=== PATIENT | female | born 1970 | race Caucasian/White ===

== ENCOUNTER 2017-10-26 21:12 | Emergency (ER) | payer BC, SELFPAY ==
--- NOTE | 2017-10-26 21:30 | CT_ITS ---
CT Abdomen And Pelvis W/O Contrast INDICATION: LT FLANK PAIN. Hx of KS with basket extraction on right. Prev GA/BSO and appendectomy COMPARISON: June 20, 2017 TECHNIQUE: Axial CT imaging of the abdomen and pelvis without contrast. Coronal and sagittal reformatted images. Radiation dose optimization technique applied. FINDINGS: The visualized lung bases are clear. The heart size is normal. The liver, gallbladder, spleen, adrenal glands, and pancreas are grossly unremarkable noncontrast CT appearance. The right kidney is without evidence of nephrolithiasis or hydronephrosis. The left kidney contains a 3.5 mm calculus in the midpole region, which appears nonobstructive. There is no evidence of hydronephrosis or hydroureter. The urinary bladder is decompressed. The bowel loops are nondistended. The appendix is not visualized. There is mild sigmoid diverticulosis without evidence of acute diverticulitis. The wall of the sigmoid colon and rectum appears mildly thickened, which could be due to underdistention or inflammation. CT/Abdomen/Pelvis without Cont IMPRESSION: 3.5 mm nonobstructing left renal calculus. No evidence of right renal calculus. No evidence of ureteral calculus. Questionable wall thickening of the sigmoid colon and rectum, cannot exclude mild colitis, please correlate with clinical findings. Underlying sigmoid diverticulosis. at [id number] Reported and signed by: Pamela Haile MD Electronically Signed: Pamela Haile MD at 22:34 EDT Tel , Service support ,
[2017-10-26 23:24] LABS: Bacteria 0 SEEN /hpf (None Seen); Mucous, Urine 0 SEEN /hpf (<or=2+); Red Blood Cells-Urine 0 SEEN /hpf (0-5); White Blood Cells 0 SEEN /hpf (0-5)
[2017-10-26 23:40] LABS: Color, Urine Yellow (Yellow); Glucose, Dipstick Normal (Normal); Urine Bilirubin Dipstick Negative (Negative); Urine Clarity Clear (Clear)
[2017-10-26 23:41] LABS: Ketone-Dipstick Negative (Negative); Leukocyte Esterase-Dipstick Negative /ul (Negative); Nitrite-Dipstick Negative (Negative); Occult Blood-Urine 10 /ul (Negative); Protein-Dipstick Negative (Negative); Specific Gravity, Urine 1.025 (1.002-1.030); Squamous Epithelial Cells - UA 0-5 SEEN /hpf (5-10); Urine Urobilinogen Normal (Normal)
--- NOTE | 2017-10-27 01:04 | ED.DCSUM_ITS ---
- ER Visit Summary Date of Service: 10/27/17 Chief Complaint: Flank pain History of Present Illness: The patient is a 47 F who states that she is believes that she is passing a kidney stone. Patient states that she developed a left lower quadrant and described as sharp and stabbing radiating to her flank. Around 1700 it began it has been continuous. She denies any urinary symptoms. She notes a little bit of diarrhea but states that that is not uncommon. He will bring the stool. No fevers. No pain with movement. She denies any history of diverticulosis or diverticulitis. No history of colitis. She reports a allergy to NSAIDs. Physical Examination: Afebrile vital signs are stable Gen: Well-nourished well-developed Head: Normocephalic atraumatic Eyes: Perrl EOMI ENT: TMs clear no rhinorrhea moist mucous membranes Neck: Supple no lymphadenopathy no JVD nontender CVS: Regular rate rhythm no murmurs normal S1-S2 Respiratory: No distress clear to auscultation bilaterally chest nontender Abdomen: Soft nontender nondistended normal bowel sounds no masses Back: Left CVA tenderness Extremity: Nontender no edema Skin: Normal color no rash Neuro: alert orientated ?3 CN II-XII intact normal strength sensation reflexes gait cerebellar Psych: Normal affect normal mood Test Results: CBC chemistries and urine were normal. CT the flank does not demonstrate any stone in the ureters. There is no hydronephroureter. The noncontrasted CT showed possible thickening of the rectosigmoid colon. However the patient is nontender in this area. She has had no blood in stool and she has no history of this. She does have a history of diverticulosis. Emergency Department Course and Treatment: Received morphine and fluids. Patient states the morphine did not help. She states that there is a medication that begins with the D that does help her. I do not see an obvious cause for her pain. She will be discharged home to follow-up with her doctors. Impression: 1. Left flank pain This note was generated with [employer] dictation software. It may contain incorrect words, spelling, and punctuation that were not noted in review of the chart prior to signing ED Disposition - Plan for ED Patient: Referrals: Rich Ravi MD [Primary Care Provider] -
[2017-10-27 01:22] LABS: Hematocrit 42.1 % (37-47); Hemoglobin 13.8 g/dl (12.0-15.0); Mean Corp Hgb Conc 32.8 g/gl (32-36); Mean Corpuscular Hgb 28.7 pg (27.0-32.0); Mean Corpuscular Volume 87.5 fL (81-99); RBC Distribution Width CV 13.9 % (11.6-14.6); RBC Distribution Width SD 44.5 fl (35.1-43.9); Red Blood Count 4.81 M/mm3 (4.2-5.4); White Blood Count 7.3 K/mm3 (4.4-11.0)
[2017-10-27 01:23] LABS: Absolute Lymphocyte Count 3.05 X10^3/ul (0.83-4.51); Absolute Neutrophil Count 3.5 X10^3/uL (2.0-7.7); Basophil# 0.05 X10^3/uL; Basophil% 0.7 % (0-1); Eosinophil# 0.28 X10^3/uL; Eosinophils% 3.9 % (0-5); Lymphocyte # 3.05 X10^3/ul (4.0); Lymphocyte % 42.1 % (19-41); Mean Platelet Vol. 9.4 fl (6.2-12.0); Monocyte% 5.5 % (0-10); Neutrophil # 3.45 X10^3/uL (2.7-7.7); Neutrophil % 47.5 % (47-70); POSITIVE COUNT NO; POSITIVE DIFFERENTIAL NO; POSITIVE MORPHOLOGY NO; Platelet Count 298 K/mm3 (150-450)
[2017-10-27 01:31] LABS: Anion Gap 8 (5-15); BUN 12 mg/dL (7-18); BUN/Creat Ratio 11.4 RATIO (10-20); Calcium,Total 8.5 mg/dL (8.5-10.1); Chloride 111 mmol/L (98-107); Creatinine, Serum 1.05 mg/dL (0.55-1.02); EST Glomerular Filtration Rate 59 mL/min (>60); Est Glom Filt Rate - Afr Amer 72 mL/min (>60); Glucose 92 mg/dL (74-106); Potassium 4.2 mmol/L (3.5-5.1); Sodium Level 143 mmol/L (136-145)
== END 2017-10-26 23:10 | disposition home or self-care (01) ==
PROVIDERS: Emergency Provider Emergency Medicine; Family Provider Internal Medicine; PCP Internal Medicine
DX: R10.9 Unspecified abdominal pain (principal); Z72.0 Tobacco use; R11.2 Nausea with vomiting, unspecified; R19.7 Diarrhea, unspecified
CPT/HCPCS: 36415; 74176; 80048; 81001; 85025; 96374; 96375; 99284; A4216; J2405

== ENCOUNTER 2017-10-27 14:55 | Emergency (ER) | payer MEDICAID, SELFPAY ==
[2017-10-27 14:55] VITALS: BP 145/92; PULSE 81; RESP 18; TEMP 36.2; O2SAT 100; BMI 33.6
--- NOTE | 2017-10-27 15:20 | ED.VISSUMM ---
- ER Visit Summary Date of Service: 10/27/17 Chief Complaint: Left flank and abdominal pain History of Present Illness: The patient is a 47 F who presents for 1 day of left sided flank and abdominal pain. Onset was yesterday evening. Patient was evaluated for this pain in the emergency department last night, and had a CT scan showing no urolithiasis, no hydronephrosis or hydroureter, and mild inflammatory changes in the sigmoid colon with diverticulosis, possibly indicating colitis. Patient was discharged home and returns today stating her pain worsened 1 hour prior to presentation. She has had one episode of vomiting since discharge yesterday. She also has had 2 episodes of loose stool. She has a history of one kidney stone, hypertension, hypercholesterolemia. She is status post hysterectomy and bilateral salpingo-oophorectomy. Patient denies fever, chest pain, shortness of breath. She states she has been having pressure with urination, urinary frequency and urgency since yesterday. Physical Examination: Vital signs: afebrile, hemodynamically stable, no hypoxia on room air General: well nourished, well developed, in no distress Skin: warm, dry, no rash, no pallor HEENT: normocephalic and atraumatic; PERRL, EOMI, moist mucous membranes Cardiovascular: regular rate and rhythm without murmurs, no peripheral edema, 2+ pulses all distal extremities Respiratory: No increased work of breathing, lungs are clear to auscultation bilaterally, no rales, rhonchi or wheezing Abdominal: Abdomen is soft, tender in the left lower quadrant, no CVA tenderness, with normoactive bowel sounds, no guarding or rebound, no masses, no suprapubic tenderness MSK: Moves all extremities, no deformities, normal strength Neuro: Awake and alert, oriented ?4. No facial droop, sensation and motor function intact and symmetric Test Results: [] Emergency Department Course and Treatment: Workup from yesterday was reviewed. Patient had no leukocytosis. Urine was negative for infection. CT scan showed no urolithiasis but did have mild inflammatory changes in the sigmoid colon, which may be responsible for patient's left lower quadrant tenderness today, although she is stating her pain is more left mid and left flank. Pt is s/p hysterectomy and BSO, taking ovarian torsion off the differential. urinalysis was ordered since patient is now complaining of more urinary symptoms. Patient was ordered Zofran and Tylenol for symptomatic relief since she is allergic to all NSAIDs and states morphine did not work for her yesterday. Patient may have early diverticulitis given that she has diverticulosis and inflammation in the sigmoid colon, so the plan was to start her on antibiotic treatment for early uncomplicated diverticulitis. However the patient stated she wanted to leave rather than have the urinalysis or any further treatment/workup/prescriptions. Patient signed AGAINST MEDICAL ADVICE form and was advised she could return at any time if she changed her mind. Treatment Plan: [] Disposition: [] Impression: Left-sided abdominal pain, possible early diverticulitis vs. colitis This note was generated with [employer] dictation software. It may contain incorrect words, spelling, and punctuation that were not noted in review of the chart prior to signing ED Disposition - Plan for ED Patient: Disposition: Home or Assisted Living Chief Complaint: Flank Pain Instructions: ED Abdominal Pain Unkn Cause, ED Refusal Of Further Treatment Referrals: Rich Ravi MD [Primary Care Provider] - As soon as possible Additional Instructions: Please see your family doctor as soon as possible for reevaluation. You have chosen to leave AGAINST MEDICAL ADVICE, without receiving workup or treatment for your abdominal pain. If you change your mind you may return at anytime for continuation of your workup and treatment.
--- NOTE | 2017-10-27 15:25 | ED.RN ---
pt refusing to stay for treatment and testing in er. signed ama paper. dr. grace discussed benefits and risks.
--- NOTE | 2017-10-27 15:26 | ED.DCSUM_ITS ---
- ER Visit Summary Date of Service: 10/27/17 Chief Complaint: Left flank and abdominal pain History of Present Illness: The patient is a 47 F who presents for 1 day of left sided flank and abdominal pain. Onset was yesterday evening. Patient was evaluated for this pain in the emergency department last night, and had a CT scan showing no urolithiasis, no hydronephrosis or hydroureter, and mild inflammatory changes in the sigmoid colon with diverticulosis, possibly indicating colitis. Patient was discharged home and returns today stating her pain worsened 1 hour prior to presentation. She has had one episode of vomiting since discharge yesterday. She also has had 2 episodes of loose stool. She has a history of one kidney stone, hypertension, hypercholesterolemia. She is status post hysterectomy and bilateral salpingo- oophorectomy. Patient denies fever, chest pain, shortness of breath. She states she has been having pressure with urination, urinary frequency and urgency since yesterday. Physical Examination: Vital signs: afebrile, hemodynamically stable, no hypoxia on room air General: well nourished, well developed, in no distress Skin: warm, dry, no rash, no pallor HEENT: normocephalic and atraumatic; PERRL, EOMI, moist mucous membranes Cardiovascular: regular rate and rhythm without murmurs, no peripheral edema, 2 + pulses all distal extremities Respiratory: No increased work of breathing, lungs are clear to auscultation bilaterally, no rales, rhonchi or wheezing Abdominal: Abdomen is soft, tender in the left lower quadrant, no CVA tenderness , with normoactive bowel sounds, no guarding or rebound, no masses, no suprapubic tenderness MSK: Moves all extremities, no deformities, normal strength Neuro: Awake and alert, oriented ?4. No facial droop, sensation and motor function intact and symmetric Test Results: [] Emergency Department Course and Treatment: Workup from yesterday was reviewed. Patient had no leukocytosis. Urine was negative for infection. CT scan showed no urolithiasis but did have mild inflammatory changes in the sigmoid colon, which may be responsible for patient's left lower quadrant tenderness today, although she is stating her pain is more left mid and left flank. Pt is s/p hysterectomy and BSO, taking ovarian torsion off the differential. urinalysis was ordered since patient is now complaining of more urinary symptoms. Patient was ordered Zofran and Tylenol for symptomatic relief since she is allergic to all NSAIDs and states morphine did not work for her yesterday. Patient may have early diverticulitis given that she has diverticulosis and inflammation in the sigmoid colon, so the plan was to start her on antibiotic treatment for early uncomplicated diverticulitis. However the patient stated she wanted to leave rather than have the urinalysis or any further treatment/workup/ prescriptions. Patient signed AGAINST MEDICAL ADVICE form and was advised she could return at any time if she changed her mind. Treatment Plan: [] Disposition: [] Impression: Left-sided abdominal pain, possible early diverticulitis vs. colitis This note was generated with [employer] dictation software. It may contain incorrect words, spelling, and punctuation that were not noted in review of the chart prior to signing ED Disposition - Plan for ED Patient: Disposition: Home or Assisted Living Chief Complaint: Flank Pain Instructions: ED Abdominal Pain Unkn Cause, ED Refusal Of Further Treatment Referrals: Rich Rvai MD [Primary Care Provider] - As soon as possible Additional Instructions: Please see your family doctor as soon as possible for reevaluation. You have chosen to leave AGAINST MEDICAL ADVICE, without receiving workup or treatment for your abdominal pain. If you change your mind you may return at anytime for continuation of your workup and treatment.
== END 2017-10-27 15:33 | disposition left against medical advice (07) ==
PROVIDERS: Emergency Provider Emergency Medicine; Family Provider Internal Medicine; PCP Internal Medicine
DX: R10.9 Unspecified abdominal pain (principal); R11.2 Nausea with vomiting, unspecified; R19.7 Diarrhea, unspecified; R35.0 Frequency of micturition; R39.15 Urgency of urination; E78.00 Pure hypercholesterolemia, unspecified; I10 Essential (primary) hypertension; Z72.0 Tobacco use; Z87.442 Personal history of urinary calculi; Z90.710 Acquired absence of both cervix and uterus; Z79.899 Other long term (current) drug therapy
CPT/HCPCS: 99282

== ENCOUNTER 2017-11-16 15:00 | Emergency (ER) | payer MEDICAID, SELFPAY ==
[2017-11-16 15:01] VITALS: BP 133/89; PULSE 94; RESP 16; TEMP 37.2; O2SAT 99; BMI 34.0
[2017-11-16 15:09] VITALS: BP 130/79; PULSE 90; RESP 14; O2SAT 98
--- NOTE | 2017-11-16 15:16 | US_ITS ---
STUDY: ABDOMINAL ULTRASOUND - RIGHT UPPER QUADRANT REASON FOR VISIT: Female, 47 years old. Right upper quadrant pain TECHNIQUE: Ultrasound evaluation of the right upper quadrant was performed with real-time and static quintero-scale imaging. TECHNICAL QUALITY: Adequate. COMPARISON: Abdomen and pelvic CT exam of October 26, 2017 FINDINGS: Liver: The liver measures 14 cm. There is normal echogenicity of the liver. The bile ducts are within normal limits. There is hepatic color flow. The direction of portal flow is hepatopetal. There is no demonstrated mass lesion. Gallbladder: Normal distended gallbladder. The gallbladder wall measures 3 mm. There is a negative sonographic Mathew's sign. There is no pericholecystic fluid. There are no gallstones. Common Bile Duct (C.B.D.): The common bile duct measures 4 mm. Pancreas: Normal size of the head, body and tail of the pancreas. Fatty parenchyma. There is no demonstrated pancreatic mass or cyst. Right Kidney: Normal size of the right kidney. The right kidney measures 11.4 x 4.3 x 4.4 cm. Normal renal cortex. The right cortex measures 1.2 cm. There is no demonstrated renal mass or cyst. There is no right hydronephrosis. US/Gallbladder IMPRESSION: Normal liver. Normal gallbladder and nondistended common bile duct. Fatty normal size pancreas. Normal right kidney. Electronically Signed: Tania Tian MD at 16:27 EDT , Service support ,
--- NOTE | 2017-11-16 15:19 | ED.DCSUM_ITS ---
- ER Visit Summary Date of Service: 11/16/17 Chief Complaint: [] Right upper quadrant abdominal pain History of Present Illness: The patient is a 47 F [] complaining of right upper quadrant abdominal pain beginning at 5:30 AM this morning. She reports she has been vomiting since then. Denies any previous history of gallbladder or liver issues. Denies fevers. Denies diarrhea/constipation. Denies hematemesis. She is concerned for the possibility of gallbladder disease. Physical Examination: [] Afebrile, vital signs stable. 47-year-old female in no acute distress. Cardiovascular exam is regular rate and rhythm. Lungs are clear to auscultation. Abdomen is soft with right upper quadrant tenderness. There is voluntary guarding. No lower extremity edema. Test Results: [] Right upper quadrant ultrasound: Negative for gallstones. CT abdomen/pelvis without contrast: Negative for stones or acute pathology. Labs: Negative. Emergency Department Course and Treatment: [] Patient given intravenous fluids, Zofran, Dilaudid for symptom relief. On serial exam patient reported continued pain and was given a second dose of Dilaudid. Labs and CT scan and ultrasound all returned negative. Patient requested additional pain medication and this request was denied. She had a very benign exam on serial evaluation. Treatment Plan: [] Follow-up with primary care physician. Disposition: [] Discharge, stable. Impression: [] Abdominal pain, unknown etiology This note was generated with [employer] dictation software. It may contain incorrect words, spelling, and punctuation that were not noted in review of the chart prior to signing ED Disposition - Plan for ED Patient: Chief Complaint: Abd Pain Referrals: Rich Ravi MD [Primary Care Provider] -
[2017-11-16] MEDS: HYDROmorphone 1 MG/ML Syringe IV ×2 (15:31→16:11)
[2017-11-16] MEDS: 0.9% Normal Saline 1,000 ML 1000 ML IV (15:31)
[2017-11-16] MEDS: Ondansetron 4 MG/2 ML Vial IV (15:39)
[2017-11-16 16:03] LABS: Absolute Lymphocyte Count 1.88 X10^3/ul (0.83-4.51); Absolute Neutrophil Count 1.7 X10^3/uL (2.0-7.7); Basophil# 0.05 X10^3/uL; Basophil% 1.2 % (0-1); Eosinophil# 0.12 X10^3/uL; Hematocrit 41.9 % (37-47); Hemoglobin 13.5 g/dl (12.0-15.0); International Normalized Ratio 0.9; Lymphocyte # 1.88 X10^3/ul (4.0); Lymphocyte % 46.5 % (19-41); Mean Corp Hgb Conc 32.2 g/gl (32-36); Mean Corpuscular Hgb 28.2 pg (27.0-32.0); Mean Corpuscular Volume 87.5 fL (81-99); Mean Platelet Vol. 9.7 fl (6.2-12.0); Monocyte# 0.31 X10^3/uL; Monocyte% 7.7 % (0-10); Neutrophil # 1.67 X10^3/uL (2.7-7.7); Neutrophil % 41.4 % (47-70); Platelet Count 254 K/mm3 (150-450); Prothrombin Time (Protime)PT. 12.6 SECONDS (11.7-14.9); RBC Distribution Width CV 14.2 % (11.6-14.6); RBC Distribution Width SD 45.1 fl (35.1-43.9); Red Blood Count 4.79 M/mm3 (4.2-5.4)
[2017-11-16 16:04] LABS: POSITIVE COUNT NO; POSITIVE DIFFERENTIAL NO; POSITIVE MORPHOLOGY NO
[2017-11-16 16:07] LABS: ALB/GLOB Ratio 0.9 RATIO (0.9-2.4); AST(SGOT) 17 U/L (15-37); Alanine Aminotransfer ALT/SGPT 23 U/L (13-56); Albumin, Serum 3.9 g/dL (3.2-5.0); Alkaline Phosphatase 102 U/L (45-117); Anion Gap 9 (5-15); BUN 12 mg/dL (7-18); BUN/Creat Ratio 11.9 RATIO (10-20); Calcium,Total 8.9 mg/dL (8.5-10.1); Chloride 109 mmol/L (98-107); Creatinine, Serum 1.01 mg/dL (0.55-1.02); EST Glomerular Filtration Rate 62 mL/min (>60); Est Glom Filt Rate - Afr Amer 75 mL/min (>60); Estimated Creatinine Clearance 56.35 ml/min; Globulin 4.3 g/dL (2.2-4.2); Glucose 98 mg/dL (74-106); Lipase 104 U/L (73-393); Potassium 3.6 mmol/L (3.5-5.1); Protein, Total 8.2 g/dL (6.4-8.2); Sodium Level 141 mmol/L (136-145)
--- NOTE | 2017-11-16 16:36 | CT_ITS ---
STUDY: CT ABDOMEN AND PELVIS WITHOUT CONTRAST REASON FOR EXAM: Female, 47 years old. Right flank pain with history of stones. Prior history of GA/BSO and appendectomy RADIATION DOSAGE (If Supplied By Facility): CTDIvol = ( 13.94 ) mGy, DLP = ( 672.26 ) mGycm TECHNIQUE: Transaxial images were obtained from the dome of the diaphragm to the symphysis pubis without oral contrast, and without intravenous contrast. Sagittal and coronal images were reconstructed. Individualized dose optimization techniques were used for this CT. COMPARISON: Prior abdomen and pelvic CT exam of October 26, 2017 FINDINGS: Increased bibasilar atelectatic changes. The visualized portions of the heart are within normal limits. Normal liver. Normal gallbladder and extrahepatic biliary system. Normal spleen. Normal pancreas. Normal bilateral adrenal glands. Normal right kidney. Nonobstructing 3.5 mm stone in the midpole of the left kidney unchanged from the prior exam. Negative for left hydronephrosis or ureteral stones. Normal visualized stomach. Normal small intestine. Normal colon. There are surgical clips in the region of the appendix consistent with a prior appendectomy. Minimal calcified plaque of the aorta. Normal inferior vena cava. Normal retroperitoneum. Normal urinary bladder. Status post hysterectomy with no pelvic mass or free fluid of the pelvis. Normal abdominal wall. Normal osseous structures. CT/Abdomen/Pelvis without Cont IMPRESSION: No acute abdominal or pelvic findings. Normal right kidney without hydronephrosis, renal or ureteral stones. 3.5 mm nonobstructing stone in the midpole of the left kidney without hydronephrosis or ureteral stones unchanged from the prior exam. Normal right kidney without hydronephrosis or stones. Unremarkable urinary bladder. No acute bowel related findings. Negative for evidence of obstruction, perforation or inflammatory bowel changes. The appendix has been removed. Status post hysterectomy with no pelvic mass or free fluid in the pelvis. Electronically Signed: Tania Tian MD at 17:34 EDT , Service support ,
[2017-11-16 17:24] LABS: Bacteria 0 SEEN /hpf (None Seen); Mucous, Urine 0 SEEN /hpf (<or=2+); Red Blood Cells-Urine 0 SEEN /hpf (0-5); White Blood Cells 0 SEEN /hpf (0-5)
[2017-11-16 17:32] LABS: Color, Urine Yellow (Yellow); Glucose, Dipstick Normal (Normal); Ketone-Dipstick Negative (Negative); Leukocyte Esterase-Dipstick Negative /ul (Negative); Nitrite-Dipstick Negative (Negative); Occult Blood-Urine Negative /ul (Negative); Protein-Dipstick Negative (Negative); Urine Bilirubin Dipstick Negative (Negative); Urine Clarity Clear (Clear); Urine Urobilinogen Normal (Normal)
[2017-11-16 17:36] VITALS: BP 115/70; PULSE 85; RESP 14; O2SAT 99
[2017-11-16 17:43] LABS: Squamous Epithelial Cells - UA 0-5 SEEN /hpf (5-10)
--- NOTE | 2017-11-16 18:29 | ED.DEP ---
ED Disposition - Plan for ED Patient: Disposition: Home or Assisted Living Chief Complaint: Abd Pain Instructions: ED Abdominal Pain Unkn Cause Referrals: Rich Ravi MD [Primary Care Provider] -
[2017-11-16 18:49] VITALS: BP 129/62; PULSE 76; RESP 22; O2SAT 97
--- NOTE | 2017-11-16 18:49 | ED.RN ---
THIS NURSE REVIEWED D/C INSTRUCTIONS WITH PT. PT VERBALIZED UNDERSTANDING OF INSTRUCTIONS. IV D/C. IV CATHETER INTACT. PT TOLERATED WELL. PT DENIES FURTHER NEEDS OR QUESTIONS AT THIS TIME. PT AMBULATES FROM ROOM ON OWN WITHOUT ASSISTANCE FROM STAFF
== END 2017-11-16 18:50 | disposition home or self-care (01) ==
PROVIDERS: Emergency Provider Emergency Medicine; Family Provider Internal Medicine; PCP Internal Medicine
DX: R10.11 Right upper quadrant pain (principal); K29.70 Gastritis, unspecified, without bleeding; I10 Essential (primary) hypertension; E66.9 Obesity, unspecified; Z72.0 Tobacco use; Z79.899 Other long term (current) drug therapy
CPT/HCPCS: 74176; 76705; 80053; 81001; 83690; 85025; 85610; 96361; 96374; 96375; 96376; 99283; J7030; A4216; J2405

== ENCOUNTER 2017-12-14 21:50 | Emergency (ER) | payer BC, SELFPAY ==
--- NOTE | 2017-12-14 21:50 | DT_ITS ---
This patient was seen during an EMR downtime December 10, 2017 - December 17, 2017. This patient may have a combination of paper and electronic documentation or all paper documentation. All documentation is viewable within the e-chart portion of [facility] for each patient visit.
--- NOTE | 2017-12-14 23:20 | CT_ITS ---
STUDY: CT ABDOMEN AND PELVIS WITHOUT CONTRAST REASON FOR EXAM: Female, 47 years old. Right side abdominal pain and flank pain for 6 hours RADIATION DOSAGE (If Supplied By Facility): CTDIvol = ( 15.53 ) mGy, DLP = ( 768.42 ) mGycm TECHNIQUE: Transaxial images were obtained from the dome of the diaphragm to the symphysis pubis without oral contrast, and without intravenous contrast. Sagittal and coronal images were reconstructed. Individualized dose optimization techniques were used for this CT. COMPARISON: None. FINDINGS: There is subtle groundglass opacity within the lung bases suggestive of air trapping. The visualized portions of the heart are within normal limits. Normal liver. The gallbladder is distended. Normal spleen. Normal pancreas. Normal bilateral adrenal glands. Normal right kidney. There is a stone in the upper pole of the left kidney measuring there is a 5.8 x 3.1 mm stone in the left kidney. There is no evidence of hydronephrosis. Normal visualized stomach. There are mildly distended loops of small bowel. There is a mildly tortuous appearance of the large bowel. There are a few diverticula present without diverticulitis. Particular there is a outpouching of the descending colon image #52 which may contain residual contrast from a prior procedure or potentially partial calcification. This measures 7.2 mm and does not appear to contain gas. There are surgical clips in the region of the appendix consistent with a prior appendectomy. The aorta is partially calcified. Normal inferior vena cava. Normal retroperitoneum. Normal urinary bladder. There is absence of the uterus consistent with a prior hysterectomy. Normal abdominal wall. There is an old Schmorl's node at the level T10. CT/Abdomen/Pelvis without Cont IMPRESSION: No evidence of renal ureteral bladder calculi on the right side. There is a left-sided stone without hydronephrosis. There is mild distention of the small bowel could consider mild ileus. There is a minimal hiatal hernia. There is a 7 mm rounded outpouching or mass adjacent to the descending colon. This may represent a diverticulum versus the possibility of a small partially fatty mass without evidence of inflammation. It may have peripheral calcification. A comparison to a prior study or follow-up study in 3-6 months is suggested. Status post appendectomy. Distended gallbladder could consider follow-up ultrasound. Status post hysterectomy. Subtle groundglass opacity in the lungs suspicious for probable air trapping. Electronically Signed: Tammy Stout MD at 23:53 EDT Tel , Service support ,
[2017-12-18 02:07] LABS: Anion Gap 7 (5-15); BUN 12 mg/dL (7-18); BUN/Creat Ratio 11.1 RATIO (10-20); Calcium,Total 8.6 mg/dL (8.5-10.1); Chloride 105 mmol/L (98-107); Creatinine, Serum 1.08 mg/dL (0.55-1.02); EST Glomerular Filtration Rate 58 mL/min (>60); Est Glom Filt Rate - Afr Amer 70 mL/min (>60); Glucose 101 mg/dL (74-106); Potassium 3.7 mmol/L (3.5-5.1); Sodium Level 136 mmol/L (136-145)
[2017-12-18 04:51] LABS: Hematocrit 40.3 % (37-47); Hemoglobin 13.4 g/dl (12.0-15.0); Mean Corp Hgb Conc 33.3 g/gl (32-36); Mean Corpuscular Hgb 28.6 pg (27.0-32.0); Mean Corpuscular Volume 86.1 fL (81-99); Mean Platelet Vol. 9.3 fl (6.2-12.0); POSITIVE COUNT NO; POSITIVE DIFFERENTIAL NO; POSITIVE MORPHOLOGY NO; Platelet Count 367 K/mm3 (150-450); RBC Distribution Width CV 14.3 % (11.6-14.6); RBC Distribution Width SD 44.4 fl (35.1-43.9); Red Blood Count 4.68 M/mm3 (4.2-5.4); White Blood Count 5.9 K/mm3 (4.4-11.0)
[2017-12-18 04:52] LABS: Absolute Lymphocyte Count 2.46 X10^3/ul (0.83-4.51); Absolute Neutrophil Count 2.7 X10^3/uL (2.0-7.7); Basophil% 1.7 % (0-1); Eosinophil# 0.19 X10^3/uL; Eosinophils% 3.2 % (0-5); Lymphocyte # 2.46 X10^3/ul (4.0); Lymphocyte % 41.7 % (19-41); Monocyte# 0.46 X10^3/uL; Monocyte% 7.8 % (0-10); Neutrophil # 2.66 X10^3/uL (2.7-7.7); Neutrophil % 45.1 % (47-70)
== END 2017-12-15 00:45 | disposition home or self-care (01) ==
LOC: ED 12-15 13:51
PROVIDERS: Emergency Provider Emergency Medicine; Family Provider Internal Medicine; PCP Internal Medicine
DX: R10.31 Right lower quadrant pain (principal); Z87.442 Personal history of urinary calculi; I10 Essential (primary) hypertension; E78.00 Pure hypercholesterolemia, unspecified; F32.9 Major depressive disorder, single episode, unspecified; Z79.899 Other long term (current) drug therapy; Z72.0 Tobacco use
CPT/HCPCS: 74176; 80048; 85025; 96361; 96374; 99284; J7030; A4216

== ENCOUNTER 2018-03-06 11:35 | Emergency (ER) | payer OTHER, BC, SELFPAY ==
[2018-03-06 11:36] VITALS: BP 156/89; PULSE 98; RESP 18; TEMP 36.4; O2SAT 98; BMI 31.8
--- NOTE | 2018-03-06 11:56 | ED.VISSUMM ---
- ER Visit Summary Date of Service: 03/06/18 Chief Complaint: [Back injury] History of Present Illness: The patient is a 47 F [presents the emergency department with complaint of a back injury that occurred while at work yesterday morning. 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 Patient had some pain radiating on the back of her left leg. Patient states the pain only radiates down the leg intermittently. Patient's had some pins and needles sensations at times in her left leg. Patient denies weakness in the leg. She denies change in bowel or bladder function.] Physical Examination: [HEENT-PERRLA, EOMI. Cranial nerves II through XII grossly intact. TMs clear. Mucous membranes moist. No adenopathy. Cardiovascular-regular rate and rhythm without murmur or ectopy Lungs-clear to auscultation, chest wall stable without crepitus or subcu emphysema Abdomen-normoactive bowel sounds, soft, nontender, no rebound or rigidity, no peritoneal signs. Back exam-patient has no tenderness over the thoracic or lumbar spine. Patient does have some tenderness over left lumbar paraspinal musculature. Patient does have a positive straight leg raise with pain at 45? on the left. Deep tendon reflexes are plus 2 out of 4 bilaterally at the patella and Achilles. Patient has normal L5 extension. Patient has normal sensation to light touch. Extremities-intact ?4, normal range of motion, normal pulses, atraumatic] Test Results: [None indicated]. Patient understands that if her symptoms do not improve she may need imaging such as possibly MRI to evaluate further. 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 Patient to follow-up with corporate care in 3-5 days. Patient given work restrictions.] Disposition: [Discharged home in stable condition]. Patient advised to return if worsening pain, weakness in extremities, change in bowel or bladder function, or condition should worsen anyway. Impression: [Lumbar strain Lumbar radiculopathy] This note was generated with [employer] dictation software. It may contain incorrect words, spelling, and punctuation that were not noted in review of the chart prior to signing ED Disposition - Plan for ED Patient: Chief Complaint: Back Referrals: Rich Ravi MD [Primary Care Provider] -
--- NOTE | 2018-03-06 11:58 | ED.DEP ---
ED Disposition - Plan for ED Patient: Chief Complaint: Back Instructions: ED Sprain Strain Lumbar, ED Sciatica Prescriptions: Hydrocodone/Acetaminophen [[place] 5-325 Tablet] 1 - 2 ea PO 4X/DAY PRN PRN 5 Days #20 tab PRN Reason: Pain Cyclobenzaprine [Flexeril] 10 mg PO TID PRN #20 tab PRN Reason: Muscle Spasm Referrals: Rich Ravi MD [Primary Care Provider[facility] - [facility] [GROUP OF PHYSICIANS] - 3-5 Days
[2018-03-06 12:33] VITALS: PULSE 98; RESP 16; O2SAT 100
== END 2018-03-06 12:34 | disposition home or self-care (01) ==
PROVIDERS: Emergency Provider Emergency Medicine; Family Provider Internal Medicine; PCP Internal Medicine
DX: S39.012A Strain of muscle, fascia and tendon of lower back, initial encounter (principal); M54.16 Radiculopathy, lumbar region; X50.9XXA Other and unspecified overexertion or strenuous movements or postures, initial encounter; Y93.9 Activity, unspecified; Y92.89 Other specified places as the place of occurrence of the external cause; Y99.0 Civilian activity done for income or pay; I10 Essential (primary) hypertension; Z72.0 Tobacco use; Z79.899 Other long term (current) drug therapy
CPT/HCPCS: 99282

== ENCOUNTER 2018-04-07 12:31 | Emergency (ER) | payer BC, SELFPAY ==
[2018-04-07 12:31] VITALS: BP 151/103; PULSE 100; RESP 18; TEMP 36.4; O2SAT 100; BMI 33.6
--- NOTE | 2018-04-07 12:49 | ED.VISSUMM ---
- ER Visit Summary Date of Service: 04/07/18 Chief Complaint: Left flank pain History of Present Illness: The patient is a 47 F history of prior kidney stones. Has had to have 2 previously removed. Typically passes them. States around 03 100 this morning he had on the left flank pain radiates down her groin. Recently no hematuria or dysuria. No fever. No abdominal pain. She has had associated nausea and vomiting since she developed the flank pain. Patient has had a prior appendectomy and complete hysterectomy. States this feels very similar to her prior kidney stones. Physical Examination: Middle-aged female complaining of left flank pain. Standing alongside the bed. H EENT exam unremarkable lungs clear to auscultation. Heart regular rhythm rate about 100 no murmur. Abdomen is soft and nontender. Normal bowel sounds no peritoneal signs. She is moving all 4 extremities. They are neurovascularly intact. No edema. Back she has left CVA tenderness. Right is unremarkable. Neurologically she is awake and alert with no focal deficits. Test Results: UA shows no signs of infection or red cells. Chemistry panel unremarkable with normal gap and creatinine. Emergency Department Course and Treatment: Patient has allergies to Toradol and NSAIDs. She was given IV Dilaudid and IV Zofran. I reviewed her old records she has had 7 CTs of the abdomen and pelvis in the last 5 years. At this time we will hold off on further imaging. Patient was treated with a second dose of IV Dilaudid. Currently is resting nocturnally. Treatment Plan: Patient is doing well at 1415. Is comfortable being discharged to home. And is fine not receiving a CAT scan. She will be discharged with a urine strainer. The Percocet prescription. Disposition: Discharge Impression: Acute left flank pain secondary to ureteral calculi History of kidney stones This note was generated with [employer] dictation software. It may contain incorrect words, spelling, and punctuation that were not noted in review of the chart prior to signing ED Disposition - Plan for ED Patient: Chief Complaint: Flank Pain Referrals: Rich Ravi MD [Primary Care Provider] -
[2018-04-07 12:52] LABS: Mucous, Urine 0 SEEN /hpf (<or=2+); White Blood Cells 0 SEEN /hpf (0-5)
--- NOTE | 2018-04-07 12:52 | ED.DCSUM_ITS ---
- ER Visit Summary Date of Service: 04/07/18 Chief Complaint: Left flank pain History of Present Illness: The patient is a 47 F history of prior kidney stones. Has had to have 2 previously removed. Typically passes them. States around 03 100 this morning he had on the left flank pain radiates down her gr oin. Recently no hematuria or dysuria. No fever. No abdominal pain. She has had associated nausea and vomiting since she developed the flank pain. Patient has had a prior appendectomy and complete hysterectomy. States this feels very similar to her prior kidney stones. Physical Examination: Middle-aged female complaining of left flank pain. Standing alongside the bed. H EENT exam unremarkable lungs clear to auscultation. Heart regular rhythm rate about 100 no murmur. Abdomen is soft and nontender. Normal bowel sounds no peritoneal signs. She is moving all 4 ex tremities. They are neurovascularly intact. No edema. Back she has left CVA tenderness. Right is unremarkable. Neurologically she is awake and alert with no focal deficits. Test Results: UA shows no signs of infection or red cells. Chemistry panel unremarkable with normal gap and creatinine. Emergency Department Course and Treatment: Patient has allergies to Toradol and NSAIDs. She was given IV Dilaudid and IV Zofran. I reviewed her old records she has had 7 CTs of the abdomen and pelvis in the last 5 years. At this time we will hold off on further imaging. Patient was treated with a second dose of IV Dilaudid. Currently is resting nocturnally. Treatment Plan: Patient is doing well at 1415. Is comfortable being discharged to home. And is fine not receiving a CAT scan. She will be discharged with a urine strainer. The Percocet prescription. Disposition: Discharge Impression: Acute left flank pain secondary to ureteral calculi History of kidney stones This note was generated with [employer] dictation software. It may contain incorrect words, spelling, and punctuation that were not noted in review of the chart prior to signing ED Disposition - Plan for ED Patient: Chief Complaint: Flank Pain Referrals: Rich Ravi MD [Primary Care Provider] -
[2018-04-07] MEDS: HYDROmorphone 1 MG/ML Syringe IV ×2 (12:54→13:49)
[2018-04-07] MEDS: Ondansetron 4 MG/2 ML Vial IV (12:55)
[2018-04-07 13:36] LABS: Color, Urine Yellow (Yellow); Glucose, Dipstick Normal (Normal); Ketone-Dipstick Negative (Negative); Leukocyte Esterase-Dipstick Negative /ul (Negative); Nitrite-Dipstick Negative (Negative); Occult Blood-Urine 25 /ul (Negative); Protein-Dipstick Negative (Negative); Specific Gravity, Urine 1.025 (1.002-1.030); Urine Bilirubin Dipstick Negative (Negative); Urine Clarity Sl. Cloudy (Clear); Urine Urobilinogen Normal (Normal)
[2018-04-07 13:37] LABS: Anion Gap 6 (5-15); BUN 12 mg/dL (7-18); BUN/Creat Ratio 11.3 RATIO (10-20); Calcium,Total 8.9 mg/dL (8.5-10.1); Chloride 106 mmol/L (98-107); Creatinine, Serum 1.06 mg/dL (0.55-1.02); EST Glomerular Filtration Rate 59 mL/min (>60); Est Glom Filt Rate - Afr Amer 71 mL/min (>60); Estimated Creatinine Clearance 53.69 ml/min; Glucose 91 mg/dL (74-106); Potassium 3.4 mmol/L (3.5-5.1); Sodium Level 140 mmol/L (136-145)
[2018-04-07 13:43] LABS: Bacteria 1+ /hpf (None Seen); Red Blood Cells-Urine 0-5 SEEN /hpf (0-5); Squamous Epithelial Cells - UA 0-5 SEEN /hpf (5-10)
--- NOTE | 2018-04-07 14:16 | ED.DEP ---
ED Disposition - Plan for ED Patient: Disposition: Home or Assisted Living Chief Complaint: Flank Pain Instructions: ED Stone Renal W Colic Prescriptions: Oxycodone HCl/Acetaminophen [Percocet 7.5-325 mg Tablet] 1 - 2 tab PO Q6H PRN PRN #14 tab PRN Reason: Pain Referrals: Rich Ravi MD [Primary Care Provider] - 1-2 Days if not improving Additional Instructions: Strain urine looking for passed kidney stone. Plenty of fluids and rest. Percocet as needed for pain. Do not drive while using the Percocet. Return or follow-up your doctor if not improving, increasing pain, fever or feeling worse.
[2018-04-07 14:30] VITALS: BP 150/100; PULSE 76; RESP 14; O2SAT 100
[2018-04-07 14:31] VITALS: BP 150/100; PULSE 76; RESP 14; O2SAT 100
== END 2018-04-07 14:32 | disposition home or self-care (01) ==
PROVIDERS: Emergency Provider Emergency Medicine; Family Provider Internal Medicine; PCP Internal Medicine
DX: N20.1 Calculus of ureter (principal); I10 Essential (primary) hypertension; Z72.0 Tobacco use; Z87.442 Personal history of urinary calculi; Z90.710 Acquired absence of both cervix and uterus
CPT/HCPCS: 80048; 81001; 96374; 96375; 96376; 99283; J7030; A4216; J2405

== ENCOUNTER 2018-05-01 13:40 | Emergency (ER) | payer OTHER, BC, SELFPAY ==
[2018-05-01 13:40] VITALS: BP 161/103; PULSE 100; RESP 18; TEMP 36.9; O2SAT 100; BMI 35.6
--- NOTE | 2018-05-01 14:10 | ED.DCSUM_ITS ---
- ER Visit Summary Date of Service: 05/01/18 Chief Complaint: Left wrist injury History of Present Illness: The patient is a 47 F who presents for injury to the left wrist. Patient was at work and tripped while carrying boxes out the back door. She landed on an outstretched left arm. She is complaining of pain to the wrist. She is right-handed. She also has abrasions to the knees but was able to ambulate once she was assisted up. Patient has history of hypertension and hypercholesterolemia. No history of bleeding disorders. Physical Examination: Patient is awake and alert, well-nourished well-developed sitting in bed in no distress. Vital signs reviewed. Left upper extremity shows no tenderness to the elbow, shoulder, humerus or proximal radius and ulna. Patient has mild swelling and tenderness to the distal radius and ulna, wrist. Pain with movement of the fingers. Sensation and motor function are intact. Radial pulse 2+. Brisk capillary refill distal in the fingers. Snuffbox tenderness. Knees show mild tenderness to palpation. Full active flexion and extension of the knees without any deformity. No difficulty weightbearing. Test Results: Clinical Impression(s) from Imaging Studies Forearm X-Ray 05/01/18 14:25 IMPRESSION: Nondisplaced transverse fracture of the distal radial metaphysis with overlying soft tissue swelling. Electronically Signed: Lloyd Narvaez MD at 15:08 EDT Tel [phone], Service support , Wrist X-Ray 05/01/18 14:25 IMPRESSION: Nondisplaced fracture of the distal radial metaphysis with extension of the articular surface. Soft tissue swelling. Electronically Signed: Lloyd Narvaez MD at 15:09 EDT Tel [phone], Service support , Medications Given Discontinued Medications Hydrocodone Bitart/Acetaminophen ([place] 5mg-325mg) 1 tablet PO X1 ONE Stop: 05/01/18 14:08 Last Admin: 05/01/18 14:58 Dose: 1 tablet Emergency Department Course and Treatment: X-ray performed of the left wrist and radius and ulna. Patient was given [place] and an ice pack for pain. X-ray showed a distal radial metaphyseal fracture with intra-articular involvement. Sugar tong splint was placed by Dr. Gus Apple, and post splint evaluation showed good motor motor, sensation and circulation in the hands. Patient had no mobility at the wrist joint, and no ability for supination or pronation post- splinting. Patient was given a prescription for [place] for severe or nighttime pain. Patient was discussed with Dr. Aranda, who will evaluate patient within the next 1-2 weeks, and patient was given Worker's Comp. restrictions with paperwork filled out. Discharged. Treatment Plan: [] Disposition: [] Impression: Left distal radius fracture with intra-articular involvement This note was generated with [employer] dictation software. It may contain incorrect words, spelling, and punctuation that were not noted in review of the chart prior to signing ED Disposition - Plan for ED Patient: Disposition: Home or Assisted Living Chief Complaint: Upper Extremity Injury Instructions: ED Fx Forearm Radius Ulna No Redu Requ Prescriptions: Hydrocodone/Acetaminophen [[place] 5-325 Tablet] 1 tab PO Q6H PRN PRN 5 Days #20 tab PRN Reason: Pain Referrals: Jacinto Aranda DO [STAFF PHYSICIAN] - 5-7 Days Rich Ravi MD [Primary Care Provider] - Additional Instructions: Call , the orthopedist doctor, tomorrow to make a follow-up appointment for within 1 week. Keep your splint clean and dry. Do not get it wet. The sling as needed for comfort. Use [id number] pain medication as needed for pain and the norco for severe pain or nighttime pain. If you have any worsening of your condition or any new concerning symptoms, please return immediately to the emergency department for another evaluation.
--- NOTE | 2018-05-01 14:25 | RAD_ITS ---
STUDY: X-RAY - LEFT RADIUS AND ULNA REASON FOR EXAM: Female, 47 years old. Distal forearm pain following a fall. TECHNIQUE: 2 view(s) of the forearm. COMPARISON: None. FINDINGS: Soft tissue swelling. Nondisplaced transverse fracture of the distal radial metaphysis. Normal visualized ulna. RAD/Forearm 2 Views IMPRESSION: Nondisplaced transverse fracture of the distal radial metaphysis with overlying soft tissue swelling. Electronically Signed: Lloyd Narvaez MD at 15:08 EDT Tel [phone], Service support ,
--- NOTE | 2018-05-01 14:25 | RAD_ITS ---
STUDY: X-RAY - LEFT WRIST REASON FOR EXAM: Female, 47 years old. Pain following a fall. TECHNIQUE: 3 view(s) of the wrist were obtained. COMPARISON: None. FINDINGS: Nondisplaced fracture of the distal radial metaphysis with extension to the articular surface. Normal radiocarpal articulation. Normal distal radioulnar articulation. Normal carpal bones. Normal carpal articulations. Normal carpometacarpal articulation of the thumb. Normal second through fifth carpometacarpal articulations. Normal visualized metacarpal bones. Soft tissue swelling. RAD/Wrist min 3 Views IMPRESSION: Nondisplaced fracture of the distal radial metaphysis with extension of the articular surface. Soft tissue swelling. Electronically Signed: Lloyd Narvaez MD at 15:09 EDT Tel [phone], Service support ,
[2018-05-01] MEDS: HYDROcodone Bitartrate/Apap 5/325 Tablet PO (14:58)
--- NOTE | 2018-05-01 17:19 | ED.DEP ---
ED Disposition - Plan for ED Patient: Disposition: Home or Assisted Living Chief Complaint: Upper Extremity Injury Instructions: ED Fx Forearm Radius Ulna No Redu Requ Prescriptions: Hydrocodone/Acetaminophen [[place] 5-325 Tablet] 1 tab PO Q6H PRN PRN 5 Days #20 tab PRN Reason: Pain Referrals: Rich Ravi MD [Primary Care Provider] - Jacinto Aranda DO [STAFF PHYSICIAN] - 5-7 Days Additional Instructions: Call , the orthopedist doctor, tomorrow to make a follow-up appointment for within 1 week. Keep your splint clean and dry. Do not get it wet. The sling as needed for comfort. Use [id number] pain medication as needed for pain and the norco for severe pain or nighttime pain. If you have any worsening of your condition or any new concerning symptoms, please return immediately to the emergency department for another evaluation.
--- NOTE | 2018-05-01 17:22 | DCINST.ED_ITS ---
ED Disposition - Plan for ED Patient: Disposition: Home or Assisted Living Chief Complaint: Upper Extremity Injury Instructions: ED Fx Forearm Radius Ulna No Redu Requ Prescriptions: Hydrocodone/Acetaminophen [[place] 5-325 Tablet] 1 tab PO Q6H PRN PRN 5 Days #20 tab PRN Reason: Pain Referrals: Rich Ravi MD [Primary Care Provider] - Jacinto Aranda DO [STAFF PHYSICIAN] - 5-7 Days Additional Instructions: Call , the orthopedist doctor, tomorrow to make a follow-up appointment for within 1 week. Keep your splint clean and dry. Do not get it wet. The sling as needed for comfort. Use [id number] pain medication as needed for pain and the norco for severe pain or nighttime pain. If you have any worsening of your condition or any new concerning symptoms, please return immediately to the emergency department for another evaluation.
[2018-05-01 17:31] VITALS: BP 152/90; PULSE 94; RESP 16
== END 2018-05-01 17:31 | disposition home or self-care (01) ==
PROVIDERS: Emergency Provider Emergency Medicine; Family Provider Internal Medicine; PCP Internal Medicine
DX: S52.572A Other intraarticular fracture of lower end of left radius, initial encounter for closed fracture (principal); S80.212A Abrasion, left knee, initial encounter; S80.211A Abrasion, right knee, initial encounter; W01.10XA Fall on same level from slipping, tripping and stumbling with subsequent striking against unspecified object, initial encounter; Y93.89 Activity, other specified; Y92.89 Other specified places as the place of occurrence of the external cause; Y99.0 Civilian activity done for income or pay; I10 Essential (primary) hypertension; E78.00 Pure hypercholesterolemia, unspecified; Z79.899 Other long term (current) drug therapy
CPT/HCPCS: 29125; 73090; 73110; 99283

== ENCOUNTER → 2018-05-03 10:32 | Outpatient (CLI) | payer OTHER, BC, SELFPAY ==
--- NOTE | 2018-05-03 10:35 | CT_ITS ---
CT scan of the wrist. CLINICAL HISTORY: Fracture PROCEDURE: The study was done without contrast and presented in 3 planes. FINDINGS: There is an intra-articular comminuted minimally displaced fracture involving the distal radius. There is a step of 2.5 mm at the articular margin of the radius. The ulna is not fractured. The carpal bones are normally arranged. A splint is in place. IMPRESSION: A minimally displaced intra-articular comminuted fracture of the distal radius with step-off 2.5 mm at the articular margin of the radius Electronically Signed: Azeem Graves MD at 7:27 EDT Tel , Service support , CT/Extremity Upper without Contra
== END ==
PROVIDERS: Family Provider Internal Medicine; PCP Internal Medicine; Referring Provider Orthopaedic Surgery; Visit Provider Orthopaedic Surgery
DX: S52.515A Nondisplaced fracture of left radial styloid process, initial encounter for closed fracture (principal); X58.XXXA Exposure to other specified factors, initial encounter; Y93.9 Activity, unspecified; Y92.9 Unspecified place or not applicable; Y99.9 Unspecified external cause status
CPT/HCPCS: 73200

== ENCOUNTER 2018-06-07 19:54 | Emergency (ER) | payer OTHER, BC, SELFPAY ==
[2018-06-07 19:54] VITALS: BP 158/109; PULSE 97; RESP 16; TEMP 36.4; O2SAT 98; BMI 34.3
--- NOTE | 2018-06-07 20:14 | ED.VISSUMM ---
- ER Visit Summary Date of Service: 06/07/18 Chief Complaint: [Pain to left wrist] History of Present Illness: The patient is a 47 F [presents the emergency department complaint of pain to her left wrist since this morning when she tried to put her coat on over her cast. Patient states that she fractured her wrist 1 month ago and is in a long-arm cast. Patient states that she was trying to put her coat on the cast kind of rolled and twisted causing the cast to shift a little bit and causing increased discomfort to her wrist. Patient tried Tylenol at home for discomfort without much resolution of her pain. Patient had been on Ultram. Patient states the Ultram only gave her small amount of relief and after the initial fracture she had been on Tylenol 3.] Physical Examination: [HEENT-PERRLA, EOMI. Cranial nerves II through XII grossly intact. TMs clear. Mucous membranes moist. No adenopathy. Cardiovascular-regular rate and rhythm without murmur or ectopy Lungs-clear to auscultation, chest wall stable without crepitus or subcu emphysema Abdomen-normoactive bowel sounds, soft, nontender, no rebound or rigidity, no peritoneal signs. Extremities-intact ?4, normal range of motion, normal pulses. Left arm-patient has a long-arm cast on. Patient has normal range of motion of all digits and no significant edema to the hand noted. The cast appears to be in good position. Test Results: [None indicated] Emergency Department Course and Treatment: [I had a long discussion with the patient regarding possibilities for managing her pain. I explained to her that if she felt the cast was too uncomfortable we could split it and wrap it with Richard wraps or we could remove it and I could apply an AP splint until she can follow-up with her orthopedic surgeon. The other option would be to give her pain medicine for several days and have her follow-up with her surgeon in 4 days when she has a scheduled appointment. At this point patient does not want me to remove the cast and would prefer to follow-up with her orthopedic surgeon.] Treatment Plan: [Patient will be given a prescription for Tylenol with codeine] Disposition: [Discharged home in stable condition] Impression: [Left wrist pain status post fracture] This note was generated with [employer] software. It may contain incorrect words, spelling, and punctuation that were not noted in review of the chart prior to signing ED Disposition - Plan for ED Patient: Chief Complaint: Upper Extremity Injury Referrals: Rich Ravi MD [Primary Care Provider] -
--- NOTE | 2018-06-07 20:17 | ED.DCSUM_ITS ---
- ER Visit Summary Date of Service: 06/07/18 Chief Complaint: [Pain to left wrist] History of Present Illness: The patient is a 47 F [presents the emergency department complaint of pain to her left wrist since this morning when she tried to put her coat on over her cast. Patient states that she fractured her wrist 1 month ago and is in a long-arm cast. Patient states that she was trying to put her coat on the cast kind of rolled and twisted causing the cast to shift a little bit and causing increased discomfort to her wrist. Patient tried Tylenol at home for discomfort without much resolution of her pain. Patient had been on Ultram. Patient states the Ultram only gave her small amount of relief and after the initial fracture she had been on Tylenol 3.] Physical Examination: [HEENT-PERRLA, EOMI. Cranial nerves II through XII grossly intact. TMs clear. Mucous membranes moist. No adenopathy. Cardiovascular-regular rate and rhythm without murmur or ectopy Lungs-clear to auscultation, chest wall stable without crepitus or subcu emphysema Abdomen-normoactive bowel sounds, soft, nontender, no rebound or rigidity, no peritoneal signs. Extremities-intact ?4, normal range of motion, normal pulses. Left arm-patient has a long-arm cast on. Patient has normal range of motion of all digits and no significant edema to the hand noted. The cast appears to be in good position. Test Results: [None indicated] Emergency Department Course and Treatment: [I had a long discussion with the patient regarding possibilities for managing her pain. I explained to her that if she felt the cast was too uncomfortable we could split it and wrap it with Richard wraps or we could remove it and I could apply an AP splint until she can follow-up with her orthopedic surgeon. The other option would be to give her pa in medicine for several days and have her follow-up with her surgeon in 4 days when she has a scheduled appointment. At this point patient does not want me to remove the cast and would prefer to follow-up with her orthopedic surgeon.] Treatment Plan: [Patient will be given a prescription for Tylenol with codeine] Disposition: [Discharged home in stable condition] Impression: [Left wrist pain status post fracture] This note was generated with [employer] software. It may contain incorrect words, spelling, and punctuation that were not noted in review of the chart prior to signing ED Disposition - Plan for ED Patient: Chief Complaint: Upper Extremity Injury Referrals: Rich Ravi MD [Primary Care Provider] -
--- NOTE | 2018-06-07 20:18 | ED.DEP ---
ED Disposition - Plan for ED Patient: Chief Complaint: Upper Extremity Injury Instructions: ED Fx Wrist General Prescriptions: Acetaminophen/Codeine #3 [Tylenol#3] 1 tab PO Q4H PRN PRN #12 tab PRN Reason: Pain Referrals: Rich Ravi MD [Primary Care Provider] - Jacinto Aranda DO [STAFF PHYSICIAN] - 3-5 Days
[2018-06-07 20:27] VITALS: RESP 16
--- OUTSIDE RECORDS SUMMARY | 2018-08-02 17:07 | XMS RPT_ITS ---
:1970 Author Organization OHIP Support Name Relationship Address Phone ROHIT JOSEPH Unavailable Unavailable + [facility] Unavailable [address] + [place] [address] [place] Unavailable [address] + [place] [address] JOSEPH, ROHIT Unavailable Unavailable + [facility] Unavailable [address] + [place] [address] [place] Unavailable [address] + [place] [address] JOSEPH, ROHIT Unavailable Unavailable + [facility] Unavailable [address] + [place] [address] [place] Unavailable [address] + [place] [address] JOSEPH, ROHIT Unavailable Unavailable + [facility] Unavailable [address] + [place] [address] [place] Unavailable [address] + [place] [address] JOSEPH, ROHIT Unavailable Unavailable + [facility] Unavailable [address] + [place] [address] [place] Unavailable [address] + [place] [address] JOSEPH, ROHIT Unavailable Unavailable + [facility] Unavailable [address] + [place] [address] [place] Unavailable [address] + [place] [address] JOSEPH, ROHIT Unavailable Unavailable + [facility] Unavailable [address] + [place] [address] [place] Unavailable [address] + [place] [address] JOSEPH, ROHIT Unavailable Unavailable + [facility] Unavailable [address] + [place] [address] [place] Unavailable [address] + [place] [address] JOSEPH, ROHIT Unavailable Unavailable + [place] Unavailable [address] + [place] [address] Care Team Providers Name Role Phone ALEJANDRA APPLE) Attending Unavailable RICH WILSON Attending Unavailable RICH WILSON Referring Unavailable RICH WILSON Attending Unavailable RICH WILSON Referring Unavailable REINIER JUSTICE (ENTERPRISE APPLICATION ANALYST) Attending Unavailable RICH WILSON Attending Unavailable RICH WILSON Referring Unavailable ROSALINA OVALLE Attending Unavailable RICH WILSON Referring Unavailable LOREN BAÑUELOS (ENTERPRISE APPLICATION ANALYST) Attending Unavailable TIFFANY GAN Referring Unavailable Trav, Rich Primary Care Unavailable Isaiah Bowie Attending Unavailable Trav, Rich Primary Care Unavailable Inge Lowe Attending Unavailable Trav, Rich Primary Care Unavailable Beto Arrington Attending Unavailable Juwan Lewis Attending Unavailable Wilson, Rich Primary Care Unavailable Wilson, Rich Primary Care Unavailable Dimitry Ritchie Attending Unavailable Wilson, Rich Primary Care Unavailable Leo Walters Attending Unavailable Trav, Rich Primary Care Unavailable Inge Lowe Attending Unavailable Tiffany Gan Attending Unavailable Tiffany Gan Referring Unavailable Wilson, Rich Primary Care Unavailable Rich Wilson Primary Care Unavailable Dimitry Ritchie Attending Unavailable PROBLEMS PROBLEMS DATE TYPE CONDITION / CODE ATTENDING STATUS SOURCE 06/12/2018 Unknown M25.539 - Pain in Dimitry Ritchie Active [place] unspecified wrist / Community M25.539(ICD-10) Hospital Repository 05/01/2018 Unknown S52.502A - Inge Lwoe Active [place] Unspecified fracture Community of the lower end of Hospital left radius, initial Repository encounter for closed fracture / S52.502A(ICD-10) 04/07/2018 Unknown N20.0 - Calculus of Leo Walters Active [place] kidney / Community N20.0(ICD-10) Hospital Repository 03/06/2018 Unknown S39.012A - Strain of Dimitry Ritchie Active [place] muscle, fascia and Community tendon of lower Hospital back, initial Repository encounter / S39.012A(ICD-10) 01/04/2018 Unknown R10.9 - Unspecified DebbieJuwan yoo Active [place] abdominal pain / Community R10.9(ICD-10) Hospital Repository 12/20/2017 Unknown R10.11 - Right upper Ahmed, Rami Active [place] quadrant pain / Community R10.11(ICD-10) Hospital Repository 09/28/2017 Active Mixed hyperlipidemia NA Active [place] / E78.2(ICD-10) Clinic Main [place] Repository 09/28/2017 Active Essential (primary) NA Active [place] hypertension / [facility] Main I10(ICD-10) [place] Repository 09/28/2017 Active Major depressive NA Active [place] disorder, single Clinic Main episode, unspecified [place] / F32.9(ICD-10) Repository PROCEDURES PROCEDURES No Procedure Records FoundRESULTS RESULTS PROGRESS Observed: 06/12/2018 Status: COMPLETED Source: [place] 10:50 AM [facility] REPOSITORY [facility] ID: [id number] Author: Loren (Wash Oil Pump Operator) Older Service: (none) Author Type: Nurse Practitioner Type: Progress Notes Filed: 06/12/2018 11:27 AM Note Text: CC: Patient presents with: ongoing left wrist pain from a fracture HPI Parminder Joseph is a 47 year old female who presents today for left wrist pain. Patient fell at work on 05/01 resulting in intraarticular comminuted minimally displaced fracture of the distal radius. Managed by orthopedist Dr. Gan. No surgery, just a cast. Follow-up appointment yesterday, X-ray done and was told it was about 80% healed. Cast was then removed, placed in a wrist brace. At that time she only had mild pain and no swelling. Developed severe pain and swelling last night. She had been wearing brace, keeping elevated, ice, and taking Tylenol without any relief. States it hurts just as bad as when she first broke it. Denies numbness, tingling, redness, fever, chills. Prescribed Tramadol for pain control. Last dose was one week ago. Couldn't tolerate hydrocodone or codeine, caused vomiting. Unable to take NSAID's due to swelling. Requesting refill on Tramadol. REVIEW OF SYSTEMS See HPI PAST MEDICAL HISTORY Diagnosis Date - Analgesic overuse headache 11/30/2017 - Anxiety - Calculus of kidney 07/15/2008 - Chronic narcotic use 01/15/2013 OARRS website checked and validated - 01/15/2013 by Beronica Chauhan, ENTERPRISE APPLICATION ANALYST Multiple providers, multiple pharmacies, noted. - Endometriosis 2009 - Essential hypertension 09/17/2009 - Fracture of humerus, proximal, left, closed 09/04/2011 - Gestational diabetes mellitus - Hyperlipidemia LDL goal < 100 08/23/2010 - Mixed hyperlipidemia 08/23/2010 - Prediabetes 11/23/2009 - Seasonal allergies - Tension headache PAST SURGICAL HISTORY Procedure Laterality Date - APPENDECTOMY 2000 - CARPAL TUNNEL Bilateral 2011 - TOTAL ABDOM HYSTERECTOMY 04/2010 GA AND BSO - [facility] - URETERAL STENT 2008 ALLERGIES Buspar [Buspirone Hcl]; Ciprofloxacin; Compazine [Prochlorperazine Edisylate]; Darvocet A500 [Propoxyphene N-Acetaminophen]; Fluoxetine; Imitrex [Sumatriptan]; Methocarbamol; Nsaids (Non-Steroidal Anti-Inflammatory Drug); Zoloft [Sertraline Hcl] MEDICATIONS mirtazapine (REMERON) 30 mg tablet take 1 tablet by mouth at bedtime acetaminophen 325 mg-caffeine 40 mg-butalbital 50 mg (FIORICET) per tablet Take 1 tablet by mouth every 8 hours as needed for Headache. Limit to not more than 2 days per week. 20 tablets per month. amLODIPine (NORVASC) 10 mg tablet Take 1 tablet by mouth once daily. lisinopril (ZESTRIL, PRINIVIL) 20 mg tablet Take 1 tablet by mouth once daily. atorvastatin (LIPITOR) 20 mg tablet Take 1 tablet by mouth once daily. QUEtiapine (SEROQUEL) 25 mg tablet Take 1 tablet at bedtime for 2 weeks. Then 1 tablet every other night for 2 weeks. Then stop medication citalopram (CELEXA) 20 mg tablet Take 1 tablet by mouth once daily. FAMILY HISTORY Problem Relation Age of Onset - Ischemic Heart Disease Mother Heart attack - Ischemic Heart Disease Maternal Grandmother - COPD Maternal Grandmother - COPD Maternal Grandfather - Breast Cancer Maternal Grandmother Mastectomy - Coronary Artery Disease Father fatal [place] age 61 Social History Substance Use Topics - Smoking status: Current Every Day Smoker Packs/day: 1.00 Years: 29.00 Types: Cigarettes - Smokeless tobacco: Never Used Comment: Started smoking at age 18. - Alcohol use No PHYSICAL EXAM BP 130/87 Pulse 68 Temp 37.1 ?C (98.7 ?F) (Temporal Artery) Resp 14 Wt 93.9 kg (207 lb) LMP 04/18/2010 BMI 36.09 kg/m? General Appearance: well appearing, in no acute distress, alert Left upper extremity: Moderate swelling left hand and wrist. No erythema. Diffuse tenderness with palpation of entire wrist and lower arm. Very limited ROM of wrist secondary to pain. Good capillary refill. Pulses: 2+. Fingers/hand warm and pink, fingers mobile ASSESSMENT/PLAN: 1. Pain and swelling of left upper extremity - ICD9: 729.5, 729.81, ICD10: M79.602, M79.89 (primary diagnosis) Neurovascularly intact. No alarm symptoms or exam findings. - Called Dr. Gan's office to discuss current symptoms. Patient had called in yesterday afternoon and was advised Dr. Gan would be notified of symptoms. He is currently in surgery but there is an urgent note for him regarding this and he will review RYAN. Patient will be contacted by his office once he has reviewed. - Given TRAMADOL 50 MG TABLET x 3 days, advised there will be no further refills. PDMP website checked and validated. All prescriptions have been APPROPRIATELY filled. No suspicious activity was identified. 06/12/2018 by Loren Bañuelos APRN.CNP 2. Closed fracture of left wrist with routine healing, subsequent encounter - ICD9: V54.19, ICD10: S62.102D As above - TRAMADOL 50 MG TABLET Prescription instructions reviewed with patient as applicable. Potential red flag symptoms discussed with the patient. Reviewed appropriate action plan to take if red flag symptoms occur. Patient agreeable to treatment plan. Loren Bañuelos APRN.CNP CNOV Observed: 06/12/2018 Status: COMPLETED Source: [place] 10:40 AM [facility] REPOSITORY Office Visit (INTMWS) PARMINDER JOSEPH ([id number]) 1970 F Date Time Provider Department 06/12/18 10:40 AM LOREN BAÑUELOS (RMAONA) INTMWS During your visit today, we recorded the following information about you: Temperature Pulse Respiration Blood pressure 98.7 degrees 68/minute 14/minute 130/87 Weight 93.9 kg Loren Bañuelos APRN.CNP 06/12/2018 11:27 AM Signed CC: Patient presents with: ongoing left wrist pain from a fracture HPI Parminder Joseph is a 47 year old female who presents today for left wrist pain. Patient fell at work on 05/01 resulting in intraarticular comminuted minimally displaced fracture of the distal radius. Managed by orthopedist Dr. Gan. No surgery, just a cast. Follow-up appointment yesterday, X-ray done and was told it was about 80% healed. Cast was then removed, placed in a wrist brace. At that time she only had mild pain and no swelling. Developed severe pain and swelling last night. She had been wearing brace, keeping elevated, ice, and taking Tylenol without any relief. States it hurts just as bad as when she first broke it. Denies numbness, tingling, redness, fever, chills. Prescribed Tramadol for pain control. Last dose was one week ago. Couldn't tolerate hydrocodone or codeine, caused vomiting. Unable to take NSAID's due to swelling. Requesting refill on Tramadol. REVIEW OF SYSTEMS See HPI PAST MEDICAL HISTORY Diagnosis Date - Analgesic overuse headache 11/30/2017 - Anxiety - Calculus of kidney 07/15/2008 - Chronic narcotic use 01/15/2013 OARRS website checked and validated - 01/15/2013 by Beronica Chauhan, ENTERPRISE APPLICATION ANALYST Multiple providers, multiple pharmacies, noted. - Endometriosis 2009 - Essential hypertension 09/17/2009 - Fracture of humerus, proximal, left, closed 09/04/2011 - Gestational diabetes mellitus - Hyperlipidemia LDL goal < 100 08/23/2010 - Mixed hyperlipidemia 08/23/2010 - Prediabetes 11/23/2009 - Seasonal allergies - Tension headache PAST SURGICAL HISTORY Procedure Laterality Date - APPENDECTOMY 2000 - CARPAL TUNNEL Bilateral 2011 - TOTAL ABDOM HYSTERECTOMY 04/2010 [facility] AND BSO - [facility] - URETERAL STENT 2008 ALLERGIES Buspar [Buspirone Hcl]; Ciprofloxacin; Compazine [Prochlorperazine Edisylate]; Darvocet A500 [Propoxyphene N-Acetaminophen]; Fluoxetine; Imitrex [Sumatriptan]; Methocarbamol; Nsaids (Non-Steroidal Anti-Inflammatory Drug); Zoloft [Sertraline Hcl] MEDICATIONS mirtazapine (REMERON) 30 mg tablet take 1 tablet by mouth at bedtime acetaminophen 325 mg-caffeine 40 mg-butalbital 50 mg (FIORICET) per tablet Take 1 tablet by mouth every 8 hours as needed for Headache. Limit to not more than 2 days per week. 20 tablets per month. amLODIPine (NORVASC) 10 mg tablet Take 1 tablet by mouth once daily. lisinopril (ZESTRIL, PRINIVIL) 20 mg tablet Take 1 tablet by mouth once daily. atorvastatin (LIPITOR) 20 mg tablet Take 1 tablet by mouth once daily. QUEtiapine (SEROQUEL) 25 mg tablet Take 1 tablet at bedtime for 2 weeks. Then 1 tablet every other night for 2 weeks. Then stop medication citalopram (CELEXA) 20 mg tablet Take 1 tablet by mouth once daily. FAMILY HISTORY Problem Relation Age of Onset - Ischemic Heart Disease Mother Heart attack - Ischemic Heart Disease Maternal Grandmother - COPD Maternal Grandmother - COPD Maternal Grandfather - Breast Cancer Maternal Grandmother Mastectomy - Coronary Artery Disease Father fatal [place] age 61 Social History Substance Use Topics - Smoking status: Current Every Day Smoker Packs/day: 1.00 Years: 29.00 Types: Cigarettes - Smokeless tobacco: Never Used Comment: Started smoking at age 18. - Alcohol use No PHYSICAL EXAM BP 130/87 Pulse 68 Temp 37.1 ?C (98.7 ?F) (Temporal Artery) Resp 14 Wt 93.9 kg (207 lb) LMP 04/18/2010 BMI 36.09 kg/m? General Appearance: well appearing, in no acute distress, alert Left upper extremity: Moderate swelling left hand and wrist. No erythema. Diffuse tenderness with palpation of entire wrist and lower arm. Very limited ROM of wrist secondary to pain. Good capillary refill. Pulses: 2+. Fingers/hand warm and pink, fingers mobile ASSESSMENT/PLAN: 1. Pain and swelling of left upper extremity - ICD9: 729.5, 729.81, ICD10: M79.602, M79.89 (primary diagnosis) Neurovascularly intact. No alarm symptoms or exam findings. - Called Dr. Gan's office to discuss current symptoms. Patient had called in yesterday afternoon and was advised Dr. Gan would be notified of symptoms. He is currently in surgery but there is an urgent note for him regarding this and he will review RYAN. Patient will be contacted by his office once he has reviewed. - Given TRAMADOL 50 MG TABLET x 3 days, advised there will be no further refills. PDMP website checked and validated. All prescriptions have been APPROPRIATELY filled. No suspicious activity was identified. 06/12/2018 by Loren Bañuelos APRN.ENTERPRISE APPLICATION ANALYST 2. Closed fracture of left wrist with routine healing, subsequent encounter - ICD9: V54.19, ICD10: S62.102D As above - TRAMADOL 50 MG TABLET Prescription instructions reviewed with patient as applicable. Potential red flag symptoms discussed with the patient. Reviewed appropriate action plan to take if red flag symptoms occur. Patient agreeable to treatment plan. Loren Bañuelos APRN.CNP Referring Provider: TIFFANY GAN [[id number]] Allergies As of Date: 06/12/2018 Noted Allergy Reaction BUSPAR (BUSPIRONE HCL) 11/15/2012 14 - Other: See Comments Comments: palpitations CIPROFLOXACIN 02/14/2012 2 - Rash COMPAZINE (PROCHLORPERAZINE EDISY*06/23/2008 1 - Mental Status Change DARVOCET A500 (PROPOXYPHENE N-TRENT*12/10/2008 9 - Itching FLUOXETINE 06/10/2008 16 - Unknown IMITREX (SUMATRIPTAN) 06/09/2008 10 - Anaphylaxis Comments: Heart racing METHOCARBAMOL 04/15/2013 8 - GI Upset NSAIDS (NON-STEROIDAL ANTI-INFLAM*06/09/2008 7 - Swelling ZOLOFT (SERTRALINE HCL) 02/22/2011 1 - Mental Status Change Comments: Suicidal thoughts Date Reviewed: 06/12/2018 Reviewed by: Mireille Nicole Stock Preparer - Fully Assessed Reason for Visit: ongoing left wrist pain from a fracture [Other] Primary Visit Diagnosis:Pain and swelling of left upper extremity [M79.602, M79.89] Other Visit Diagnosis:Closed fracture of left wrist with routine healing, subsequent encounter [O14.013D] Order(s):traMADol (ULTRAM) 50 mg tabletTake 1 tablet by mouth every 8 hours as needed for Pain for up to 3 days.Disp: 6 tabletRfl: 0 Prescriptions as of 06/12/2018 Sig: MIRTAZAPINE 30 MG TABLET take 1 tablet by mouth at bed* [id number]-[id number]* Take 1 tablet by mouth every * AMLODIPINE 10 MG TABLET Take 1 tablet by mouth once d* LISINOPRIL 20 MG TABLET Take 1 tablet by mouth once d* ATORVASTATIN 20 MG TABLET Take 1 tablet by mouth once d* TRAMADOL 50 MG TABLET Take 1 tablet by mouth every * QUETIAPINE 25 MG TABLET Take 1 tablet at bedtime for * CITALOPRAM 20 MG TABLET Take 1 tablet by mouth once d* Problem List As Of Date 06/12/2018 Noted Resolved TENSION HEADACHE [G44.209] INVALID FOR* Abdominal pain, other specified site [R10.9] INVALID FOR*09/28/2017 Diarrhea [R19.7] INVALID FOR*09/28/2017 Calculus of kidney [N20.0] INVALID FOR*09/28/2017 More... Cervicalgia [M54.2] INVALID FOR*09/28/2017 Essential hypertension [I10] INVALID FOR* Prediabetes [R73.03] INVALID FOR* Mixed hyperlipidemia [E78.2] INVALID FOR* Plantar fascial fibromatosis [M72.2] INVALID FOR*09/28/2017 Insomnia [G47.00] INVALID FOR* Tendonitis [M77.9] INVALID FOR*09/28/2017 Depressive disorder [F32.9] INVALID FOR* Fracture of humerus, proximal, left, closed [S4*INVALID FOR*09/28/2017 Anxiety [F41.9] INVALID FOR* Left flank pain [R10.9] INVALID FOR*09/28/2017 Microscopic hematuria [R31.29] INVALID FOR*09/28/2017 Chronic narcotic use INVALID FOR*09/28/2017 More... URI, acute [J06.9] INVALID FOR*09/28/2017 More... Tobacco abuse [Z72.0] INVALID FOR* Analgesic overuse headache [T39.91XA, G44.40] INVALID FOR* Mass of colon (descening colon mass or outpouch*INVALID FOR* More... Obesity, Class II, BMI 35-39.9 [E66.9] INVALID FOR* Colon cancer screening [Z12.11] INVALID FOR* More... Prescriptions ordered this encounter Disp Refills Start End TRAMADOL 50 MG TABLET 6 ta* 0 06/12/2018 06/15/2018 Class: Print RX Route: ORAL Sig: Take 1 tablet by mouth every 8 hours as needed for Pain for up to 3 days. Encounter Status:Closed by LOREN BAÑUELOS CNP on 06/12/18 DISCHARGE INSTRUCTION Observed: 06/07/2018 Status: F Source: [place] 8:20 PM [facility] REPOSITORY [facility] Medical Records Department [address] [place] [address] Discharge Instruction 06/07/182017 MR#: [id number] Acct: [id number] Name: PARMINDER JOSEPH Rep #: [id number] : 1970 47 From: Dimitry Ritchie DO PCP: Rich Wilson MD Status: PRE ER ED Disposition - Plan for ED Patient: Chief Complaint: Upper Extremity Injury Instructions: ED Fx Wrist General Prescriptions: Acetaminophen/Codeine #3 [Tylenol#3] 1 tab PO Q4H PRN PRN #12 tab PRN Reason: Pain Referrals: Rich Wilson MD [Primary Care Provider] - Tiffany Gan DO [STAFF PHYSICIAN] - 3-5 Days What to do if you have Problems For any increased pain, shortness of breath, bleeding, nausea or vomiting, chest pain, or any unexpected problems, contact your Primary Care Provider. Call [facility] ([phone]) or report to the closest Emergency Room. Call 911 if necessary. 06/07/182019 <Electronically signed by Dimitry Ritchie DO> Date Dimitry Ritchie DO Cosigner Signature (If Indicated): Date CC: Rich Wilson MD EMERGENCY DEPARTMENT Observed: 06/07/2018 Status: F Source: [place] SUMMARY 8:17 PM [facility] REPOSITORY [facility] Medical Records Department [address] [place] [address] Emergency Department Summary 06/07/182013 MR#: [id number] Acct: [id number] Name: PARMINDER JOSEPH Rep #: [id number] : 1970 47 From: Dimitry Ritchie DO PCP: Rich Wilson MD Status: PRE ER - ER Visit Summary Date of Service: 06/07/18 Chief Complaint: [Pain to left wrist] History of Present Illness: The patient is a 47 F [presents the emergency department complaint of pain to her left wrist since this morning when she tried to put her coat on over her cast. Patient states that she fractured her wrist 1 month ago and is in a long-arm cast. Patient states that she was trying to put her coat on the cast kind of rolled and twisted causing the cast to shift a little bit and causing increased discomfort to her wrist. Patient tried Tylenol at home for discomfort without much resolution of her pain. Patient had been on Ultram. Patient states the Ultram only gave her small amount of relief and after the initial fracture she had been on Tylenol 3.] Physical Examination: [HEENT-PERRLA, EOMI. Cranial nerves II through XII grossly intact. TMs clear. Mucous membranes moist. No adenopathy. Cardiovascular-regular rate and rhythm without murmur or ectopy Lungs-clear to auscultation, chest wall stable without crepitus or subcu emphysema Abdomen-normoactive bowel sounds, soft, nontender, no rebound or rigidity, no peritoneal signs. Extremities-intact 4, normal range of motion, normal pulses. Left arm-patient has a long-arm cast on. Patient has normal range of motion of all digits and no significant edema to the hand noted. The cast appears to be in good position. Test Results: [None indicated] Emergency Department Course and Treatment: [I had a long discussion with the patient regarding possibilities for managing her pain. I explained to her that if she felt the cast was too uncomfortable we could split it and wrap it with Trent wraps or we could remove it and I could apply an AP splint until she can follow-up with her orthopedic surgeon. The other option would be to give her pain medicine for several days and have her follow-up with her surgeon in 4 days when she has a scheduled appointment. At this point patient does not want me to remove the cast and would prefer to follow-up with her orthopedic surgeon.] Treatment Plan: [Patient will be given a prescription for Tylenol with codeine] Disposition: [Discharged home in stable condition] Impression: [Left wrist pain status post fracture] This note was generated with J-Kan dictation software. It may contain incorrect words, spelling, and punctuation that were not noted in review of the chart prior to signing ED Disposition - Plan for ED Patient: Chief Complaint: Upper Extremity Injury Referrals: Rich Wilson MD [Primary Care Provider] - What to do if you have Problems For any increased pain, shortness of breath, bleeding, nausea or vomiting, chest pain, or any unexpected problems, contact your Primary Care Provider. Call [facility] ([phone]) or report to the closest Emergency Room. Call 911 if necessary. 06/07/182016 <Electronically signed by Dimitry Ritchie DO> Date Remus Ritchie DO Cosigner Signature (If Indicated): Date CC: Rich Wilson MD EXTREMITY UPPER Observed: 05/03/2018 Status: F Source: [place] WITHOUT CONTRA 10:36 AM [facility] REPOSITORY [facility] Imaging Services [address] [place] [address] Extremity Upper without Contra MR#: [id number] Acct: [id number] Name: PARMINDER JOSEPH Rep #: [id number] : 1970 F 47 From: Azeem Graves MD PCP: Rich Wilson MD Status: REG CLI Study: Extremity Upper without Contra Date of Exam: 05/03/18 Exam# [id number] Ordering Dr: Tiffany Gan DO CT scan of the wrist. CLINICAL HISTORY: Fracture PROCEDURE: The study was done without contrast and presented in 3 planes. FINDINGS: There is an intra-articular comminuted minimally displaced fracture involving the distal radius. There is a step of 2.5 mm at the articular margin of the radius. The ulna is not fractured. The carpal bones are normally arranged. A splint is in place. IMPRESSION: A minimally displaced intra-articular comminuted fracture of the distal radius with step-off 2.5 mm at the articular margin of the radius Electronically Signed: Azeem Graves MD at 7:27 EDT Tel , Service support , CT/Extremity Upper without Contra CC: Tiffany Gan DO; Rich Wilson MD Zipper Cutter: Signed EMERGENCY DEPARTMENT Observed: 05/01/2018 Status: F Source: [place] SUMMARY 6:18 PM [facility] REPOSITORY [facility] Medical Records Department [address] [place] [address] Emergency Department Summary 05/01/18 1408 MR#: [id number] Acct: [id number] Name: PARMINDER JOSEPH Rep #: [id number] : 1970 47 From: Inge Lowe MD PCP: Rich Wilson MD Status: DEP ER - ER Visit Summary Date of Service: 05/01/18 Chief Complaint: Left wrist injury History of Present Illness: The patient is a 47 F who presents for injury to the left wrist. Patient was at work and tripped while carrying boxes out the back door. She landed on an outstretched left arm. She is complaining of pain to the wrist. She is right-handed. She also has abrasions to the knees but was able to ambulate once she was assisted up. Patient has history of hypertension and hypercholesterolemia. No history of bleeding disorders. Physical Examination: Patient is awake and alert, well-nourished well-developed sitting in bed in no distress. Vital signs reviewed. Left upper extremity shows no tenderness to the elbow, shoulder, humerus or proximal radius and ulna. Patient has mild swelling and tenderness to the distal radius and ulna, wrist. Pain with movement of the fingers. Sensation and motor function are intact. Radial pulse 2+. Brisk capillary refill distal in the fingers. Snuffbox tenderness. Knees show mild tenderness to palpation. Full active flexion and extension of the knees without any deformity. No difficulty weightbearing. Test Results: Clinical Impression(s) from Imaging Studies Forearm X-Ray 05/01/18 14:25 IMPRESSION: Nondisplaced transverse fracture of the distal radial metaphysis with overlying soft tissue swelling. Electronically Signed: Lloyd Navraez MD at 15:08 EDT Tel [phone], Service support , Wrist X-Ray 05/01/18 14:25 IMPRESSION: Nondisplaced fracture of the distal radial metaphysis with extension of the articular surface. Soft tissue swelling. Electronically Signed: Lloyd Narvaez MD at 15:09 EDT Tel [phone], Service support , Medications Given Discontinued Medications Hydrocodone Bitart/Acetaminophen ([place] 5mg-325mg) 1 tablet PO X1 ONE Stop: 05/01/18 14:08 Last Admin: 05/01/18 14:58 Dose: 1 tablet Emergency Department Course and Treatment: X-ray performed of the left wrist and radius and ulna. Patient was given [place] and an ice pack for pain. X-ray showed a distal radial metaphyseal fracture with intra-articular involvement. Sugar tong splint was placed by Dr. Gus Apple, and post splint evaluation showed good motor motor, sensation and circulation in the hands. Patient had no mobility at the wrist joint, and no ability for supination or pronation post-splinting. Patient was given a prescription for [place] for severe or nighttime pain. Patient was discussed with Dr. Gan, who will evaluate patient within the next 1-2 weeks, and patient was given Worker's Comp. restrictions with paperwork filled out. Discharged. Treatment Plan: [] Disposition: [] Impression: Left distal radius fracture with intra-articular involvement This note was generated with J-Kan dictation software. It may contain incorrect words, spelling, and punctuation that were not noted in review of the chart prior to signing ED Disposition - Plan for ED Patient: Disposition: Home or Assisted Living Chief Complaint: Upper Extremity Injury Instructions: ED Fx Forearm Radius Ulna No Redu Requ Prescriptions: Hydrocodone/Acetaminophen [Harris[place] 5-325 Tablet] 1 tab PO Q6H PRN PRN 5 Days #20 tab PRN Reason: Pain Referrals: Tiffany Gan DO [STAFF PHYSICIAN] - 5-7 Days Rich Wilson MD [Primary Care Provider] - Additional Instructions: Call , the orthopedist doctor, tomorrow to make a follow-up appointment for within 1 week. Keep your splint clean and dry. Do not get it wet. The sling as needed for comfort. Use peff-ayd-hpeegoc pain medication as needed for pain and the norco for severe pain or nighttime pain. If you have any worsening of your condition or any new concerning symptoms, please return immediately to the emergency department for another evaluation. What to do if you have Problems For any increased pain, shortness of breath, bleeding, nausea or vomiting, chest pain, or any unexpected problems, contact your Primary Care Provider. Call [facility] ([phone]) or report to the closest Emergency Room. Call 911 if necessary. 05/01/18 [id number] <Electronically signed by Inge Lowe MD> Date Inge Lowe MD Cosigner Signature (If Indicated): Date CC: Rich Wilson MD DISCHARGE INSTRUCTION Observed: 05/01/2018 Status: F Source: [place] 5:38 PM [facility] REPOSITORY [facility] Medical Records Department [address] [place] [address] Discharge Instruction 05/01/18 1719 MR#: [id number] Acct: [id number] Name: PARMINDER JOSEPH Rep #: [id number] : 1970 47 From: Inge Lowe MD PCP: Rich Wilson MD Status: DEP ER ED Disposition - Plan for ED Patient: Disposition: Home or Assisted Living Chief Complaint: Upper Extremity Injury Instructions: ED Fx Forearm Radius Ulna No Redu Requ Prescriptions: Hydrocodone/Acetaminophen [[place] 5-325 Tablet] 1 tab PO Q6H PRN PRN 5 Days #20 tab PRN Reason: Pain Referrals: Rich Wilson MD [Primary Care Provider] - Tiffany Gan DO [STAFF PHYSICIAN] - 5-7 Days Additional Instructions: Call , the orthopedist doctor, tomorrow to make a follow-up appointment for within 1 week. Keep your splint clean and dry. Do not get it wet. The sling as needed for comfort. Use njpj-vja-pjkildn pain medication as needed for pain and the norco for severe pain or nighttime pain. If you have any worsening of your condition or any new concerning symptoms, please return immediately to the emergency department for another evaluation. What to do if you have Problems For any increased pain, shortness of breath, bleeding, nausea or vomiting, chest pain, or any unexpected problems, contact your Primary Care Provider. Call [facility] ([phone]) or report to the closest Emergency Room. Call 911 if necessary. 05/01/18 [id number] <Electronically signed by Inge Lowe MD> Date Inge Lowe MD Cosigner Signature (If Indicated): Date CC: Rich Wilson MD FOREARM 2 VIEWS Observed: 05/01/2018 Status: F Source: [place] 2:07 PM [facility] REPOSITORY [facility] Imaging Services [address] [place] [address] Forearm 2 Views MR#: [id number] Acct: [id number] Name: PARMINDER JOSEPH Rep #: [id number] : 1970 F 47 From: Lloyd Narvaez MD PCP: Rich Wilson MD Status: REG ER Study: Forearm 2 Views Date of Exam: 05/01/18 Exam# [id number] Ordering Dr: Inge Lowe MD STUDY: X-RAY - LEFT RADIUS AND ULNA REASON FOR EXAM: Female, 47 years old. Distal forearm pain following a fall. TECHNIQUE: 2 view(s) of the forearm. COMPARISON: None. FINDINGS: Soft tissue swelling. Nondisplaced transverse fracture of the distal radial metaphysis. Normal visualized ulna. RAD/Forearm 2 Views IMPRESSION: Nondisplaced transverse fracture of the distal radial metaphysis with overlying soft tissue swelling. Electronically Signed: Lloyd Narvaez MD at 15:08 EDT Tel [phone], Service support , CC: Inge Lowe MD; Rich Wilson MD Zipper Cutter: Signed WRIST MIN 3 VIEWS Observed: 05/01/2018 Status: F Source: [place] 2:07 PM [facility] REPOSITORY [facility] Imaging Services [address] [place] [id number] Wrist min 3 Views MR#: [id number] Acct: [id number] Name: PARMINDER JOSEPH Rep #: [id number] : 1970 F 47 From: Lloyd Narvaez MD PCP: Rich Wilson MD Status: REG ER Study: Wrist min 3 Views Date of Exam: 05/01/18 Exam# [id number] Ordering Dr: Inge Lowe MD STUDY: X-RAY - LEFT WRIST REASON FOR EXAM: Female, 47 years old. Pain following a fall. TECHNIQUE: 3 view(s) of the wrist were obtained. COMPARISON: None. FINDINGS: Nondisplaced fracture of the distal radial metaphysis with extension to the articular surface. Normal radiocarpal articulation. Normal distal radioulnar articulation. Normal carpal bones. Normal carpal articulations. Normal carpometacarpal articulation of the thumb. Normal second through fifth carpometacarpal articulations. Normal visualized metacarpal bones. Soft tissue swelling. RAD/Wrist min 3 Views IMPRESSION: Nondisplaced fracture of the distal radial metaphysis with extension of the articular surface. Soft tissue swelling. Electronically Signed: Lloyd Narvaez MD at 15:09 EDT Tel [phone], Service support , CC: Inge Lowe MD; Rich Wilson MD Zipper Cutter: Signed PROGRESS Observed: 04/25/2018 Status: COMPLETED Source: [place] 9:25 AM [facility] REPOSITORY HNO ID: [id number] Author: Logan Almeida (Sw) Service: (none) Author Type: Assembly Instructions Writer Type: Progress Notes Filed: 04/25/2018 9:28 AM Note Text: Sw and patient called [place] Medicaid Shared Services number. Patient had been screened and needs to send in last 30 days pay stubs. Patient reported to Medicaid worker that she said her Medicaid has in [place]. Patient will need to send in check stubs to S to see about completion of [facility] Medicaid application. CNSW Observed: 04/25/2018 Status: COMPLETED Source: [place] 12:00 AM [facility] REPOSITORY Social Work (KENDALWST) PARMINDER JOSEPH ([id number]) 1970 F [facility] Date Time Provider Department 04/25/18 LOGAN ALMEIDA (VARGHESE) TERE During your visit today, we recorded the following information about you: BROOKLYN Guevara-ENROLLMENT MANAGER 04/25/2018 9:28 AM Signed Sw and patient called [place] Medicaid Shared Services number. Patient had been screened and needs to send in last 30 days pay stubs. Patient reported to Medicaid worker that she said her Medicaid has in [place]. Patient will need to send in check stubs to S to see about completion of [facility] Medicaid application. Allergies As of Date: 04/25/2018 Noted Allergy Reaction BUSPAR (BUSPIRONE HCL) 11/15/2012 14 - Other: See Comments Comments: palpitations CIPROFLOXACIN 02/14/2012 2 - Rash COMPAZINE (PROCHLORPERAZINE EDISY*06/23/2008 1 - Mental Status Change DARVOCET A500 (PROPOXYPHENE N-TRENT*12/10/2008 9 - Itching FLUOXETINE 06/10/2008 16 - Unknown IMITREX (SUMATRIPTAN) 06/09/2008 10 - Anaphylaxis Comments: Heart racing METHOCARBAMOL 04/15/2013 8 - GI Upset NSAIDS (NON-STEROIDAL ANTI-INFLAM*06/09/2008 7 - Swelling ZOLOFT (SERTRALINE HCL) 02/22/2011 1 - Mental Status Change Comments: Suicidal thoughts Date Reviewed: 04/24/2018 Reviewed by: Di BoudreauxRn) HAIM Bergman - Fully Assessed Prescriptions as of 04/25/2018 Sig: MIRTAZAPINE 30 MG TABLET take 1 tablet by mouth at bed* QUETIAPINE 25 MG TABLET Take 1 tablet at bedtime for * QBTFPESBTA-OALEAVOXQYAIN-MDSB* Take 1 tablet by mouth every * AMLODIPINE 10 MG TABLET Take 1 tablet by mouth once d* LISINOPRIL 20 MG TABLET Take 1 tablet by mouth once d* ATORVASTATIN 20 MG TABLET Take 1 tablet by mouth once d* CITALOPRAM 20 MG TABLET Take 1 tablet by mouth once d* Problem List As Of Date 04/25/2018 Noted Resolved TENSION HEADACHE [G44.209] INVALID FOR* Abdominal pain, other specified site [R10.9] INVALID FOR*09/28/2017 Diarrhea [R19.7] INVALID FOR*09/28/2017 Calculus of kidney [N20.0] INVALID FOR*09/28/2017 More... Cervicalgia [M54.2] INVALID FOR*09/28/2017 Essential hypertension [I10] INVALID FOR* Prediabetes [R73.03] INVALID FOR* Mixed hyperlipidemia [E78.2] INVALID FOR* Plantar fascial fibromatosis [M72.2] INVALID FOR*09/28/2017 Insomnia [G47.00] INVALID FOR* Tendonitis [M77.9] INVALID FOR*09/28/2017 Depressive disorder [F32.9] INVALID FOR* Fracture of humerus, proximal, left, closed [S4*INVALID FOR*09/28/2017 Anxiety [F41.9] INVALID FOR* Left flank pain [R10.9] INVALID FOR*09/28/2017 Microscopic hematuria [R31.29] INVALID FOR*09/28/2017 Priority: G Chronic narcotic use INVALID FOR*09/28/2017 Priority: A More... URI, acute [J06.9] INVALID FOR*09/28/2017 More... Tobacco abuse [Z72.0] INVALID FOR* Analgesic overuse headache [T39.91XA, G44.40] INVALID FOR* Mass of colon (descening colon mass or outpouch*INVALID FOR* More... Obesity, Class II, BMI 35-39.9 [E66.9] INVALID FOR* Colon cancer screening [Z12.11] INVALID FOR* More... Encounter Status:Closed by LOGAN MARROQUIN on 04/25/18 PROGRESS Observed: 04/11/2018 Status: COMPLETED Source: [place] 5:02 PM [facility] REPOSITORY HNO ID: [id number] Author: Rosalina Ovalle Service: (none) Author Type: Physician Type: Progress Notes Filed: 04/13/2018 9:04 PM Note Text: Parminder Joseph 1970 REFERRING PHYSICIAN: Rich Wilson MD CHIEF COMPLAINT: Consult (Consult colon mass) HPI: The patient is a 47 year old female presents with abnormal findings on CT scan of the colon. The CT scan - 12/14/17 - reveals a 7mm rounded outpouching or mass adjacent of the descending colon. Complaint of fecal urgency, has 3-4 BM per day, not watery, but formed. Denies previous colonoscopy. Grandfather had colon cancer. Denies blood in stools. Has crampy abdominal pain- intermittent for the past 3-4 months. Also with fecal urgency. Had hysterectomy for endometriosis and feels like this pain is endometriosis pain, because it feels like menstrual cramps. States that pain is localized to the bilateral iliac fossa areas. PAST MEDICAL HISTORY Diagnosis Date - Analgesic overuse headache 11/30/2017 - Anxiety - Calculus of kidney 07/15/2008 - Chronic narcotic use 01/15/2013 OARRS website checked and validated - 01/15/2013 by Beronica Chauhan, [place] Multiple providers, multiple pharmacies, noted. - Endometriosis 2009 - Essential hypertension 09/17/2009 - Fracture of humerus, proximal, left, closed 09/04/2011 - Gestational diabetes mellitus - Hyperlipidemia LDL goal < 100 08/23/2010 - Mixed hyperlipidemia 08/23/2010 - Prediabetes 11/23/2009 - Seasonal allergies - Tension headache PAST SURGICAL HISTORY Procedure Laterality Date - APPENDECTOMY 2000 - CARPAL TUNNEL Bilateral 2011 - TOTAL ABDOM HYSTERECTOMY 04/2010 [facility] - URETERAL STENT 2008 Current Outpatient Prescriptions: mirtazapine (REMERON) 30 mg tablet take 1 tablet by mouth at bedtime QUEtiapine (SEROQUEL) 25 mg tablet Take 1 tablet at bedtime for 2 weeks. Then 1 tablet every other night for 2 weeks. Then stop medication acetaminophen 325 mg-caffeine 40 mg-butalbital 50 mg (FIORICET) per tablet Take 1 tablet by mouth every 8 hours as needed for Headache. Limit to not more than 2 days per week. 20 tablets per month. amLODIPine (NORVASC) 10 mg tablet Take 1 tablet by mouth once daily. lisinopril (ZESTRIL, PRINIVIL) 20 mg tablet Take 1 tablet by mouth once daily. atorvastatin (LIPITOR) 20 mg tablet Take 1 tablet by mouth once daily. citalopram (CELEXA) 20 mg tablet Take 1 tablet by mouth once daily. peg 3350-Electrolytes (GOLYTELY) 236-22.74-6.74 -5.86 gram suspension Take 4,000 mL by mouth one time only for 1 dose. Refer to printed prep instructions from your doctor. 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 Alcohol use: No Drug use: No Comment: never Sexual activity: Yes Partners with: Male control/protection: Surgical Comment: Hysterectomy Social History Narrative Moved from [place]. At risk for homelessness. Children grown. FAMILY HISTORY Problem Relation Age of Onset - Ischemic Heart Disease Mother Heart attack - Ischemic Heart Disease Maternal Grandmother - COPD Maternal Grandmother - COPD Maternal Grandfather - Breast Cancer Maternal Grandmother Mastectomy - Coronary Artery Disease Father fatal [place] age 61 REVIEW OF SYSTEMS: General - denies fevers Cardiovascular - denies history of [place] Pulmonary - denies coughing up blood Gastrointestinal - see HPI Neurological - denies history of CVA, denies seizures Genitourinary - denies blood in urine Hematological - denies spontaneous/prolonged bleeding Skin - denies nonhealing skin wounds Musculoskeletal - had left arm fracture in past Endocrine - denies diabetes Psychological ? denies hallucinations PHYSICAL EXAMINATION: General: The patient is 47 year old female, well nourished, well hydrated in no acute distress. The patient is oriented to time, place, and person. VITALS: Ht: 5'3 Wt: 208# Head ? Normocephalic. EOM intact with sclera clear and no icterus noted. Mouth with mucus membranes moist. Neck - supple with no jugular venous distention noted. Trachea is midline. Lungs ? clear to auscultation. Normal breath sounds. No rales/rhonchi/wheezing noted. No labored breathing noted, such as retractions. Heart ? normal S1 and S2 auscultated. No rubs/clicks/murmurs noted. Regular rate. Abdomen ? soft and benign. Has generalized tenderness, but no peritoneal signs. Normal bowel sounds. No abdominal bruits noted. Extremities ? no calf tenderness noted. No pitting edema noted. Skin ? normal skin integrity. Neurological ? gait normal, no focal deficits noted Psych ? calm and appropriate, RADIOLOGIC STUDIES: As Noted Assessment IMPRESSION: abnormal CT scan of large intestine PLAN: I have discussed the above with the patient. I have offered evaluation with colonoscopy, possible biopsies I have explained the procedure to the patient. I have counseled the patient as to the risks of the procedure, including but not limited to: infection, bleeding, perforation of the GI tract, inability to complete the procedure, njury to any intraabdominal organs such as liver/spleen, complications of anesthesia, etc. ? the patient understands. The patient wishes to proceed. She asks about diverticulosis, I have explained this to her and the difference between this and diverticulitis. I have answered all questions to the patient?s satisfaction and the patient has no further questions. Diagnoses: (R93.3) Abnormal CT scan, gastrointestinal tract (primary encounter diagnosis) (E66.9) Obesity, Class II, BMI 35-39.9 Return to Clinic: The patient is instructed to follow-up with me after the procedure, if needed. Rosalina Ovalle MD CNOV Observed: 04/11/2018 Status: COMPLETED Source: [place] 1:20 PM [facility] REPOSITORY Office Visit (GENSWS) PARMINDER JOSEPH ([id number]) 1970 [facility] Date Time Provider Department 04/11/18 1:20 PM ROSALINA OVALLE During your visit today, we recorded the following information about you: Rosalina Ovalle MD 04/11/2018 2:06 PM Signed How to Prepare for Your Colonoscopy Using Golytely, Nulytely, Trilyte or Colyte Preparations with General Anesthesia IMPORTANT - Read These Instructions at Least 2 Weeks Before your Colonoscopy Gutierrez Instructions: ? Your bowel must be empty so that your doctor can clearly view your colon. Follow all of the instructions in this handout EXACTLY as they are written. If you do NOT follow the directions for when to start drinking the bowel preparation, your colonoscopy WILL be cancelled. ? Do NOT eat any solid food the ENTIRE day before your colonoscopy. ? Buy your bowel preparation at least 5 days before your colonoscopy. ? Do NOT mix the solution until the day before your colonoscopy. Designated Lamp Assembler on the Day of Your Exam A responsible family member or friend MUST come with you to your colonoscopy and REMAIN in the endoscopy area until you are discharged. You are NOT ALLOWED to drive, take a taxi or bus, or leave the Endoscopy Center ALONE. If you do not have a responsible truck driver flatbed (family member or friend) with you to take you home, you exam cannot be done with sedation and will be cancelled. Medications Some of the medications you take may need to be stopped or adjusted before your colonoscopy. You MUST call the doctor who ordered any of the following medicines at least 2 weeks before your colonoscopy. ? Blood thinners - such as Coumadin (warfarin), Plavix (clopidogrel), Ticlid (ticlopidine hydrochloride), Agrylin (anagrelide), Xarelto (Rivaroxaban), Pradaxa (Dabigatran), Eliquis (Apixaban), and Effient (Prasugrel). ? Insulin or diabetes pills. Please call the doctor that monitors your glucose levels. Your insulin dosage may need to be adjusted due to the diet restrictions required with this bowel preparation. (Please bring your diabetes medicines with you on the day of your procedure.) If you take aspirin, take it and ALL other medications prescribed by your doctor. On the day of your colonoscopy, take your medications with a sip of water. Five (5) Days Before Your Colonoscopy ? Do NOT take medicines that stop diarrhea - such as Imodium, Kaopectate, or Pepto Bismol. ? Do NOT take fiber supplements - such as Metamucil, Citrucel, or Perdiem. ? Do NOT take products that contain iron - such as multi-vitamins (the label lists what is in the products). ? Do NOT take Vitamin E. Buy the prescription bowel preparation solution at your local pharmacy or drugstore pharmacy. Three (3) Days Before Your Colonoscopy ? Do NOT eat high-fiber foods - such as popcorn, beans, seeds (flax, sunflower, quinoa), multigrain bread, nuts, salad/vegetables, or fresh and dried fruit. One (1) Day Before Your Colonoscopy Only drink clear liquids the ENTIRE DAY before your colonoscopy. Do NOT eat any solid foods. Drink at least 8 ounces of clear liquids every hour after waking up. The clear liquids you can drink include: ? Water, apple, or white grape juice; broth; coffee or tea (without milk or creamer); clear carbonated beverages such as marian nilesh or lemon-quinault soda; Gatorade or other sports drinks (not red); Ishmael-Aid or other flavored drinks (not red). You may eat plain jello or other gelatins (not red) or popsicles (not red). Do NOT drink alcohol on the day before or the day of the procedure. When to Mix and Drink Your Bowel Prep Follow the instructions on the label. After mixing, place the solution in the refrigerator for a couple of hours before drinking. You may add the flavor pack that came with the bowel preparation. Do NOT add ice, sugar or any flavorings to the solution. Evening Before Your Colonoscopy ? Start drinking the bowel preparation at 6 PM the evening before your colonoscopy. Drink an 8-oz glass of bowel preparation every 10 minutes. You must finish drinking the solution by 9 PM the night before your scheduled procedure. ? You may continue to drink clear liquids until midnight. Do NOT eat or drink ANYTHING after midnight the night before your procedure or your procedure may be cancelled. This is for your safety and will reduce the risk of having any food or liquid in your stomach move into your lungs (aspiration) during a procedure. If you take aspirin, take it and ALL other prescribed medicines with a sip of water on the day of your colonoscopy. Rosalina Ovalle MD 04/13/2018 9:04 PM Signed Parminder Joseph 1970 REFERRING PHYSICIAN: Rich Wilson MD CHIEF COMPLAINT: Consult (Consult colon mass) HPI: The patient is a 47 year old female presents with abnormal findings on CT scan of the colon. The CT scan - 12/14/17 - reveals a 7mm rounded outpouching or mass adjacent of the descending colon. Complaint of fecal urgency, has 3-4 BM per day, not watery, but formed. Denies previous colonoscopy. Grandfather had colon cancer. Denies blood in stools. Has crampy abdominal pain- intermittent for the past 3-4 months. Also with fecal urgency. Had hysterectomy for endometriosis and feels like this pain is endometriosis pain, because it feels like menstrual cramps. States that pain is localized to the bilateral iliac fossa areas. PAST MEDICAL HISTORY Diagnosis Date - Analgesic overuse headache 11/30/2017 - Anxiety - Calculus of kidney 07/15/2008 - Chronic narcotic use 01/15/2013 OARRS website checked and validated - 01/15/2013 by Beronica Chauhan, [place] Multiple providers, multiple pharmacies, noted. - Endometriosis 2009 - Essential hypertension 09/17/2009 - Fracture of humerus, proximal, left, closed 09/04/2011 - Gestational diabetes mellitus - Hyperlipidemia LDL goal < 100 08/23/2010 - Mixed hyperlipidemia 08/23/2010 - Prediabetes 11/23/2009 - Seasonal allergies - Tension headache PAST SURGICAL HISTORY Procedure Laterality Date - APPENDECTOMY 2000 - CARPAL TUNNEL Bilateral 2011 - TOTAL ABDOM HYSTERECTOMY 04/2010 [facility] - URETERAL STENT 2008 Current Outpatient Prescriptions: mirtazapine (REMERON) 30 mg tablet take 1 tablet by mouth at bedtime QUEtiapine (SEROQUEL) 25 mg tablet Take 1 tablet at bedtime for 2 weeks. Then 1 tablet every other night for 2 weeks. Then stop medication acetaminophen 325 mg-caffeine 40 mg-butalbital 50 mg (FIORICET) per tablet Take 1 tablet by mouth every 8 hours as needed for Headache. Limit to not more than 2 days per week. 20 tablets per month. amLODIPine (NORVASC) 10 mg tablet Take 1 tablet by mouth once daily. lisinopril (ZESTRIL, PRINIVIL) 20 mg tablet Take 1 tablet by mouth once daily. atorvastatin (LIPITOR) 20 mg tablet Take 1 tablet by mouth once daily. citalopram (CELEXA) 20 mg tablet Take 1 tablet by mouth once daily. peg 3350-Electrolytes (GOLYTELY) 236-22.74-6.74 -5.86 gram suspension Take 4,000 mL by mouth one time only for 1 dose. Refer to printed prep instructions from your doctor. 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 Alcohol use: No Drug use: No Comment: never Sexual activity: Yes Partners with: Male control/protection: Surgical Comment: Hysterectomy Social History Narrative Moved from [place]. At risk for homelessness. Children grown. FAMILY HISTORY Problem Relation Age of Onset - Ischemic Heart Disease Mother Heart attack - Ischemic Heart Disease Maternal Grandmother - COPD Maternal Grandmother - COPD Maternal Grandfather - Breast Cancer Maternal Grandmother Mastectomy - Coronary Artery Disease Father fatal [place] age 61 REVIEW OF SYSTEMS: General - denies fevers Cardiovascular - denies history of [place] Pulmonary - denies coughing up blood Gastrointestinal - see HPI Neurological - denies history of CVA, denies seizures Genitourinary - denies blood in urine Hematological - denies spontaneous/prolonged bleeding Skin - denies nonhealing skin wounds Musculoskeletal - had left arm fracture in past Endocrine - denies diabetes Psychological ? denies hallucinations PHYSICAL EXAMINATION: General: The patient is 47 year old female, well nourished, well hydrated in no acute distress. The patient is oriented to time, place, and person. VITALS: Ht: 5'3 Wt: 208# Head ? Normocephalic. EOM intact with sclera clear and no icterus noted. Mouth with mucus membranes moist. Neck - supple with no jugular venous distention noted. Trachea is midline. Lungs ? clear to auscultation. Normal breath sounds. No rales/rhonchi/wheezing noted. No labored breathing noted, such as retractions. Heart ? normal S1 and S2 auscultated. No rubs/clicks/murmurs noted. Regular rate. Abdomen ? soft and benign. Has generalized tenderness, but no peritoneal signs. Normal bowel sounds. No abdominal bruits noted. Extremities ? no calf tenderness noted. No pitting edema noted. Skin ? normal skin integrity. Neurological ? gait normal, no focal deficits noted Psych ? calm and appropriate, RADIOLOGIC STUDIES: As Noted Assessment IMPRESSION: abnormal CT scan of large intestine PLAN: I have discussed the above with the patient. I have offered evaluation with colonoscopy, possible biopsies I have explained the procedure to the patient. I have counseled the patient as to the risks of the procedure, including but not limited to: infection, bleeding, perforation of the GI tract, inability to complete the procedure, njury to any intraabdominal organs such as liver/spleen, complications of anesthesia, etc. ? the patient understands. The patient wishes to proceed. She asks about diverticulosis, I have explained this to her and the difference between this and diverticulitis. I have answered all questions to the patient?s satisfaction and the patient has no further questions. Diagnoses: (R93.3) Abnormal CT scan, gastrointestinal tract (primary encounter diagnosis) (E66.9) Obesity, Class II, BMI 35-39.9 Return to Clinic: The patient is instructed to follow-up with me after the procedure, if needed. Rosalina Ovalle MD Referring Provider: RICH WILSON [[id number]] Allergies As of Date: 04/11/2018 Noted Allergy Reaction BUSPAR (BUSPIRONE HCL) 11/15/2012 14 - Other: See Comments Comments: palpitations CIPROFLOXACIN 02/14/2012 2 - Rash COMPAZINE (PROCHLORPERAZINE EDISY*06/23/2008 1 - Mental Status Change DARVOCET A500 (PROPOXYPHENE N-TRENT*12/10/2008 9 - Itching FLUOXETINE 06/10/2008 16 - Unknown IMITREX (SUMATRIPTAN) 06/09/2008 10 - Anaphylaxis Comments: Heart racing METHOCARBAMOL 04/15/2013 8 - GI Upset NSAIDS (NON-STEROIDAL ANTI-INFLAM*06/09/2008 7 - Swelling ZOLOFT (SERTRALINE HCL) 02/22/2011 1 - Mental Status Change Comments: Suicidal thoughts Date Reviewed: 04/11/2018 Reviewed by: Dennis Gonsalves LPN - Fully Assessed Reason for Visit: Consult [173] Cmt: Consult colon mass Primary Visit Diagnosis:Abnormal CT scan, gastrointestinal tract [R93.3] Other Visit Diagnosis:Obesity, Class II, BMI 35-39.9 [E66.9] Order(s):[facility] PT ED DIGESTIVE DISEASES [] Order #: [id number]: 1 [] peg 3350-Electrolytes (GOLYTELY) 236-22.74-6.74 -5.86 gram suspensionTake 4,000 mL by mouth one time only for 1 dose. Refer to printed prep instructions from your doctor.Disp: 1 BottleRfl: 0 COLONOSCOPY - DIAGNOSTIC [[id number]] Order #: [id number] [facility] PT ED DIGESTIVE DISEASES [] Order #: [id number]. #:[id number]: 1 Prescriptions as of 04/11/2018 Sig: MIRTAZAPINE 30 MG TABLET take 1 tablet by mouth at bed* QUETIAPINE 25 MG TABLET Take 1 tablet at bedtime for * GLTUTIRCBR-BGLPCAVZNJRUH-FAWA* Take 1 tablet by mouth every * AMLODIPINE 10 MG TABLET Take 1 tablet by mouth once d* LISINOPRIL 20 MG TABLET Take 1 tablet by mouth once d* ATORVASTATIN 20 MG TABLET Take 1 tablet by mouth once d* CITALOPRAM 20 MG TABLET Take 1 tablet by mouth once d* PEG 3350-ELECTROLYTES 236 GRA* Take 4,000 mL by mouth one ti* Problem List As Of Date 04/11/2018 Noted Resolved TENSION HEADACHE [G44.209] INVALID FOR* Abdominal pain, other specified site [R10.9] INVALID FOR*09/28/2017 Diarrhea [R19.7] INVALID FOR*09/28/2017 Calculus of kidney [N20.0] INVALID FOR*09/28/2017 More... Cervicalgia [M54.2] INVALID FOR*09/28/2017 Essential hypertension [I10] INVALID FOR* Prediabetes [R73.03] INVALID FOR* Mixed hyperlipidemia [E78.2] INVALID FOR* Plantar fascial fibromatosis [M72.2] INVALID FOR*09/28/2017 Insomnia [G47.00] INVALID FOR* Tendonitis [M77.9] INVALID FOR*09/28/2017 Depressive disorder [F32.9] INVALID FOR* Fracture of humerus, proximal, left, closed [S4*INVALID FOR*09/28/2017 Anxiety [F41.9] INVALID FOR* Left flank pain [R10.9] INVALID FOR*09/28/2017 Microscopic hematuria [R31.29] INVALID FOR*09/28/2017 Priority: G Chronic narcotic use INVALID FOR*09/28/2017 Priority: A More... URI, acute [J06.9] INVALID FOR*09/28/2017 More... Tobacco abuse [Z72.0] INVALID FOR* Analgesic overuse headache [T39.91XA, G44.40] INVALID FOR* Mass of colon (descening colon mass or outpouch*INVALID FOR* More... Obesity, Class II, BMI 35-39.9 [E66.9] INVALID FOR* Colon cancer screening [Z12.11] INVALID FOR* More... Other instructions from your clinician: How to Prepare for Your Colonoscopy Using Golytely, Nulytely, Trilyte or Colyte Preparations with General Anesthesia IMPORTANT - Read These Instructions at Least 2 Weeks Before your Colonoscopy Gutierrez Instructions: ? Your bowel must be empty so that your doctor can clearly view your colon. Follow all of the instructions in this handout EXACTLY as they are written. If you do NOT follow the directions for when to start drinking the bowel preparation, your colonoscopy WILL be cancelled. ? Do NOT eat any solid food the ENTIRE day before your colonoscopy. ? Buy your bowel preparation at least 5 days before your colonoscopy. ? Do NOT mix the solution until the day before your colonoscopy. Designated Lamp Assembler on the Day of Your Exam A responsible family member or friend MUST come with you to your colonoscopy and REMAIN in the endoscopy area until you are discharged. You are NOT ALLOWED to drive, take a taxi or bus, or leave the Endoscopy Center ALONE. If you do not have a responsible truck driver flatbed (family member or friend) with you to take you home, you exam cannot be done with sedation and will be cancelled. Medications Some of the medications you take may need to be stopped or adjusted before your colonoscopy. You MUST call the doctor who ordered any of the following medicines at least 2 weeks before your colonoscopy. ? Blood thinners - such as Coumadin (warfarin), Plavix (clopidogrel), Ticlid (ticlopidine hydrochloride), Agrylin (anagrelide), Xarelto (Rivaroxaban), Pradaxa (Dabigatran), Eliquis (Apixaban), and Effient (Prasugrel). ? Insulin or diabetes pills. Please call the doctor that monitors your glucose levels. Your insulin dosage may need to be adjusted due to the diet restrictions required with this bowel preparation. (Please bring your diabetes medicines with you on the day of your procedure.) If you take aspirin, take it and ALL other medications prescribed by your doctor. On the day of your colonoscopy, take your medications with a sip of water. Five (5) Days Before Your Colonoscopy ? Do NOT take medicines that stop diarrhea - such as Imodium, Kaopectate, or Pepto Bismol. ? Do NOT take fiber supplements - such as Metamucil, Citrucel, or Perdiem. ? Do NOT take products that contain iron - such as multi- vitamins (the label lists what is in the products). ? Do NOT take Vitamin E. Buy the prescription bowel preparation solution at your local pharmacy or drugstore pharmacy. Three (3) Days Before Your Colonoscopy ? Do NOT eat high-fiber foods - such as popcorn, beans, seeds (flax, sunflower, quinoa), multigrain bread, nuts, salad/vegetables, or fresh and dried fruit. One (1) Day Before Your Colonoscopy Only drink clear liquids the ENTIRE DAY before your colonoscopy. Do NOT eat any solid foods. Drink at least 8 ounces of clear liquids every hour after waking up. The clear liquids you can drink include: ? Water, apple, or white grape juice; broth; coffee or tea (without milk or creamer); clear carbonated beverages such as marian nilesh or lemon-quinault soda; Gatorade or other sports drinks (not red); Ishmael- Aid or other flavored drinks (not red). You may eat plain jello or other gelatins (not red) or popsicles (not red). Do NOT drink alcohol on the day before or the day of the procedure. When to Mix and Drink Your Bowel Prep Follow the instructions on the label. After mixing, place the solution in the refrigerator for a couple of hours before drinking. You may add the flavor pack that came with the bowel preparation. Do NOT add ice, sugar or any flavorings to the solution. Evening Before Your Colonoscopy ? Start drinking the bowel preparation at 6 PM the evening before your colonoscopy. Drink an 8-oz glass of bowel preparation every 10 minutes. You must finish drinking the solution by 9 PM the night before your scheduled procedure. ? You may continue to drink clear liquids until midnight. Do NOT eat or drink ANYTHING after midnight the night before your procedure or your procedure may be cancelled. This is for your safety and will reduce the risk of having any food or liquid in your stomach move into your lungs (aspiration) during a procedure. If you take aspirin, take it and ALL other prescribed medicines with a sip of water on the day of your colonoscopy. Prescriptions ordered this encounter Disp Refills Start End PEG 3350-ELECTROLYTES 236 GRAM-22.74* 1 Austin* 0 04/11/2018 04/11/2018 Route: ORAL Sig: Take 4,000 mL by mouth one time only for 1 dose. Refer to printed prep instructions from your doctor. Letter Text Encounter Status:Closed by MD ROSALINA OVALLE on 04/13/18 DISCHARGE INSTRUCTION Observed: 04/07/2018 Status: F Source: OVI 4:23 PM [facility] REPOSITORY [facility] Medical Records Department [address] [place] [address] Discharge Instruction 04/07/18 1416 MR#: [id number] Acct: [id number] Name: PARMINDER JOSEPH Rep #: [id number] : 1970 47 From: Leo Walters MD PCP: Rich Wilson MD Status: DEP ER ED Disposition - Plan for ED Patient: Disposition: Home or Assisted Living Chief Complaint: Flank Pain Instructions: ED Stone Renal W Colic Prescriptions: Oxycodone HCl/Acetaminophen [Percocet 7.5-325 mg Tablet] 1 - 2 tab PO Q6H PRN PRN #14 tab PRN Reason: Pain Referrals: Rich Wilson MD [Primary Care Provider] - 1-2 Days if not improving Additional Instructions: Strain urine looking for passed kidney stone. Plenty of fluids and rest. Percocet as needed for pain. Do not drive while using the Percocet. Return or follow-up your doctor if not improving, increasing pain, fever or feeling worse. What to do if you have Problems For any increased pain, shortness of breath, bleeding, nausea or vomiting, chest pain, or any unexpected problems, contact your Primary Care Provider. Call [facility] ([phone]) or report to the closest Emergency Room. Call 911 if necessary. 04/07/18 1623 <Electronically signed by Leo Walters MD> Date Leo Walters MD Cosigner Signature (If Indicated): Date CC: Rich Wilson MD EMERGENCY DEPARTMENT Observed: 04/07/2018 Status: F Source: [place] SUMMARY 4:23 PM [facility] REPOSITORY [facility] Medical Records Department [address] [place] [address] Emergency Department Summary 04/07/18 1249 MR#: [id number] Acct: [id number] Name: PARMINDER JOSEPH Rep #: [id number] : 1970 47 From: Leo Walters MD PCP: Rich Wilson MD Status: DEP ER - ER Visit Summary Date of Service: 04/07/18 Chief Complaint: Left flank pain History of Present Illness: The patient is a 47 F history of prior kidney stones. Has had to have 2 previously removed. Typically passes them. States around 03 100 this morning he had on the left flank pain radiates down her groin. Recently no hematuria or dysuria. No fever. No abdominal pain. She has had associated nausea and vomiting since she developed the flank pain. Patient has had a prior appendectomy and complete hysterectomy. States this feels very similar to her prior kidney stones. Physical Examination: Middle-aged female complaining of left flank pain. Standing alongside the bed. H EENT exam unremarkable lungs clear to auscultation. Heart regular rhythm rate about 100 no murmur. Abdomen is soft and nontender. Normal bowel sounds no peritoneal signs. She is moving all 4 extremities. They are neurovascularly intact. No edema. Back she has left CVA tenderness. Right is unremarkable. Neurologically she is awake and alert with no focal deficits. Test Results: UA shows no signs of infection or red cells. Chemistry panel unremarkable with normal gap and creatinine. Emergency Department Course and Treatment: Patient has allergies to Toradol and NSAIDs. She was given IV Dilaudid and IV Zofran. I reviewed her old records she has had 7 CTs of the abdomen and pelvis in the last 5 years. At this time we will hold off on further imaging. Patient was treated with a second dose of IV Dilaudid. Currently is resting nocturnally. Treatment Plan: Patient is doing well at 1415. Is comfortable being discharged to home. And is fine not receiving a CAT scan. She will be discharged with a urine strainer. The Percocet prescription. Disposition: Discharge Impression: Acute left flank pain secondary to ureteral calculi History of kidney stones This note was generated with J-Kan dictation software. It may contain incorrect words, spelling, and punctuation that were not noted in review of the chart prior to signing ED Disposition - Plan for ED Patient: Chief Complaint: Flank Pain Referrals: Rich Wilson MD [Primary Care Provider] - What to do if you have Problems For any increased pain, shortness of breath, bleeding, nausea or vomiting, chest pain, or any unexpected problems, contact your Primary Care Provider. Call [facility] ([phone]) or report to the closest Emergency Room. Call 911 if necessary. 04/07/18 1623 <Electronically signed by Leo Walters MD> Date Leo Walters MD Cosigner Signature (If Indicated): Date CC: Rich Wilson MD BASIC METABOLIC Collected: 04/07/2018 Status: F Source: [facility] PROFILE ([facility]) 12:51 PM [facility] REPOSITORY TYPE CODE TESTS RESULT OUT OF RANGE REFERENCE UNITS LAB L501.0100 74-106 mg/dL Normal GLU 91 Result Comment: Please note revised GLUCOSE reference range effective 2017. LAB L501.1000 7-18 mg/dL Normal BUN 12 LAB L501.1100 0.55-1.02 mg/dL High CREAT,SERUM 1.06 Result Comment: The validity of the calculated GFR AND GFRAA in patients over 70 years has not been determined. Clinical correlation is essential. LAB L501.1110 >60 mL/min Low EST GFR 59 Result Comment: Non- GFR Calc LAB L501.1115 >60 mL/min Normal EST GFR - AA 71 Result Comment: GFR Calc LAB L501.1255 ml/min Normal Estimated CRCL 53.69 LAB L501.1300 10-20 RATIO Normal BUN/CRE 11.3 LAB L501.2200 8.5-10 mg/dL Normal .1 CA 8.9 LAB L501.5300 136-14 mmol/L Normal 5 NA 140 LAB L501.5600 3.5-5. mmol/L Low 1 K 3.4 LAB L501.5900 98-107 mmol/L Normal CL 106 LAB L501.6100 21.0-3 mmol/L Normal 2.0 CO2 28.0 LAB L501.6200 5-15 Normal GAP 6 Performed By: #### L500.2500 #### [facility] [address] [place], [address] URINALYSIS, COMPLETE Collected: 04/07/2018 Status: F Source: [place]ICO 12:40 PM [facility] REPOSITORY Order Comment: Order Date: 04/07/18 How was Urine Obtained? CLEAN CATCH TYPE CODE TESTS RESULT OUT OF RANGE REFERENCE UNITS LAB L400.3000 Yellow COLOR Normal Yellow LAB L400.3050 Clear Normal CLARITY Sl. Cloudy LAB L400.3200 Normal mg/dl Normal GLUCOSE, UR Normal LAB L400.3300 Negative mg/dL Normal BILIRUBIN URINE Negative LAB L400.3400 Negative mg/dl Normal KETONE UR Negative LAB L400.3465 1.002-1.030 Normal SP.GR. DIPSTX 1.025 LAB L400.3550 5.0 - 8.0 pH UR Normal 5.0 LAB L400.3600 Negative mg/dl PROT Normal DIPSTX Negative LAB L400.3700 Normal mg/dl Normal UROBILI Normal LAB L400.3750 Negative Normal NITRITE UR Negative LAB L400.3780 Negative /ul High 25 OCCULT BLOOD-UR LAB L400.3800 Negative /ul LEUK Normal ESTERASE Negative LAB L400.4050 0-5 /hpf WBC 0 Normal SEEN LAB L400.4100 0-5 /hpf Normal RBC-UA 0-5 SEEN LAB L400.4150 5-10 /hpf SQUAM Normal EPI 0-5 SEEN LAB L400.4300 None Seen /hpf 1+ Normal BACTERIA LAB L400.4350 <or=2+ /hpf 0 Normal MUCUS, URINE SEEN Performed By: #### L400.0001 #### [facility] [address] [place], [address] PROGRESS Observed: 04/05/2018 Status: COMPLETED Source: [place] 10:53 AM [facility] REPOSITORY HNO ID: [id number] Author: Rich Wilson Service: (none) Author Type: Physician Type: Progress Notes Filed: 04/05/2018 11:00 AM Note Text: This note was created using Cybitsriter. Subjective Parminder Joseph is a 47 year old female. She was in the ER for back pain, that resolved. Her hypertension was fair. Depression and anxiety were stable. Headaches were improved, and she was limiting analgesic use. She now showed her surgical appointment, and no showed for her mammogram. She wants to reschedule. She was concerned about ongoing weight gain. She only ate one main meal a day. ACTIVE PROBLEM LIST Tension Headache Essential Hypertension Prediabetes Mixed Hyperlipidemia Insomnia Depressive Disorder Anxiety Tobacco Abuse Analgesic Overuse Headache Mass of colon (descening colon mass or outpouching on CT scan) Obesity, Class II, Bmi 35-39.9 Current Outpatient Prescriptions: QUEtiapine (SEROQUEL) 50 mg tablet 1/2 tablet at bedtime for 2 weeks. Then 1/2 tablet every other night for 2 weeks. Then stop medication. acetaminophen 325 mg-caffeine 40 mg-butalbital 50 mg (FIORICET) per tablet Take 1 tablet by mouth every 8 hours as needed for Headache. Limit to not more than 2 days per week. 20 tablets per month. amLODIPine (NORVASC) 10 mg tablet Take 1 tablet by mouth once daily. lisinopril (ZESTRIL, PRINIVIL) 20 mg tablet Take 1 tablet by mouth once daily. mirtazapine (REMERON) 30 mg tablet Take 1 tablet by mouth daily at bedtime. atorvastatin (LIPITOR) 20 mg tablet Take 1 tablet by mouth once daily. citalopram (CELEXA) 20 mg tablet Take 1 tablet by mouth once daily. No current facility-administered medications for this visit. Review of Systems Constitutional: Negative. Respiratory: Negative. Cardiovascular: Negative. Gastrointestinal: Negative. Neurological: Negative. Psychiatric/Behavioral: Negative. Objective BP 130/88 (BP Site: Left Arm, BP Position: Sitting, BP Cuff Size: Large Adult) Pulse 68 Temp (!) 35.8 ?C (96.5 ?F) (Left Tympanic) Resp 20 Wt 94.3 kg (208 lb) LMP 04/18/2010 BMI 36.27 kg/m? Physical Exam Constitutional: No distress. Neurological: She is alert. Psychiatric: She has a normal mood and affect. Assessment and Plan 1. Mass of colon (descening colon mass or outpouching on CT scan) - ICD9: 569.89, ICD10: K63.9 (primary diagnosis) Reschedule surgical consult. 2. Tension headache - ICD9: 307.81, ICD10: G44.209 Reviewed. Limit use. - RBFTNPLVLL-BEEFETIFGDWDS-ERMRLJDM 50 MG-325 MG-40 MG TABLET 3. Essential hypertension - ICD9: 401.9, ICD10: I10 - fair control - Continue current medication(s) - Discussed need and benefit for weight loss. - Goal of BP <130/80 4. Obesity, Class II, BMI 35-39.9 - ICD9: 278.00, ICD10: E66.9 Possibly medication related. Wean off quetiapine. 5. Depressive disorder - ICD9: 311, ICD10: F32.9 - Continue other medications. - QUETIAPINE 50 MG TABLET. Wean off over one month. 6. Anxiety - ICD9: 300.00, ICD10: F41.9 See above. - QUETIAPINE 50 MG TABLET 7. Insomnia, unspecified type - ICD9: 780.52, ICD10: G47.00 See above. - QUETIAPINE 50 MG TABLET During this patient visit I have spent approximately 25 minutes in counseling regarding medications and coordinating care. Rich Wilson MD CNOV Observed: 04/05/2018 Status: COMPLETED Source: [place] 9:40 AM [facility] REPOSITORY Office Visit (INTMWS) PARMINDER JOSEPH ([id number]) 1970 F Date Time Provider Department 04/05/18 9:40 AM RICH WILSON INTMWS During your visit today, we recorded the following information about you: Temperature Pulse Respiration Blood pressure 96.5 degrees 68/minute 20/minute 130/88 Weight 94.3 kg Rich Wilson MD 04/05/2018 11:00 AM Signed This note was created using Cybitsriter. Subjective Parminder Joseph is a 47 year old female. She was in the ER for back pain, that resolved. Her hypertension was fair. Depression and anxiety were stable. Headaches were improved, and she was limiting analgesic use. She now showed her surgical appointment, and no showed for her mammogram. She wants to reschedule. She was concerned about ongoing weight gain. She only ate one main meal a day. ACTIVE PROBLEM LIST Tension Headache Essential Hypertension Prediabetes Mixed Hyperlipidemia Insomnia Depressive Disorder Anxiety Tobacco Abuse Analgesic Overuse Headache Mass of colon (descening colon mass or outpouching on CT scan) Obesity, Class II, Bmi 35-39.9 Current Outpatient Prescriptions: QUEtiapine (SEROQUEL) 50 mg tablet 1/2 tablet at bedtime for 2 weeks. Then 1/2 tablet every other night for 2 weeks. Then stop medication. acetaminophen 325 mg-caffeine 40 mg-butalbital 50 mg (FIORICET) per tablet Take 1 tablet by mouth every 8 hours as needed for Headache. Limit to not more than 2 days per week. 20 tablets per month. amLODIPine (NORVASC) 10 mg tablet Take 1 tablet by mouth once daily. lisinopril (ZESTRIL, PRINIVIL) 20 mg tablet Take 1 tablet by mouth once daily. mirtazapine (REMERON) 30 mg tablet Take 1 tablet by mouth daily at bedtime. atorvastatin (LIPITOR) 20 mg tablet Take 1 tablet by mouth once daily. citalopram (CELEXA) 20 mg tablet Take 1 tablet by mouth once daily. No current facility-administered medications for this visit. Review of Systems Constitutional: Negative. Respiratory: Negative. Cardiovascular: Negative. Gastrointestinal: Negative. Neurological: Negative. Psychiatric/Behavioral: Negative. Objective BP 130/88 (BP Site: Left Arm, BP Position: Sitting, BP Cuff Size: Large Adult) Pulse 68 Temp (!) 35.8 ?C (96.5 ?F) (Left Tympanic) Resp 20 Wt 94.3 kg (208 lb) LMP 04/18/2010 BMI 36.27 kg/m? Physical Exam Constitutional: No distress. Neurological: She is alert. Psychiatric: She has a normal mood and affect. Assessment and Plan 1. Mass of colon (descening colon mass or outpouching on CT scan) - ICD9: 569.89, ICD10: K63.9 (primary diagnosis) Reschedule surgical consult. 2. Tension headache - ICD9: 307.81, ICD10: G44.209 Reviewed. Limit use. - [id number]-[id number]-TZDIVZKF 50 MG-325 MG-40 MG TABLET 3. Essential hypertension - ICD9: 401.9, ICD10: I10 - fair control - Continue current medication(s) - Discussed need and benefit for weight loss. - Goal of BP <130/80 4. Obesity, Class II, BMI 35-39.9 - ICD9: 278.00, ICD10: E66.9 Possibly medication related. Wean off quetiapine. 5. Depressive disorder - ICD9: 311, ICD10: F32.9 - Continue other medications. - QUETIAPINE 50 MG TABLET. Wean off over one month. 6. Anxiety - ICD9: 300.00, ICD10: F41.9 See above. - QUETIAPINE 50 MG TABLET 7. Insomnia, unspecified type - ICD9: 780.52, ICD10: G47.00 See above. - QUETIAPINE 50 MG TABLET During this patient visit I have spent approximately 25 minutes in counseling regarding medications and coordinating care. Rich Wilson MD Referring Provider: RICH WILSON [[id number]] Allergies As of Date: 04/05/2018 Noted Allergy Reaction BUSPAR (BUSPIRONE HCL) 11/15/2012 14 - Other: See Comments Comments: palpitations CIPROFLOXACIN 02/14/2012 2 - Rash COMPAZINE (PROCHLORPERAZINE EDISY*06/23/2008 1 - Mental Status Change DARVOCET A500 (PROPOXYPHENE N-TRENT*12/10/2008 9 - Itching FLUOXETINE 06/10/2008 16 - Unknown IMITREX (SUMATRIPTAN) 06/09/2008 10 - Anaphylaxis Comments: Heart racing METHOCARBAMOL 04/15/2013 8 - GI Upset NSAIDS (NON-STEROIDAL ANTI-INFLAM*06/09/2008 7 - Swelling ZOLOFT (SERTRALINE HCL) 02/22/2011 1 - Mental Status Change Comments: Suicidal thoughts Date Reviewed: 04/05/2018 Reviewed by: Beronica Patel LPN - Fully Assessed Reason for Visit: F/U 3 months [1176] Cmt: Medication review Primary Visit Diagnosis:Mass of colon (descening colon mass or outpouching on CT scan) [K63.9] Other Visit Diagnoses:Tension headache [G44.209] Essential hypertension [I10] Obesity, Class II, BMI 35-39.9 [E66.9] Depressive disorder [F32.9] Anxiety [F41.9] Insomnia, unspecified type [G47.00] Order(s):QUEtiapine (SEROQUEL) 50 mg tablet1/2 tablet at bedtime for 2 weeks. Then 1/2 tablet every other night for 2 weeks. Then stop medication.Disp: Rfl: acetaminophen 325 mg-caffeine 40 mg-butalbital 50 mg (FIORICET) per tabletTake 1 tablet by mouth every 8 hours as needed for Headache. Limit to not more than 2 days per week. 20 tablets per month.Disp: 20 tabletRfl: 2 Prescriptions as of 04/05/2018 Sig: QUETIAPINE 50 MG TABLET 1/2 tablet at bedtime for 2 w* [id number]-[id number]-TVHG* Take 1 tablet by mouth every * AMLODIPINE 10 MG TABLET Take 1 tablet by mouth once d* LISINOPRIL 20 MG TABLET Take 1 tablet by mouth once d* MIRTAZAPINE 30 MG TABLET Take 1 tablet by mouth daily * ATORVASTATIN 20 MG TABLET Take 1 tablet by mouth once d* CITALOPRAM 20 MG TABLET Take 1 tablet by mouth once d* Medication notes this encounter CYCLOBENZAPRINE 10 MG TABLET >> Beronica Patel LPN 04/05/2018 10:09 AM >> BERONICA PATEL LPN SunApr 05, 2018 10:09 AM Not taking Problem List As Of Date 04/05/2018 Noted Resolved TENSION HEADACHE [G44.209] INVALID FOR* Abdominal pain, other specified site [R10.9] INVALID FOR*09/28/2017 Diarrhea [R19.7] INVALID FOR*09/28/2017 Calculus of kidney [N20.0] INVALID FOR*09/28/2017 More... Cervicalgia [M54.2] INVALID FOR*09/28/2017 Essential hypertension [I10] INVALID FOR* Prediabetes [R73.03] INVALID FOR* Mixed hyperlipidemia [E78.2] INVALID FOR* Plantar fascial fibromatosis [M72.2] INVALID FOR*09/28/2017 Insomnia [G47.00] INVALID FOR* Tendonitis [M77.9] INVALID FOR*09/28/2017 Depressive disorder [F32.9] INVALID FOR* Fracture of humerus, proximal, left, closed [S4*INVALID FOR*09/28/2017 Anxiety [F41.9] INVALID FOR* Left flank pain [R10.9] INVALID FOR*09/28/2017 Microscopic hematuria [R31.29] INVALID FOR*09/28/2017 Priority: G Chronic narcotic use INVALID FOR*09/28/2017 Priority: A More... URI, acute [J06.9] INVALID FOR*09/28/2017 More... Tobacco abuse [Z72.0] INVALID FOR* Analgesic overuse headache [T39.91XA, G44.40] INVALID FOR* Mass of colon (descening colon mass or outpouch*INVALID FOR* More... Obesity, Class II, BMI 35-39.9 [E66.9] INVALID FOR* Prescriptions ordered this encounter Disp Refills Start End QUETIAPINE 50 MG TABLET 04/05/2018 Class: Med Update Si/2 tablet at bedtime for 2 weeks. Then 1/2 tablet every other night for 2 weeks. Then stop medication. LIFVQQVWKM-VDMDWUEHBHFHF-CXPWQBIG 50* 20 t* 2 04/05/2018 Class: Print RX Route: ORAL Sig: Take 1 tablet by mouth every 8 hours as needed for Headache. Limit to not more than 2 days per week. 20 tablets per month. Medications Discontinued During This Encounter HYDROcodone-acetaminophen (NORCO) 5-* 04/05/2018 Class: Historical Med Route: ORAL Sig: Take 1 tablet by mouth every 6 hours as needed. Disc: Reason for discontinue is not on file. diphenhydrAMINE-Acetaminophen (PERCO* 24 t* 0 03/12/2018 04/05/2018 Route: ORAL Sig: Take 1 tablet by mouth twice daily. Patient not taking: Reported on 04/05/2018 Disc: Reason for discontinue is not on file. omeprazole (PRILOSEC) 20 mg capsule 30 c* 5 09/28/2017 04/05/2018 Route: ORAL Sig: Take 1 capsule by mouth once daily. Patient not taking: Reported on 04/05/2018 Disc: Reason for discontinue is not on file. QUEtiapine (SEROQUEL) 50 mg tablet 30 t* 2 02/13/2018 04/05/2018 Cmt: Dose reduction. Sig: take 1 tablet by mouth at bedtime Disc: Reason for discontinue is not on file. acetaminophen 325 mg-caffeine 40 mg-* 20 t* 2 01/02/2018 04/05/2018 Route: ORAL Sig: Take 1 tablet by mouth every 8 hours as needed for Headache. Limit to not more than 2 days per week. 20 tablets per month. Disc: Reason for discontinue is not on file. cyclobenzaprine (FLEXERIL) 10 mg tab* 04/05/2018 Class: Historical Med Route: ORAL Sig: Take 10 mg by mouth three times daily as needed. Disc: Reason for discontinue is not on file. Disposition: Return in about 3 months (around 07/05/2018). Follow-up and Disposition History Recorded Encounter Status:Closed by RICH WILSON MD on 04/05/18 PROGRESS Observed: 03/12/2018 Status: COMPLETED Source: [place] 3:22 PM [facility] REPOSITORY O ID: [id number] Author: Reinier Justice Service: (none) Author Type: Nurse Practitioner Type: Progress Notes Filed: 03/12/2018 4:02 PM Note Text: CC: Patient presents with: Recheck: ER follow up, back pain HPI Parminder Joseph is a 47 year old female who presents today for [facility] ER follow up from 03/06/18. Patient presented to the ER with complaints of a back injury that occurred at work x1 day prior. She had been lifting a box of oil ~35lbs when she felt a pop in her lower back and radiating pain on the back of her left leg occurring intermittently. Associated symptoms included intermittent numbness/tingling of the left leg. She was sent home with prescription for Flexeril and [place]. Since returning home patient reports continued pain to left lower back that intermittently radiates down the left leg. She indicates pain is not worse, maybe slightly better but continues to impact her work as she was returned with restriction and has only had x1 day off since injury. She finds it difficult to spend prolonged periods of time on her feet otherwise she develops tingling to the left leg. Pain is fairly constant, described as an achy pain that intensifies with movement described as sharp. Taking taking flexeril and norco without much relief, she finds the [place] upsets her stomach. Taking Tylenol during work hours and ice/heat for comfort. Denies any lower extremity weakness, saddle anesthesia or bowel or bladder incontinence. REVIEW OF SYSTEMS: as above otherwise non-contributory. Reviewed relevant PMHx, PSHx, Social Hx, current medications and allergies. OBJECTIVE/Physical Exam: BP 144/86 Pulse 88 Temp 36.3 ?C (97.3 ?F) (Temporal Artery) Resp 16 Wt 93.9 kg (207 lb) LMP 04/18/2010 SpO2 99% BMI 36.09 kg/m? Gen: Pleasant female in mild distress Heart: regular rate and rhythm, without murmur Lungs: Lungs clear to auscultation, No wheezing, rales or rhonchi Gait: antalgic, favoring left Spinal Tenderness: No Muscle Spasm: No Strength Upper and Lower extremities: normal Sensory exam Upper and Lower Extremities: normal Straight Leg Raise: Sitting: (+) Lying:unable DTR's: 2+/= in B/L lower extremities Range of Motion Spine: extension limited with pain, flexion decreased with pain, lateral rotation limited to the left without pain, lateral bending limited with pain Extremities: No deformities, edema, skin discoloration, clubbing or cyanosis. Good capillary refill. , Pulses: 2+, Extremities normal. No deformities, edema, or skin discoloration. Good capillary refill.. Musculoskeletal: Negative findings: No cyanosis, clubbing or edema, No deformities present, Strength normal, Positive findings: tenderness over the left lumbar musculature ASSESSMENT/PLAN: 1. Lumbar sprain, initial encounter - ICD9: 847.2, ICD10: S33.5XXA - Bedrest for 2-3 days - Ice for localized tenderness - Medrol dose pack as patient is allergic to NSAIDs - Muscle relaxant- As previously prescribed in the ER - Patient given instructions use of medications as ordered, back care exercise program and proper lifting techniques - Follow up in 5 days or sooner if symptoms persist or worsen Prescription instructions reviewed with patient as applicable. Potential red flag symptoms discussed with the patient. Reviewed appropriate action plan to take if red flag symptoms occur. Patient agreeable to treatment plan. Reinier Justice APRN.[employer] APPLICATION ANALYST CNOV Observed: 03/12/2018 Status: COMPLETED Source: [place] 3:20 PM [facility] REPOSITORY Office Visit (INTMWS) PARMINDER JOSEPH ([id number]) 1970 F Date Time Provider Department 03/12/18 3:20 PM REINIER JUSTICE ([place]) [facility] During your visit today, we recorded the following information about you: Temperature Pulse Respiration Blood pressure 97.3 degrees 88/minute 16/minute 144/86 Weight 93.9 kg Reinier Justice APRN.CNP 03/12/2018 4:02 PM Signed CC: Patient presents with: Recheck: ER follow up, back pain HPI Parminder Joseph is a 47 year old female who presents today for [facility] ER follow up from 03/06/18. Patient presented to the ER with complaints of a back injury that occurred at work x1 day prior. She had been lifting a box of oil ~35lbs when she felt a pop in her lower back and radiating pain on the back of her left leg occurring intermittently. Associated symptoms included intermittent numbness/tingling of the left leg. She was sent home with prescription for Flexeril and [place]. Since returning home patient reports continued pain to left lower back that intermittently radiates down the left leg. She indicates pain is not worse, maybe slightly better but continues to impact her work as she was returned with restriction and has only had x1 day off since injury. She finds it difficult to spend prolonged periods of time on her feet otherwise she develops tingling to the left leg. Pain is fairly constant, described as an achy pain that intensifies with movement described as sharp. Taking taking flexeril and norco without much relief, she finds the [place] upsets her stomach. Taking Tylenol during work hours and ice/heat for comfort. Denies any lower extremity weakness, saddle anesthesia or bowel or bladder incontinence. REVIEW OF SYSTEMS: as above otherwise non-contributory. Reviewed relevant PMHx, PSHx, Social Hx, current medications and allergies. OBJECTIVE/Physical Exam: BP 144/86 Pulse 88 Temp 36.3 ?C (97.3 ?F) (Temporal Artery) Resp 16 Wt 93.9 kg (207 lb) LMP 04/18/2010 SpO2 99% BMI 36.09 kg/m? Gen: Pleasant female in mild distress Heart: regular rate and rhythm, without murmur Lungs: Lungs clear to auscultation, No wheezing, rales or rhonchi Gait: antalgic, favoring left Spinal Tenderness: No Muscle Spasm: No Strength Upper and Lower extremities: normal Sensory exam Upper and Lower Extremities: normal Straight Leg Raise: Sitting: (+) Lying:unable DTR's: 2+/= in B/L lower extremities Range of Motion Spine: extension limited with pain, flexion decreased with pain, lateral rotation limited to the left without pain, lateral bending limited with pain Extremities: No deformities, edema, skin discoloration, clubbing or cyanosis. Good capillary refill. , Pulses: 2+, Extremities normal. No deformities, edema, or skin discoloration. Good capillary refill.. Musculoskeletal: Negative findings: No cyanosis, clubbing or edema, No deformities present, Strength normal, Positive findings: tenderness over the left lumbar musculature ASSESSMENT/PLAN: 1. Lumbar sprain, initial encounter - ICD9: 847.2, ICD10: S33.5XXA - Bedrest for 2-3 days - Ice for localized tenderness - Medrol dose pack as patient is allergic to NSAIDs - Muscle relaxant- As previously prescribed in the ER - Patient given instructions use of medications as ordered, back care exercise program and proper lifting techniques - Follow up in 5 days or sooner if symptoms persist or worsen Prescription instructions reviewed with patient as applicable. Potential red flag symptoms discussed with the patient. Reviewed appropriate action plan to take if red flag symptoms occur. Patient agreeable to treatment plan. Reinier Justice APRN.[place] Justice APRN.CNP 03/12/2018 3:43 PM Signed Ice to lower back 15-20 minutes at a time. Rest as much as possible. Take oral steroid and percogesic as prescribed. Gentle back stretching exercises starting 2 days. Referring Provider: SELF [[id number]] Allergies As of Date: 03/12/2018 Noted Allergy Reaction BUSPAR (BUSPIRONE HCL) 11/15/2012 14 - Other: See Comments Comments: palpitations CIPROFLOXACIN 02/14/2012 2 - Rash COMPAZINE (PROCHLORPERAZINE EDISY*06/23/2008 1 - Mental Status Change DARVOCET A500 (PROPOXYPHENE N-TRENT*12/10/2008 9 - Itching FLUOXETINE 06/10/2008 16 - Unknown IMITREX (SUMATRIPTAN) 06/09/2008 10 - Anaphylaxis Comments: Heart racing METHOCARBAMOL 04/15/2013 8 - GI Upset NSAIDS (NON-STEROIDAL ANTI-INFLAM*06/09/2008 7 - Swelling ZOLOFT (SERTRALINE HCL) 02/22/2011 1 - Mental Status Change Comments: Suicidal thoughts Date Reviewed: 01/02/2018 Reviewed by: Lisa Maxwell LPN - Fully Assessed Reason for Visit: Recheck [92] Cmt: ER follow up, back pain Primary Visit Diagnosis:Lumbar sprain, initial encounter [S33.5XXA] Order(s):diphenhydrAMINE-Acetaminophen (PERCOGESIC) 12.5-325 mg tabTake 1 tablet by mouth twice daily.Disp: 24 tabletRfl: 0 methylPREDNISolone (MEDROL, IRENA,) 4 mg Dose-PackFollow dosing instructions, take with food.Disp: 1 PackageRfl: 0 Prescriptions as of 03/12/2018 Sig: HYDROCODONE 5 MG-ACETAMINOPHE* Take 1 tablet by mouth every * CYCLOBENZAPRINE 10 MG TABLET Take 10 mg by mouth three nirmala* DIPHENHYDRAMINE 12.5 MG-ACETA* Take 1 tablet by mouth twice * METHYLPREDNISOLONE 4 MG TABLE* Follow dosing instructions, t* QUETIAPINE 50 MG TABLET take 1 tablet by mouth at bed* NUVGAQTSTM-NGSKKSEFPQQAZ-OTQR* Take 1 tablet by mouth every * AMLODIPINE 10 MG TABLET Take 1 tablet by mouth once d* LISINOPRIL 20 MG TABLET Take 1 tablet by mouth once d* MIRTAZAPINE 30 MG TABLET Take 1 tablet by mouth daily * ATORVASTATIN 20 MG TABLET Take 1 tablet by mouth once d* CITALOPRAM 20 MG TABLET Take 1 tablet by mouth once d* OMEPRAZOLE 20 MG CAPSULE,HAYLEY* Take 1 capsule by mouth once * Problem List As Of Date 03/12/2018 Noted Resolved TENSION HEADACHE [G44.209] INVALID FOR* Abdominal pain, other specified site [R10.9] INVALID FOR*09/28/2017 Diarrhea [R19.7] INVALID FOR*09/28/2017 Calculus of kidney [N20.0] INVALID FOR*09/28/2017 More... Cervicalgia [M54.2] INVALID FOR*09/28/2017 Essential hypertension [I10] INVALID FOR* Prediabetes [R73.03] INVALID FOR* Mixed hyperlipidemia [E78.2] INVALID FOR* Plantar fascial fibromatosis [M72.2] INVALID FOR*09/28/2017 Insomnia [G47.00] INVALID FOR* Tendonitis [M77.9] INVALID FOR*09/28/2017 Depressive disorder [F32.9] INVALID FOR* Fracture of humerus, proximal, left, closed [S4*INVALID FOR*09/28/2017 Anxiety [F41.9] INVALID FOR* Left flank pain [R10.9] INVALID FOR*09/28/2017 Microscopic hematuria [R31.29] INVALID FOR*09/28/2017 Priority: G Chronic narcotic use INVALID FOR*09/28/2017 Priority: A More... URI, acute [J06.9] INVALID FOR*09/28/2017 More... Tobacco abuse [Z72.0] INVALID FOR* Analgesic overuse headache [T39.91XA, G44.40] INVALID FOR* Mass of colon (descening colon mass or outpouch*INVALID FOR* More... Other instructions from your clinician: Ice to lower back 15-20 minutes at a time. Rest as much as possible. Take oral steroid and percogesic as prescribed. Gentle back stretching exercises starting 2 days. Prescriptions ordered this encounter Disp Refills Start End DIPHENHYDRAMINE 12.5 MG-ACETAMINOPHE* 24 t* 0 03/12/2018 Route: ORAL Sig: Take 1 tablet by mouth twice daily. METHYLPREDNISOLONE 4 MG TABLETS IN A* 1 Pa* 0 03/12/2018 03/18/2018 Sig: Follow dosing instructions, take with food. Letter Text Department of Internal Medicine [address] [id number] 03/12/2018 Parminder Joseph [facility]# [id number] [address] [place] [address] TO WHOM IT MAY CONCERN: This is to certify that Ms. Parminder Joseph has been under my care for injury and was unable to work from 03/12/18 through 03/14/18. May return on 03/15/18 with light duty through 03/18/18. Sincerely yours, Reinier Justice APRN.CNP Encounter Status:Closed by REINIER JUSTICE CNP on 03/12/18 DISCHARGE INSTRUCTION Observed: 03/06/2018 Status: F Source: [place] 12:00 PM [facility] REPOSITORY [facility] Medical Records Department [address] [place] [id number] Discharge Instruction 03/06/18 1158 MR#: [id number] Acct: [id number] Name: PARMINDER JOSEPH Rep #: [id number] : 1970 47 From: Dimitry Ritchie DO PCP: Rich Wilson MD Status: PRE ER ED Disposition - Plan for ED Patient: Chief Complaint: Back Instructions: ED Sprain Strain Lumbar, ED Sciatica Prescriptions: Hydrocodone/Acetaminophen [[place] 5-325 Tablet] 1 - 2 ea PO 4X/DAY PRN PRN 5 Days #20 tab PRN Reason: Pain Cyclobenzaprine [Flexeril] 10 mg PO TID PRN #20 tab PRN Reason: Muscle Spasm Referrals: Rich Wilson MD [Primary Care Provider] - [facility]] - 3-5 Days What to do if you have Problems For any increased pain, shortness of breath, bleeding, nausea or vomiting, chest pain, or any unexpected problems, contact your Primary Care Provider. Call [facility] ([phone]) or report to the closest Emergency Room. Call 911 if necessary. 03/06/18 1200 <Electronically signed by Dimitry Ritchie DO> Date Dimitry Ritchie DO Cosigner Signature (If Indicated): Date CC: Rich Wilson MD EMERGENCY DEPARTMENT Observed: 03/06/2018 Status: F Source: [place] SUMMARY 11:58 AM [facility] REPOSITORY [facility] Medical Records Department [address] [place] [id number] Emergency Department Summary 03/06/18 1156 MR#: [id number] Acct: [id number] Name: MARISSA JOSEPHA Arturo Rep #: [id number] : 1970 47 From: Dimitry Ritchie DO PCP: Rich Wilson MD Status: PRE ER - ER Visit Summary Date of Service: 03/06/18 Chief Complaint: [Back injury] History of Present Illness: The patient is a 47 F [presents the emergency department with complaint of a back injury that occurred while at work yesterday morning. 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 Patient had some pain radiating on the back of her left leg. Patient states the pain only radiates down the leg intermittently. Patient's had some pins and needles sensations at times in her left leg. Patient denies weakness in the leg. She denies change in bowel or bladder function.] Physical Examination: [HEENT-PERRLA, EOMI. Cranial nerves II through XII grossly intact. TMs clear. Mucous membranes moist. No adenopathy. Cardiovascular-regular rate and rhythm without murmur or ectopy Lungs-clear to auscultation, chest wall stable without crepitus or subcu emphysema Abdomen-normoactive bowel sounds, soft, nontender, no rebound or rigidity, no peritoneal signs. Back exam-patient has no tenderness over the thoracic or lumbar spine. Patient does have some tenderness over left lumbar paraspinal musculature. Patient does have a positive straight leg raise with pain at 45 on the left. Deep tendon reflexes are plus 2 out of 4 bilaterally at the patella and Achilles. Patient has normal L5 extension. Patient has normal sensation to light touch. Extremities-intact 4, normal range of motion, normal pulses, atraumatic] Test Results: [None indicated]. Patient understands that if her symptoms do not improve she may need imaging such as possibly MRI to evaluate further. Emergency Department Course and Treatment: [Patient did not want anything for pain in the emergency department as she is driving.] Treatment Plan: [Patient will be given a prescription for [place] and Flexeril. Patient to follow-up with [facility] in 3-5 days. Patient given work restrictions.] Disposition: [Discharged home in stable condition]. Patient advised to return if worsening pain, weakness in extremities, change in bowel or bladder function, or condition should worsen anyway. Impression: [Lumbar strain Lumbar radiculopathy] This note was generated with Dragon dictation software. It may contain incorrect words, spelling, and punctuation that were not noted in review of the chart prior to signing ED Disposition - Plan for ED Patient: Chief Complaint: Back Referrals: Rich Wilson MD [Primary Care Provider] - What to do if you have Problems For any increased pain, shortness of breath, bleeding, nausea or vomiting, chest pain, or any unexpected problems, contact your Primary Care Provider. Call [facility] ([phone]) or report to the closest Emergency Room. Call 911 if necessary. 03/06/18 1158 <Electronically signed by Dimitry Ritchie DO> Date Dimitry Ritchie DO Cosigner Signature (If Indicated): Date CC: Rich Wilson MD PROGRESS Observed: 01/02/2018 Status: COMPLETED Source: [place] 11:18 AM [facility] REPOSITORY [facility] ID: [id number] Author: Rich Wilson Service: (none) Author Type: Physician Type: Progress Notes Filed: 01/02/2018 11:28 AM Note Text: This note was created using [employer]. Subjective Parminder Joseph is a 47 year old female here for follow up after she established care. Her hypertension was controlled. Lipids were not controlled, so atorvastatin was increased. Her headaches were better. We discussed her accelerated request for Fioricet refills. She apologized and indicated she had been using the medication for stress related headaches. We discussed limiting overuse of Fioricet to avoid cycling headaches. She agreed to limit this. Her insomnia was worse so she called for an increase of quetiapine. This made her more groggy during the day, so she started taking the medication as needed. Her depression and anxiety were stable. She recalled having good results with citalopram for depression, anxiety, and sleep. She was in the ER December 14 for flank pain. This resolved. However, her CT scan showed a questionable mass in the colon that needed follow up. Review of Systems Constitutional: Negative. Respiratory: Negative. Cardiovascular: Negative. Genitourinary: Negative. Psychiatric/Behavioral: Positive for dysphoric mood and sleep disturbance. Negative for confusion, self-injury and suicidal ideas. The patient is nervous/anxious. Objective BP 128/89 (BP Site: Left Arm, BP Position: Sitting, BP Cuff Size: Regular Adult) Pulse 81 Temp 36.2 ?C (97.2 ?F) (Left Tympanic) Resp 20 Wt 86.2 kg (190 lb) LMP 04/18/2010 BMI 33.13 kg/m? Physical Exam Constitutional: No distress. Neurological: She is alert. Psychiatric: She has a normal mood and affect. Her behavior is normal. Thought content normal. Assessment and Plan 1. Analgesic overuse headache - ICD9: 339.3, E935.9, ICD10: T39.91XA, G44.40 (primary diagnosis) Limit FIORICET use to no more than twice a week. Not more than 20 tablets per month. Patient indicated understanding and willingness to follow recommendations. 2. Tension headache - ICD9: 307.81, ICD10: G44.209 See above. - OHMFBEQFCP-OEHEYMDKWDMOM-DOGDNHEK 50 MG-325 MG-40 MG TABLET 3. Essential hypertension - ICD9: 401.9, ICD10: I10 - fair control - AMLODIPINE 10 MG TABLET - LISINOPRIL 20 MG TABLET 4. Depressive disorder - ICD9: 311, ICD10: F32.9 Stable. - MIRTAZAPINE 30 MG TABLET - QUETIAPINE 50 MG TABLET. Dose decreased. Plan on weaning this down further. - CITALOPRAM 20 MG TABLET. New medication restarted. Discussed medication dosage, usage, goals of therapy, and side effects. 5. Anxiety - ICD9: 300.00, ICD10: F41.9 See #4. - MIRTAZAPINE 30 MG TABLET - QUETIAPINE 50 MG TABLET - CITALOPRAM 20 MG TABLET 6. Insomnia, unspecified type - ICD9: 780.52, ICD10: G47.00 See #4. - MIRTAZAPINE 30 MG TABLET - QUETIAPINE 50 MG TABLET 7. Encounter for screening mammogram for breast cancer - ICD9: V76.12, ICD10: Z12.31 - [facility] SCREENING 8. Mass of colon (descening colon mass or outpouching on CT scan) - ICD9: 569.89, ICD10: K63.9 - CONSULT TO GENERAL SURGERY 9. Mixed hyperlipidemia - ICD9: 272.2, ICD10: E78.2 - suboptimal control - Continue current medication. - ATORVASTATIN 20 MG TABLET 25 minutes was spent, all for discussion and care coordination. Rich Wilson MD CNOV Observed: 01/02/2018 Status: COMPLETED Source: [place] 10:00 AM [facility] REPOSITORY Office Visit (INTMWS) PARMINDER JOSEPH ([id number]) 1970 F Date Time Provider Department 01/02/18 10:00 AM RICH WILSON INTMWS During your visit today, we recorded the following information about you: Temperature Pulse Respiration Blood pressure 97.2 degrees 81/minute 20/minute 128/89 Weight 86.2 kg Rich Wilson MD 01/02/2018 11:28 AM Signed This note was created using Cybitsriter. Subjective Parminder Joseph is a 47 year old female here for follow up after she established care. Her hypertension was controlled. Lipids were not controlled, so atorvastatin was increased. Her headaches were better. We discussed her accelerated request for Fioricet refills. She apologized and indicated she had been using the medication for stress related headaches. We discussed limiting overuse of Fioricet to avoid cycling headaches. She agreed to limit this. Her insomnia was worse so she called for an increase of quetiapine. This made her more groggy during the day, so she started taking the medication as needed. Her depression and anxiety were stable. She recalled having good results with citalopram for depression, anxiety, and sleep. She was in the ER December 14 for flank pain. This resolved. However, her CT scan showed a questionable mass in the colon that needed follow up. Review of Systems Constitutional: Negative. Respiratory: Negative. Cardiovascular: Negative. Genitourinary: Negative. Psychiatric/Behavioral: Positive for dysphoric mood and sleep disturbance. Negative for confusion, self-injury and suicidal ideas. The patient is nervous/anxious. Objective BP 128/89 (BP Site: Left Arm, BP Position: Sitting, BP Cuff Size: Regular Adult) Pulse 81 Temp 36.2 ?C (97.2 ?F) (Left Tympanic) Resp 20 Wt 86.2 kg (190 lb) LMP 04/18/2010 BMI 33.13 kg/m? Physical Exam Constitutional: No distress. Neurological: She is alert. Psychiatric: She has a normal mood and affect. Her behavior is normal. Thought content normal. Assessment and Plan 1. Analgesic overuse headache - ICD9: 339.3, E935.9, ICD10: T39.91XA, G44.40 (primary diagnosis) Limit FIORICET use to no more than twice a week. Not more than 20 tablets per month. Patient indicated understanding and willingness to follow recommendations. 2. Tension headache - ICD9: 307.81, ICD10: G44.209 See above. - XDICKUDUXV-GSJUGSEUOMPEN-LIHPBGPY 50 MG-325 MG-40 MG TABLET 3. Essential hypertension - ICD9: 401.9, ICD10: I10 - fair control - AMLODIPINE 10 MG TABLET - LISINOPRIL 20 MG TABLET 4. Depressive disorder - ICD9: 311, ICD10: F32.9 Stable. - MIRTAZAPINE 30 MG TABLET - QUETIAPINE 50 MG TABLET. Dose decreased. Plan on weaning this down further. - CITALOPRAM 20 MG TABLET. New medication restarted. Discussed medication dosage, usage, goals of therapy, and side effects. 5. Anxiety - ICD9: 300.00, ICD10: F41.9 See #4. - MIRTAZAPINE 30 MG TABLET - QUETIAPINE 50 MG TABLET - CITALOPRAM 20 MG TABLET 6. Insomnia, unspecified type - ICD9: 780.52, ICD10: G47.00 See #4. - MIRTAZAPINE 30 MG TABLET - QUETIAPINE 50 MG TABLET 7. Encounter for screening mammogram for breast cancer - ICD9: V76.12, ICD10: Z12.31 - [facility] SCREENING 8. Mass of colon (descening colon mass or outpouching on CT scan) - ICD9: 569.89, ICD10: K63.9 - CONSULT TO GENERAL SURGERY 9. Mixed hyperlipidemia - ICD9: 272.2, ICD10: E78.2 - suboptimal control - Continue current medication. - ATORVASTATIN 20 MG TABLET 25 minutes was spent, all for discussion and care coordination. Rich Wilson MD Referring Provider: RICH WILSON [[id number]] Allergies As of Date: 01/02/2018 Noted Allergy Reaction BUSPAR (BUSPIRONE HCL) 11/15/2012 14 - Other: See Comments Comments: palpitations CIPROFLOXACIN 02/14/2012 2 - Rash COMPAZINE (PROCHLORPERAZINE EDISY*06/23/2008 1 - Mental Status Change DARVOCET A500 (PROPOXYPHENE N-TRENT*12/10/2008 9 - Itching FLUOXETINE 06/10/2008 16 - Unknown IMITREX (SUMATRIPTAN) 06/09/2008 10 - Anaphylaxis Comments: Heart racing METHOCARBAMOL 04/15/2013 8 - GI Upset NSAIDS (NON-STEROIDAL ANTI-INFLAM*06/09/2008 7 - Swelling ZOLOFT (SERTRALINE HCL) 02/22/2011 1 - Mental Status Change Comments: Suicidal thoughts Date Reviewed: 01/02/2018 Reviewed by: Lisa Maxwell LPN - Fully Assessed Reason for Visit: F/U 3 Month [443] Primary Visit Diagnosis:Analgesic overuse headache [T39.91XA, G44.40] Other Visit Diagnoses:Tension headache [G44.209] Essential hypertension [I10] Depressive disorder [F32.9] Anxiety [F41.9] Insomnia, unspecified type [G47.00] Encounter for screening mammogram for breast cancer [Z12.31] Mass of colon (descening colon mass or outpouching on CT scan) [K63.9] Mixed hyperlipidemia [E78.2] Order(s):acetaminophen 325 mg-caffeine 40 mg-butalbital 50 mg (FIORICET) per tabletTake 1 tablet by mouth every 8 hours as needed for Headache. Limit to not more than 2 days per week. 20 tablets per month.Disp: 20 tabletRfl: 2 amLODIPine (NORVASC) 10 mg tabletTake 1 tablet by mouth once daily.Disp: 30 tabletRfl: 5 lisinopril (ZESTRIL, PRINIVIL) 20 mg tabletTake 1 tablet by mouth once daily.Disp: 30 tabletRfl: 5 mirtazapine (REMERON) 30 mg tabletTake 1 tablet by mouth daily at bedtime.Disp: 30 tabletRfl: 5 atorvastatin (LIPITOR) 20 mg tabletTake 1 tablet by mouth once daily.Disp: 30 tabletRfl: 5 [facility] SCREENING [[id number]] Order #: [id number] FUTURE CONSULT TO GENERAL SURGERY [6311] Order #: [id number]: 1 QUEtiapine (SEROQUEL) 50 mg tabletTake 1 tablet by mouth daily at bedtime.Disp: 30 tabletRfl: 2 citalopram (CELEXA) 20 mg tabletTake 1 tablet by mouth once daily.Disp: 30 tabletRfl: 2 Prescriptions as of 01/02/2018 Sig: IRXTGLRSPW-IINGFFPWSSOWH-PNAK* Take 1 tablet by mouth every * AMLODIPINE 10 MG TABLET Take 1 tablet by mouth once d* LISINOPRIL 20 MG TABLET Take 1 tablet by mouth once d* MIRTAZAPINE 30 MG TABLET Take 1 tablet by mouth daily * ATORVASTATIN 20 MG TABLET Take 1 tablet by mouth once d* OMEPRAZOLE 20 MG CAPSULE,HAYLEY* Take 1 capsule by mouth once * QUETIAPINE 50 MG TABLET Take 1 tablet by mouth daily * CITALOPRAM 20 MG TABLET Take 1 tablet by mouth once d* Medication notes this encounter QUETIAPINE 100 MG TABLET >> Jeremy MD Trav 01/02/2018 11:16 AM sedation side effects Problem List As Of Date 01/02/2018 Noted Resolved TENSION HEADACHE [G44.209] INVALID FOR* Abdominal pain, other specified site [R10.9] INVALID FOR*09/28/2017 Diarrhea [R19.7] INVALID FOR*09/28/2017 Calculus of kidney [N20.0] INVALID FOR*09/28/2017 More... Cervicalgia [M54.2] INVALID FOR*09/28/2017 Essential hypertension [I10] INVALID FOR* Prediabetes [R73.03] INVALID FOR* Mixed hyperlipidemia [E78.2] INVALID FOR* Plantar fascial fibromatosis [M72.2] INVALID FOR*09/28/2017 Insomnia [G47.00] INVALID FOR* Tendonitis [M77.9] INVALID FOR*09/28/2017 Depressive disorder [F32.9] INVALID FOR* Fracture of humerus, proximal, left, closed [S4*INVALID FOR*09/28/2017 Anxiety [F41.9] INVALID FOR* Left flank pain [R10.9] INVALID FOR*09/28/2017 Microscopic hematuria [R31.29] INVALID FOR*09/28/2017 Priority: G Chronic narcotic use INVALID FOR*09/28/2017 Priority: A More... URI, acute [J06.9] INVALID FOR*09/28/2017 More... Tobacco abuse [Z72.0] INVALID FOR* Analgesic overuse headache [T39.91XA, G44.40] INVALID FOR* Mass of colon (descening colon mass or outpouch*INVALID FOR* More... Prescriptions ordered this encounter Disp Refills Start End OICMXXEVVS-GNLWWXEUQZACN-GHMKFBCN 50* 20 t* 2 01/02/2018 Route: ORAL Sig: Take 1 tablet by mouth every 8 hours as needed for Headache. Limit to not more than 2 days per week. 20 tablets per month. AMLODIPINE 10 MG TABLET 30 t* 5 01/02/2018 Route: ORAL Sig: Take 1 tablet by mouth once daily. LISINOPRIL 20 MG TABLET 30 t* 5 01/02/2018 Route: ORAL Sig: Take 1 tablet by mouth once daily. MIRTAZAPINE 30 MG TABLET 30 t* 5 01/02/2018 Route: ORAL Sig: Take 1 tablet by mouth daily at bedtime. ATORVASTATIN 20 MG TABLET 30 t* 5 01/02/2018 Route: ORAL Sig: Take 1 tablet by mouth once daily. QUETIAPINE 50 MG TABLET 30 t* 2 01/02/2018 Cmt: Dose reduction. Route: ORAL Sig: Take 1 tablet by mouth daily at bedtime. CITALOPRAM 20 MG TABLET 30 t* 2 01/02/2018 Route: ORAL Sig: Take 1 tablet by mouth once daily. Medications Discontinued During This Encounter Butisoswtqsgwuf-Ltyyleiac-PE (BROMFE* 120 * 0 11/30/2017 01/02/2018 Sig: Take 5-10 ml po q6h prn Patient not taking: Reported on 01/02/2018 Disc: Reason for discontinue is not on file. QUEtiapine (SEROQUEL) 100 mg tablet 30 t* 5 10/25/2017 01/02/2018 Route: ORAL Sig: Take 1 tablet by mouth daily at bedtime. Disc: Dosage adjustment acetaminophen 325 mg-caffeine 40 mg-* 60 t* 0 12/13/2017 01/02/2018 Route: ORAL Sig: Take 1 tablet by mouth every 8 hours as needed. Disc: Reason for discontinue is not on file. amLODIPine (NORVASC) 10 mg tablet 30 t* 2 09/28/2017 01/02/2018 Route: ORAL Sig: Take 1 tablet by mouth once daily. Disc: Reason for discontinue is not on file. lisinopril (ZESTRIL, PRINIVIL) 20 mg* 30 t* 2 09/28/2017 01/02/2018 Route: ORAL Sig: Take 1 tablet by mouth once daily. Disc: Reason for discontinue is not on file. mirtazapine (REMERON) 30 mg tablet 01/02/2018 Class: Historical Med Route: ORAL Sig: Take 30 mg by mouth daily at bedtime. Disc: Reason for discontinue is not on file. atorvastatin (LIPITOR) 20 mg tablet 01/02/2018 Class: Historical Med Route: ORAL Sig: Take 20 mg by mouth once daily. Disc: Reason for discontinue is not on file. Disposition: Return in about 3 months (around 04/04/2018). Follow-up and Disposition History Recorded Encounter Status:Closed by RICH WILSON MD on 01/02/18 DOWNTIME REPORT Observed: 12/26/2017 Status: F Source: [place] 1:22 PM [facility] REPOSITORY [facility] Medical Records Department [address] [place] [id number] Downtime Report MR#: [id number] Acct: [id number] Name: PARMINDER JOSEPH Rep #: [id number] : 1970 47 From: Sebastian Mantilla MD PCP: Rich Wilson MD Status: DEP This patient was seen during an EMR downtime December 10, 2017 - December 17, 2017. This patient may have a combination of paper and electronic documentation or all paper documentation. All documentation is viewable within the e-chart portion of [facility] for each patient visit. ABDOMEN/PELVIS WITHOUT Observed: 12/16/2017 Status: F Source: OVI CONT 6:12 AM [facility] REPOSITORY [facility] Imaging Services [address] [place] [address] Abdomen/Pelvis without Cont MR#: [id number] Acct: [id number] Name: PARMINDER JOSEPH Rep #: [id number] : 1970 F 47 From: Tammy Stout MD PCP: Rich Wilson MD Status: REG ER Study: Abdomen/Pelvis without Cont Date of Exam: 12/14/17 Exam# [id number] Ordering Dr: Juwan Lewis MD STUDY: CT ABDOMEN AND PELVIS WITHOUT CONTRAST REASON FOR EXAM: Female, 47 years old. Right side abdominal pain and flank pain for 6 hours RADIATION DOSAGE (If Supplied By Facility): CTDIvol = ( 15.53 ) mGy, DLP = ( 768.42 ) mGycm TECHNIQUE: Transaxial images were obtained from the dome of the diaphragm to the symphysis pubis without oral contrast, and without intravenous contrast. Sagittal and coronal images were reconstructed. Individualized dose optimization techniques were used for this CT. COMPARISON: None. FINDINGS: There is subtle groundglass opacity within the lung bases suggestive of air trapping. The visualized portions of the heart are within normal limits. Normal liver. The gallbladder is distended. Normal spleen. Normal pancreas. Normal bilateral adrenal glands. Normal right kidney. There is a stone in the upper pole of the left kidney measuring there is a 5.8 x 3.1 mm stone in the left kidney. There is no evidence of hydronephrosis. Normal visualized stomach. There are mildly distended loops of small bowel. There is a mildly tortuous appearance of the large bowel. There are a few diverticula present without diverticulitis. Particular there is a outpouching of the descending colon image #52 which may contain residual contrast from a prior procedure or potentially partial calcification. This measures 7.2 mm and does not appear to contain gas. There are surgical clips in the region of the appendix consistent with a prior appendectomy. The aorta is partially calcified. Normal inferior vena cava. Normal retroperitoneum. Normal urinary bladder. There is absence of the uterus consistent with a prior hysterectomy. Normal abdominal wall. There is an old Schmorl's node at the level T10. CT/Abdomen/Pelvis without Cont IMPRESSION: No evidence of renal ureteral bladder calculi on the right side. There is a left-sided stone without hydronephrosis. There is mild distention of the small bowel could consider mild ileus. There is a minimal hiatal hernia. There is a 7 mm rounded outpouching or mass adjacent to the descending colon. This may represent a diverticulum versus the possibility of a small partially fatty mass without evidence of inflammation. It may have peripheral calcification. A comparison to a prior study or follow-up study in 3-6 months is suggested. Status post appendectomy. Distended gallbladder could consider follow-up ultrasound. Status post hysterectomy. Subtle groundglass opacity in the lungs suspicious for probable air trapping. Electronically Signed: Tammy Stout MD at 23:53 EDT Tel , Service support , CC: Juwan Lewis MD; Rich Wilson MD Zipper Cutter: Signed BASIC METABOLIC Collected: 12/14/2017 Status: F Source: OVI PROFILE (BMP) 10:25 PM [facility] REPOSITORY Order Comment: ORDERED FROM DT REQ RESULT(S) PREVIOUSLY REPORTED ON MANUAL REQUISITION DURING DOWNTIME. TYPE CODE TESTS RESULT OUT OF RANGE REFERENCE UNITS LAB L501.0100 74-106 mg/dL Normal GLU 101 Result Comment: Fasting Glucose result from 100 to 125 mg/dL suggests IMPAIRED HOMEOSTASIS per A.D.A. criteria. Please note revised GLUCOSE reference range effective 2017. LAB L501.1000 7-18 mg/dL Normal BUN 12 LAB L501.1100 0.55-1.02 mg/dL High CREAT,SERUM 1.08 Result Comment: The validity of the calculated GFR AND GFRAA in patients over 70 years has not been determined. Clinical correlation is essential. LAB L501.1110 >60 mL/min Low EST GFR 58 LAB L501.1115 >60 mL/min Normal EST GFR - AA 70 LAB L501.1300 10-20 RATIO Normal BUN/CRE 11.1 LAB L501.2200 8.5-10.1 mg/dL Normal CA 8.6 LAB L501.5300 136-145 mmol/L Normal NA 136 LAB L501.5600 3.5-5.1 mmol/L Normal K 3.7 LAB L501.5900 98-107 mmol/L Normal CL 105 LAB L501.6100 21.0-32.0 mmol/L Normal CO2 24.0 LAB L501.6200 5-15 Normal GAP 7 Performed By: #### L500.2500 #### [facility] [address] [place], [place], [id number] CBC W/DIFF, AUTOMATED Collected: 12/14/2017 Status: F Source: [place] 12:00 AM [facility] REPOSITORY Order Comment: ORDERED FROM DT REQS RESULT(S) PREVIOUSLY REPORTED ON MANUAL REQUISITION DURING DOWNTIME. TYPE CODE TESTS RESULT OUT OF RANGE REFERENCE UNITS LAB L100.1000 4.4-11.0 K/mm3 Normal WBC 5.9 LAB L100.1200 4.2-5.4 M/mm3 Normal RBC 4.68 LAB L100.1300 12.0-15.0 g/dl Normal HGB 13.4 LAB L100.1400 37-47 % Normal HCT 40.3 LAB L100.1500 81-99 fL Normal MCV 86.1 LAB L100.1600 27.0-32.0 pg Normal MCH 28.6 LAB L100.1700 32-36 g/gl Normal MCHC 33.3 LAB L100.1810 11.6-14.6 % Normal RDW CV 14.3 LAB L100.1820 35.1-43.9 fl High RDW SD 44.4 LAB L100.1900 150-450 K/mm3 Normal PLT 367 LAB L100.2000 6.2-12.0 fl Normal MPV 9.3 LAB L100.2100 47-70 % Low NEUT% 45.1 LAB L100.2200 19-41 % High LY% 41.7 LAB L100.2300 0-10 % Normal MONO% 7.8 LAB L100.2400 0-5 % Normal EO% 3.2 LAB L100.2500 0-1 % High BASO% 1.7 LAB L100.2550 0.0-0.9 % Normal IM GRAN % 0.500 Result Comment: IG% - Immature Granulocytes (promyelocytes, myelocytes and metamyelocytes) > 1% indicates that a LEFT SHIFT is Present. LAB L100.2620 2.0-7.7 X10 3/uL Normal Absolute Neut 2.7 LAB L100.2720 0.83-4.51 X10 3/ul Normal Absolute Lymph 2.46 Performed By: #### L100.0100 #### [facility] [address] [place], [address] GROUP A STREP BY Collected: 11/30/2017 Status: F Source: [place] PCR 5:31 PM [facility] REPOSITORY TYPE CODE TESTS RESULT OUT OF REFERENCE UNITS RANGE LAB GASSRC Throat Swab GAS Specimen Source LAB PCRGAS Negative for Group A Strep Group A PCR Streptococcus by PCR. Result Comment: This test was developed and its performance characteristics determined by [facility] [place] ([facility]). It has not been cleared or approved by the FDA. [facility] is regulated under CLIA as qualified to perform high-complexity testing. This test is used for clinical purposes. It should not be regarded as inv estigational or for research. Performed By: #### GASPCR #### [facility] [address] [place], [place] [address] PROGRESS Observed: 11/30/2017 Status: COMPLETED Source: [place] 5:20 PM [facility] REPOSITORY HNO ID: [id number] Author: Rima (Ramona) Dennis Service: (none) Author Type: Nurse Practitioner Type: Progress Notes Filed: 11/30/2017 5:35 PM Note Text: Subjective The history is provided by the patient. No world language teacher was used. HPI Parminder Joseph is a 47 year old female who presents today for CC of sore throat This started 3 days ago. She is also having chills, cough, and body aches. Symptoms are worsened by swallowing. 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 PMH seasonal allergies, PE tubes in past BP 140/88 Pulse 101 Temp 37.1 ?C (98.8 ?F) (Left Tympanic) Resp 20 Wt 87.5 kg (193 lb) LMP 04/18/2010 SpO2 95% BMI 33.65 kg/m? ALLERGIES Allergen Reactions - Buspar [Buspirone H* Other: See Comments palpitations - Ciprofloxacin Rash - Compazine [Prochlor* Mental Status Change - Darvocet A500 [Prop* Itching - Fluoxetine Unknown - Imitrex [Sumatripta* Anaphylaxis Heart racing - Methocarbamol GI Upset - Nsaids (Non-Steroid* Swelling - Zoloft [Sertraline * Mental Status Change Suicidal thoughts ACTIVE PROBLEM LIST Tension Headache Essential Hypertension Prediabetes Mixed Hyperlipidemia Insomnia Depressive Disorder Anxiety Tobacco Abuse Analgesic Overuse Headache Family History Problem Relation Age of Onset - Ischemic Heart Disease Mother Heart attack - Ischemic Heart Disease Maternal Grandmother - COPD Maternal Grandmother - COPD Maternal Grandfather - Breast Cancer Maternal Grandmother Mastectomy - Coronary Artery Disease Father fatal [place] age 61 Social History Marital status: Spouse name: Years of education: Number of children: 2 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 Alcohol use: No Drug use: No Comment: never Sexual activity: Yes Partners with: Male control/protection: Surgical Comment: Hysterectomy Social History Narrative Moved from [place]. At risk for homelessness. Children grown. Review of Systems Constitutional: Positive for chills. Negative for fever and malaise/fatigue. HENT: Positive for sore throat. Negative for congestion, ear pain and sinus pain. Respiratory: Positive for cough. Negative for sputum production, shortness of breath and wheezing. Cardiovascular: Negative for chest pain. Musculoskeletal: Negative for myalgias. Skin: Negative for rash. Neurological: Negative for headaches. Objective Physical Exam Constitutional: She is well-developed, well-nourished, and in no distress. HENT: Head: Normocephalic and atraumatic. Right Ear: Tympanic membrane, external ear and ear canal normal. Tympanic membrane is not injected, not erythematous, not retracted and not bulging. No middle ear effusion. Left Ear: Tympanic membrane, external ear and ear canal normal. Tympanic membrane is not injected, not erythematous, not retracted and not bulging. No middle ear effusion. Nose: Mucosal edema and rhinorrhea present. Right sinus exhibits no maxillary sinus tenderness and no frontal sinus tenderness. Left sinus exhibits no maxillary sinus tenderness and no frontal sinus tenderness. Mouth/Throat: Uvula is midline and mucous membranes are normal. Posterior oropharyngeal erythema (mild) present. No oropharyngeal exudate, posterior oropharyngeal edema or tonsillar abscesses. Clear post nasal drainage Eyes: Conjunctivae and EOM are normal. Pupils are equal, round, and reactive to light. Neck: Normal range of motion. Cardiovascular: Normal rate, regular rhythm and normal heart sounds. Pulmonary/Chest: Effort normal and breath sounds normal. No respiratory distress. She has no decreased breath sounds. She has no wheezes. She has no rhonchi. She has no rales. A dry hacking cough was noted during this encounter. Talking in full sentences. Handling secretions without drooling. Lips and nailbeds are pink without cyanosis. Lymphadenopathy: Head (right side): No submental, no submandibular, no tonsillar, no preauricular and no posterior auricular adenopathy present. Head (left side): No submental, no submandibular, no tonsillar, no preauricular and no posterior auricular adenopathy present. She has no cervical adenopathy. Right cervical: No superficial cervical and no posterior cervical adenopathy present. Left cervical: No superficial cervical and no posterior cervical adenopathy present. Right: No supraclavicular adenopathy present. Left: No supraclavicular adenopathy present. Skin: Skin is warm and dry. Psychiatric: Affect normal. Nursing note reviewed. ASSESSMENT/PLAN: 1. URI, acute - ICD9: 465.9, ICD10: J06.9 (primary diagnosis) - Discussed viral etiology and rationale for treatment. You need to rest as much as possible. Tylenol as needed for fever or pain. Salt water gargles, chloraseptic spray or lozenges as needed for sore throat. Nasal saline irrigation at least 2 x day. Drink at least 8 glasses of fluids per day that aren't caffeinated. Eat a nutritious diet. Use a humidifier in your room at night. DO NOT take any other OTC cough or cold medication while taking the prescription Bromfed DM. It is ok to take an OTC pain reliever/fever administration physician though such as advil or tylenol as needed. - WMNEFRXLXESFPGP-OISGGBBNDFGIIXC-HC 2 MG-30 MG-10 MG/5 ML SYRUP 2. Sore throat - ICD9: 462, ICD10: J02.9 - suspect strep - Rapid Strep negative in the office today - overnight throat culture pending, Only call if Strep culture is positive. - Discussed supportive care treatment with fluids, rest and analgesia. - The patient may also use warm salt water gargles, throat lozenges and/or OTC throat spray as needed. - The patient should follow up in one week if symptoms persist or worsen - Call back if drooling, increased temperature, symptoms of dehydration and/or still sick in one week - RAPID STREP TEST B/O - GROUP A STREPTOCOCCUS BY PCR Diagnosis and treatment plan were discussed and questions were answered to the patient's satisfaction. Pt acknowledged understanding of concepts and follow up plan. Specific signs and symptoms that would indicate the need for higher level of care were discussed in detail warranting prompt ER evaluation. AVERY MartinezOV Observed: 11/30/2017 Status: COMPLETED Source: [place] 5:15 PM [facility] REPOSITORY Office Visit ([facility]) PARMINDER JOSEPH ([id number]) 1970 F Date Time Provider Department 11/30/17 5:15 PM RIMA COLLINS ([place]) [facility] During your visit today, we recorded the following information about you: Temperature Pulse Respiration Blood pressure 98.8 degrees 101/minute 20/minute 140/88 Weight 87.5 kg Rima Collins APRN.CNP 11/30/2017 5:35 PM Signed Subjective The history is provided by the patient. No world language teacher was used. RAS Parminder Joseph is a 47 year old female who presents today for CC of sore throat This started 3 days ago. She is also having chills, cough, and body aches. Symptoms are worsened by swallowing. 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 PMH seasonal allergies, PE tubes in past BP 140/88 Pulse 101 Temp 37.1 ?C (98.8 ?F) (Left Tympanic) Resp 20 Wt 87.5 kg (193 lb) LMP 04/18/2010 SpO2 95% BMI 33.65 kg/m? ALLERGIES Allergen Reactions - Buspar [Buspirone H* Other: See Comments palpitations - Ciprofloxacin Rash - Compazine [Prochlor* Mental Status Change - Darvocet A500 [Prop* Itching - Fluoxetine Unknown - Imitrex [Sumatripta* Anaphylaxis Heart racing - Methocarbamol GI Upset - Nsaids (Non-Steroid* Swelling - Zoloft [Sertraline * Mental Status Change Suicidal thoughts ACTIVE PROBLEM LIST Tension Headache Essential Hypertension Prediabetes Mixed Hyperlipidemia Insomnia Depressive Disorder Anxiety Tobacco Abuse Analgesic Overuse Headache Family History Problem Relation Age of Onset - Ischemic Heart Disease Mother Heart attack - Ischemic Heart Disease Maternal Grandmother - COPD Maternal Grandmother - COPD Maternal Grandfather - Breast Cancer Maternal Grandmother Mastectomy - Coronary Artery Disease Father fatal [place] age 61 Social History Marital status: Spouse name: Years of education: Number of children: 2 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 Alcohol use: No Drug use: No Comment: never Sexual activity: Yes Partners with: Male control/protection: Surgical Comment: Hysterectomy Social History Narrative Moved from [place]. At risk for homelessness. Children grown. Review of Systems Constitutional: Positive for chills. Negative for fever and malaise/fatigue. HENT: Positive for sore throat. Negative for congestion, ear pain and sinus pain. Respiratory: Positive for cough. Negative for sputum production, shortness of breath and wheezing. Cardiovascular: Negative for chest pain. Musculoskeletal: Negative for myalgias. Skin: Negative for rash. Neurological: Negative for headaches. Objective Physical Exam Constitutional: She is well-developed, well-nourished, and in no distress. HENT: Head: Normocephalic and atraumatic. Right Ear: Tympanic membrane, external ear and ear canal normal. Tympanic membrane is not injected, not erythematous, not retracted and not bulging. No middle ear effusion. Left Ear: Tympanic membrane, external ear and ear canal normal. Tympanic membrane is not injected, not erythematous, not retracted and not bulging. No middle ear effusion. Nose: Mucosal edema and rhinorrhea present. Right sinus exhibits no maxillary sinus tenderness and no frontal sinus tenderness. Left sinus exhibits no maxillary sinus tenderness and no frontal sinus tenderness. Mouth/Throat: Uvula is midline and mucous membranes are normal. Posterior oropharyngeal erythema (mild) present. No oropharyngeal exudate, posterior oropharyngeal edema or tonsillar abscesses. Clear post nasal drainage Eyes: Conjunctivae and EOM are normal. Pupils are equal, round, and reactive to light. Neck: Normal range of motion. Cardiovascular: Normal rate, regular rhythm and normal heart sounds. Pulmonary/Chest: Effort normal and breath sounds normal. No respiratory distress. She has no decreased breath sounds. She has no wheezes. She has no rhonchi. She has no rales. A dry hacking cough was noted during this encounter. Talking in full sentences. Handling secretions without drooling. Lips and nailbeds are pink without cyanosis. Lymphadenopathy: Head (right side): No submental, no submandibular, no tonsillar, no preauricular and no posterior auricular adenopathy present. Head (left side): No submental, no submandibular, no tonsillar, no preauricular and no posterior auricular adenopathy present. She has no cervical adenopathy. Right cervical: No superficial cervical and no posterior cervical adenopathy present. Left cervical: No superficial cervical and no posterior cervical adenopathy present. Right: No supraclavicular adenopathy present. Left: No supraclavicular adenopathy present. Skin: Skin is warm and dry. Psychiatric: Affect normal. Nursing note reviewed. ASSESSMENT/PLAN: 1. URI, acute - ICD9: 465.9, ICD10: J06.9 (primary diagnosis) - Discussed viral etiology and rationale for treatment. You need to rest as much as possible. Tylenol as needed for fever or pain. Salt water gargles, chloraseptic spray or lozenges as needed for sore throat. Nasal saline irrigation at least 2 x day. Drink at least 8 glasses of fluids per day that aren't caffeinated. Eat a nutritious diet. Use a humidifier in your room at night. DO NOT take any other OTC cough or cold medication while taking the prescription Bromfed DM. It is ok to take an OTC pain reliever/fever administration physician though such as advil or tylenol as needed. - ITBSXGZNYMKQHJF-OIMIQYQMVIDDWBW-ST 2 MG-30 MG-10 MG/5 ML SYRUP 2. Sore throat - ICD9: 462, ICD10: J02.9 - suspect strep - Rapid Strep negative in the office today - overnight throat culture pending, Only call if Strep culture is positive. - Discussed supportive care treatment with fluids, rest and analgesia. - The patient may also use warm salt water gargles, throat lozenges and/or OTC throat spray as needed. - The patient should follow up in one week if symptoms persist or worsen - Call back if drooling, increased temperature, symptoms of dehydration and/or still sick in one week - RAPID STREP TEST B/O - GROUP A STREPTOCOCCUS BY PCR Diagnosis and treatment plan were discussed and questions were answered to the patient's satisfaction. Pt acknowledged understanding of concepts and follow up plan. Specific signs and symptoms that would indicate the need for higher level of care were discussed in detail warranting prompt ER evaluation. AVERY Martinez APRN.CNP 11/30/2017 5:31 PM Signed ASSESSMENT/PLAN: 1. URI, acute - ICD9: 465.9, ICD10: J06.9 (primary diagnosis) - Discussed viral etiology and rationale for treatment. You need to rest as much as possible. Tylenol as needed for fever or pain. Salt water gargles, chloraseptic spray or lozenges as needed for sore throat. Nasal saline irrigation at least 2 x day. Drink at least 8 glasses of fluids per day that aren't caffeinated. Eat a nutritious diet. Use a humidifier in your room at night. DO NOT take any other OTC cough or cold medication while taking the prescription Bromfed DM. It is ok to take an OTC pain reliever/fever administration physician though such as advil or tylenol as needed. - IFQOKIQOKQMFMMH-ZETSIIWXMTRDRUU-QL 2 MG-30 MG-10 MG/5 ML SYRUP 2. Sore throat - ICD9: 462, ICD10: J02.9 - suspect strep - Rapid Strep negative in the office today - overnight throat culture pending, Only call if Strep culture is positive. - Discussed supportive care treatment with fluids, rest and analgesia. - The patient may also use warm salt water gargles, throat lozenges and/or OTC throat spray as needed. - The patient should follow up in one week if symptoms persist or worsen - Call back if drooling, increased temperature, symptoms of dehydration and/or still sick in one week - RAPID STREP TEST B/O - GROUP A STREPTOCOCCUS BY PCR Referring Provider: SELF [200] Allergies As of Date: 11/30/2017 Noted Allergy Reaction BUSPAR (BUSPIRONE HCL) 11/15/2012 14 - Other: See Comments Comments: palpitations CIPROFLOXACIN 02/14/2012 2 - Rash COMPAZINE (PROCHLORPERAZINE EDISY*06/23/2008 1 - Mental Status Change DARVOCET A500 (PROPOXYPHENE N-TRENT*12/10/2008 9 - Itching FLUOXETINE 06/10/2008 16 - Unknown IMITREX (SUMATRIPTAN) 06/09/2008 10 - Anaphylaxis Comments: Heart racing METHOCARBAMOL 04/15/2013 8 - GI Upset NSAIDS (NON-STEROIDAL ANTI-INFLAM*06/09/2008 7 - Swelling ZOLOFT (SERTRALINE HCL) 02/22/2011 1 - Mental Status Change Comments: Suicidal thoughts Date Reviewed: 11/30/2017 Reviewed by: [facility] [place] - Fully Assessed Reason for Visit: Sore Throat [200] Primary Visit Diagnosis:URI, acute [J06.9] Other Visit Diagnosis:Sore throat [J02.9] Order(s):RAPID STREP TEST B/O [2740011] Order #: [id number] GROUP A STREPTOCOCCUS BY PCR [SQGASPCR] Order #: [id number] Rpsiljujddsjwdn-Gbzzdtjwq-MA (BROMFED DM) 2-30-10 mg/5 mL syrupTake 5-10 ml po q6h prnDisp: 120 mLRfl: 0 Prescriptions as of 11/30/2017 Sig: BROMPHENIRAMINE-PSEUDOEPHEDRI* Take 5-10 ml po q6h prn QXVPATGLDV-HYUPYIFAKCRBO-PUQP* Take 1 tablet by mouth every * QUETIAPINE 100 MG TABLET Take 1 tablet by mouth daily * AMLODIPINE 10 MG TABLET Take 1 tablet by mouth once d* LISINOPRIL 20 MG TABLET Take 1 tablet by mouth once d* OMEPRAZOLE 20 MG CAPSULE,HAYLEY* Take 1 capsule by mouth once * ATORVASTATIN 20 MG TABLET Take 20 mg by mouth once breanne* MIRTAZAPINE 30 MG TABLET Take 30 mg by mouth daily at * Problem List As Of Date 11/30/2017 Noted Resolved TENSION HEADACHE [G44.209] INVALID FOR* Abdominal pain, other specified site [R10.9] INVALID FOR*09/28/2017 Diarrhea [R19.7] INVALID FOR*09/28/2017 Calculus of kidney [N20.0] INVALID FOR*09/28/2017 More... Cervicalgia [M54.2] INVALID FOR*09/28/2017 Essential hypertension [I10] INVALID FOR* Prediabetes [R73.03] INVALID FOR* Mixed hyperlipidemia [E78.2] INVALID FOR* Plantar fascial fibromatosis [M72.2] INVALID FOR*09/28/2017 Insomnia [G47.00] INVALID FOR* Tendonitis [M77.9] INVALID FOR*09/28/2017 Depressive disorder [F32.9] INVALID FOR* Fracture of humerus, proximal, left, closed [S4*INVALID FOR*09/28/2017 Anxiety [F41.9] INVALID FOR* Left flank pain [R10.9] INVALID FOR*09/28/2017 Microscopic hematuria [R31.29] INVALID FOR*09/28/2017 Priority: G Chronic narcotic use INVALID FOR*09/28/2017 Priority: A More... URI, acute [J06.9] INVALID FOR*09/28/2017 More... Tobacco abuse [Z72.0] INVALID FOR* Analgesic overuse headache [T39.91XA, G44.40] INVALID FOR* Other instructions from your clinician: ASSESSMENT/PLAN: 1. URI, acute - ICD9: 465.9, ICD10: J06.9 (primary diagnosis) - Discussed viral etiology and rationale for treatment. You need to rest as much as possible. Tylenol as needed for fever or pain. Salt water gargles, chloraseptic spray or lozenges as needed for sore throat. Nasal saline irrigation at least 2 x day. Drink at least 8 glasses of fluids per day that aren't caffeinated. Eat a nutritious diet. Use a humidifier in your room at night. DO NOT take any other OTC cough or cold medication while taking the prescription Bromfed DM. It is ok to take an OTC pain reliever/fever administration physician though such as advil or tylenol as needed. - RMZJSJXKULYRZDP-JXTLOJTMZPURHAI-SW 2 MG-30 MG-10 MG/5 ML SYRUP 2. Sore throat - ICD9: 462, ICD10: J02.9 - suspect strep - Rapid Strep negative in the office today - overnight throat culture pending, Only call if Strep culture is positive. - Discussed supportive care treatment with fluids, rest and analgesia. - The patient may also use warm salt water gargles, throat lozenges and/or OTC throat spray as needed. - The patient should follow up in one week if symptoms persist or worsen - Call back if drooling, increased temperature, symptoms of dehydration and/or still sick in one week - RAPID STREP TEST B/O - GROUP A STREPTOCOCCUS BY PCR Prescriptions ordered this encounter Disp Refills Start End OHCGHPTVSIWTDCM-HCJNIBXVWIFYSEI-UM 2* 120 * 0 11/30/2017 Sig: Take 5-10 ml po q6h prn Encounter Status:Closed by RIMA COLLINS CNP on 11/30/17 EMERGENCY DEPARTMENT Observed: 11/16/2017 Status: F Source: [place] SUMMARY 11:50 PM [facility] REPOSITORY [facility] Medical Records Department [address] [place] [address] Emergency Department Summary 11/16/17 1518 MR#: [id number] Acct: [id number] Name: PARMINDER JOSEPH Rep #: [id number] : 1970 47 From: Beto Arrington DO PCP: Rich Wilson MD Status: DEP ER - ER Visit Summary Date of Service: 11/16/17 Chief Complaint: [] Right upper quadrant abdominal pain History of Present Illness: The patient is a 47 F [] complaining of right upper quadrant abdominal pain beginning at 5:30 AM this morning. She reports she has been vomiting since then. Denies any previous history of gallbladder or liver issues. Denies fevers. Denies diarrhea/constipation. Denies hematemesis. She is concerned for the possibility of gallbladder disease. Physical Examination: [] Afebrile, vital signs stable. 47-year-old female in no acute distress. Cardiovascular exam is regular rate and rhythm. Lungs are clear to auscultation. Abdomen is soft with right upper quadrant tenderness. There is voluntary guarding. No lower extremity edema. Test Results: [] Right upper quadrant ultrasound: Negative for gallstones. CT abdomen/pelvis without contrast: Negative for stones or acute pathology. Labs: Negative. Emergency Department Course and Treatment: [] Patient given intravenous fluids, Zofran, Dilaudid for symptom relief. On serial exam patient reported continued pain and was given a second dose of Dilaudid. Labs and CT scan and ultrasound all returned negative. Patient requested additional pain medication and this request was denied. She had a very benign exam on serial evaluation. Treatment Plan: [] Follow-up with primary care physician. Disposition: [] Discharge, stable. Impression: [] Abdominal pain, unknown etiology This note was generated with J-Kan dictation software. It may contain incorrect words, spelling, and punctuation that were not noted in review of the chart prior to signing ED Disposition - Plan for ED Patient: Chief Complaint: Abd Pain Referrals: Rich Wilson MD [Primary Care Provider] - What to do if you have Problems For any increased pain, shortness of breath, bleeding, nausea or vomiting, chest pain, or any unexpected problems, contact your Primary Care Provider. Call [facility] ([phone]) or report to the closest Emergency Room. Call 911 if necessary. 11/16/17 5200 <Electronically signed by Beto Arrington DO> Date Beto Arrington DO Cosigner Signature (If Indicated): Date CC: Rich Wilson MD DISCHARGE INSTRUCTION Observed: 11/16/2017 Status: F Source: [place] 6:29 PM [facility] REPOSITORY [facility] Medical Records Department [address] [place] [address] Discharge Instruction 11/16/171828 MR#: [id number] Acct: [id number] Name: PARMINDER JOSEPH Rep #: [id number] : 1970 47 From: Beto Arrington DO PCP: Rich Wilson MD Status: REG ER ED Disposition - Plan for ED Patient: Disposition: Home or Assisted Living Chief Complaint: Abd Pain Instructions: ED Abdominal Pain Unkn Cause Referrals: Rich Wilson MD [Primary Care Provider] - What to do if you have Problems For any increased pain, shortness of breath, bleeding, nausea or vomiting, chest pain, or any unexpected problems, contact your Primary Care Provider. Call [facility] ([phone]) or report to the closest Emergency Room. Call 911 if necessary. 11/16/171828 <Electronically signed by Beto Arrington DO> Date Beto Arrington DO Cosigner Signature (If Indicated): Date CC: Rich Wilson MD URINALYSIS, COMPLETE Collected: 11/16/2017 Status: F Source: [place] 5:15 PM [facility] REPOSITORY Order Comment: Order Date: 11/16/17 Has pt arrived? Y How was Urine Obtained? DISEASE MANAGEMENT NURSE TO SPECIFY TYPE CODE TESTS RESULT OUT OF RANGE REFERENCE UNITS LAB L400.3000 Yellow COLOR Normal Yellow LAB L400.3050 Clear Normal CLARITY Clear LAB L400.3200 Normal mg/dl Normal GLUCOSE, UR Normal LAB L400.3300 Negative mg/dL Normal BILIRUBIN URINE Negative LAB L400.3400 Negative mg/dl Normal KETONE UR Negative LAB L400.3465 1.002-1.030 Normal SP.GR. DIPSTX 1.020 LAB L400.3550 5.0 - 8.0 pH UR Normal 6.0 LAB L400.3600 Negative mg/dl PROT Normal DIPSTX Negative LAB L400.3700 Normal mg/dl Normal UROBILI Normal LAB L400.3750 Negative Normal NITRITE UR Negative LAB L400.3780 Negative /ul Normal OCCULT BLOOD-UR Negative LAB L400.3800 Negative /ul LEUK Normal ESTERASE Negative LAB L400.4050 0-5 /hpf WBC 0 Normal SEEN LAB L400.4100 0-5 /hpf 0 Normal RBC-UA SEEN LAB L400.4150 5-10 /hpf SQUAM Normal EPI 0-5 SEEN LAB L400.4300 None Seen /hpf 0 Normal BACTERIA SEEN LAB L400.4350 <or=2+ /hpf 0 Normal MUCUS, URINE SEEN Performed By: #### L400.0001 #### [facility] [address] [place], [address] ABDOMEN/PELVIS WITHOUT Observed: 11/16/2017 Status: F Source: [place] CONT 4:37 PM [facility] REPOSITORY [facility] Imaging Services [address] [place] [address] Abdomen/Pelvis without Cont MR#: [id number] Acct: [id number] Name: PARMINDER JOSEPH Rep #: [id number] : 1970 F 47 From: Tania Tian MD PCP: Rich Wilson MD Status: REG ER Study: Abdomen/Pelvis without Cont Date of Exam: 11/16/17 Exam# [id number] Ordering Dr: Beto Arrington DO STUDY: CT ABDOMEN AND PELVIS WITHOUT CONTRAST REASON FOR EXAM: Female, 47 years old. Right flank pain with history of stones. Prior history of GA/BSO and appendectomy RADIATION DOSAGE (If Supplied By Facility): CTDIvol = ( 13.94 ) mGy, DLP = ( 672.26 ) mGycm TECHNIQUE: Transaxial images were obtained from the dome of the diaphragm to the symphysis pubis without oral contrast, and without intravenous contrast. Sagittal and coronal images were reconstructed. Individualized dose optimization techniques were used for this CT. COMPARISON: Prior abdomen and pelvic CT exam of October 26, 2017 FINDINGS: Increased bibasilar atelectatic changes. The visualized portions of the heart are within normal limits. Normal liver. Normal gallbladder and extrahepatic biliary system. Normal spleen. Normal pancreas. Normal bilateral adrenal glands. Normal right kidney. Nonobstructing 3.5 mm stone in the midpole of the left kidney unchanged from the prior exam. Negative for left hydronephrosis or ureteral stones. Normal visualized stomach. Normal small intestine. Normal colon. There are surgical clips in the region of the appendix consistent with a prior appendectomy. Minimal calcified plaque of the aorta. Normal inferior vena cava. Normal retroperitoneum. Normal urinary bladder. Status post hysterectomy with no pelvic mass or free fluid of the pelvis. Normal abdominal wall. Normal osseous structures. CT/Abdomen/Pelvis without Cont IMPRESSION: No acute abdominal or pelvic findings. Normal right kidney without hydronephrosis, renal or ureteral stones. 3.5 mm nonobstructing stone in the midpole of the left kidney without hydronephrosis or ureteral stones unchanged from the prior exam. Normal right kidney without hydronephrosis or stones. Unremarkable urinary bladder. No acute bowel related findings. Negative for evidence of obstruction, perforation or inflammatory bowel changes. The appendix has been removed. Status post hysterectomy with no pelvic mass or free fluid in the pelvis. Electronically Signed: Tania Tian MD at 17:34 EDT , Service support , CC: Beto Arrington DO; Rich Wilson MD Zipper Cutter: Signed CBC W/DIFF, AUTOMATED Collected: 11/16/2017 Status: F Source: [place] 3:35 PM [facility] REPOSITORY TYPE CODE TESTS RESULT OUT OF RANGE REFERENCE UNITS LAB L100.1000 4.4-11.0 K/mm3 Low WBC 4.0 LAB L100.1200 4.2-5.4 M/mm3 Normal RBC 4.79 LAB L100.1300 12.0-15.0 g/dl Normal HGB 13.5 LAB L100.1400 37-47 % Normal HCT 41.9 LAB L100.1500 81-99 fL Normal MCV 87.5 LAB L100.1600 27.0-32.0 pg Normal MCH 28.2 LAB L100.1700 32-36 g/gl Normal MCHC 32.2 LAB L100.1810 11.6-14.6 % Normal RDW CV 14.2 LAB L100.1820 35.1-43.9 fl High RDW SD 45.1 LAB L100.1900 150-450 K/mm3 Normal PLT 254 LAB L100.2000 6.2-12.0 fl Normal MPV 9.7 LAB L100.2100 47-70 % Low NEUT% 41.4 LAB L100.2200 19-41 % High LY% 46.5 LAB L100.2300 0-10 % Normal MONO% 7.7 LAB L100.2400 0-5 % Normal EO% 3.0 LAB L100.2500 0-1 % High BASO% 1.2 LAB L100.2550 0.0-0.9 % Normal IM GRAN % 0.200 Result Comment: IG% - Immature Granulocytes (promyelocytes, myelocytes and metamyelocytes) > 1% indicates that a LEFT SHIFT is Present. LAB L100.2620 2.0-7.7 X10 3/uL Low Absolute Neut 1.7 LAB L100.2720 0.83-4.51 X10 3/ul Normal Absolute Lymph 1.88 Performed By: #### L100.0100 #### [facility] [address] [place] [address], [id number] PROTHROMBIN TIME W/INR Collected: 11/16/2017 Status: F Source: [place] 3:35 PM [facility] REPOSITORY TYPE CODE TESTS RESULT OUT OF RANGE REFERENCE UNITS LAB L300.4150 11.7-14.9 SECONDS Normal PROTIME 12.6 LAB L300.4200 Normal INR 0.9 Performed By: #### L300.3900 #### [facility] [address] [place], [place], [address] COMPREHENSIVE METABOLIC Collected: 11/16/2017 Status: F Source: [facility] 3:35 PM [facility] REPOSITORY TYPE CODE TESTS RESULT OUT OF RANGE REFERENCE UNITS LAB L501.0100 74-106 mg/dL Normal GLU 98 Result Comment: Please note revised GLUCOSE reference range effective 2017. LAB L501.1000 7-18 mg/dL Normal BUN 12 LAB L501.1100 0.55-1.02 mg/dL Normal CREAT,SERUM 1.01 Result Comment: The validity of the calculated GFR AND GFRAA in patients over 70 years has not been determined. Clinical correlation is essential. LAB L501.1110 >60 mL/min Normal EST GFR 62 Result Comment: Non- GFR Calc LAB L501.1115 >60 mL/min Normal EST GFR - AA 75 Result Comment: GFR Calc LAB L501.1255 ml/min Normal Estimated CRCL 56.35 LAB L501.1300 10-20 RATIO Normal BUN/CRE 11.9 LAB L501.1500 6.4-8. g/dL Normal 2 T PROT 8.2 LAB L501.1800 3.2-5. g/dL Normal 0 ALB 3.9 LAB L501.1950 2.2-4. g/dL High 2 GLOB 4.3 LAB L501.2000 0.9-2. RATIO Normal 4 A/G 0.9 LAB L501.2200 8.5-10 mg/dL Normal .1 CA 8.9 LAB L501.4100 15-37 U/L Normal AST 17 LAB L501.4305 45-117 U/L Normal ALK P 102 LAB L501.4405 13-56 U/L Normal ALT 23 LAB L501.4600 0.20-1 mg/dL Normal .00 T BILI 0.20 LAB L501.5300 136-14 mmol/L Normal 5 NA 141 LAB L501.5600 3.5-5. mmol/L Normal 1 K 3.6 LAB L501.5900 98-107 mmol/L High CL 109 LAB L501.6100 21.0-3 mmol/L Normal 2.0 CO2 23.0 LAB L501.6200 5-15 Normal GAP 9 Performed By: #### L500.4050, L501.2450 #### [facility] [address] [place], [address] LIPASE Collected: 11/16/2017 Status: F Source: [place] 3:35 PM [facility] REPOSITORY TYPE CODE TESTS RESULT OUT OF RANGE REFERENCE UNITS LAB L501.2450 73-393 U/L Normal LIPASE 104 Performed By: #### L500.4050, L501.2450 #### [facility] [address] [place], [address] GALLBLADDER Observed: 11/16/2017 Status: F Source: [place] 3:17 PM [facility] REPOSITORY [facility] Imaging Services [address] [place] [address] Gallbladder MR#: [id number] Acct: [id number] Name: PARMINDER JOSEPH Rep #: [id number] : 1970 F 47 From: Tania Tian MD PCP: Rich Wilson MD Status: REG ER Study: Gallbladder Date of Exam: 11/16/17 Exam# [id number] Ordering Dr: Beto Arrington DO STUDY: ABDOMINAL ULTRASOUND - RIGHT UPPER QUADRANT REASON FOR VISIT: Female, 47 years old. Right upper quadrant pain TECHNIQUE: Ultrasound evaluation of the right upper quadrant was performed with real-time and static quintero-scale imaging. TECHNICAL QUALITY: Adequate. COMPARISON: Abdomen and pelvic CT exam of October 26, 2017 FINDINGS: Liver: The liver measures 14 cm. There is normal echogenicity of the liver. The bile ducts are within normal limits. There is hepatic color flow. The direction of portal flow is hepatopetal. There is no demonstrated mass lesion. Gallbladder: Normal distended gallbladder. The gallbladder wall measures 3 mm. There is a negative sonographic Mathew's sign. There is no pericholecystic fluid. There are no gallstones. Common Bile Duct (C.B.D.): The common bile duct measures 4 mm. Pancreas: Normal size of the head, body and tail of the pancreas. Fatty parenchyma. There is no demonstrated pancreatic mass or cyst. Right Kidney: Normal size of the right kidney. The right kidney measures 11.4 x 4.3 x 4.4 cm. Normal renal cortex. The right cortex measures 1.2 cm. There is no demonstrated renal mass or cyst. There is no right hydronephrosis. US/Gallbladder IMPRESSION: Normal liver. Normal gallbladder and nondistended common bile duct. Fatty normal size pancreas. Normal right kidney. Electronically Signed: Tania Tian MD at 16:27 EDT , Service support , CC: Beto Arrington DO; Rich Wilson MD Zipper Cutter: Signed PROGRESS Observed: 11/16/2017 Status: COMPLETED Source: [place] 8:58 AM [facility] REPOSITORY HNO ID: [id number] Author: Aspen Arreola (Instrument And Control Service Person) Service: (none) Author Type: Nurse Practitioner Type: Progress Notes Filed: 11/16/2017 11:00 AM Note Text: Subjective HPI Patient presents with: URI symptoms x 3 weeks and symptoms worsening the last 2 days with a start of fever/fatigue. Denies getting flu vaccine this season. Current daily smoker. Tylenol otc with moderate relief for fever. Review of Systems Constitutional: Positive for chills, fever and malaise/fatigue. HENT: Positive for congestion and sore throat. Negative for ear pain. Eyes: Negative for discharge and redness. Respiratory: Positive for cough. Negative for hemoptysis, sputum production, shortness of breath and wheezing. Gastrointestinal: Negative for abdominal pain, diarrhea, nausea and vomiting. Musculoskeletal: Positive for myalgias. Skin: Negative for rash. Neurological: Negative for headaches. PAST MEDICAL HISTORY Diagnosis Date - Anxiety - Calculus of kidney 07/15/2008 - Chronic narcotic use 01/15/2013 OARRS website checked and validated - 01/15/2013 by Beronica Chuahan CNP Multiple providers, multiple pharmacies, noted. - Endometriosis 2009 - Essential hypertension 09/17/2009 - Fracture of humerus, proximal, left, closed 09/04/2011 - Gestational diabetes mellitus - Hyperlipidemia LDL goal < 100 08/23/2010 - Mixed hyperlipidemia 08/23/2010 - Prediabetes 11/23/2009 - Seasonal allergies - Tension headache PAST SURGICAL HISTORY Procedure Laterality Date - APPENDECTOMY 2000 - TOTAL ABDOM HYSTERECTOMY 04/2010 GA AND BSO - [facility] - URETERAL STENT 2009 ALLERGIES Buspar [Buspirone Hcl]; Ciprofloxacin; Compazine [Prochlorperazine Edisylate]; Darvocet A500 [Propoxyphene N-Acetaminophen]; Fluoxetine; Imitrex [Sumatriptan]; Methocarbamol; Nsaids (Non-Steroidal Anti-Inflammatory Drug); Zoloft [Sertraline Hcl] MEDICATIONS acetaminophen 325 mg-caffeine 40 mg-butalbital 50 mg (FIORICET) per tablet Take 1 tablet by mouth every 8 hours as needed. QUEtiapine (SEROQUEL) 100 mg tablet Take 1 tablet by mouth daily at bedtime. benzonatate (TESSALON PERLE) 100 mg capsule Take 1-2 capsules tid prn amLODIPine (NORVASC) 10 mg tablet Take 1 tablet by mouth once daily. lisinopril (ZESTRIL, PRINIVIL) 20 mg tablet Take 1 tablet by mouth once daily. omeprazole (PRILOSEC) 20 mg capsule Take 1 capsule by mouth once daily. atorvastatin (LIPITOR) 20 mg tablet Take 20 mg by mouth once daily. mirtazapine (REMERON) 30 mg tablet Take 30 mg by mouth daily at bedtime. FAMILY HISTORY Problem Relation Age of Onset - Ischemic Heart Disease Mother Heart attack - Ischemic Heart Disease Maternal Grandmother - COPD Maternal Grandmother - COPD Maternal Grandfather - Breast Cancer Maternal Grandmother Mastectomy - Coronary Artery Disease Father fatal [place] age 61 Social History Substance Use Topics - Smoking status: Current Every Day Smoker Packs/day: 1.00 Years: 29.00 Types: Cigarettes - Smokeless tobacco: Never Used Comment: Started smoking at age 18. - Alcohol use No Objective Physical Exam Constitutional: She is well-developed, well-nourished, and in no distress. HENT: Head: Normocephalic. Right Ear: Tympanic membrane, external ear and ear canal normal. Left Ear: Tympanic membrane, external ear and ear canal normal. Nose: Rhinorrhea present. Right sinus exhibits no maxillary sinus tenderness and no frontal sinus tenderness. Left sinus exhibits no maxillary sinus tenderness and no frontal sinus tenderness. Mouth/Throat: Posterior oropharyngeal erythema (PND) present. Eyes: Conjunctivae are normal. Neck: Normal range of motion. Neck supple. Cardiovascular: Normal rate, regular rhythm and normal heart sounds. Pulmonary/Chest: Effort normal. No respiratory distress. She has no wheezes. She has rhonchi (in b/l lower lobes). Abdominal: Soft. She exhibits no distension. There is no tenderness. Lymphadenopathy: She has no cervical adenopathy. Skin: Skin is warm and dry. No rash noted. Nursing note and vitals reviewed. ASSESSMENT/PLAN: 1. Acute bronchitis, unspecified organism - ICD9: 466.0, ICD10: J20.9 -Doxycycline -Prednisone -Bromfed -supportive care, rest, fluids, analgesics PRN -F/u with pcp in 3-5 days or sooner if symptoms are not improving or worsening Prescription instructions reviewed with patient as applicable. Patient advised if symptoms do not improve or if symptoms worsen sooner, to contact their primary care physician. Potential red flag symptoms discussed with the patient. Reviewed appropriate action plan to take if red flag symptoms occur. Patient agreeable to treatment plan. Aspen Arreola APRN.[facility] APPLICATION ANALYST CNOV Observed: 11/16/2017 Status: COMPLETED Source: [place] 8:45 AM [facility] REPOSITORY Office Visit (WSTR) PARMINDER JOSEPH ([id number]) 1970 F Date Time Provider Department 11/16/17 8:45 AM ASPEN ARREOLA (SILVERWARE CLEANER) [facility] During your visit today, we recorded the following information about you: Temperature Pulse Respiration Blood pressure 98.2 degrees 86/minute 22/minute 120/84 Weight 87.1 kg Aspen Arreola (Instrument And Control Service Person) 11/16/2017 11:00 AM Signed Subjective HPI Patient presents with: URI symptoms x 3 weeks and symptoms worsening the last 2 days with a start of fever/fatigue. Denies getting flu vaccine this season. Current daily smoker. Tylenol otc with moderate relief for fever. Review of Systems Constitutional: Positive for chills, fever and malaise/fatigue. HENT: Positive for congestion and sore throat. Negative for ear pain. Eyes: Negative for discharge and redness. Respiratory: Positive for cough. Negative for hemoptysis, sputum production, shortness of breath and wheezing. Gastrointestinal: Negative for abdominal pain, diarrhea, nausea and vomiting. Musculoskeletal: Positive for myalgias. Skin: Negative for rash. Neurological: Negative for headaches. PAST MEDICAL HISTORY Diagnosis Date - Anxiety - Calculus of kidney 07/15/2008 - Chronic narcotic use 01/15/2013 OARRS website checked and validated - 01/15/2013 by Beronica Chauhan ENTERPRISE APPLICATION ANALYST Multiple providers, multiple pharmacies, noted. - Endometriosis 2009 - Essential hypertension 09/17/2009 - Fracture of humerus, proximal, left, closed 09/04/2011 - Gestational diabetes mellitus - Hyperlipidemia LDL goal < 100 08/23/2010 - Mixed hyperlipidemia 08/23/2010 - Prediabetes 11/23/2009 - Seasonal allergies - Tension headache PAST SURGICAL HISTORY Procedure Laterality Date - APPENDECTOMY 2000 - TOTAL ABDOM HYSTERECTOMY 04/2010 GA AND BSO - [facility] - URETERAL STENT 2008 ALLERGIES Buspar [Buspirone Hcl]; Ciprofloxacin; Compazine [Prochlorperazine Edisylate]; Darvocet A500 [Propoxyphene N-Acetaminophen]; Fluoxetine; Imitrex [Sumatriptan]; Methocarbamol; Nsaids (Non-Steroidal Anti-Inflammatory Drug); Zoloft [Sertraline Hcl] MEDICATIONS acetaminophen 325 mg-caffeine 40 mg-butalbital 50 mg (FIORICET) per tablet Take 1 tablet by mouth every 8 hours as needed. QUEtiapine (SEROQUEL) 100 mg tablet Take 1 tablet by mouth daily at bedtime. benzonatate (TESSALON PERLE) 100 mg capsule Take 1-2 capsules tid prn amLODIPine (NORVASC) 10 mg tablet Take 1 tablet by mouth once daily. lisinopril (ZESTRIL, PRINIVIL) 20 mg tablet Take 1 tablet by mouth once daily. omeprazole (PRILOSEC) 20 mg capsule Take 1 capsule by mouth once daily. atorvastatin (LIPITOR) 20 mg tablet Take 20 mg by mouth once daily. mirtazapine (REMERON) 30 mg tablet Take 30 mg by mouth daily at bedtime. FAMILY HISTORY Problem Relation Age of Onset - Ischemic Heart Disease Mother Heart attack - Ischemic Heart Disease Maternal Grandmother - COPD Maternal Grandmother - COPD Maternal Grandfather - Breast Cancer Maternal Grandmother Mastectomy - Coronary Artery Disease Father fatal [place] age 61 Social History Substance Use Topics - Smoking status: Current Every Day Smoker Packs/day: 1.00 Years: 29.00 Types: Cigarettes - Smokeless tobacco: Never Used Comment: Started smoking at age 18. - Alcohol use No Objective Physical Exam Constitutional: She is well-developed, well-nourished, and in no distress. HENT: Head: Normocephalic. Right Ear: Tympanic membrane, external ear and ear canal normal. Left Ear: Tympanic membrane, external ear and ear canal normal. Nose: Rhinorrhea present. Right sinus exhibits no maxillary sinus tenderness and no frontal sinus tenderness. Left sinus exhibits no maxillary sinus tenderness and no frontal sinus tenderness. Mouth/Throat: Posterior oropharyngeal erythema (PND) present. Eyes: Conjunctivae are normal. Neck: Normal range of motion. Neck supple. Cardiovascular: Normal rate, regular rhythm and normal heart sounds. Pulmonary/Chest: Effort normal. No respiratory distress. She has no wheezes. She has rhonchi (in b/l lower lobes). Abdominal: Soft. She exhibits no distension. There is no tenderness. Lymphadenopathy: She has no cervical adenopathy. Skin: Skin is warm and dry. No rash noted. Nursing note and vitals reviewed. ASSESSMENT/PLAN: 1. Acute bronchitis, unspecified organism - ICD9: 466.0, ICD10: J20.9 -Doxycycline -Prednisone -Bromfed -supportive care, rest, fluids, analgesics PRN -F/u with pcp in 3-5 days or sooner if symptoms are not improving or worsening Prescription instructions reviewed with patient as applicable. Patient advised if symptoms do not improve or if symptoms worsen sooner, to contact their primary care physician. Potential red flag symptoms discussed with the patient. Reviewed appropriate action plan to take if red flag symptoms occur. Patient agreeable to treatment plan. Aspen Arreola, MALENA.ENTERPRISE APPLICATION ANALYST Referring Provider: SELF [[id number]] Allergies As of Date: 11/16/2017 Noted Allergy Reaction BUSPAR (BUSPIRONE HCL) 11/15/2012 14 - Other: See Comments Comments: palpitations CIPROFLOXACIN 02/14/2012 2 - Rash COMPAZINE (PROCHLORPERAZINE EDISY*06/23/2008 1 - Mental Status Change DARVOCET A500 (PROPOXYPHENE N-TRENT*12/10/2008 9 - Itching FLUOXETINE 06/10/2008 16 - Unknown IMITREX (SUMATRIPTAN) 06/09/2008 10 - Anaphylaxis Comments: Heart racing METHOCARBAMOL 04/15/2013 8 - GI Upset NSAIDS (NON-STEROIDAL ANTI-INFLAM*06/09/2008 7 - Swelling ZOLOFT (SERTRALINE HCL) 02/22/2011 1 - Mental Status Change Comments: Suicidal thoughts Date Reviewed: 11/16/2017 Reviewed by: Aspen Arreola (Instrument And Control Service Person) - Fully Assessed Reason for Visit: Flu Like Symptoms [267] Primary Visit Diagnosis:Acute bronchitis, unspecified organism [J20.9] Order(s):doxycycline monohydrate (MONODOX) 100 mg capsuleTake 1 capsule by mouth twice daily for 10 days.Disp: 20 capsuleRfl: 0 Akcknihmalnlqpd-Wjdtpvfbb-IQ (BROMFED DM) 2-30-10 mg/5 mL syrupTake 10 mL by mouth four times daily as needed for up to 7 days.Disp: 240 mLRfl: 0 predniSONE (DELTASONE) 20 mg tabletTake 2 tablets by mouth once daily for 5 days. Take daily with food.Disp: 10 tabletRfl: 0 Prescriptions as of 11/16/2017 Sig: DOXYCYCLINE MONOHYDRATE 100 M* Take 1 capsule by mouth twice* BROMPHENIRAMINE-PSEUDOEPHEDRI* Take 10 mL by mouth four time* PREDNISONE 20 MG TABLET Take 2 tablets by mouth once * HVPVNVZPEU-OTZPUMCHLWSYK-OCYE* Take 1 tablet by mouth every * QUETIAPINE 100 MG TABLET Take 1 tablet by mouth daily * AMLODIPINE 10 MG TABLET Take 1 tablet by mouth once d* LISINOPRIL 20 MG TABLET Take 1 tablet by mouth once d* OMEPRAZOLE 20 MG CAPSULE,HAYLEY* Take 1 capsule by mouth once * ATORVASTATIN 20 MG TABLET Take 20 mg by mouth once breanne* MIRTAZAPINE 30 MG TABLET Take 30 mg by mouth daily at * Problem List As Of Date 11/16/2017 Noted Resolved TENSION HEADACHE [G44.209] INVALID FOR* Abdominal pain, other specified site [R10.9] INVALID FOR*09/28/2017 Diarrhea [R19.7] INVALID FOR*09/28/2017 Calculus of kidney [N20.0] INVALID FOR*09/28/2017 More... Cervicalgia [M54.2] INVALID FOR*09/28/2017 Essential hypertension [I10] INVALID FOR* Prediabetes [R73.03] INVALID FOR* Mixed hyperlipidemia [E78.2] INVALID FOR* Plantar fascial fibromatosis [M72.2] INVALID FOR*09/28/2017 Insomnia [G47.00] INVALID FOR* Tendonitis [M77.9] INVALID FOR*09/28/2017 Depressive disorder [F32.9] INVALID FOR* Fracture of humerus, proximal, left, closed [S4*INVALID FOR*09/28/2017 Anxiety [F41.9] INVALID FOR* Left flank pain [R10.9] INVALID FOR*09/28/2017 Microscopic hematuria [R31.29] INVALID FOR*09/28/2017 Priority: G Chronic narcotic use INVALID FOR*09/28/2017 Priority: A More... URI, acute [J06.9] INVALID FOR*09/28/2017 More... Tobacco abuse [Z72.0] INVALID FOR* Prescriptions ordered this encounter Disp Refills Start End DOXYCYCLINE MONOHYDRATE 100 MG CAPSU* 20 c* 0 11/16/2017 11/26/2017 Route: ORAL Sig: Take 1 capsule by mouth twice daily for 10 days. PMUIAKVUUCXFZKO-BICEHNNXSYKBPYE-FJ 2* 240 * 0 11/16/2017 11/23/2017 Route: ORAL Sig: Take 10 mL by mouth four times daily as needed for up to 7 days. PREDNISONE 20 MG TABLET 10 t* 0 11/16/2017 11/21/2017 Route: ORAL Sig: Take 2 tablets by mouth once daily for 5 days. Take daily with food. Medications Discontinued During This Encounter benzonatate (TESSALON PERLE) 100 mg * 30 c* 0 10/25/2017 11/16/2017 Sig: Take 1-2 capsules tid prn Disc: Reason for discontinue is not on file. Disposition: Return if symptoms worsen or fail to improve. Follow-up and Disposition History Recorded Letter Text Aspen Arreola APRN.[facility] Urgent [facility] [address] [facility] [address] Dept: [phone] 11/16/2017 Parminder Joseph [address] [facility] [id number] To Whom it May Concern: This is to certify that Parminder Joseph was seen at our office for medical care. Parminder may return to work on 11/17/2017. If you have any questions please feel free to call. Sincerely: Aspen Arreola APRN.[facility] Encounter Status:Closed by ASPEN ARREOLA on 11/16/17 EMERGENCY DEPARTMENT Observed: 11/01/2017 Status: F Source: [place] SUMMARY 8:00 AM [facility] REPOSITORY [facility] Medical Records Department [address] [facility] [facility] [place] [address] Emergency Department Summary 10/27/17 0101 MR#: [id number] Acct: [id number] Name: PARMINDER JOSEPH Rep #: [id number] : 1970 47 From: Isaiah Bowie DO PCP: Rich Wilson MD Status: DEP ER - ER Visit Summary Date of Service: 10/27/17 Chief Complaint: Flank pain History of Present Illness: The patient is a 47 F who states that she is believes that she is passing a kidney stone. Patient states that she developed a left lower quadrant and described as sharp and stabbing radiating to her flank. Around 1700 it began it has been continuous. She denies any urinary symptoms. She notes a little bit of diarrhea but states that that is not uncommon. He will bring the stool. No fevers. No pain with movement. She denies any history of diverticulosis or diverticulitis. No history of colitis. She reports a allergy to NSAIDs. Physical Examination: Afebrile vital signs are stable Gen: Well-nourished well-developed Head: Normocephalic atraumatic Eyes: Perrl EOMI ENT: TMs clear no rhinorrhea moist mucous membranes Neck: Supple no lymphadenopathy no JVD nontender CVS: Regular rate rhythm no murmurs normal S1-S2 Respiratory: No distress clear to auscultation bilaterally chest nontender Abdomen: Soft nontender nondistended normal bowel sounds no masses Back: Left CVA tenderness Extremity: Nontender no edema Skin: Normal color no rash Neuro: alert orientated 3 CN II-XII intact normal strength sensation reflexes gait cerebellar Psych: Normal affect normal mood Test Results: CBC chemistries and urine were normal. CT the flank does not demonstrate any stone in the ureters. There is no hydronephroureter. The noncontrasted CT showed possible thickening of the rectosigmoid colon. However the patient is nontender in this area. She has had no blood in stool and she has no history of this. She does have a history of diverticulosis. Emergency Department Course and Treatment: Received morphine and fluids. Patient states the morphine did not help. She states that there is a medication that begins with the D that does help her. I do not see an obvious cause for her pain. She will be discharged home to follow-up with her doctors. Impression: 1. Left flank pain This note was generated with J-Kan dictation software. It may contain incorrect words, spelling, and punctuation that were not noted in review of the chart prior to signing ED Disposition - Plan for ED Patient: Referrals: Rich Wilson MD [Primary Care Provider] - What to do if you have Problems For any increased pain, shortness of breath, bleeding, nausea or vomiting, chest pain, or any unexpected problems, contact your Primary Care Provider. Call [facility] ([phone]) or report to the closest Emergency Room. Call 911 if necessary. 11/01/17 0800 <Electronically signed by Isaiah Bowie DO> Date Isaiah Bowie DO Cosigner Signature (If Indicated): Date CC: Rich Wilson MD EMERGENCY DEPARTMENT Observed: 10/27/2017 Status: F Source: [place] SUMMARY 3:32 PM [facility] REPOSITORY [facility] Medical Records Department [address] [facility] [place] [address] Emergency Department Summary 10/27/17 1520 MR#: [id number] Acct: [id number] Name: PARMINDER JOSEPH Rep #: [id number] : 1970 47 From: Inge Lowe MD PCP: Rich Wilson MD Status: REG ER - ER Visit Summary Date of Service: 10/27/17 Chief Complaint: Left flank and abdominal pain History of Present Illness: The patient is a 47 F who presents for 1 day of left sided flank and abdominal pain. Onset was yesterday evening. Patient was evaluated for this pain in the emergency department last night, and had a CT scan showing no urolithiasis, no hydronephrosis or hydroureter, and mild inflammatory changes in the sigmoid colon with diverticulosis, possibly indicating colitis. Patient was discharged home and returns today stating her pain worsened 1 hour prior to presentation. She has had one episode of vomiting since discharge yesterday. She also has had 2 episodes of loose stool. She has a history of one kidney stone, hypertension, hypercholesterolemia. She is status post hysterectomy and bilateral salpingo-oophorectomy. Patient denies fever, chest pain, shortness of breath. She states she has been having pressure with urination, urinary frequency and urgency since yesterday. Physical Examination: Vital signs: afebrile, hemodynamically stable, no hypoxia on room air General: well nourished, well developed, in no distress Skin: warm, dry, no rash, no pallor HEENT: normocephalic and atraumatic; PERRL, EOMI, moist mucous membranes Cardiovascular: regular rate and rhythm without murmurs, no peripheral edema, 2+ pulses all distal extremities Respiratory: No increased work of breathing, lungs are clear to auscultation bilaterally, no rales, rhonchi or wheezing Abdominal: Abdomen is soft, tender in the left lower quadrant, no CVA tenderness, with normoactive bowel sounds, no guarding or rebound, no masses, no suprapubic tenderness MSK: Moves all extremities, no deformities, normal strength Neuro: Awake and alert, oriented 4. No facial droop, sensation and motor function intact and symmetric Test Results: [] Emergency Department Course and Treatment: Workup from yesterday was reviewed. Patient had no leukocytosis. Urine was negative for infection. CT scan showed no urolithiasis but did have mild inflammatory changes in the sigmoid colon, which may be responsible for patient's left lower quadrant tenderness today, although she is stating her pain is more left mid and left flank. Pt is s/p hysterectomy and BSO, taking ovarian torsion off the differential. urinalysis was ordered since patient is now complaining of more urinary symptoms. Patient was ordered Zofran and Tylenol for symptomatic relief since she is allergic to all NSAIDs and states morphine did not work for her yesterday. Patient may have early diverticulitis given that she has diverticulosis and inflammation in the sigmoid colon, so the plan was to start her on antibiotic treatment for early uncomplicated diverticulitis. However the patient stated she wanted to leave rather than have the urinalysis or any further treatment/workup/prescriptions. Patient signed AGAINST MEDICAL ADVICE form and was advised she could return at any time if she changed her mind. Treatment Plan: [] Disposition: [] Impression: Left-sided abdominal pain, possible early diverticulitis vs. colitis This note was generated with Azendooation software. It may contain incorrect words, spelling, and punctuation that were not noted in review of the chart prior to signing ED Disposition - Plan for ED Patient: Disposition: Home or Assisted Living Chief Complaint: Flank Pain Instructions: ED Abdominal Pain Unkn Cause, ED Refusal Of Further Treatment Referrals: Rich Wilson MD [Primary Care Provider] - As soon as possible Additional Instructions: Please see your family doctor as soon as possible for reevaluation. You have chosen to leave AGAINST MEDICAL ADVICE, without receiving workup or treatment for your abdominal pain. If you change your mind you may return at anytime for continuation of your workup and treatment. What to do if you have Problems For any increased pain, shortness of breath, bleeding, nausea or vomiting, chest pain, or any unexpected problems, contact your Primary Care Provider. Call [facility] ([phone]) or report to the closest Emergency Room. Call 911 if necessary. 10/27/17 1532 <Electronically signed by Inge Lowe MD> Date Inge Lowe MD Cosigner Signature (If Indicated): Date CC: Rich Wilson MD DISCHARGE INSTRUCTION Observed: 10/27/2017 Status: F Source: [place] 3:30 PM [facility] REPOSITORY [facility] Medical Records Department [address] [place] [address] Discharge Instruction 10/27/17 1526 MR#: [id number] Acct: [id number] Name: PARMINDER JOSEPH Rep #: [id number] : 1970 47 From: Inge Lowe MD PCP: Rich Wilson MD Status: REG ER ED Disposition - Plan for ED Patient: Disposition: Home or Assisted Living Chief Complaint: Flank Pain Instructions: ED Abdominal Pain Unkn Cause, ED Refusal Of Further Treatment Referrals: Rich Wilson MD [Primary Care Provider] - As soon as possible Additional Instructions: Please see your family doctor as soon as possible for reevaluation. You have chosen to leave AGAINST MEDICAL ADVICE, without receiving workup or treatment for your abdominal pain. If you change your mind you may return at anytime for continuation of your workup and treatment. What to do if you have Problems For any increased pain, shortness of breath, bleeding, nausea or vomiting, chest pain, or any unexpected problems, contact your Primary Care Provider. Call [facility] ([phone]) or report to the closest Emergency Room. Call 911 if necessary. 10/27/17 1530 <Electronically signed by Inge Lowe MD> Date Inge Lowe MD Cosigner Signature (If Indicated): Date CC: Rich Wilson MD ABDOMEN/PELVIS WITHOUT Observed: 10/26/2017 Status: F Source: OVI CONT 9:53 PM [facility] REPOSITORY [facility] Imaging Services [address] [address] Abdomen/Pelvis without Cont MR#: [id number] Acct: [id number] Name: PARMINDER JOSEPH Rep #: [id number] : 1970 F 47 From: Pamela Haile MD PCP: Rich Wilson MD Status: REG ER Study: Abdomen/Pelvis without Cont Date of Exam: 10/26/17 Exam# [id number] Ordering Dr: Isaiah Bowie DO CT Abdomen And Pelvis W/O Contrast INDICATION: LT FLANK PAIN. Hx of KS with basket extraction on right. Prev GA/BSO and appendectomy COMPARISON: June 20, 2017 TECHNIQUE: Axial CT imaging of the abdomen and pelvis without contrast. Coronal and sagittal reformatted images. Radiation dose optimization technique applied. FINDINGS: The visualized lung bases are clear. The heart size is normal. The liver, gallbladder, spleen, adrenal glands, and pancreas are grossly unremarkable noncontrast CT appearance. The right kidney is without evidence of nephrolithiasis or hydronephrosis. The left kidney contains a 3.5 mm calculus in the midpole region, which appears nonobstructive. There is no evidence of hydronephrosis or hydroureter. The urinary bladder is decompressed. The bowel loops are nondistended. The appendix is not visualized. There is mild sigmoid diverticulosis without evidence of acute diverticulitis. The wall of the sigmoid colon and rectum appears mildly thickened, which could be due to underdistention or inflammation. CT/Abdomen/Pelvis without Cont IMPRESSION: 3.5 mm nonobstructing left renal calculus. No evidence of right renal calculus. No evidence of ureteral calculus. Questionable wall thickening of the sigmoid colon and rectum, cannot exclude mild colitis, please correlate with clinical findings. Underlying sigmoid diverticulosis. at [id number] Reported and signed by: Pamela Haile MD Electronically Signed: Pamela Haile MD at 22:34 EDT Tel , Service support , CC: Isaiah Bowie DO; Rich Wilson MD Zipper Cutter: Signed URINALYSIS, COMPLETE Collected: 10/26/2017 Status: F Source: OVI 12:00 AM [facility] REPOSITORY Order Comment: RESULT(S) PREVIOUSLY REPORTED ON MANUAL REQUISITION DURING DOWNTIME. How was Urine Obtained? CLEAN CATCH TYPE CODE TESTS RESULT OUT OF RANGE REFERENCE UNITS LAB L400.3000 Yellow COLOR Normal Yellow LAB L400.3050 Clear Normal CLARITY Clear LAB L400.3200 Normal mg/dl Normal GLUCOSE, UR Normal LAB L400.3300 Negative mg/dL Normal BILIRUBIN URINE Negative LAB L400.3400 Negative mg/dl Normal KETONE UR Negative LAB L400.3465 1.002-1.030 Normal SP.GR. DIPSTX 1.025 LAB L400.3550 5.0 - 8.0 pH UR Normal 6.0 LAB L400.3600 Negative mg/dl PROT Normal DIPSTX Negative LAB L400.3700 Normal mg/dl Normal UROBILI Normal LAB L400.3750 Negative Normal NITRITE UR Negative LAB L400.3780 Negative /ul High 10 OCCULT BLOOD-UR LAB L400.3800 Negative /ul LEUK Normal ESTERASE Negative LAB L400.4050 0-5 /hpf WBC 0 Normal SEEN LAB L400.4100 0-5 /hpf 0 Normal RBC-UA SEEN LAB L400.4150 5-10 /hpf SQUAM Normal EPI 0-5 SEEN LAB L400.4300 None Seen /hpf 0 Normal BACTERIA SEEN LAB L400.4350 <or=2+ /hpf 0 Normal MUCUS, URINE SEEN Performed By: #### L400.0001 #### [facility] [address] [place], [address] CBC W/DIFF, AUTOMATED Collected: 10/26/2017 Status: F Source: [place] 12:00 AM [facility] REPOSITORY Order Comment: RESULT(S) PREVIOUSLY REPORTED ON MANUAL REQUISITION DURING DOWNTIME. TYPE CODE TESTS RESULT OUT OF RANGE REFERENCE UNITS LAB L100.1000 4.4-11.0 K/mm3 Normal WBC 7.3 LAB L100.1200 4.2-5.4 M/mm3 Normal RBC 4.81 LAB L100.1300 12.0-15.0 g/dl Normal HGB 13.8 LAB L100.1400 37-47 % Normal HCT 42.1 LAB L100.1500 81-99 fL Normal MCV 87.5 LAB L100.1600 27.0-32.0 pg Normal MCH 28.7 LAB L100.1700 32-36 g/gl Normal MCHC 32.8 LAB L100.1810 11.6-14.6 % Normal RDW CV 13.9 LAB L100.1820 35.1-43.9 fl High RDW SD 44.5 LAB L100.1900 150-450 K/mm3 Normal PLT 298 LAB L100.2000 6.2-12.0 fl Normal MPV 9.4 LAB L100.2100 47-70 % Normal NEUT% 47.5 LAB L100.2200 19-41 % High LY% 42.1 LAB L100.2300 0-10 % Normal MONO% 5.5 LAB L100.2400 0-5 % Normal EO% 3.9 LAB L100.2500 0-1 % Normal BASO% 0.7 LAB L100.2550 0.0-0.9 % Normal IM GRAN % 0.300 Result Comment: IG% - Immature Granulocytes (promyelocytes, myelocytes and metamyelocytes) > 1% indicates that a LEFT SHIFT is Present. LAB L100.2620 2.0-7.7 X10 3/uL Normal Absolute Neut 3.5 LAB L100.2720 0.83-4.51 X10 3/ul Normal Absolute Lymph 3.05 Performed By: #### L100.0100 #### [facility] [address] [place], [place], [id number] BASIC METABOLIC Collected: 10/26/2017 Status: F Source: [place] PROFILE (BMP) 12:00 AM [facility] REPOSITORY Order Comment: RESULT(S) PREVIOUSLY REPORTED ON MANUAL REQUISITION DURING DOWNTIME. TYPE CODE TESTS RESULT OUT OF RANGE REFERENCE UNITS LAB L501.0100 74-106 mg/dL Normal GLU 92 Result Comment: Please note revised GLUCOSE reference range effective 2017. LAB L501.1000 7-18 mg/dL Normal BUN 12 LAB L501.1100 0.55-1.02 mg/dL High CREAT,SERUM 1.05 Result Comment: The validity of the calculated GFR AND GFRAA in patients over 70 years has not been determined. Clinical correlation is essential. LAB L501.1110 >60 mL/min Low EST GFR 59 LAB L501.1115 >60 mL/min Normal EST GFR - AA 72 LAB L501.1300 10-20 RATIO Normal BUN/CRE 11.4 LAB L501.2200 8.5-10.1 mg/dL Normal CA 8.5 LAB L501.5300 136-145 mmol/L Normal NA 143 LAB L501.5600 3.5-5.1 mmol/L Normal K 4.2 LAB L501.5900 98-107 mmol/L High CL 111 LAB L501.6100 21.0-32.0 mmol/L Normal CO2 24.0 LAB L501.6200 5-15 Normal GAP 8 Performed By: #### L500.2500 #### [facility] [address] [place], [address] PROGRESS Observed: 10/25/2017 Status: COMPLETED Source: [place] 11:27 AM [facility] REPOSITORY HNO ID: [id number] Author: Rima (Ramona) Dennis Service: (none) Author Type: Nurse Practitioner Type: Progress Notes Filed: 10/25/2017 11:41 AM Note Text: Subjective Patient is a 47 year old female presenting with flu symptoms. The history is provided by the patient. No world language teacher was used. Flu Like Symptoms Associated symptoms include chills, congestion, a fever, headaches, myalgias and a sore throat. Pertinent negatives include no chest pain, coughing or rash. HPI Parminder Joseph is a 47 year old female who presents today for CC of sinus congestion cough, and fever This started yesterday. She is also having body aches, headaches, and sore scratchy throat. Symptoms are worsened by lying down. She has tried tylenol. 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 PMH smoker, PE tubes as child BP 120/100 Pulse 81 Temp (!) 35.9 ?C (96.7 ?F) (Left Tympanic) Resp 24 Wt 88.5 kg (195 lb) LMP 04/18/2010 SpO2 97% BMI 34 kg/m2 ALLERGIES Allergen Reactions - Buspar [Buspirone H* Other: See Comments palpitations - Ciprofloxacin Rash - Compazine [Prochlor* Mental Status Change - Darvocet A500 [Prop* Itching - Fluoxetine Unknown - Imitrex [Sumatripta* Anaphylaxis Heart racing - Methocarbamol GI Upset - Nsaids (Non-Steroid* Swelling - Zoloft [Sertraline * Mental Status Change Suicidal thoughts ACTIVE PROBLEM LIST Tension Headache Essential Hypertension Prediabetes Mixed Hyperlipidemia Insomnia Depressive Disorder Anxiety Tobacco Abuse Family History Problem Relation Age of Onset - Ischemic Heart Disease Mother Heart attack - Ischemic Heart Disease Maternal Grandmother - COPD Maternal Grandmother - COPD Maternal Grandfather - Breast Cancer Maternal Grandmother Mastectomy - Coronary Artery Disease Father fatal [place] age 61 Social History Marital status: Spouse name: Years of education: Number of children: 2 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 Alcohol use: No Drug use: No Comment: never Sexual activity: Yes Partners with: Male control/protection: Surgical Comment: Hysterectomy Social History Narrative Moved from [place]. At risk for homelessness. Children grown. Review of Systems Constitutional: Positive for chills and fever. Negative for malaise/fatigue. HENT: Positive for congestion, sinus pain and sore throat. Negative for ear pain. Respiratory: Negative for cough, sputum production, shortness of breath and wheezing. Cardiovascular: Negative for chest pain. Musculoskeletal: Positive for myalgias. Skin: Negative for rash. Neurological: Positive for headaches. Objective Physical Exam Constitutional: She is well-developed, well-nourished, and in no distress. HENT: Head: Normocephalic and atraumatic. Right Ear: Tympanic membrane, external ear and ear canal normal. Tympanic membrane is not injected, not erythematous, not retracted and not bulging. No middle ear effusion. Left Ear: Tympanic membrane, external ear and ear canal normal. Tympanic membrane is not injected, not erythematous, not retracted and not bulging. No middle ear effusion. Nose: Mucosal edema and rhinorrhea present. Right sinus exhibits maxillary sinus tenderness. Right sinus exhibits no frontal sinus tenderness. Left sinus exhibits maxillary sinus tenderness. Left sinus exhibits no frontal sinus tenderness. Mouth/Throat: Uvula is midline and mucous membranes are normal. Posterior oropharyngeal erythema present. No oropharyngeal exudate, posterior oropharyngeal edema or tonsillar abscesses. Eyes: Conjunctivae and EOM are normal. Pupils are equal, round, and reactive to light. Neck: Normal range of motion. Cardiovascular: Normal rate, regular rhythm and normal heart sounds. Pulmonary/Chest: Effort normal and breath sounds normal. No respiratory distress. She has no decreased breath sounds. She has no wheezes. She has no rhonchi. She has no rales. A dry hacking cough was noted during this encounter. Talking in full sentences. Handling secretions without drooling. Lips and nailbeds are pink without cyanosis. Lymphadenopathy: Head (right side): No submental, no submandibular, no tonsillar, no preauricular and no posterior auricular adenopathy present. Head (left side): No submental, no submandibular, no tonsillar, no preauricular and no posterior auricular adenopathy present. She has cervical adenopathy. Right cervical: Superficial cervical adenopathy present. No posterior cervical adenopathy present. Left cervical: Superficial cervical adenopathy present. No posterior cervical adenopathy present. Right: No supraclavicular adenopathy present. Left: No supraclavicular adenopathy present. Skin: Skin is warm and dry. Psychiatric: Affect normal. Nursing note and vitals reviewed. ASSESSMENT/PLAN: 1. URI with cough and congestion - ICD9: 465.9, ICD10: J06.9 - Discussed viral etiology and rationale for treatment. Rest as much as possible. Motrin or Tylenol as needed for fever or pain. Salt water gargles, chloraseptic spray or lozenges as needed for sore throat. Nasal saline irrigation at least 2 x day. Drink at least 8 glasses of fluids per day that aren't caffeinated. Eat a nutritious diet. Use a humidifier in your room at night. Zyrtec 10 mg By mouth daily at bedtime Flonase or Nasonex 1 spray each nostril two times a day. * Seek medical care immediately, call 911, go to ER if you have chest pain, difficulty breathing, shortness of breath, inability to swallow. Your blood pressure was elevated at today's visit. Before you leave today we will make an appointment for you to be seen by your primary care physician or at the nurse blood pressure clinic. Patient was taken to appointment desk to schedule follow up Diagnosis and treatment plan were discussed and questions were answered to the patient's satisfaction. Pt acknowledged understanding of concepts and follow up plan. Specific signs and symptoms that would indicate the need for higher level of care were discussed in detail warranting prompt ER evaluation. Rima Collins APRN.ENTER[employer] APPLICATION ANALYST CNOV Observed: 10/25/2017 Status: COMPLETED Source: [place] 11:15 AM [facility] REPOSITORY Office Visit ([facility]) PARMINDER JOSEPH ([id number]) 1970 F Date Time Provider Department 10/25/17 11:15 AM RIMA COLLINS (RAMONA) [facility] During your visit today, we recorded the following information about you: Temperature Pulse Respiration Blood pressure 96.7 degrees 81/minute 24/minute 120/100 Weight 88.5 kg Rima Collins APRN.CNP 10/25/2017 11:41 AM Signed Subjective Patient is a 47 year old female presenting with flu symptoms. The history is provided by the patient. No world language teacher was used. Flu Like Symptoms Associated symptoms include chills, congestion, a fever, headaches, myalgias and a sore throat. Pertinent negatives include no chest pain, coughing or rash. HPI Parminder Joseph is a 47 year old female who presents today for CC of sinus congestion cough, and fever This started yesterday. She is also having body aches, headaches, and sore scratchy throat. Symptoms are worsened by lying down. She has tried tylenol. 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 PMH smoker, PE tubes as child BP 120/100 Pulse 81 Temp (!) 35.9 ?C (96.7 ?F) (Left Tympanic) Resp 24 Wt 88.5 kg (195 lb) LMP 04/18/2010 SpO2 97% BMI 34 kg/m2 ALLERGIES Allergen Reactions - Buspar [Buspirone H* Other: See Comments palpitations - Ciprofloxacin Rash - Compazine [Prochlor* Mental Status Change - Darvocet A500 [Prop* Itching - Fluoxetine Unknown - Imitrex [Sumatripta* Anaphylaxis Heart racing - Methocarbamol GI Upset - Nsaids (Non-Steroid* Swelling - Zoloft [Sertraline * Mental Status Change Suicidal thoughts ACTIVE PROBLEM LIST Tension Headache Essential Hypertension Prediabetes Mixed Hyperlipidemia Insomnia Depressive Disorder Anxiety Tobacco Abuse Family History Problem Relation Age of Onset - Ischemic Heart Disease Mother Heart attack - Ischemic Heart Disease Maternal Grandmother - COPD Maternal Grandmother - COPD Maternal Grandfather - Breast Cancer Maternal Grandmother Mastectomy - Coronary Artery Disease Father fatal [place] age 61 Social History Marital status: Spouse name: Years of education: Number of children: 2 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 Alcohol use: No Drug use: No Comment: never Sexual activity: Yes Partners with: Male control/protection: Surgical Comment: Hysterectomy Social History Narrative Moved from [place]. At risk for homelessness. Children grown. Review of Systems Constitutional: Positive for chills and fever. Negative for malaise/fatigue. HENT: Positive for congestion, sinus pain and sore throat. Negative for ear pain. Respiratory: Negative for cough, sputum production, shortness of breath and wheezing. Cardiovascular: Negative for chest pain. Musculoskeletal: Positive for myalgias. Skin: Negative for rash. Neurological: Positive for headaches. Objective Physical Exam Constitutional: She is well-developed, well-nourished, and in no distress. HENT: Head: Normocephalic and atraumatic. Right Ear: Tympanic membrane, external ear and ear canal normal. Tympanic membrane is not injected, not erythematous, not retracted and not bulging. No middle ear effusion. Left Ear: Tympanic membrane, external ear and ear canal normal. Tympanic membrane is not injected, not erythematous, not retracted and not bulging. No middle ear effusion. Nose: Mucosal edema and rhinorrhea present. Right sinus exhibits maxillary sinus tenderness. Right sinus exhibits no frontal sinus tenderness. Left sinus exhibits maxillary sinus tenderness. Left sinus exhibits no frontal sinus tenderness. Mouth/Throat: Uvula is midline and mucous membranes are normal. Posterior oropharyngeal erythema present. No oropharyngeal exudate, posterior oropharyngeal edema or tonsillar abscesses. Eyes: Conjunctivae and EOM are normal. Pupils are equal, round, and reactive to light. Neck: Normal range of motion. Cardiovascular: Normal rate, regular rhythm and normal heart sounds. Pulmonary/Chest: Effort normal and breath sounds normal. No respiratory distress. She has no decreased breath sounds. She has no wheezes. She has no rhonchi. She has no rales. A dry hacking cough was noted during this encounter. Talking in full sentences. Handling secretions without drooling. Lips and nailbeds are pink without cyanosis. Lymphadenopathy: Head (right side): No submental, no submandibular, no tonsillar, no preauricular and no posterior auricular adenopathy present. Head (left side): No submental, no submandibular, no tonsillar, no preauricular and no posterior auricular adenopathy present. She has cervical adenopathy. Right cervical: Superficial cervical adenopathy present. No posterior cervical adenopathy present. Left cervical: Superficial cervical adenopathy present. No posterior cervical adenopathy present. Right: No supraclavicular adenopathy present. Left: No supraclavicular adenopathy present. Skin: Skin is warm and dry. Psychiatric: Affect normal. Nursing note and vitals reviewed. ASSESSMENT/PLAN: 1. URI with cough and congestion - ICD9: 465.9, ICD10: J06.9 - Discussed viral etiology and rationale for treatment. Rest as much as possible. Motrin or Tylenol as needed for fever or pain. Salt water gargles, chloraseptic spray or lozenges as needed for sore throat. Nasal saline irrigation at least 2 x day. Drink at least 8 glasses of fluids per day that aren't caffeinated. Eat a nutritious diet. Use a humidifier in your room at night. Zyrtec 10 mg By mouth daily at bedtime Flonase or Nasonex 1 spray each nostril two times a day. * Seek medical care immediately, call 911, go to ER if you have chest pain, difficulty breathing, shortness of breath, inability to swallow. Your blood pressure was elevated at today's visit. Before you leave today we will make an appointment for you to be seen by your primary care physician or at the nurse blood pressure clinic. Patient was taken to appointment desk to schedule follow up Diagnosis and treatment plan were discussed and questions were answered to the patient's satisfaction. Pt acknowledged understanding of concepts and follow up plan. Specific signs and symptoms that would indicate the need for higher level of care were discussed in detail warranting prompt ER evaluation. AVERY Martinez APRN.CNP 10/25/2017 11:41 AM Addendum ASSESSMENT/PLAN: 1. URI with cough and congestion - ICD9: 465.9, ICD10: J06.9 - Discussed viral etiology and rationale for treatment. Rest as much as possible. Motrin or Tylenol as needed for fever or pain. Salt water gargles, chloraseptic spray or lozenges as needed for sore throat. Nasal saline irrigation at least 2 x day. Drink at least 8 glasses of fluids per day that aren't caffeinated. Eat a nutritious diet. Use a humidifier in your room at night. Zyrtec 10 mg By mouth daily at bedtime Flonase or Nasonex 1 spray each nostril two times a day. * Seek medical care immediately, call 911, go to ER if you have chest pain, difficulty breathing, shortness of breath, inability to swallow. Your blood pressure was elevated at today's visit. Before you leave today we will make an appointment for you to be seen by your primary care physician or at the nurse blood pressure clinic. Patient was taken to appointment desk to schedule follow up Referring Provider: SELF [[id number]] Allergies As of Date: 10/25/2017 Noted Allergy Reaction BUSPAR (BUSPIRONE HCL) 11/15/2012 14 - Other: See Comments Comments: palpitations CIPROFLOXACIN 02/14/2012 2 - Rash COMPAZINE (PROCHLORPERAZINE EDISY*06/23/2008 1 - Mental Status Change DARVOCET A500 (PROPOXYPHENE N-TRENT*12/10/2008 9 - Itching FLUOXETINE 06/10/2008 16 - Unknown IMITREX (SUMATRIPTAN) 06/09/2008 10 - Anaphylaxis Comments: Heart racing METHOCARBAMOL 04/15/2013 8 - GI Upset NSAIDS (NON-STEROIDAL ANTI-INFLAM*06/09/2008 7 - Swelling ZOLOFT (SERTRALINE HCL) 02/22/2011 1 - Mental Status Change Comments: Suicidal thoughts Date Reviewed: 10/25/2017 Reviewed by: Rima Collins - Fully Assessed Reason for Visit: Flu Like Symptoms [267] Primary Visit Diagnosis:URI with cough and congestion [J06.9] Order(s):benzonatate (TESSALON PERLE) 100 mg capsuleTake 1- 2 capsules tid prnDisp: 30 capsuleRfl: 0 Prescriptions as of 10/25/2017 Sig: [id number]* Take 1 tablet by mouth every * QUETIAPINE 100 MG TABLET Take 1 tablet by mouth daily * BENZONATATE 100 MG CAPSULE Take 1-2 capsules tid prn AMLODIPINE 10 MG TABLET Take 1 tablet by mouth once d* LISINOPRIL 20 MG TABLET Take 1 tablet by mouth once d* OMEPRAZOLE 20 MG CAPSULE,HAYLEY* Take 1 capsule by mouth once * ATORVASTATIN 20 MG TABLET Take 20 mg by mouth once breanne* MIRTAZAPINE 30 MG TABLET Take 30 mg by mouth daily at * Problem List As Of Date 10/25/2017 Noted Resolved TENSION HEADACHE [G44.209] INVALID FOR* Abdominal pain, other specified site [R10.9] INVALID FOR*09/28/2017 Diarrhea [R19.7] INVALID FOR*09/28/2017 Calculus of kidney [N20.0] INVALID FOR*09/28/2017 More... Cervicalgia [M54.2] INVALID FOR*09/28/2017 Essential hypertension [I10] INVALID FOR* Prediabetes [R73.03] INVALID FOR* Mixed hyperlipidemia [E78.2] INVALID FOR* Plantar fascial fibromatosis [M72.2] INVALID FOR*09/28/2017 Insomnia [G47.00] INVALID FOR* Tendonitis [M77.9] INVALID FOR*09/28/2017 Depressive disorder [F32.9] INVALID FOR* Fracture of humerus, proximal, left, closed [S4*INVALID FOR*09/28/2017 Anxiety [F41.9] INVALID FOR* Left flank pain [R10.9] INVALID FOR*09/28/2017 Microscopic hematuria [R31.29] INVALID FOR*09/28/2017 Priority: G Chronic narcotic use INVALID FOR*09/28/2017 Priority: A More... URI, acute [J06.9] INVALID FOR*09/28/2017 More... Tobacco abuse [Z72.0] INVALID FOR* Other instructions from your clinician: ASSESSMENT/PLAN: 1. URI with cough and congestion - ICD9: 465.9, ICD10: J06.9 - Discussed viral etiology and rationale for treatment. Rest as much as possible. Motrin or Tylenol as needed for fever or pain. Salt water gargles, chloraseptic spray or lozenges as needed for sore throat. Nasal saline irrigation at least 2 x day. Drink at least 8 glasses of fluids per day that aren't caffeinated. Eat a nutritious diet. Use a humidifier in your room at night. Zyrtec 10 mg By mouth daily at bedtime Flonase or Nasonex 1 spray each nostril two times a day. * Seek medical care immediately, call 911, go to ER if you have chest pain, difficulty breathing, shortness of breath, inability to swallow. Your blood pressure was elevated at today's visit. Before you leave today we will make an appointment for you to be seen by your primary care physician or at the nurse blood pressure clinic. Patient was taken to appointment desk to schedule follow up Prescriptions ordered this encounter Disp Refills Start End BENZONATATE 100 MG CAPSULE 30 c* 0 10/25/2017 Sig: Take 1-2 capsules tid prn Medications Discontinued During This Encounter erythromycin ophthalmic ointment 1 Tu* 0 10/11/2017 10/25/2017 Route: RIGHT EYE Sig: Use 1 application in the right eye daily at bedtime. Disc: Course of therapy completed Letter Text Rima Collins APRN.CNP Urgent Care [address] [address] Dept: [phone] 10/25/2017 Parminder Joseph [address] [address] To Whom it May Concern: This is to certify that Parminder Joseph was seen at our office for medical care. Parminder may return to work on next scheduled day. If you have any questions please feel free to call. Sincerely: Rima Collins APRN.CNP Encounter Status:Closed by RIMA COLLINS CNP on 10/25/17 PROGRESS Observed: 10/11/2017 Status: COMPLETED Source: [place] 7:47 AM [facility] REPOSITORY HNO ID: [id number] Author: Rima Collins Service: (none) Author Type: Nurse Practitioner Type: Progress Notes Filed: 10/11/2017 11:12 AM Note Text: Subjective Patient is a 47 year old female presenting with Eye Problem. The history is provided by the patient. No world language teacher was used. Eye Problem Pertinent negatives include no abdominal pain, chills, congestion, coughing, fever, headaches, myalgias, nausea, sore throat or vomiting. HPI Parminder Joseph is a 47 year old female who presents today for CC of right lower eye lid swelling This started last evening. She is also having redness, tender to touch. She denies any loss of vision or change, no pain in eye. Symptoms are worsened by nothing. She has tried warm compresses with slight relief. Risk factors none known PMH not significant. BP 140/96 Pulse 80 Temp (!) 35.9 ?C (96.7 ?F) (Tympanic) Resp 24 Wt 89.8 kg (198 lb) LMP 04/18/2010 BMI 34.52 kg/m2 ALLERGIES Allergen Reactions - Buspar [Buspirone H* Other: See Comments palpitations - Ciprofloxacin Rash - Compazine [Prochlor* Mental Status Change - Darvocet A500 [Prop* Itching - Fluoxetine Unknown - Imitrex [Sumatripta* Anaphylaxis Heart racing - Methocarbamol GI Upset - Nsaids (Non-Steroid* Swelling - Zoloft [Sertraline * Mental Status Change Suicidal thoughts ACTIVE PROBLEM LIST Tension Headache Essential Hypertension Prediabetes Mixed Hyperlipidemia Insomnia Depressive Disorder Anxiety Tobacco Abuse Family History Problem Relation Age of Onset - Ischemic Heart Disease Mother Heart attack - Ischemic Heart Disease Maternal Grandmother - COPD Maternal Grandmother - COPD Maternal Grandfather - Breast Cancer Maternal Grandmother Mastectomy - Coronary Artery Disease Father fatal [place] age 61 Social History Marital status: Spouse name: Years of education: Number of children: 2 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 Alcohol use: No Drug use: No Comment: never Sexual activity: Yes Partners with: Male control/protection: Surgical Comment: Hysterectomy Social History Narrative Moved from [place]. At risk for homelessness. Children grown. Review of Systems Constitutional: Negative for chills, fever, malaise/fatigue and weight loss. HENT: Negative for congestion, ear discharge, ear pain and sore throat. Eyes: Positive for redness. Negative for discharge. Respiratory: Negative for cough. Gastrointestinal: Negative for abdominal pain, diarrhea, nausea and vomiting. Musculoskeletal: Negative for myalgias. Neurological: Negative for headaches. Objective Physical Exam Constitutional: She is oriented to person, place, and time and well-developed, well-nourished, and in no distress. No distress. HENT: Head: Normocephalic and atraumatic. Eyes: Conjunctivae and EOM are normal. Pupils are equal, round, and reactive to light. Right eye exhibits no discharge. Left eye exhibits hordeolum. Left eye exhibits no discharge. Right conjunctiva is not injected. Left conjunctiva is not injected. Fundoscopic exam: The right eye shows red reflex. The left eye shows red reflex. Neck: Normal range of motion. Neck supple. Pulmonary/Chest: Effort normal. Neurological: She is alert and oriented to person, place, and time. Skin: Skin is warm and dry. Psychiatric: Affect normal. Nursing note and vitals reviewed. ASSESSMENT/PLAN: 1. Hordeolum externum of right lower eyelid - ICD9: 373.11, ICD10: H00.012 Warm compresses for eye inflammation/irritation frequently throughout the day. Do not wear contacts for the next 7 days then begin wearing a new pair after that. No eye makeup for next 7 days, throw away any makeup that you used prior to this infection. Go to ER for any sudden loss of vision or severe vision changes. Follow up with PCP if no improvement in 1 week. If redness increased need to have rechecked - ERYTHROMYCIN 5 MG/GRAM (0.5 %) EYE OINTMENT Diagnosis and treatment plan were discussed and questions were answered to the patient's satisfaction. Pt acknowledged understanding of concepts and follow up plan. Specific signs and symptoms that would indicate the need for higher level of care were discussed in detail warranting prompt ER evaluation. Rima Collins APRN.ENTER[employer] APPLICATION ANALYST CNOV Observed: 10/11/2017 Status: COMPLETED Source: [place] 7:45 AM [facility] REPOSITORY [facility] PARMINDER JOSEPH ([id number]) 1970 F Date Time Provider Department 10/11/17 7:45 AM RIMA COLLINS (ENTERPRISE APPLICATION ANALYST) [facility] During your visit today, we recorded the following information about you: Temperature Pulse Respiration Blood pressure 96.7 degrees 80/minute 24/minute 140/96 Weight 89.8 kg Rima Collins APRN.CNP 10/11/2017 11:12 AM Addendum Subjective Patient is a 47 year old female presenting with Eye Problem. The history is provided by the patient. No world language teacher was used. Eye Problem Pertinent negatives include no abdominal pain, chills, congestion, coughing, fever, headaches, myalgias, nausea, sore throat or vomiting. HPI Parminder Joseph is a 47 year old female who presents today for CC of right lower eye lid swelling This started last evening. She is also having redness, tender to touch. She denies any loss of vision or change, no pain in eye. Symptoms are worsened by nothing. She has tried warm compresses with slight relief. Risk factors none known PMH not significant. BP 140/96 Pulse 80 Temp (!) 35.9 ?C (96.7 ?F) (Tympanic) Resp 24 Wt 89.8 kg (198 lb) LMP 04/18/2010 BMI 34.52 kg/m2 ALLERGIES Allergen Reactions - Buspar [Buspirone H* Other: See Comments palpitations - Ciprofloxacin Rash - Compazine [Prochlor* Mental Status Change - Darvocet A500 [Prop* Itching - Fluoxetine Unknown - Imitrex [Sumatripta* Anaphylaxis Heart racing - Methocarbamol GI Upset - Nsaids (Non-Steroid* Swelling - Zoloft [Sertraline * Mental Status Change Suicidal thoughts ACTIVE PROBLEM LIST Tension Headache Essential Hypertension Prediabetes Mixed Hyperlipidemia Insomnia Depressive Disorder Anxiety Tobacco Abuse Family History Problem Relation Age of Onset - Ischemic Heart Disease Mother Heart attack - Ischemic Heart Disease Maternal Grandmother - COPD Maternal Grandmother - COPD Maternal Grandfather - Breast Cancer Maternal Grandmother Mastectomy - Coronary Artery Disease Father fatal [place] age 61 Social History Marital status: Spouse name: Years of education: Number of children: 2 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 Alcohol use: No Drug use: No Comment: never Sexual activity: Yes Partners with: Male control/protection: Surgical Comment: Hysterectomy Social History Narrative Moved from [place]. At risk for homelessness. Children grown. Review of Systems Constitutional: Negative for chills, fever, malaise/fatigue and weight loss. HENT: Negative for congestion, ear discharge, ear pain and sore throat. Eyes: Positive for redness. Negative for discharge. Respiratory: Negative for cough. Gastrointestinal: Negative for abdominal pain, diarrhea, nausea and vomiting. Musculoskeletal: Negative for myalgias. Neurological: Negative for headaches. Objective Physical Exam Constitutional: She is oriented to person, place, and time and well-developed, well-nourished, and in no distress. No distress. HENT: Head: Normocephalic and atraumatic. Eyes: Conjunctivae and EOM are normal. Pupils are equal, round, and reactive to light. Right eye exhibits no discharge. Left eye exhibits hordeolum. Left eye exhibits no discharge. Right conjunctiva is not injected. Left conjunctiva is not injected. Fundoscopic exam: The right eye shows red reflex. The left eye shows red reflex. Neck: Normal range of motion. Neck supple. Pulmonary/Chest: Effort normal. Neurological: She is alert and oriented to person, place, and time. Skin: Skin is warm and dry. Psychiatric: Affect normal. Nursing note and vitals reviewed. ASSESSMENT/PLAN: 1. Hordeolum externum of right lower eyelid - ICD9: 373.11, ICD10: H00.012 Warm compresses for eye inflammation/irritation frequently throughout the day. Do not wear contacts for the next 7 days then begin wearing a new pair after that. No eye makeup for next 7 days, throw away any makeup that you used prior to this infection. Go to ER for any sudden loss of vision or severe vision changes. Follow up with PCP if no improvement in 1 week. If redness increased need to have rechecked - ERYTHROMYCIN 5 MG/GRAM (0.5 %) EYE OINTMENT Diagnosis and treatment plan were discussed and questions were answered to the patient's satisfaction. Pt acknowledged understanding of concepts and follow up plan. Specific signs and symptoms that would indicate the need for higher level of care were discussed in detail warranting prompt ER evaluation. AVERY Martinez APRN.CNP 10/11/2017 7:54 AM Signed ASSESSMENT/PLAN: 1. Hordeolum externum of right lower eyelid - ICD9: 373.11, ICD10: H00.012 Warm compresses for eye inflammation/irritation frequently throughout the day. Do not wear contacts for the next 7 days then begin wearing a new pair after that. No eye makeup for next 7 days, throw away any makeup that you used prior to this infection. Go to ER for any sudden loss of vision or severe vision changes. Follow up with PCP if no improvement in 1 week. If redness increased need to have rechecked - ERYTHROMYCIN 5 MG/GRAM (0.5 %) EYE OINTMENT Referring Provider: SELF [200] Allergies As of Date: 10/11/2017 Noted Allergy Reaction BUSPAR (BUSPIRONE HCL) 11/15/2012 14 - Other: See Comments Comments: palpitations CIPROFLOXACIN 02/14/2012 2 - Rash COMPAZINE (PROCHLORPERAZINE EDISY*06/23/2008 1 - Mental Status Change DARVOCET A500 (PROPOXYPHENE N-TRENT*12/10/2008 9 - Itching FLUOXETINE 06/10/2008 16 - Unknown IMITREX (SUMATRIPTAN) 06/09/2008 10 - Anaphylaxis Comments: Heart racing METHOCARBAMOL 04/15/2013 8 - GI Upset NSAIDS (NON-STEROIDAL ANTI-INFLAM*06/09/2008 7 - Swelling ZOLOFT (SERTRALINE HCL) 02/22/2011 1 - Mental Status Change Comments: Suicidal thoughts Date Reviewed: 10/11/2017 Reviewed by: Rima Collins - Fully Assessed Reason for Visit: Eye Problem [43] Cmt: Right eye red and swollen x 2 day Primary Visit Diagnosis:Hordeolum externum of right lower eyelid [H00.012] Order(s):erythromycin ophthalmic ointmentUse 1 application in the right eye daily at bedtime.Disp: 1 TubeRfl: 0 Prescriptions as of 10/11/2017 Sig: [id number]* Take 1 tablet by mouth every * AMLODIPINE 10 MG TABLET Take 1 tablet by mouth once d* LISINOPRIL 20 MG TABLET Take 1 tablet by mouth once d* QUETIAPINE 50 MG TABLET Take 1 tablet by mouth daily * OMEPRAZOLE 20 MG CAPSULE,HAYLEY* Take 1 capsule by mouth once * ATORVASTATIN 20 MG TABLET Take 20 mg by mouth once breanne* MIRTAZAPINE 30 MG TABLET Take 30 mg by mouth daily at * ERYTHROMYCIN 5 MG/GRAM (0.5 %* Use 1 application [facility]* Problem List As Of Date 10/11/2017 Noted Resolved TENSION HEADACHE [G44.209] INVALID FOR* Abdominal pain, other specified site [R10.9] INVALID FOR*09/28/2017 Diarrhea [R19.7] INVALID FOR*09/28/2017 Calculus of kidney [N20.0] INVALID FOR*09/28/2017 More... Cervicalgia [M54.2] INVALID FOR*09/28/2017 Essential hypertension [I10] INVALID FOR* Prediabetes [R73.03] INVALID FOR* Mixed hyperlipidemia [E78.2] INVALID FOR* Plantar fascial fibromatosis [M72.2] INVALID FOR*09/28/2017 Insomnia [G47.00] INVALID FOR* Tendonitis [M77.9] INVALID FOR*09/28/2017 Depressive disorder [F32.9] INVALID FOR* Fracture of humerus, proximal, left, closed [S4*INVALID FOR*09/28/2017 Anxiety [F41.9] INVALID FOR* Left flank pain [R10.9] INVALID FOR*09/28/2017 Microscopic hematuria [R31.29] INVALID FOR*09/28/2017 Priority: G Chronic narcotic use INVALID FOR*09/28/2017 Priority: A More... URI, acute [J06.9] INVALID FOR*09/28/2017 More... Tobacco abuse [Z72.0] INVALID FOR* Other instructions from your clinician: ASSESSMENT/PLAN: 1. Hordeolum externum of right lower eyelid - ICD9: 373.11, ICD10: H00.012 Warm compresses for eye inflammation/irritation frequently throughout the day. Do not wear contacts for the next 7 days then begin wearing a new pair after that. No eye makeup for next 7 days, throw away any makeup that you used prior to this infection. Go to ER for any sudden loss of vision or severe vision changes. Follow up with PCP if no improvement in 1 week. If redness increased need to have rechecked - ERYTHROMYCIN 5 MG/GRAM (0.5 %) EYE OINTMENT Prescriptions ordered this encounter Disp Refills Start End ERYTHROMYCIN 5 MG/GRAM (0.5 %) EYE O* 1 Tu* 0 10/11/2017 Route: RIGHT EYE Sig: Use 1 application in the right eye daily at bedtime. Encounter Status:Closed by RIMA COLLINS CNP on 10/11/17 PROGRESS Observed: 09/28/2017 Status: COMPLETED Source: [place] 10:31 PM [facility] REPOSITORY HNO ID: [id number] Author: Rich Wilson Service: (none) Author Type: Physician Type: Progress Notes Filed: 09/28/2017 11:06 PM Note Text: This note was created using Cybitsriter. Subjective Patient presents with: Establish Care Physical HPI: Parminder Joseph is a 46 year old female was here for [facility]. She moved back to this area from [place], and gave us her medication list. She reported having borderline diastolic hypertension control. Her medication had not been adjusted lately. She was Fioricet for tension headaches, not used more than twice a week. She usually had 20 tablets that lasted 2 months. Aside from tension headaches, she also had analgesic rebound headaches, so she was aware to limit use of this medication. Her depression was controlled and anxiety was no longer a significant issue. Seroquel was used for insomnia but she was usually fine just taking one tablet at bedtime. She was having increased acid reflux even with over the counter omeprazole. PAST MEDICAL HISTORY Diagnosis Date - Anxiety - Calculus of kidney 07/15/2008 - Chronic narcotic use 01/15/2013 OARRS website checked and validated - 01/15/2013 by Beronica Chauhan CNP Multiple providers, multiple pharmacies, noted. - Endometriosis 2009 - Essential hypertension 09/17/2009 - Fracture of humerus, proximal, left, closed 09/04/2011 - Gestational diabetes mellitus - Hyperlipidemia LDL goal < 100 08/23/2010 - Mixed hyperlipidemia 08/23/2010 - Prediabetes 11/23/2009 - Seasonal allergies - Tension headache PAST SURGICAL HISTORY Procedure Laterality Date - APPENDECTOMY 2000 - TOTAL ABDOM HYSTERECTOMY 04/2010 GA AND BSO - [facility] - URETERAL STENT 2009 FAMILY HISTORY Problem Relation Age of Onset - Ischemic Heart Disease Mother Heart attack - Ischemic Heart Disease Maternal Grandmother - COPD Maternal Grandmother - COPD Maternal Grandfather - Breast Cancer Maternal Grandmother Mastectomy - Coronary Artery Disease Father fatal [place] age 61 Social History Marital status: Spouse name: Years of education: Number of children: 2 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 Alcohol use: No Drug use: No Comment: never Sexual activity: Yes Partners with: Male control/protection: Surgical Comment: Hysterectomy Social History Narrative Moved from [place]. At risk for homelessness. Children grown. ALLERGIES Allergen Reactions - Buspar [Buspirone H* Other: See Comments palpitations - Ciprofloxacin Rash - Compazine [Prochlor* Mental Status Change - Darvocet A500 [Prop* Itching - Fluoxetine Unknown - Imitrex [Sumatripta* Anaphylaxis Heart racing - Methocarbamol GI Upset - Nsaids (Non-Steroid* Swelling - Zoloft [Sertraline * Mental Status Change Suicidal thoughts Current Outpatient Prescriptions: Gzulxrggyx-Tmzlmnqdipecc-Kzqp (FIORICET) 50-300-40 mg cap Take 1 tablet by mouth every 8 hours as needed (headache). QUEtiapine (SEROQUEL) 50 mg tablet Take 1 tablet by mouth daily at bedtime. amLODIPine (NORVASC) 10 mg tablet Take 1 tablet by mouth once daily. lisinopril (ZESTRIL, PRINIVIL) 20 mg tablet Take 1 tablet by mouth once daily. omeprazole (PRILOSEC) 20 mg capsule Take 1 capsule by mouth once daily. atorvastatin (LIPITOR) 20 mg tablet Take 20 mg by mouth once daily. mirtazapine (REMERON) 30 mg tablet Take 30 mg by mouth daily at bedtime. No current facility-administered medications for this visit. Review of Systems Constitutional: Negative. HENT: Negative. Eyes: Negative. Respiratory: Negative. Cardiovascular: Negative. Gastrointestinal: Negative. Genitourinary: Negative. Musculoskeletal: Negative. Skin: Negative. Neurological: Positive for headaches. Negative for dizziness. Hematological: Negative. Psychiatric/Behavioral: Positive for dysphoric mood. Objective BP 118/96 (BP Site: Left Arm, BP Position: Sitting, BP Cuff Size: Regular Adult) Pulse 72 Resp 18 Ht 161.3 cm (5' 3.5) Wt 88.5 kg (195 lb) LMP 04/18/2010 BMI 34 kg/m2 Physical Exam Constitutional: She is oriented to person, place, and time. She appears well-nourished. No distress. HENT: Head: Normocephalic. Nose: Nose normal. Mouth/Throat: Oropharynx is clear and moist. Eyes: Conjunctivae and EOM are normal. Pupils are equal, round, and reactive to light. Neck: Neck supple. No thyromegaly present. Cardiovascular: S1 normal and S2 normal. Exam reveals no gallop. No murmur heard. Pulmonary/Chest: Breath sounds normal. She has no wheezes. She has no rales. Abdominal: Soft. Bowel sounds are normal. She exhibits no mass. There is no tenderness. No hernia. Musculoskeletal: Normal range of motion. She exhibits no edema, tenderness or deformity. Lymphadenopathy: She has no cervical adenopathy. Neurological: She is alert and oriented to person, place, and time. She has normal reflexes. She exhibits normal muscle tone. Coordination normal. Skin: No rash noted. Psychiatric: She has a normal mood and affect. Assessment and Plan ASSESSMENT/PLAN: 1. Essential hypertension - ICD9: 401.9, ICD10: I10 (primary diagnosis) - suboptimal control - Continue current medication(s) - Reviewed risks of HTN and principles of treatment - AMLODIPINE 10 MG TABLET - LISINOPRIL 20 MG TABLET - CBC + DIFF 2. Depressive disorder - ICD9: 311, ICD10: F32.9 Controlled. - QUETIAPINE 50 MG TABLET - TSH BLD 3. Anxiety - ICD9: 300.00, ICD10: F41.9 Controlled. 4. Insomnia, unspecified type - ICD9: 780.52, ICD10: G47.00 Controlled. - QUETIAPINE 50 MG TABLET 5. Mixed hyperlipidemia - ICD9: 272.2, ICD10: E78.2 - to be determined upon return of lab results - Continue current medication. - COMP METABOLIC PANEL - LIPID PANEL BASIC - HGB A1C 6. Tobacco abuse - ICD9: 305.1, ICD10: Z72.0 - Cessation encouraged. - Physiologic and physical aspects of tobacco addiction as well as strategies for quitting were discussed. 7. Tension headache - ICD9: 307.81, ICD10: G44.209 Stable. - DVVGARKDFL-YNMIESVHWTAXA-ZZYBKRMM 50 MG-300 MG-40 MG CAPSULE 8. Visit for screening mammogram - ICD9: V76.12, ICD10: Z12.31 - ELIER SCREENING 9. Gastroesophageal reflux disease, esophagitis presence not specified - ICD9: 530.81, ICD10: K21.9 - OMEPRAZOLE 20 MG CAPSULE,DELAYED RELEASE Rich Wilson MD CBC AND DIFFERENTIAL Collected: 09/28/2017 Status: F Source: [place] 11:49 AM [facility] REPOSITORY TYPE CODE TESTS RESULT OUT OF REFERENCE UNITS RANGE LAB WBC 3.70-11.00 k/uL WBC 5.25 LAB RBC 3.90-5.20 m/uL RBC 4.69 LAB HGB 11.5-15.5 g/dL Hemoglobin 13.5 LAB HCT 36.0-46.0 % Hematocrit 42.8 LAB MCV 80.0-100.0 fL MCV 91.3 LAB MCH 26.0-34.0 pG MCH 28.8 LAB MCHC 30.5-36.0 g/dL MCHC 31.5 LAB RDWCV 11.5-15.0 % RDW-CV 13.3 LAB PLTCT 150-400 k/uL Platelet Count 345 LAB MPV 9.0-12.7 fL MPV 10.2 LAB ANEUT % Neut% 52.2 LAB AANEUT 1.45-7.50 k/uL Abs Neut 2.74 LAB ALYMP % Lymph% 33.3 LAB AALYMP 1.00-4.00 k/uL Abs Lymph 1.75 LAB AMONO % [place]% 6.7 LAB AAMONO <0.87 k/uL Abs [place] 0.35 LAB AEOS % Eosin% 5.9 LAB AAEOS <0.46 k/uL Abs Eosin 0.31 LAB ABASO % Baso% 1.9 LAB AABASO <0.11 k/uL Abs Baso 0.10 LAB AUNRBC 0 /100 WBC NRBCs 0.0 LAB ABNRBC <0.01 k/uL Absolute nRBC <0.01 LAB DTYP DTYPE Auto Diff Performed By: #### CBCDIF, CMP, LIPB, TSH, HBA1C #### [facility] [address] [place], [place] [address] COMP METABOLIC PANEL Collected: 09/28/2017 Status: F Source: [place] 11:49 AM [facility] REPOSITORY TYPE CODE TESTS RESULT OUT OF REFERENCE UNITS RANGE LAB TP 6.3-8.0 g/dL Protein, High Total 8.1 LAB ALB 3.9-4.9 g/dL Albumin 4.4 LAB CA 8.5-10.2 mg/dL Calcium, Total 9.2 LAB TBIL 0.2-1.3 mg/dL Bilirubin, Total 0.2 LAB ALKP 32-117 U/L Alkaline Phosphatase 92 LAB AST 13-35 U/L AST 16 LAB GLU 74-99 mg/dL Glucose 83 Result Comment: The [place] Diabetes [employer] (ADA) provides guidance for cutoff values for fasting glucose and random glucose. The ADA defines fasting as no caloric intake for at least 8 hours. Fas ting plasma glucose results between 100 to 125 mg/dL indicate increased risk for diabetes (prediabetes). Fasting plasma glucose results greater than or equal to 126 mg/dL meet the criteria for diagnosis of diabetes. In the absence of unequivocal hyperglycemia, results should be confirmed by repeat testing. In a patient with classic symptoms of hyperglycemia or hyperglycemic crisis, random plasma glucose results greater than or equal to 200 mg/dL meet the criteria for diagnosis of diabetes. Reference: Standards of Medical Care in Diabetes 2016, [place] [employer] Association. Diabetes Care. 2016.39(Suppl 1). LAB BUN 7-21 mg/dL BUN 13 LAB CRET 0.58-0.96 mg/dL Creatinine 0.83 LAB NA 136-144 mmol/L Sodium 141 LAB K 3.7-5.1 mmol/L Potassium 4.4 LAB CL 97-105 mmol/L Chloride 103 LAB CO2 22-30 mmol/L CO2 24 LAB AGAP 9-18 mmol/L Anion Gap 14 LAB ALT 7-38 U/L ALT 16 LAB GFRAA eGFR- Amer. >60 LAB GFRNAA . eGFR-All Other Races >60 Result Comment: eGFR (Estimated GFR) Units of measure: mL/min/1.73 meters squared eGFR is derived from the reexpressed MDRD Study equation using the following parameters: serum creatinine, age, gender and race. The creatinine assay has been calibrated to be traceable to IDMS. An eGFR <60 mL/min/1.73m2 for >3 months is consistent with chronic kidney disease. Refer to KDOQI guidelines for clinical interpretation. In patients with unstable renal function, e.g. those with acute kidney injury, the eGFR may not accurately reflect actual GFR. Performed By: #### CBCDIF, CMP, LIPB, TSH, HBA1C #### [facility] [address] [place], [place] [address] LIPID PANEL, BASIC Collected: 09/28/2017 Status: F Source: [place] 11:49 AM [facility] REPOSITORY TYPE CODE TESTS RESULT OUT OF REFERENCE UNITS RANGE LAB CHOL <200 mg/dL Cholesterol High 284 Result Comment: <200 mg/dL, Desirable 200-239 mg/dL, Borderline high >239 mg/dL, High LAB TRIGLY <150 mg/dL Triglyceride High 154 Result Comment: <150 mg/dL, Normal 150-199 mg/dL, Borderline high 200-499 mg/dL, High >499 mg/dL, Very high LAB HDL >39 mg/dL HDL-Cholesterol 60 Result Comment: 40-59 mg/dL, Acceptable >59 mg/dL, High: Negative risk factor for coronary heart disease <40 mg/dL, Low: Positive risk factor for coronary heart disease LAB LDL <100 mg/dL LDL-Cholesterol High 193 Result Comment: <100 mg/dL, Optimal 100-129 mg/dL, Near optimal/above optimal 130-159 mg/dL, Borderline high 160-189 mg/dL, High >189 mg/dL, Very high Secondary prevention optimal LDL Cholesterol levels are recommended to be < 70 mg/dL LAB NONHDL <130 mg/dL Non HDL High Cholesterol 224 Result Comment: <130 mg/dL, Optimal 130-159 mg/dL, Near optimal/above optimal 160-189 mg/dL, Borderline high 190-219 mg/dL, High >219 mg/dL, Very high Secondary prevention optimal non HDL Cholesterol levels are recommended to be < 100 mg/dL LAB FT hrs Fasting Time 14 LAB VLDL <30 mg/dL High VLDL Cholesterol 31 LAB TCHDL <5.10 TC:HDL Ratio 4.73 LAB LDLHDL <2.54 High LDL:HDL Ratio 3.22 Result Comment: Reference: 1. National Cholesterol Education Program ATP III Guideline At-A-Glance Quick Desk Reference: National Heart, Lung, and Blood [place]. National Institutes of Health. 2001: NIH Publication No. 01-3305. 2. An International Atherosclerosis Society position paper: global recommendations for the management of dyslipidemia: executive summary, Atherosclerosis. 2014: 232(2):410-413. Performed By: #### CBCDIF, CMP, LIPB, TSH, HBA1C #### [facility] [employer] [employer] [address], [place] [address] TSH Collected: 09/28/2017 Status: F Source: [place] 11:49 AM [facility] REPOSITORY TYPE CODE TESTS RESULT OUT OF RANGE REFERENCE UNITS LAB TSH 0.400-5.500 uU/mL TSH 1.250 Result Comment: If the patient is , TSH reference range varies by gestational period: First Trimester 0.100-2.500 uU/mL Second Trimester 0.200-3.000 uU/mL Third Trimester 0.300-3.000 uU/mL References: 1. Patel L, David M, James EK, et al. Management of Thyroid Dysfunction during and : An Endocrine Society Clinical Practice Guideline. J Clin Endocrinol Metab, 2012:97:2662-7509. 2. Sudeep DUMONT. Overview of thyroid disease in . UpToDate. 2016. Accessed on December 24, 2015. Performed By: #### CBCDIF, CMP, LIPB, TSH, HBA1C #### [facility] [employer] [address], [place] [address] HEMOGLOBIN A1C Collected: 09/28/2017 Status: F Source: [place] 11:49 AM [facility] REPOSITORY TYPE CODE TESTS RESULT OUT OF REFERENCE UNITS RANGE LAB HGBA1C 4.3-5.6 % High Hemoglobin A1c 5.7 LAB HBA0 mg/dL Est. Average Glucose 117 Result Comment: eAG: (Estimated average glucose) is a calculated value from HgbA1c and is sales representative canvas products of the average blood glucose level in the last 2-3 month period. Performed By: #### CBCDIF, CMP, LIPB, TSH, HBA1C #### [facility] [employer] [address], [place] [address] CNOV Observed: 09/28/2017 Status: COMPLETED Source: [place] 10:20 AM [facility] REPOSITORY Office Visit (INTMWS) PARMINDER JOSEPH ([id number]) 1970 F Date Time Provider Department 09/28/17 10:20 AM RICH WILSON IN[facility]WS During your visit today, we recorded the following information about you: Pulse Respiration Blood pressure Weight 72/minute 18/minute 118/96 88.5 kg Height 1.613 m Rich Wilson MD 09/28/2017 11:06 PM Signed This note was created using Cybitsriter. Subjective Patient presents with: Establish Care Physical HPI: Parminder Joseph is a 46 year old female was here for [facility]. She moved back to this area from [place], and gave us her medication list. She reported having borderline diastolic hypertension control. Her medication had not been adjusted lately. She was Fioricet for tension headaches, not used more than twice a week. She usually had 20 tablets that lasted 2 months. Aside from tension headaches, she also had analgesic rebound headaches, so she was aware to limit use of this medication. Her depression was controlled and anxiety was no longer a significant issue. Seroquel was used for insomnia but she was usually fine just taking one tablet at bedtime. She was having increased acid reflux even with over the counter omeprazole. PAST MEDICAL HISTORY Diagnosis Date - Anxiety - Calculus of kidney 07/15/2008 - Chronic narcotic use 01/15/2013 OARRS website checked and validated - 01/15/2013 by Beronica Chauhan, ENTERPRISE APPLICATION ANALYST Multiple providers, multiple pharmacies, noted. - Endometriosis 2009 - Essential hypertension 09/17/2009 - Fracture of humerus, proximal, left, closed 09/04/2011 - Gestational diabetes mellitus - Hyperlipidemia LDL goal ANDlt; 100 08/23/2010 - Mixed hyperlipidemia 08/23/2010 - Prediabetes 11/23/2009 - Seasonal allergies - Tension headache PAST SURGICAL HISTORY Procedure Laterality Date - APPENDECTOMY 2000 - TOTAL ABDOM HYSTERECTOMY 04/2010 GA ANDamp; BSO - [place] General - URETERAL STENT 2009 FAMILY HISTORY Problem Relation Age of Onset - Ischemic Heart Disease Mother Heart attack - Ischemic Heart Disease Maternal Grandmother - COPD Maternal Grandmother - COPD Maternal Grandfather - Breast Cancer Maternal Grandmother Mastectomy - Coronary Artery Disease Father fatal [place] age 61 Social History Marital status: Spouse name: Years of education: Number of children: 2 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 Alcohol use: No Drug use: No Comment: never Sexual activity: Yes Partners with: Male control/protection: Surgical Comment: Hysterectomy Social History Narrative Moved from [place]. At risk for homelessness. Children grown. ALLERGIES Allergen Reactions - Buspar [Buspirone H* Other: See Comments palpitations - Ciprofloxacin Rash - Compazine [Prochlor* Mental Status Change - Darvocet A500 [Prop* Itching - Fluoxetine Unknown - Imitrex [Sumatripta* Anaphylaxis Heart racing - Methocarbamol GI Upset - Nsaids (Non-Steroid* Swelling - Zoloft [Sertraline * Mental Status Change Suicidal thoughts Current Outpatient Prescriptions: Etgdhialqv-Cwbkwxbgjuajn-Kwpb (FIORICET) 50-300-40 mg cap Take 1 tablet by mouth every 8 hours as needed (headache). QUEtiapine (SEROQUEL) 50 mg tablet Take 1 tablet by mouth daily at bedtime. amLODIPine (NORVASC) 10 mg tablet Take 1 tablet by mouth once daily. lisinopril (ZESTRIL, PRINIVIL) 20 mg tablet Take 1 tablet by mouth once daily. omeprazole (PRILOSEC) 20 mg capsule Take 1 capsule by mouth once daily. atorvastatin (LIPITOR) 20 mg tablet Take 20 mg by mouth once daily. mirtazapine (REMERON) 30 mg tablet Take 30 mg by mouth daily at bedtime. No current facility-administered medications for this visit. Review of Systems Constitutional: Negative. HENT: Negative. Eyes: Negative. Respiratory: Negative. Cardiovascular: Negative. Gastrointestinal: Negative. Genitourinary: Negative. Musculoskeletal: Negative. Skin: Negative. Neurological: Positive for headaches. Negative for dizziness. Hematological: Negative. Psychiatric/Behavioral: Positive for dysphoric mood. Objective BP 118/96 (BP Site: Left Arm, BP Position: Sitting, BP Cuff Size: Regular Adult) Pulse 72 Resp 18 Ht 161.3 cm (5' 3.5ANDquot;) Wt 88.5 kg (195 lb) LMP 04/18/2010 BMI 34 kg/m2 Physical Exam Constitutional: She is oriented to person, place, and time. She appears well-nourished. No distress. HENT: Head: Normocephalic. Nose: Nose normal. Mouth/Throat: Oropharynx is clear and moist. Eyes: Conjunctivae and EOM are normal. Pupils are equal, round, and reactive to light. Neck: Neck supple. No thyromegaly present. Cardiovascular: S1 normal and S2 normal. Exam reveals no gallop. No murmur heard. Pulmonary/Chest: Breath sounds normal. She has no wheezes. She has no rales. Abdominal: Soft. Bowel sounds are normal. She exhibits no mass. There is no tenderness. No hernia. Musculoskeletal: Normal range of motion. She exhibits no edema, tenderness or deformity. Lymphadenopathy: She has no cervical adenopathy. Neurological: She is alert and oriented to person, place, and time. She has normal reflexes. She exhibits normal muscle tone. Coordination normal. Skin: No rash noted. Psychiatric: She has a normal mood and affect. Assessment and Plan ASSESSMENT/PLAN: 1. Essential hypertension - ICD9: 401.9, ICD10: I10 (primary diagnosis) - suboptimal control - Continue current medication(s) - Reviewed risks of HTN and principles of treatment - AMLODIPINE 10 MG TABLET - LISINOPRIL 20 MG TABLET - CBC + DIFF 2. Depressive disorder - ICD9: 311, ICD10: F32.9 Controlled. - QUETIAPINE 50 MG TABLET - TSH BLD 3. Anxiety - ICD9: 300.00, ICD10: F41.9 Controlled. 4. Insomnia, unspecified type - ICD9: 780.52, ICD10: G47.00 Controlled. - QUETIAPINE 50 MG TABLET 5. Mixed hyperlipidemia - ICD9: 272.2, ICD10: E78.2 - to be determined upon return of lab results - Continue current medication. - COMP METABOLIC PANEL - LIPID PANEL BASIC - HGB A1C 6. Tobacco abuse - ICD9: 305.1, ICD10: Z72.0 - Cessation encouraged. - Physiologic and physical aspects of tobacco addiction as well as strategies for quitting were discussed. 7. Tension headache - ICD9: 307.81, ICD10: G44.209 Stable. - NJKKPDFLIF-KZAITDYWGXEZY-WSVLTDAE 50 MG-300 MG-40 MG CAPSULE 8. Visit for screening mammogram - ICD9: V76.12, ICD10: Z12.31 - ELIER SCREENING 9. Gastroesophageal reflux disease, esophagitis presence not specified - ICD9: 530.81, ICD10: K21.9 - OMEPRAZOLE 20 MG CAPSULE,DELAYED RELEASE Rich Wilson MD Referring Provider: SELF [200] Allergies As of Date: 09/28/2017 Noted Allergy Reaction BUSPAR (BUSPIRONE HCL) 11/15/2012 14 - Other: See Comments Comments: palpitations CIPROFLOXACIN 02/14/2012 2 - Rash COMPAZINE (PROCHLORPERAZINE EDISY*06/23/2008 1 - Mental Status Change DARVOCET A500 (PROPOXYPHENE N-TRENT*12/10/2008 9 - Itching FLUOXETINE 06/10/2008 16 - Unknown IMITREX (SUMATRIPTAN) 06/09/2008 10 - Anaphylaxis Comments: Heart racing METHOCARBAMOL 04/15/2013 8 - GI Upset NSAIDS (NON-STEROIDAL ANTI-INFLAM*06/09/2008 7 - Swelling ZOLOFT (SERTRALINE HCL) 02/22/2011 1 - Mental Status Change Comments: Suicidal thoughts Date Reviewed: 09/28/2017 Reviewed by: Justnia Chatterjee LPN - Fully Assessed Reason for Visit: Establish Care [42] Physical [83] Primary Visit Diagnosis:Essential hypertension [I10] Other Visit Diagnoses:Depressive disorder [F32.9] Anxiety [F41.9] Insomnia, unspecified type [G47.00] Mixed hyperlipidemia [E78.2] Tobacco abuse [Z72.0] Tension headache [G44.209] Visit for screening mammogram [Z12.31] Gastroesophageal reflux disease, esophagitis presence not specified [K21.9] Order(s):amLODIPine (NORVASC) 10 mg tabletTake 1 tablet by mouth once daily.Disp: 30 tabletRfl: 2 lisinopril (ZESTRIL, PRINIVIL) 20 mg tabletTake 1 tablet by mouth once daily.Disp: 30 tabletRfl: 2 Uzqppkdqwi-Lucsuakxwycoz-Sqno (FIORICET) 50-300-40 mg capTake 1 tablet by mouth every 8 hours as needed (headache).Disp: 20 capsuleRfl: 0 QUEtiapine (SEROQUEL) 50 mg tabletTake 1 tablet by mouth daily at bedtime.Disp: 30 tabletRfl: 2 CBC + DIFF [SQCBCDIF] Order #: [id number] FUTURE COMP METABOLIC PANEL [SQCMP] Order #: [id number] FUTURE LIPID PANEL BASIC [SQLIPB] Order #: [id number] FUTURE HGB A1C [RZHPV3S] Order #: [id number] FUTURE TSH BLD [SQTSH] Order #: [id number] FUTURE ELIER SCREENING [1427591] Order #: [id number] FUTURE omeprazole (PRILOSEC) 20 mg capsuleTake 1 capsule by mouth once daily.Disp: 30 capsuleRfl: 5 Prescriptions as of 09/28/2017 Sig: ZRYMHEPUEV-BOSVFYGVKXQPJ-FGSB* Take 1 tablet by mouth every * QUETIAPINE 50 MG TABLET Take 1 tablet by mouth daily * AMLODIPINE 10 MG TABLET Take 1 tablet by mouth once d* LISINOPRIL 20 MG TABLET Take 1 tablet by mouth once d* OMEPRAZOLE 20 MG CAPSULE,HAYLEY* Take 1 capsule by mouth once * ATORVASTATIN 20 MG TABLET Take 20 mg by mouth once breanne* MIRTAZAPINE 30 MG TABLET Take 30 mg by mouth daily at * Problem List As Of Date 09/28/2017 Noted Resolved TENSION HEADACHE [G44.209] INVALID FOR* Abdominal pain, other specified site [R10.9] INVALID FOR*09/28/2017 Diarrhea [R19.7] INVALID FOR*09/28/2017 Calculus of kidney [N20.0] INVALID FOR*09/28/2017 More... Cervicalgia [M54.2] INVALID FOR*09/28/2017 Essential hypertension [I10] INVALID FOR* Prediabetes [R73.03] INVALID FOR* Mixed hyperlipidemia [E78.2] INVALID FOR* Plantar fascial fibromatosis [M72.2] INVALID FOR*09/28/2017 Insomnia [G47.00] INVALID FOR* Tendonitis [M77.9] INVALID FOR*09/28/2017 Depressive disorder [F32.9] INVALID FOR* Fracture of humerus, proximal, left, closed [S4*INVALID FOR*09/28/2017 Anxiety [F41.9] INVALID FOR* Left flank pain [R10.9] INVALID FOR*09/28/2017 Microscopic hematuria [R31.29] INVALID FOR*09/28/2017 Priority: G Chronic narcotic use INVALID FOR*09/28/2017 Priority: A More... URI, acute [J06.9] INVALID FOR*09/28/2017 More... Tobacco abuse [Z72.0] INVALID FOR* Prescriptions ordered this encounter Disp Refills Start End AMLODIPINE 10 MG TABLET 30 t* 2 09/28/2017 Route: ORAL Sig: Take 1 tablet by mouth once daily. LISINOPRIL 20 MG TABLET 30 t* 2 09/28/2017 Route: ORAL Sig: Take 1 tablet by mouth once daily. SUVTZXLRFX-CFFAHUTSYQMMD-BWZRDXTM 50* 20 c* 0 09/28/2017 12/27/2017 Route: ORAL Sig: Take 1 tablet by mouth every 8 hours as needed (headache). QUETIAPINE 50 MG TABLET 30 t* 2 09/28/2017 Route: ORAL Sig: Take 1 tablet by mouth daily at bedtime. OMEPRAZOLE 20 MG CAPSULE,DELAYED REL* 30 c* 5 09/28/2017 Route: ORAL Sig: Take 1 capsule by mouth once daily. Medications Discontinued During This Encounter amLODIPine (NORVASC) 10 mg tablet 09/28/2017 Class: Historical Med Route: ORAL Sig: Take 10 mg by mouth once daily. Disc: Reason for discontinue is not on file. lisinopril (ZESTRIL, PRINIVIL) 20 mg* 09/28/2017 Class: Historical Med Route: ORAL Sig: Take 20 mg by mouth once daily. Disc: Reason for discontinue is not on file. Lmqcmmuept-Ezclmxwiamrna-Agab (MICHAEL* 09/28/2017 Class: Historical Med Route: ORAL Sig: Take by mouth as needed. Disc: Reason for discontinue is not on file. QUEtiapine (SEROQUEL) 50 mg tablet 09/28/2017 Class: Historical Med Route: ORAL Sig: Take 100 mg by mouth daily at bedtime. Disc: Reason for discontinue is not on file. Disposition: Return in about 3 months (around 12/29/2017). Follow-up and Disposition History Recorded Encounter Status:Closed by RICH WLISON MD on 09/28/17 PROGRESS Observed: 08/24/2017 Status: COMPLETED Source: [place] 4:39 PM [facility] REPOSITORY [facility] ID: [id number] Author: Alejandra Hoskins) Ambika Service: (none) Author Type: Physician Type: Progress Notes Filed: 08/25/2017 7:41 AM Note Text: Chief Complaint Patient presents with: Headache: tension headache - 1 day HPI Parminder Joseph is a 46 year old female who presents here today for Above complaint. Patient states that she finalized her divorce 10 days ago and has been under more stress. Has history of tension headaches with stress. Describes current headache as squeezing pain that wraps around head, currently moderate amount of pain. Denies nausea, vomiting, vision changes, numbness, tingling, weakness, slurred speech. Has been treating with tylenol which did not help with symptoms, then tried Excedrin which helps minimally with symptoms. Past medical history, appointments, medications, allergies reviewed. Previous Medical History PAST MEDICAL HISTORY Diagnosis Date - Anxiety - Elevated cholesterol - Endometriosis - Gestational diabetes mellitus - Seasonal allergies - Tension headache - Urinary calculus, unspecified Renal stones Previous Surgical History PAST SURGICAL HISTORY Procedure Laterality Date - APPENDECTOMY - TOTAL ABDOM HYSTERECTOMY 04/17 GA AND BSO - [place] General - URETERAL STENT Family History FAMILY HISTORY Problem Relation Age of Onset - Ischemic Heart Disease Mother Heart attack - Ischemic Heart Disease Maternal Grandmother - COPD Maternal Grandmother - COPD Maternal Grandfather - Breast Cancer Maternal Grandmother Mastectomy - Coronary Artery Disease Father fatal [place] age 61 Patient Allergies ALLERGIES Allergen Reactions - Buspar [Buspirone H* Other: See Comments palpitations - Ciprofloxacin Rash - Compazine [Prochlor* Mental Status Change - Darvocet A500 [Prop* Itching - Fluoxetine Unknown - Imitrex [Sumatripta* Anaphylaxis Heart racing - Methocarbamol GI Upset - Nsaids (Non-Steroid* Swelling - Zoloft [Sertraline * Mental Status Change Suicidal thoughts Current Medications No current outpatient prescriptions on file prior to visit. No current facility-administered medications on file prior to visit. Social History Social History Marital status: Spouse name: Years of education: Number of children: 2 Social History Main Topics Smoking status: Current Every Day Smoker Packs/day: 1.00 Years: 22.00 Types: Cigarettes Smokeless status: Never Used Comment: Started smoking at age 18. Alcohol use: No Drug use: No Sexual activity: Yes Partners with: Male control/protection: Surgical Comment: Hysterectomy Social History Narrative OARRS report run on 06/14/11 Lives with boyfriend and two sons (aged 15 and 11) Review of Symptoms REVIEW OF SYSTEMS GENERAL: No weight loss, malaise or fevers RESPIRATORY: Negative for cough, hemoptysis, wheezing, COPD, dyspnea or shortness of breath CARDIOVASCULAR: Negative for chest pain, leg swelling, hypertension, CHF or palpitations GI: No nausea, vomiting, or diarrhea SKIN: Negative for lesions, rash, and itching EXAM: BP 134/94 Pulse 102 Temp 36.6 ?C (97.8 ?F) (Tympanic) Resp 16 Ht 160 cm (5' 3) Wt 87.5 kg (193 lb) LMP 04/18/2010 SpO2 97% BMI 34.19 kg/m2 General Appearance: Well appearing, alert, in no acute distress, well-hydrated, well nourished.. Skin: Skin color, texture, turgor normal, no suspicious rashes or lesions. Head: Normocephalic, no masses, lesions, tenderness or abnormalities. Eyes: Anicteric sclera. Pupils are equally round and reactive to light. Extraocular movements are intact. . Ears: External ears normal, canals clear. Nose/Sinuses: Nares normal, septum midline, mucosa normal, no drainage or sinus tenderness. Oropharynx: Lips, mucosa, and tongue normal, teeth and gums normal, oropharynx normal. Neck: Supple, no adenopathy; thyroid symmetric, normal size, no bruits. Lungs: Lungs clear to auscultation. No wheezing, rhonchi, rales. Heart: RRR without murmur, gallop, or rubs. No ectopy. Health Maintenance List ONE PNEUMOVAX PRIOR TO AGE 64 due on 1988 MAMMOGRAM due on 2009 DIABETES SCREEN due on 08/28/2015 INFLUENZA(1) due on 03/09/2017 LIPID SCREEN due on 07/26/2017 TETANUS due on 11/19/2019 ASSESSMENT/PLAN: 1. Tension headache - ICD9: 307.81, ICD10: G44.209 Will have patient treat with advil OTC, as she does not have allergy to this NSAID, tylenol, warm compress to neck, self massage, and home stretches. Discussed stress relief and will follow up PRN. Alejandra Apple MD ALLERGIES ALLERGIES DATE TYPE / NAME / CODE REACTION SEVERITY SOURCE CODE 05/01/2018 Drug prochlorperazine Other Unknown [place] Allergy/41 edisylate/[id number]( Community [id number]( RXNORM) [facility] [place]) Repository 05/01/2018 Drug prochlorperazine Other Unknown [place] Allergy/41 maleate/[id number](RX Community 4001842( NORM) [facility]) Repository 05/01/2018 Drug NSAIDS (Non-Steroidal Swelling Unknown [place] Allergy/41 Anti-Inflamma/[id number] Community [id number]( 439(RXNORM) [facility] [place]) Repository 05/01/2018 Drug ketorolac/[id number]( Swelling Unknown [place] Allergy/41 RXNORM) Community 9062385([facility] [place]) Repository 04/15/2013 DRUG METHOCARBAMOL GI UPSET [place] INGREDI/41 Clinic Main [id number]([facility] [place]) Repository 11/15/2012 DRUG BUSPIRONE HCL OTHER: SEE C [place] INGREDI/41 Clinic Main [id number]([facility]) Repository 02/14/2012 DRUG CIPROFLOXACIN RASH [place] INGREDI/41 Clinic Main [id number]([facility] [place]) Repository 02/22/2011 DRUG SERTRALINE HCL Mental Chg [place] INGREDI/41 Clinic Main [id number]([facility]) Repository 12/10/2008 DRUG/80906 PROPOXYPHENE ITCHING [place] 1003(SN[facility] N-ACETAMINOPHEN Clinic Main D CT) [place] Repository 06/23/2008 DRUG PROCHLORPERAZINE Mental Chg [place] INGREDI/41 EDISYLATE Clinic Main [id number]([facility]) Repository 06/10/2008 DRUG FLUOXETINE UNKNOWN [place] INGREDI/41 Clinic Main [id number]([facility]) Repository 06/09/2008 DRUG SUMATRIPTAN ANAPHYLAXIS [place] INGREDI/41 Clinic Main 4543678([facility]) Repository 06/09/2008 Drug NSAIDS (NON-STEROIDAL SWELLING [place] Class/4195 ANTI-INFLAMMATORY Clinic Main [address]([facility] DRUG) [place] ED CT) Repository ENCOUNTERS ENCOUNTERS ADMIT/DISCHARGE ACCOUNT ADMITTING ENCOUNTER LOCATION SOURCE NUMBER CLASS 06/12/2018/06/13/20 [id number] Ambulatory [address] Repository 06/07/2018/06/07/20 [id number] Emergency [address] ing:ED Repository 05/03/2018 [id number] Ambulatory [facility] ing:CT Repository 05/01/2018/05/01/20 [id number] Emergency [address] ing:ED Repository 04/11/2018/04/15/20 [id number] Ambulatory [address] Repository 04/07/2018/04/07/20 [id number] Emergency [address] ing:ED Repository 04/05/2018/04/08/20 [id number] Ambulatory [address] Repository 03/12/2018/03/13/20 [id number] Ambulatory [address] Repository 03/06/2018/03/06/20 [id number] Emergency [address] ing:ED Repository 01/02/2018/01/04/20 [id number] Ambulatory [address] Repository 12/14/2017/12/16/19 [id number] Emergency [address] ing:ED Repository 11/30/2017/12/05/19 [id number] Ambulatory [address] Repository 11/16/2017/11/17/19 [id number] Emergency [place] [facility] ing:ED Repository 11/16/2017/11/20/19 [id number] Ambulatory [address] Repository 10/27/2017/10/28/19 [id number] Emergency [place] [facility] ing:ED Repository 10/26/2017/10/27/19 [id number] Emergency [place] [facility] ing:ED Repository 10/25/2017/10/27/19 [id number] Ambulatory [address] Repository 10/11/2017/10/13/19 [id number] Ambulatory [address] Repository 09/28/2017/09/29/19 [id number] Ambulatory [address] Repository 09/28/2017/09/29/19 [id number] Ambulatory [address] Repository 08/24/2017 [id number] [facility] Repository PAYERS PAYERS ENCOUNTER GUARANTOR PAYER SUBSCRIBER SOURCE 06/07/2018 PARMINDER S Primary PARMINDER S [place] [id number] KELVIN Insurance:SELF INS NIXONDOB: [facility] [id number] Hospital [address]Dzd: (606) Number: Repository [phone] () [id number] Date:8900-49-33[facility] [address], [place] [address]DT: 06/07/2018 Secondary PARMINDER S [place] Insurance:ANTHEMPolic NIXONDOB: Community y Number: [id number] Hospital [id number] Repository Date:5566-98-46FB [address] [place] [address]ZV: 06/07/2018 Tertiary NOT GIVENUNK [place] Insurance:SELF PAY [facility] Number: Effective Repository Date:2018-06-07 05/03/2018 PARMINDER S Primary PARMINDER S [place] [id number] [place] Insurance:SELF INS NIXONDOB: [facility] [id number] Hospital [address]Qdy: (606) Number: Repository [phone] () [id number] Date:2509-81-02ZLLRRQGOOD [facility] [address], [place] [address]AF: 05/03/2018 Secondary PARMINDER S [place] Insurance:ANTHEMPolic NIXONDOB: Community y Number: [id number] Hospital [id number] Repository Date:0255-16-09RW [address] [place] [address]SL: 05/03/2018 Tertiary NOT GIVENUNK [place] Insurance:SELF PAY [facility] Number: Effective Repository Date:2018-05-03 05/01/2018 PARMINDER S Primary PARMINDER S [place] [id number] [place] Insurance:SELF INS NIXONDOB: [facility] [id number] Hospital [address]Hxj: (606) Number: Repository [phone] () [id number] Date:3394-57-54HFQFLRST. [facility] [address] [address], [place] [address]OL: 05/01/2018 Secondary PARMINDER S [place] Insurance:ANTHEMPolic NIXONDOB: Community y Number: [id number] Hospital [id number] Repository Date:3283-39-93[address] [place] [address]MW: 05/01/2018 Tertiary NOT GIVENUNK [place] Insurance:SELF PAY [facility] Number: Effective Repository Date:2018-05-01 04/07/2018 PARMINDER S Primary PARMINDER S [place] [id number] [place] Insurance:ANTHEMPolic NIXONDOB: [place] Number: [id number] Hospital [address]Paz: 606 [id number] Repository [phone] () Date:7012-20-91MI [address] [place] [address]DK: 04/07/2018 Secondary NOT GIVENUNK [place] Insurance:SELF PAY [facility] Number: Effective Repository Date:2018-04-07 03/06/2018 PARMINDER S Primary PARMINDER S [place] [id number] WINTER Insurance:SELF INS NIXONDOB: [facility] [id number] Hospital [address]Atx: (479) Number: Repository [phone] () [id number] Date:8834-55-36KBNXEIST. [facility] [address] [address], [place] [address]LL: 03/06/2018 Secondary PARMINDER S [place] Insurance:ANTHEMPolic NIXONDOB: Community y Number: [id number] Hospital [id number] Repository Date:2318-10-12NP[address] [address]II: 03/06/2018 Tertiary NOT GIVENUNK [place] Insurance:SELF PAY [facility] Hospital Number: Effective Repository Date:2018-03-06 12/14/2017 PARMINDER S Primary PARMINDER S [place] [id number] W[place] Insurance:ANTHEMPolic NIXONDOB: [facility] [place] Number: [id number] [facility] [address]Coh: [id number] Repository [phone] () Date:[id number] [address]HI: 12/14/2017 Secondary NOT GIVENUNK [place] Insurance:SELF PAY [facility] Hospital Number: Effective Repository Date:2017-12-14 11/16/2017 PARMINDER S Primary PARMINDER S [place] [id number] WINTER Insurance:NIXONPolicy NIXONDOB: [place], [place] Number: [id number] [facility] [address]Max: [id number] Repository [phone] () Date:[id number] [place], [place] [address]NT: . 11/16/2017 Secondary NOT GIVENUNK [place] Insurance:SELF PAY [facility] Hospital Number: Effective Repository Date:2017-11-16 10/27/2017 PARMINDER S Primary PARMINDER S [place] [id number] WINTER Insurance:NIXONPolicy NIXONDOB: [facility] [place] Number: [id number] Hospital [address]Vwo: [id number] Repository [phone] () Date:[id number] [place], [place] [address]NE: . 10/27/2017 Secondary NOT GIVENUNK [place] Insurance:SELF PAY [facility] Number: Effective Repository Date:2017-10-27 10/26/2017 PARMINDER S Primary PARMINDER S [place] [id number] Winter Insurance:ANTHEMPolic NIXONDOB: [facility] valeria [place] y Number: [id number] Hospital [address]Afs: ([phone] [id number] Repository [phone] () Date:[id number], [place] [address]DJ: 10/26/2017 Secondary NOT GIVENUNK [place] Insurance:SELF PAY [facility] Number: Effective Repository Date:2017-10-26
== END 2018-06-07 20:28 | disposition home or self-care (01) ==
LOC: ED 20:21
PROVIDERS: Emergency Provider Emergency Medicine; Family Provider Internal Medicine; PCP Internal Medicine
DX: M25.532 Pain in left wrist (principal); S62.102D Fracture of unspecified carpal bone, left wrist, subsequent encounter for fracture with routine healing; X58.XXXD Exposure to other specified factors, subsequent encounter; Z72.0 Tobacco use; Z79.899 Other long term (current) drug therapy
CPT/HCPCS: 99282

== ENCOUNTER 2018-07-28 10:54 | Emergency (ER) | payer OTHER, BC, SELFPAY ==
[2018-07-28 10:56] VITALS: BP 161/110; PULSE 88; RESP 17; TEMP 36.6; O2SAT 98; BMI 36.6
--- NOTE | 2018-07-28 11:12 | RAD_ITS ---
STUDY: X-RAY - LEFT WRIST REASON FOR EXAM: Female, 47 years old. Fall this morning, landed on wrist, injury. Previous fracture, cast removed 2 weeks ago. TECHNIQUE: 3 view(s) of the wrist were obtained. COMPARISON: Wrist and forearm 05/01/2018 FINDINGS: Distal radius metadiaphyseal fracture, slightly impacted, mild volar angulation, incompletely fused. A component of the fracture appears to extend upward into the articular surface. These features are stable compared to prior imaging. There is no evidence of exaggeration of the pre-existing fracture, and there is no evidence of new fracture of the radius or ulna. Carpal bones intact and aligned. Next line proximal hand intact. RAD/Wrist min 3 Views IMPRESSION: There is no evidence of new fracture and there is no evidence of exaggeration of the pre-existing fracture of the radius. Electronically Signed: Marcos Fofana MD at 11:54 EST Tel , Service support ,
--- NOTE | 2018-07-28 12:04 | ED.VISSUMM ---
- ER Visit Summary Date of Service: 07/28/18 Chief Complaint: Left wrist injury History of Present Illness: The patient is a 47 F presenting for evaluation secondary to a left wrist injury. Patient reports that she suffered a fracture of the left wrist back in April and got her cast off about 3 weeks ago. Today she suffered a mechanical fall on an outstretched left arm. She felt a pop. Physical Examination: Normal range of motion of the fingers. Swelling of the wrist. Tenderness palpation over the distal radius in the anatomical snuffbox with limited range of motion secondary to pain. Test Results: Left wrist x-ray shows no new fracture Emergency Department Course and Treatment: Patient presented secondary to a new injury of the left wrist. X-rays show no evidence of new fracture. Patient was given [place] in the emergency department and was discharged with conservative treatment. Disposition: Discharge Impression: 1. Left wrist sprain This note was generated with [employer] dictation software. It may contain incorrect words, spelling, and punctuation that were not noted in review of the chart prior to signing ED Disposition - Plan for ED Patient: Disposition: Home or Assisted Living Chief Complaint: Upper Extremity Injury Diagnosis: Left wrist sprain Instructions: ED Sprain Wrist Referrals: Jacinto Aranda DO [STAFF PHYSICIAN] - As Needed
[2018-07-28] MEDS: HYDROcodone Bitartrate/Apap 5/325 Tablet PO (12:05)
--- OUTSIDE RECORDS SUMMARY | 2018-09-30 11:14 | XMS RPT_ITS ---
:1970 Author Organization OHIP Support Name Relationship Address Phone ROHIT JOSEPH Unavailable Unavailable + [facility] Unavailable [address] + [place] [address] [place] Unavailable [address] + [place] [address] JOSEPH ROHIT Unavailable Unavailable + [facility], [facility] Unavailable [address] + [place] [address] [place] Unavailable [address] + [place] [address] JOSEPH ROHIT Unavailable Unavailable + [facility] Unavailable [address] + [place] [address] [place] Unavailable [address] + [place] [address] JOSEPH, ROHIT Unavailable Unavailable + [facility], [facility] Unavailable [address] + [place] [address] [place] Unavailable [address] + [place] [address] JOSEPH, ROHIT Unavailable Unavailable + [facility], [facility] Unavailable [address] + [place] [address] [place] Unavailable [address] + [place] [address] JOSEPH, ROHIT Unavailable Unavailable + [facility], [facility] Unavailable [address] + [place] [address] [place] Unavailable [address] + [place] [address] JOSEPH, ROHIT Unavailable Unavailable + [facility], [facility] Unavailable [address] + [place] [address] [place] Unavailable [address] + [place] [address] JOSEPH, ROHIT Unavailable Unavailable + [facility], [facility] Unavailable [address] + [place] [address] [place] Unavailable [address] + [place] [address] JOSEPH, ROHIT Unavailable Unavailable + [facility], [facility] Unavailable [address] + [place] [address] [place] Unavailable [address] + [place] [address] JOSEPH, ROHIT Unavailable Unavailable + [facility] Unavailable [address] + [place] [address] [place] Unavailable [address] + [place] [address] JOSEPH, ROHIT Unavailable Unavailable + [place], [place] Unavailable [address] + [place] [address] Care Team Providers Name Role Phone ALEJANDRA APPLE) Attending Unavailable RICH WILSON Attending Unavailable RICH WILSON Referring Unavailable RICH WILSON Attending Unavailable RICH WILSON Referring Unavailable REINIER JUSTICE (DISTRICT GAUGER) Attending Unavailable RICH WILSON Attending Unavailable RICH WILSON Referring Unavailable ROSALINA OVALLE Attending Unavailable WILSON, LE Referring Unavailable OLDER, LOREN ([facility]) Attending Unavailable KNAPIC, TIFFANY S Referring Unavailable WILSON, LE Attending Unavailable KIM DEL TORO A Referring Unavailable CEBUL III, CLEO A Attending Unavailable Knapic, Tiffany Attending Unavailable Knapic, Tiffany Referring Unavailable Wilson, Rich Primary Care Unavailable Wilson, Rich Primary Care Unavailable Tiffany Dave Attending Unavailable Wilson, Rich Primary Care Unavailable Isaiah Bowie Attending Unavailable Wilson, Rich Primary Care Unavailable Inge Lowe Attending Unavailable Wilson, Rich Primary Care Unavailable AhBeto salvador Attending Unavailable Juwan Lewis Attending Unavailable Wilson, Rich Primary Care Unavailable Wilson, Rich Primary Care Unavailable Ungur, Remus Attending Unavailable Wilson, Rich Primary Care Unavailable Leo Walters Attending Unavailable Wilson, Rich Primary Care Unavailable Inge Lowe Attending Unavailable Knapic, Tiffany Attending Unavailable Knapic, Tiffany Referring Unavailable Wilson, Rich Primary Care Unavailable Wilson, Rich Primary Care Unavailable Ungur, Remus Attending Unavailable PROBLEMS PROBLEMS DATE TYPE CONDITION / CODE ATTENDING STATUS SOURCE 07/17/2018 Unknown S52.515D - Knfranco, Tiffany Active [place] [facility] fracture of left Hospital radial styloid Repository process, subsequent encounter for closed fracture with routine healing / S52.515D(ICD-10) 06/12/2018 Unknown M25.539 - Pain in Ungur, Remus Active [place] unspecified wrist / Community M25.539(ICD-10) Hospital Repository 05/01/2018 Unknown S52.502A - Mynor, Inge Active [place] Unspecified fracture Community of the lower end of Hospital left radius, initial Repository encounter for closed fracture / S52.502A(ICD-10) 04/07/2018 Unknown N20.0 - Calculus of Leo Walters Active [place] kidney / Community N20.0(ICD-10) Hospital Repository 03/06/2018 Unknown S39.012A - Strain of Ungur, Remus Active [place] muscle, fascia and Community tendon of lower Hospital back, initial Repository encounter / S39.012A(ICD-10) 01/04/2018 Unknown R10.9 - Unspecified Juwan Lewis Active [place] abdominal pain / Community R10.9(ICD-10) Hospital Repository 12/20/2017 Unknown R10.11 - Right upper Ahmed, Rami Active [place] quadrant pain / Community R10.11(ICD-10) Hospital Repository 09/28/2017 Active Mixed hyperlipidemia NA Active [place] / E78.2(ICD-10) Clinic Main [place] Repository 09/28/2017 Active Essential (primary) NA Active [place] hypertension / Clinic Main I10(ICD-10) [place] Repository 09/28/2017 Active Major depressive NA Active [place] disorder, single Clinic Main episode, unspecified [place] / F32.9(ICD-10) Repository PROCEDURES PROCEDURES No Procedure Records FoundRESULTS RESULTS EMERGENCY DEPARTMENT Observed: 07/28/2018 Status: F Source: [place] SUMMARY 4:16 PM [facility] [place] [facility] Medical Records Department [address] [place] [address] Emergency Department Summary 07/28/18 1204 MR#: [id number] Acct: [id number] Name: PARMINDER JOSEPH Rep #: [id number] : 1970 47 From: Tiffany Dave MD PCP: Rich Wilson MD Status: DEP ER - ER Visit Summary Date of Service: 07/28/18 Chief Complaint: Left wrist injury History of Present Illness: The patient is a 47 F presenting for evaluation secondary to a left wrist injury. Patient reports that she suffered a fracture of the left wrist back in April and got her cast off about 3 weeks ago. Today she suffered a mechanical fall on an outstretched left arm. She felt a pop. Physical Examination: Normal range of motion of the fingers. Swelling of the wrist. Tenderness palpation over the distal radius in the anatomical snuffbox with limited range of motion secondary to pain. Test Results: Left wrist x-ray shows no new fracture Emergency Department Course and Treatment: Patient presented secondary to a new injury of the left wrist. X-rays show no evidence of new fracture. Patient was given Alexis in the emergency department and was discharged with conservative treatment. Disposition: Discharge Impression: 1. Left wrist sprain This note was generated with Secure Outcomesation software. It may contain incorrect words, spelling, and punctuation that were not noted in review of the chart prior to signing ED Disposition - Plan for ED Patient: Disposition: Home or Assisted Living Chief Complaint: Upper Extremity Injury Diagnosis: Left wrist sprain Instructions: ED Sprain Wrist Referrals: Tiffany aGn DO [STAFF PHYSICIAN] - As Needed What to do if you have Problems For any increased pain, shortness of breath, bleeding, nausea or vomiting, chest pain, or any unexpected problems, contact your Primary Care Provider. Call [facility] ([phone]) or report to the closest Emergency Room. Call 911 if necessary. 07/28/18 1616 <Electronically signed by Tiffany Dave MD> Date Tiffany Dave MD Cosigner Signature (If Indicated): Date CC: Rich Wilson MD WRIST MIN 3 VIEWS Observed: 07/28/2018 Status: F Source: [place] 11:12 AM [facility] [place] Imaging Services [address] [place] [id number] Wrist min 3 Views MR#: [id number] Acct: [id number] Name: PARMINDER JOSEPH Rep #: [id number] : 1970 F 47 From: Marcos Fofana MD PCP: Rich Wilson MD Status: REG ER Study: Wrist min 3 Views Date of Exam: 07/28/18 Exam# [id number] Ordering Dr: Tiffany Dave MD STUDY: X-RAY - LEFT WRIST REASON FOR EXAM: Female, 47 years old. Fall this morning, landed on wrist, injury. Previous fracture, cast removed 2 weeks ago. TECHNIQUE: 3 view(s) of the wrist were obtained. COMPARISON: Wrist and forearm 05/01/2018 FINDINGS: Distal radius metadiaphyseal fracture, slightly impacted, mild volar angulation, incompletely fused. A component of the fracture appears to extend upward into the articular surface. These features are stable compared to prior imaging. There is no evidence of exaggeration of the pre-existing fracture, and there is no evidence of new fracture of the radius or ulna. Carpal bones intact and aligned. Next line proximal hand intact. RAD/Wrist min 3 Views IMPRESSION: There is no evidence of new fracture and there is no evidence of exaggeration of the pre-existing fracture of the radius. Electronically Signed: Marcos Fofana MD at 11:54 EST Tel , Service support , CC: Tiffany Dave; Rich Wilson MD Maintenance And Repair Worker: Signed PROGRESS Observed: 07/10/2018 Status: COMPLETED Source: [place] 4:44 PM [facility] [place] REPOSITORY O ID: [id number] Author: Cleo Marte III Service: (none) Author Type: Physician Type: Progress Notes Filed: 07/10/2018 6:43 PM Note Text: SUBJECTIVE: This is a 47 year old female that is here today for Acute onset of 1. bad dry cough started on 07/07, getting worse since last night when she coughed all night. some sore chest muscles. Not much nasal congestion. No fever. Tried OTC meds and tessalon perrles w/o benefit. Smoker--trying to cut down. No hx of asthma PAST MEDICAL HISTORY Diagnosis Date - Analgesic [...] 11/23/2009 - Seasonal allergies - Tension headache Current Outpatient Prescriptions on File Prior to Visit: acetaminophen 325 mg-caffeine 40 mg-butalbital 50 mg [...] once daily. mirtazapine (REMERON) 30 mg tablet take 1 tablet by mouth at bedtime QUEtiapine (SEROQUEL) 25 mg tablet Take 1 tablet by mouth daily at bedtime. No current facility-administered medications on file prior to visit. FAMILY HISTORY Problem Relation Age of Onset [...] at age 19. - Alcohol use No . BP 134/86 Pulse 96 Temp 36.7 ?C (98 ?F) (Tympanic) Resp 16 Wt 95.3 kg (210 lb) LMP 04/18/2010 BMI 36.62 kg/m? . OBJECTIVE: APPEARANCE Well appearing, alert, in no acute distress, well-hydrated, well nourished. and Obese EARS External ears normal, canals clear, Cerumen bilaterally NOSE/SINUS Nares normal. Septum midline. Mucosa normal. No drainage or sinus tenderness. THROAT normal, no erythema NECK Supple, no adenopathy; thyroid symmetric, normal size, LUNG clear to auscultation ASSESSMENT: Acute bronchitis Tobacco use disorder PLAN: cut down and quit smoking stay well hydrated may try vaporizer at the bedside albuterol inhaler 1-2 puffs every 4 hrs as needed for bronchitis robitussin DM 2 tsp every 4-6 hrs as needed for cough CROW South MD, III MD CNOV Observed: 07/10/2018 Status: COMPLETED Source: [place] 4:40 PM [facility] REPOSITORY Office Visit (FAMPWS) PARMINDER JOSEPH ([id number]) 1970 F Date Time Provider Department 07/10/18 4:40 PM CLEO MARTE III During your visit today, we recorded the following information about you: Temperature Pulse Respiration Blood pressure 98 degrees 96/minute 16/minute 134/86 Weight 95.3 kg Cleo Marte III MD 07/10/2018 6:43 PM Signed SUBJECTIVE: This is a 47 year old female that is here today for Acute onset of 1. bad dry cough started on 07/07, getting worse since last night when she coughed all night. some sore chest muscles. Not much nasal congestion. No fever. Tried OTC meds and tessalon perrles w/o benefit. Smoker--trying to cut down. No hx of asthma PAST MEDICAL HISTORY Diagnosis Date - Analgesic [...] 11/23/2009 - Seasonal allergies - Tension headache Current Outpatient Prescriptions on File Prior to Visit: acetaminophen 325 mg-caffeine 40 mg-butalbital 50 mg [...] once daily. mirtazapine (REMERON) 30 mg tablet take 1 tablet by mouth at bedtime QUEtiapine (SEROQUEL) 25 mg tablet Take 1 tablet by mouth daily at bedtime. No current facility-administered medications on file prior to visit. FAMILY HISTORY Problem Relation Age of Onset [...] at age 18. - Alcohol use No . BP 134/86 Pulse 96 Temp 36.7 ?C (98 ?F) (Tympanic) Resp 16 Wt 95.3 kg (210 lb) LMP 04/18/2010 BMI 36.62 kg/m? . OBJECTIVE: APPEARANCE Well appearing, alert, in no acute distress, well- hydrated, well nourished. and Obese EARS External ears normal, canals clear, Cerumen bilaterally NOSE/SINUS Nares normal. Septum midline. Mucosa normal. No drainage or sinus tenderness. THROAT normal, no erythema NECK Supple, no adenopathy; thyroid symmetric, normal size, LUNG clear to auscultation ASSESSMENT: Acute bronchitis Tobacco use disorder PLAN: cut down and quit smoking stay well hydrated may try vaporizer at the bedside albuterol inhaler 1-2 puffs every 4 hrs as needed for bronchitis robitussin DM 2 tsp every 4-6 hrs as needed for cough CROW South MD, III MD Frank A Cebul, III MD 07/10/2018 4:58 PM Signed PLAN: cut down and quit smoking stay well hydrated may try vaporizer at the bedside albuterol inhaler 1-2 puffs every 4 hrs as needed for bronchitis robitussin DM 2 tsp every 4-6 hrs as needed for cough Cleo Marte III MD Referring Provider: SELF [[id number]] Allergies As of Date: 07/10/2018 Noted Allergy Reaction BUSPAR (BUSPIRONE HCL) 11/15/2012 [...] Status Change Comments: Suicidal thoughts Date Reviewed: 07/10/2018 Reviewed by: Keli Light Ma - Fully Assessed Reason for Visit: Cough [28] Cmt: dry x 4 days Primary Visit Diagnosis:Acute bronchitis, unspecified organism [J20.9] Other Visit Diagnosis:Tobacco abuse [Z72.0] Order(s):albuterol HFA (PROVENTIL HFA, VENTOLIN HFA) 90 mcg/actuation inhalerInhale 2 Puffs as instructed every 4 hours as needed for Wheezing/Shortness of Breath.Disp: 1 InhalerRfl: 0 guaiFENesin-dextromethorphan (ROBITUSSIN DM) 100- 10 mg/5 mL syrupTake 10 mL by mouth four times daily as needed for Cough.Disp: Rfl: Prescriptions as of 07/10/2018 Sig: [id number]-JAXLVDUGZCZLO-NQEB* Take 1 tablet by mouth every * AMLODIPINE 10 MG TABLET Take 1 tablet by mouth once d* ATORVASTATIN 20 MG TABLET Take 1 tablet by mouth once d* LISINOPRIL 20 MG TABLET Take 1 tablet by mouth once d* QUETIAPINE 25 MG TABLET Take 1 tablet by mouth daily * X MIRTAZAPINE 30 MG TABLET take 1 tablet by mouth at bed* ALBUTEROL SULFATE HFA 90 MCG/* Inhale 2 Puffs as instructed * DEXTROMETHORPHAN-GUAIFENESIN * Take 10 mL by mouth four time* Problem List As Of Date 07/10/2018 Noted Resolved TENSION HEADACHE [G44.209] INVALID FOR* [...] FOR* More... Other instructions from your clinician: PLAN: cut down and quit smoking stay well hydrated may try vaporizer at the bedside albuterol inhaler 1-2 puffs every 4 hrs as needed for bronchitis robitussin DM 2 tsp every 4-6 hrs as needed for cough Cleo Marte III MD Prescriptions ordered this encounter Disp Refills Start End ALBUTEROL SULFATE HFA 90 MCG/ACTUATI* 1 In* 0 07/10/2018 Route: INHALATION Sig: Inhale 2 Puffs as instructed every 4 hours as needed for Wheezing/Shortness of Breath. DEXTROMETHORPHAN-GUAIFENESIN 10 MG-1* 07/10/2018 Class: OTC Route: ORAL Sig: Take 10 mL by mouth four times daily as needed for Cough. Encounter Status:Closed by CLEO MARTE III, MD on 07/10/18 PROGRESS Observed: 07/05/2018 Status: COMPLETED Source: [place] 1:26 PM [facility] REPOSITORY O ID: [id number] Author: Rich Wilson Service: (none) Author Type: Physician Type: Progress Notes Filed: 07/05/2018 1:38 PM Note Text: This note was created using [email or web address]. Subjective Patient presents with: Recheck Refill Request Parminder Joseph was here for above. She was doing reasonably well. Headaches were mild. Fioricet refills were consistent and expected to extend. Her wrist fracture was much better. Colonoscopy was postponed due to her wrist fracture. Depression and anxiety were stable. She went off Seroquel but found this worsened insomnia. She also stopped citalopram months back due to side effects. Review of Systems Constitutional: Negative. Respiratory: Negative. Cardiovascular: Negative. Neurological: See HPI. Psychiatric/Behavioral: See HPI. ACTIVE PROBLEM LIST Tension Headache Essential Hypertension Prediabetes Mixed Hyperlipidemia Insomnia Depressive Disorder Anxiety Tobacco Abuse Analgesic Overuse Headache Mass of colon (descening colon mass or outpouching on CT scan) Obesity, Class II, Bmi 35-39.9 Colon Cancer Screening Current Outpatient Prescriptions: acetaminophen 325 mg-caffeine 40 mg-butalbital 50 mg [...] once daily. mirtazapine (REMERON) 30 mg tablet take 1 tablet by mouth at bedtime QUEtiapine (SEROQUEL) 25 mg tablet Take 1 tablet by mouth daily at bedtime. No current facility-administered medications for this visit. Objective BP 120/88 Pulse 95 Temp 36.8 ?C (98.2 ?F) (Temporal Artery) Resp 18 Wt 94.9 kg (209 lb 3.2 oz) LMP 04/18/2010 SpO2 97% BMI 36.48 kg/m? Physical Exam Constitutional: She is oriented to person, place, and time. No distress. Neurological: She is alert and oriented to person, place, and time. Coordination normal. Skin: She is not diaphoretic. Psychiatric: She has a normal mood and affect. Her behavior is normal. Assessment and Plan 1. Depressive disorder - ICD9: 311, ICD10: F32.9 (primary diagnosis) - Continue current therapy. - CBC 2. Mixed hyperlipidemia - ICD9: 272.2, ICD10: E78.2 - suboptimal control - Continue current medication. - ATORVASTATIN 20 MG TABLET - COMP METABOLIC PANEL - HGB A1C - LIPID PANEL BASIC 3. Tension headache - ICD9: 307.81, ICD10: G44.209 Stable. Limit use as instructed. Try to extend refills. - PEXAOFNUOG-ITOWFCFYDMUTP-GFPMIGDW 50 MG-325 MG-40 MG TABLET Discussed medication dosage, usage, goals of therapy, and side effects. 4. Anxiety - ICD9: 300.00, ICD10: F41.9 Controlled. Continue current medications During this patient visit I have spent approximately 15 minutes out of 20 in counseling regarding treatments and coordinating care. Rich Wilson MD CNOV Observed: 07/05/2018 Status: COMPLETED Source: [place] 11:20 AM [facility] REPOSITORY Office Visit (INTMWS) PARMINDER JOSEPH ([id number]) 1970 F Date Time Provider Department 07/05/18 11:20 AM RICH WILSON INTMWS During your visit today, we recorded the following information about you: Temperature Pulse Respiration Blood pressure 98.2 degrees 95/minute 18/minute 120/88 Weight 94.9 kg Rich Wilson MD 07/05/2018 1:38 PM Signed This note was created using [email or web address]. Subjective Patient presents with: Recheck Refill Request Parminder Joseph was here for above. She was doing reasonably well. Headaches were mild. Fioricet refills were consistent and expected to extend. Her wrist fracture was much better. Colonoscopy was postponed due to her wrist fracture. Depression and anxiety were stable. She went off Seroquel but found this worsened insomnia. She also stopped citalopram months back due to side effects. Review of Systems Constitutional: Negative. Respiratory: Negative. Cardiovascular: Negative. Neurological: See HPI. Psychiatric/Behavioral: See HPI. ACTIVE PROBLEM LIST Tension Headache Essential Hypertension Prediabetes Mixed Hyperlipidemia Insomnia Depressive Disorder Anxiety Tobacco Abuse Analgesic Overuse Headache Mass of colon (descening colon mass or outpouching on CT scan) Obesity, Class II, Bmi 35-39.9 Colon Cancer Screening Current Outpatient Prescriptions: acetaminophen 325 mg-caffeine 40 mg-butalbital 50 mg [...] once daily. mirtazapine (REMERON) 30 mg tablet take 1 tablet by mouth at bedtime QUEtiapine (SEROQUEL) 25 mg tablet Take 1 tablet by mouth daily at bedtime. No current facility-administered medications for this visit. Objective BP 120/88 Pulse 95 Temp 36.8 ?C (98.2 ?F) (Temporal Artery) Resp 18 Wt 94.9 kg (209 lb 3.2 oz) LMP 04/18/2010 SpO2 97% BMI 36.48 kg/m? Physical Exam Constitutional: She is oriented to person, place, and time. No distress. Neurological: She is alert and oriented to person, place, and time. Coordination normal. Skin: She is not diaphoretic. Psychiatric: She has a normal mood and affect. Her behavior is normal. Assessment and Plan 1. Depressive disorder - ICD9: 311, ICD10: F32.9 (primary diagnosis) - Continue current therapy. - CBC 2. Mixed hyperlipidemia - ICD9: 272.2, ICD10: E78.2 - suboptimal control - Continue current medication. - ATORVASTATIN 20 MG TABLET - COMP METABOLIC PANEL - HGB A1C - LIPID PANEL BASIC 3. Tension headache - ICD9: 307.81, ICD10: G44.209 Stable. Limit use as instructed. Try to extend refills. - SALDSQZCKM-VICJSTYVWTRQW-GLPOIKUH 50 MG-325 MG-40 MG TABLET Discussed medication dosage, usage, goals of therapy, and side effects. 4. Anxiety - ICD9: 300.00, ICD10: F41.9 Controlled. Continue current medications During this patient visit I have spent approximately 15 minutes out of 20 in counseling regarding treatments and coordinating care. Rich Wilson MD Referring Provider: KIM DEL TORO [[id number]] Allergies As of Date: 07/05/2018 Noted Allergy Reaction BUSPAR (BUSPIRONE HCL) 11/15/2012 [...] Status Change Comments: Suicidal thoughts Date Reviewed: 07/05/2018 Reviewed by: Mireille Nicole Broom Maker - Fully Assessed Reason for Visit: Recheck [92] Refill Request [508] Primary Visit Diagnosis:Depressive disorder [F32.9] Other Visit Diagnoses:Mixed hyperlipidemia [E78.2] Tension headache [G44.209] Anxiety [F41.9] Order(s):atorvastatin (LIPITOR) 20 mg tabletTake 1 tablet by mouth once daily.Disp: 30 tabletRfl: 5 acetaminophen 325 mg-caffeine 40 mg-butalbital 50 mg (FIORICET) per tabletTake 1 tablet by mouth every 8 hours as needed for Headache. Limit to not more than 2 days per week. 20 tablets per month.Disp: 20 tabletRfl: 2 CBC [SQCBC] Order #: [id number] FUTURE COMP METABOLIC PANEL [SQCMP] Order #: [id number] FUTURE HGB A1C [VNLQW0H] Order #: [id number] FUTURE LIPID PANEL BASIC [SQLIPB] Order #: [id number] FUTURE Prescriptions as of 07/05/2018 Sig: YCLSIRIEWS-LRWIDNCXUDCYD-MIYO* Take 1 tablet by mouth every * AMLODIPINE 10 MG TABLET Take 1 tablet by mouth once d* ATORVASTATIN 20 MG TABLET Take 1 tablet by mouth once d* LISINOPRIL 20 MG TABLET Take 1 tablet by mouth once d* MIRTAZAPINE 30 MG TABLET take 1 tablet by mouth at bed* QUETIAPINE 25 MG TABLET Take 1 tablet by mouth daily * Problem List As Of Date 07/05/2018 Noted Resolved TENSION HEADACHE [G44.209] INVALID FOR* [...] ordered this encounter Disp Refills Start End ATORVASTATIN 20 MG TABLET 30 t* 5 07/05/2018 Route: ORAL Sig: Take 1 tablet by mouth once daily. WAMBSBBWOB-NTITBRRCNRFMC-AFPVUHAV 50* 20 t* 2 07/05/2018 Class: Print RX Route: ORAL Sig: Take 1 tablet by mouth every 8 hours as needed for Headache. Limit to not more than 2 days per week. 20 tablets per month. Medications Discontinued During This Encounter citalopram (CELEXA) 20 mg tablet 30 t* 2 01/02/2018 07/05/2018 Route: ORAL Sig: Take 1 tablet by mouth once daily. Disc: Side Effects atorvastatin (LIPITOR) 20 mg tablet 30 t* 5 01/02/2018 07/05/2018 Route: ORAL Sig: Take 1 tablet by mouth once daily. Disc: Reason for discontinue is not on file. acetaminophen 325 mg-caffeine 40 mg-* 20 t* 2 04/05/2018 07/05/2018 Class: Print RX Route: ORAL Sig: Take 1 tablet by mouth every 8 hours as needed for Headache. Limit to not more than 2 days per week. 20 tablets per month. Disc: Reason for discontinue is not on file. Disposition: Return in about 5 months (around 12/03/2018). Follow-up and Disposition History Recorded Letter Text Department of Internal Medicine [address] [address] Parminder Joseph [address] [id number] July 05, 2018 TO WHOM IT MAY CONCERN: This is to certify that Parminder Joseph has been under the care of Rich Wilson MD Parminder may return to work on 07/05/2018 with no restrictions. Sincerely yours, Rich Wilson MD Encounter Status:Closed by RICH WILSON MD on 07/05/18 OT GENERAL EVALUATION Observed: 07/04/2018 Status: F Source: [place] 6:24 PM [facility] [place] [address] [place] [address]. [address] [place] [id number] / REHABILITATION SERVICES INITIAL EVALUATION MR#: [id number] Acct: [id number] Name: PARMINDER JOSEPH Rep #: [id number] : 1970 47 From: Huyen Sierra Referring DrSienna: Tiffany Gan DO Status: REG RCR Insurance: SELF INS [facility] Date: ANTHEM Patient's Visit Information PARMINDER JOSEPH is a 47 year old F, referred to Occupational Therapy by Tiffany Gan DO, with a diagnosis of nondisplaced fracture of L radial styloid process, initial. Date of Evaluation: 07/04/18 Occupational Therapist: Huyen Sierra - Subjective Subjective: Pt seen for initial occupational therapy evaluation for nondisplaced fracture of L radial styloid process after falling outside work May 01. Pt was in long hard cast that was removed Jun 11 and has been wearing wrist splint since. Works at [employer] and on light duty. Right hand dominent. Has to have assist from son's to get hair up in pony tail and assist with BADLs/IADLs. Pt not taking splint off unless she showers, states she has been elevating it at night and using ice. - Pain L wrist/hand 0 Pain Intensity Range: 0, 7 - Objective Objective/Observation: decreased ROM of L wrist/hand, increased edema L wrist, decreased strength and functional use of L hand/wrist. Hypersensitiving, to light touch L wrist - ROM Wrist: L 23/25 R 70/88 - Strength Solution Sales Senior Executive: R 60#, L DNT Lateral Pinch: R 13#, L DNT Tripod Pinch: R 10#, L DNT - Edema Wrist: L wrist edema, non pitting - Sensation Sensation Comments: No numbness or tingling L UE - Quick DASH-Disab of Arm,Shoulder AND Hand Quick DASH Score: 61.3625 - Goals Goal:: Pt will progress w/ L hand hothouse worker strength to 50# to assist with completing all grooming tasks independently Goal:: Pt will progress w/ L wrist AROM extension by 40' to assist w/ BADLs independently. Pt will progress w/ L wrist AROM flexion by 50' to assist w/ BADLs independnently Goal:: Pt will demo no pain greater than 1/10 with movement of L wrist by d/c from OT services Goal:: Pt will be educated on L UE HEP with good understanding and demo 100%x - Rehabilitation General Assessment: Pt demo very limited ROM of L wrist, decrease L hand strength, increased edema L hand/wrist. Pt would benefit from direct occupational therapy services to increase L wrist AROM, L hand hothouse worker strength, educate on HEP and decrease pain and hypersensitivity of L hand Rehabilitation Potential: Good - Anticipated Interventions Anticipated Interventions: A/AAROM/PROM, Strengthening, Edema Control, Massage, Modalities, Joint Protection/Energy Conservation, ADL Training, Education re Self Massage Techniques, Home Program - Visit Plan Frequency: 2-3x /Week Duration: 4-6 Weeks General Plan: Pt would benefit from direct occupational therapy services to increase L wrist AROM, L hand hothouse worker strength, educate on HEP and decrease pain and hypersensitivity of L hand TEXT: Thank you for the opportunity to evaluate your patient. For Medicare and Medicare HMO plans, please review the plan of care and approve it. It will need to be FAXED BACK to us at [phone] for Medicare purposes. Please let me know if there are questions or concerns regarding this plan of care. Physician Signature: Date: <Electronically signed by Huyen Sierra > 07/04/18 1824 CC: Tiffany Gan DO; Rich Wilson MD KAMI Signed For Medicare only, by signing this I certify the plan of care. Physicians Signature Date PROGRESS Observed: 06/12/2018 Status: COMPLETED Source: [place] 10:50 AM [facility] [place] REPOSITORY O ID: [id number] Author: Loren (Motel Front Desk Clerk) Older Service: (none) Author Type: Nurse Practitioner [...] and validated - 01/15/2013 by Beronica Chauhan, DISTRICT GAUGER Multiple providers, multiple pharmacies, noted. - Endometriosis [...] ABDOM HYSTERECTOMY 04/2010 GA AND BSO - [facility] - URETERAL STENT 2008 ALLERGIES Buspar [...] activity was identified. 06/12/2018 by Loren Bañuelos APRN.DISTRICT GAUGER 2. Closed fracture of left wrist with routine healing, subsequent encounter - ICD9: V54.19, ICD10: S62.102D As above - TRAMADOL 50 MG TABLET Prescription instructions reviewed with patient as applicable. Potential red flag symptoms discussed with the patient. Reviewed appropriate action plan to take if red flag symptoms occur. Patient agreeable to treatment plan. Loren Bañuelos APRN.CNP CNOV Observed: 06/12/2018 Status: COMPLETED Source: [place] 10:40 AM [facility] REPOSITORY Office Visit (INTMWS) PARMINDER JOSEPH ([id number]) 1970 F Date Time Provider Department 06/12/18 10:40 AM LOREN BAÑUELOS ([place]) INTMWS During your visit today, we recorded the following information about you: Temperature Pulse Respiration Blood pressure 98.7 degrees 68/minute 14/minute 130/87 Weight 93.9 kg Loren Bañuelos APRN.CNP 06/12/2018 11:27 AM Signed CC: Patient presents with: ongoing left wrist pain from a fracture HPI Parminder Morris Jake is a 47 year old female who [...] ABDOM HYSTERECTOMY 04/2010 GA AND BSO - [facility] - URETERAL STENT 2008 ALLERGIES Buspar [...] activity was identified. 06/12/2018 by Loren Bañuelos APRN.DISTRICT GAUGER 2. Closed fracture of left wrist with routine healing, subsequent encounter - ICD9: V54.19, ICD10: S62.102D As above - TRAMADOL 50 MG TABLET Prescription instructions reviewed with patient as applicable. Potential red flag symptoms discussed with the patient. Reviewed appropriate action plan to take if red flag symptoms occur. Patient agreeable to treatment plan. Loren Bañuelos APRN.CNP Referring Provider: TIFFANY AGN [[id number]] Allergies As of Date: 06/12/2018 Noted Allergy [...] Date Reviewed: 06/12/2018 Reviewed by: Mireille Nicole Broom Maker - Fully Assessed Reason for Visit: ongoing left wrist pain from a fracture [Other] Primary Visit Diagnosis:Pain and swelling of left upper extremity [M79.602, M79.89] Other Visit Diagnosis:Closed fracture of left wrist with routine healing, subsequent encounter [D86.483T] Order(s):traMADol (ULTRAM) 50 mg tabletTake 1 tablet by mouth every 8 hours as needed for Pain for up to 3 days.Disp: 6 tabletRfl: 0 Prescriptions as of 06/12/2018 Sig: MIRTAZAPINE 30 MG TABLET take 1 tablet by mouth at bed* FHCKEJPZXI-WPFWXRVWWMHUR-PCHC* Take 1 tablet by mouth every * [...] DISCHARGE INSTRUCTION Observed: 06/07/2018 Status: F Source: [place] 8:20 PM [facility] [place] Medical Records Department [address] [place] [address] Discharge Instruction 06/07/182017 MR#: [id number] Acct: [id number] Name: PARMINDER JOSEPH Rep #: [id number] : 1970 47 From: Dimitry Ritchie DO PCP: Rich iWlson MD Status: PRE ER ED Disposition - [...] your Primary Care Provider. Call [facility] ([phone]) or report to the closest Emergency Room. Call 911 if necessary. 06/07/182019 <Electronically signed by Dimitry Ritchie DO> Date Dimitry Ritchie DO Cosigner Signature (If Indicated): Date CC: Rich Wilson MD EMERGENCY DEPARTMENT Observed: 06/07/2018 Status: F Source: [place] SUMMARY 8:17 PM [facility] [place] [facility] Medical Records Department [address] [place] [address] Emergency Department Summary 06/07/182013 MR#: [id number] Acct: [id number] Name: PARMINDER JOSEPH Rep #: [id number] : 1970 47 From: Dimitry Ritchie DO [...] post fracture] This note was generated with TechLive dictation software. It may contain incorrect words, [...] your Primary Care Provider. Call [facility] ([phone]) or report to the closest Emergency Room. Call 911 if necessary. 06/07/182016 <Electronically signed by Dimitry Ritchie DO> Date Dimitry Ritchie DO Cosigner Signature (If Indicated): Date CC: Rich Wilson MD EXTREMITY UPPER Observed: 05/03/2018 Status: F Source: [place] WITHOUT CONTRA 10:36 AM [facility] REPOSITORY [facility] Imaging Services [address] [place] [address] Extremity Upper without Contra MR#: [id number] Acct: [id number] Name: PARMINDER JOSEPH Rep #: [id number] : 1970 F 47 From: Azeem Graves MD PCP: Rich Wilson MD Status: REG CLI Study: Extremity Upper without Contra Date of Exam: 05/03/18 Exam# [id number] Ordering Dr: Tiffany Gan DO CT scan [...] CC: Tiffany Gan DO; Rich Wilson MD Maintenance And Repair Worker: Signed EMERGENCY DEPARTMENT Observed: 05/01/2018 Status: F Source: [place] SUMMARY 6:18 PM [facility] REPOSITORY [facility] Medical Records Department [address] [place] [address] Emergency Department Summary 05/01/18 1408 MR#: [id number] Acct: [id number] Name: PARMINDER JOSEPH Rep #: [id number] : 1970 47 From: Inge Lowe MD [...] Lloyd Narvaez MD at 15:08 EDT Tel [phone], Service support , Wrist X-Ray 05/01/18 14:25 IMPRESSION: Nondisplaced fracture of the distal radial metaphysis with extension of the articular surface. Soft tissue swelling. Electronically Signed: Lloyd Narvaez MD at 15:09 EDT Tel [phone], Service support , Medications Given Discontinued Medications Hydrocodone Bitart/Acetaminophen (Alexis 5mg-325mg) 1 tablet PO X1 ONE Stop: 05/01/18 14:08 Last Admin: 05/01/18 14:58 Dose: 1 tablet Emergency Department Course and Treatment: X-ray performed of the left wrist and radius and ulna. Patient was given Alexis and an ice pack for pain. X-ray showed a distal radial metaphyseal fracture with intra-articular involvement. Sugar tong splint was placed by Dr. Gus Apple, and post splint evaluation showed good motor motor, sensation and circulation in the hands. Patient had no mobility at the wrist joint, and no ability for supination or pronation post-splinting. Patient was given a prescription for Alexis for severe or nighttime pain. Patient was discussed with Dr. Gan, who will evaluate patient within the next 1-2 weeks, and patient was given Worker's Comp. restrictions with paperwork filled out. Discharged. Treatment Plan: [] Disposition: [] Impression: Left distal radius fracture with intra-articular involvement This note was generated with Secure Outcomesation software. It may contain incorrect words, spelling, and punctuation that were not noted in review of the chart prior to signing ED Disposition - Plan for ED Patient: Disposition: Home or Assisted Living Chief Complaint: Upper Extremity Injury Instructions: ED Fx Forearm Radius Ulna No Redu Requ Prescriptions: Hydrocodone/Acetaminophen [Alexis 5-325 Tablet] 1 tab PO Q6H PRN [...] The sling as needed for comfort. Use htng-hje-wecznoj pain medication as needed for pain and [...] problems, contact your Primary Care Provider. Call [facility] ([phone]) or report to the closest Emergency Room. Call 911 if necessary. 05/01/18 3407 <Electronically signed by Inge Lowe MD> Date Inge Lowe MD Cosigner Signature (If Indicated): Date CC: Rich Wilson MD DISCHARGE INSTRUCTION Observed: 05/01/2018 Status: F Source: [place] 5:38 PM [facility] [place] Medical Records Department [address] [place] [address] Discharge Instruction 05/01/18 1719 MR#: [id number] Acct: [id number] Name: PARMINDER JOSEPH Rep #: [id number] : 1970 47 From: Inge Lowe MD PCP: Rich Wilson MD Status: DEP ER ED Disposition - Plan for ED Patient: Disposition: Home or Assisted Living Chief Complaint: Upper Extremity Injury Instructions: ED Fx Forearm Radius Ulna No Redu Requ Prescriptions: Hydrocodone/Acetaminophen [Alexis 5-325 Tablet] 1 tab PO Q6H PRN [...] The sling as needed for comfort. Use yrju-jrz-fuhttja pain medication as needed for pain and [...] your Primary Care Provider. Call [facility] ([phone]) or report to the closest Emergency Room. Call 911 if necessary. 05/01/18 1735 <Electronically signed by Inge Lowe MD> Date Inge Lowe MD Cosign Signature (If Indicated): Date CC: Rich Wilson MD FOREARM 2 VIEWS Observed: 05/01/2018 Status: F Source: [place] 2:07 PM [facility] [facility] Imaging Services [address] [place] [address] Forearm 2 Views MR#: [id number] Acct: [id number] Name: PARMINDER JOSEPH Rep #: [id number] : 1970 F 47 From: Lloyd Narvaez MD PCP: Rich Wilson MD Status: REG ER Study: Forearm 2 Views Date of Exam: 05/01/18 Exam# [id number] Ordering Dr: Inge Lowe MD STUDY: X-RAY [...] Lloyd Narvaez MD at 15:08 EDT Tel [phone], Service support , CC: Inge Lowe MD; Rich Wilson MD Maintenance And Repair Worker: Signed WRIST MIN 3 VIEWS Observed: 05/01/2018 Status: F Source: [place] 2:07 PM [facility] [place] [facility] Imaging Services [address] [place] [address] Wrist min 3 Views MR#: [id number] Acct: [id number] Name: PARMINDER JOSEPH Rep #: [id number] : 1970 F 47 From: Lloyd Narvaez MD PCP: Rich Wilson MD Status: REG ER Study: Wrist min 3 Views Date of Exam: 05/01/18 Exam# [id number] Ordering Dr: Inge Lowe MD STUDY: X-RAY [...] Lloyd Narvaez MD at 15:09 EDT Tel [phone], Service support , CC: Inge Lowe MD; Rich Wilson MD Maintenance And Repair Worker: Signed PROGRESS Observed: 04/25/2018 Status: COMPLETED Source: [place] 9:25 AM [facility] REPOSITORY O ID: [id number] Author: Logan (Chuckie Almeida Service: (none) Author Type: Edge Burnisher Uppers Type: Progress Notes Filed: 04/25/2018 9:28 AM Note Text: Sw and patient called [place] Medicaid Shared Services number. Patient had been screened and needs to send in last 30 days pay stubs. Patient reported to Medicaid worker that she said her Medicaid has in [place]. Patient will need to send in check stubs to [facility] to see about completion of [facility] Medicaid application. EMIW Observed: 04/25/2018 Status: COMPLETED Source: [place] 12:00 AM [facility] REPOSITORY Social Work (NAVWST) PARMINDER JOSEPH ([id number]) 1970 F [facility] Date Time Provider Department 04/25/18 LOGAN ALMEIDA (VARGHESE) TERE During your visit today, we recorded the following information about you: BROOKLYN Guevara-BRADLEY 04/25/2018 9:28 AM Signed V[place] and patient called [place] Medicaid Shared Services number. Patient had been screened and needs to send in last 30 days pay stubs. Patient reported to Medicaid worker that she said her Medicaid has in [place]. Patient will need to send in check stubs to [facility] to see about completion of [facility] Medicaid application. Allergies As of Date: 04/25/2018 [...] thoughts Date Reviewed: 04/24/2018 Reviewed by: Di (Rn) HAIM Bergman - Fully Assessed Prescriptions as of 04/25/2018 Sig: MIRTAZAPINE 30 MG TABLET take 1 tablet by mouth at bed* QUETIAPINE 25 MG TABLET Take 1 tablet at bedtime for * RYHNMZFMUT-BUXBKPOTVEKJJ-KSLE* Take 1 tablet by mouth every * [...] 04/25/18 PROGRESS Observed: 04/11/2018 Status: COMPLETED Source: [place] 5:02 PM [facility] REPOSITORY O ID: [id number] Author: Rosalina Ovalle Service: (none) Author Type: [...] and validated - 01/15/2013 by Beronica Chauhan, DISTRICT GAUGER Multiple providers, multiple pharmacies, noted. - Endometriosis [...] ABDOM HYSTERECTOMY 04/2010 GA AND BSO - [facility] - URETERAL STENT 2008 Current Outpatient [...] Comment: Hysterectomy Social History Narrative Moved from [place]. At risk for homelessness. Children grown. FAMILY [...] MD CNOV Observed: 04/11/2018 Status: COMPLETED Source: [place] 1:20 PM [facility] REPOSITORY Office Visit (GENSWS) PARMINDER JOSEPH ([id number]) 1970 F [facility] Date Time Provider Department 04/11/18 1:20 PM [...] until the day before your colonoscopy. Designated Stonecutter on the Day of Your Exam A responsible family member or friend MUST come with you to your colonoscopy and REMAIN in the endoscopy area until you are discharged. You are NOT ALLOWED to drive, take a taxi or bus, or leave the Endoscopy Center ALONE. If you do not have a responsible helper/driver (family member or friend) with you to [...] carbonated beverages such as marian nilesh or lemon-jena soda; Gatorade or other sports drinks (not [...] and validated - 01/15/2013 by Beronica Chauhan, DISTRICT GAUGER Multiple providers, multiple pharmacies, noted. - Endometriosis [...] ABDOM HYSTERECTOMY 04/2010 GA AND BSO - [facility] - URETERAL STENT 2008 Current Outpatient [...] Comment: Hysterectomy Social History Narrative Moved from [place]. At risk for homelessness. Children grown. FAMILY [...] Rosalina Ovalle MD Referring Provider: RICH WILSON [[id number]] Allergies As of Date: 04/11/2018 Noted Allergy [...] PT ED DIGESTIVE DISEASES [] Order #: [id number]: 1 [] peg 3350-Electrolytes (GOLYTELY) 236-22.74-6.74 -5.86 gram suspensionTake 4,000 mL by mouth one time only for 1 dose. Refer to printed prep instructions from your doctor.Disp: 1 BottleRfl: 0 COLONOSCOPY - DIAGNOSTIC [[id number]] [facility]: [id number] [facility] [] Order #: [id number]. #:[id number]: 1 Prescriptions as of 04/11/2018 Sig: MIRTAZAPINE 30 MG TABLET take 1 tablet by mouth at bed* QUETIAPINE 25 MG TABLET Take 1 tablet at bedtime for * TFCKLHNMDL-YUVCLXXETILZL-EGOQ* Take 1 tablet by mouth every * [...] until the day before your colonoscopy. Designated Stonecutter on the Day of Your Exam A responsible family member or friend MUST come with you to your colonoscopy and REMAIN in the endoscopy area until you are discharged. You are NOT ALLOWED to drive, take a taxi or bus, or leave the Endoscopy Center ALONE. If you do not have a responsible helper/driver (family member or friend) with you to [...] carbonated beverages such as marian nilesh or lemon-jena soda; Gatorade or other sports drinks (not [...] Start End PEG 3350-ELECTROLYTES 236 GRAM-22.74* 1 Asutin* 0 04/11/2018 04/11/2018 Route: ORAL Sig: Take 4,000 mL by mouth one time only for 1 dose. Refer to printed prep instructions from your doctor. Letter Text Encounter Status:Closed by MD ROSALINA OVALLE on 04/13/18 DISCHARGE INSTRUCTION Observed: 04/07/2018 Status: F Source: [place] 4:23 PM [facility] [facility] Medical Records Department [address] [place] [address] Discharge Instruction 04/07/18 1416 MR#: [id number] Acct: [id number] Name: PARMINDER JOSEPH Rep #: [id number] : 1970 47 From: Leo Walters MD [...] your Primary Care Provider. Call [facility] ([phone]) or report to the closest Emergency Room. Call 911 if necessary. 04/07/18 1623 <Electronically signed by Leo Walters MD> Date Leo Walters MD Cosigner Signature (If Indicated): Date CC: Rich Wilson MD EMERGENCY DEPARTMENT Observed: 04/07/2018 Status: F Source: [place] SUMMARY 4:23 PM [facility] [facility] [place] [facility] Medical Records Department [address] [place] [address] Emergency Department Summary 04/07/18 1249 MR#: [id number] Acct: [id number] Name: PARMINDER JOSEPH Rep #: [id number] : 1970 47 From: Leo Walters MD [...] kidney stones This note was generated with TechLive dictation software. It may contain incorrect words, [...] problems, contact your Primary Care Provider. Call [facility] ([phone]) or report to the closest Emergency Room. Call 911 if necessary. 04/07/18 4810 <Electronically signed by Leo Walters MD> Date Leo Simeonigncristina Signature (If Indicated): Date CC: Rich Wilson MD BASIC METABOLIC Collected: 04/07/2018 Status: F Source: [place] PROFILE (BMP) 12:51 PM [facility] TYPE CODE TESTS RESULT OUT OF [...] GAP 6 Performed By: #### L500.2500 #### [facility] [address] [place], [address] URINALYSIS, COMPLETE Collected: 04/07/2018 Status: F Source: [place] 12:40 PM [facility] Order Comment: Order Date: 04/07/18 How [...] URINE SEEN Performed By: #### L400.0001 #### [facility] [address] [facility] [place], [address] PROGRESS Observed: 04/05/2018 Status: COMPLETED Source: [place] 10:53 AM [facility] RE[facility]ITORY O ID: [id number] Author: Rich Wilson Service: (none) Author Type: Physician Type: Progress Notes Filed: 04/05/2018 11:00 AM Note Text: This note was created using foc.usriter. Subjective Parminder Joseph is a 47 year [...] 307.81, ICD10: G44.209 Reviewed. Limit use. - ESHWUTIYMQ-ZZRHZIHGAKPMT-ARKWBJYY 50 MG-325 MG-40 MG TABLET 3. Essential [...] MD CNOV Observed: 04/05/2018 Status: COMPLETED Source: [place] 9:40 AM [facility] REPOSITORY Office Visit (INTMWS) PARMINDER JOSEPH ([id number]) 1970 F Date Time Provider Department 04/05/18 9:40 AM RICH WILSON INTMWS During your visit today, we recorded the following information about you: Temperature Pulse Respiration Blood pressure 96.5 degrees 68/minute 20/minute 130/88 Weight 94.3 kg Rich Wilson MD 04/05/2018 11:00 AM Signed This note was created using foc.usriter. Subjective Parminder Joseph is a 47 year [...] 307.81, ICD10: G44.209 Reviewed. Limit use. - NRMZNHCFEJ-EKIBEXWLVWKAC-YGIBODXD 50 MG-325 MG-40 MG TABLET 3. Essential [...] Rich Wilson MD Referring Provider: RICH WILSON [[id number]] Allergies As of Date: 04/05/2018 Noted Allergy [...] 1/2 tablet at bedtime for 2 w* YTLHJFSAKR-BRSZHURXZEITJ-ZGZN* Take 1 tablet by mouth every * [...] night for 2 weeks. Then stop medication. HSFNDEEADT-RFJEGPKCNBXTG-IWVRTRTE 50* 20 t* 2 04/05/2018 Class: Print [...] 04/05/18 PROGRESS Observed: 03/12/2018 Status: COMPLETED Source: [place] 3:22 PM [facility] REPOSITORY HNO ID: [id number] Author: Reinier (Ramona) Jeffery Service: (none) Author Type: Nurse Practitioner Type: Progress Notes Filed: 03/12/2018 4:02 PM Note Text: CC: Patient presents with: Recheck: ER follow up, back pain HPI Parminder Joseph is a 47 year old female who presents today for [facility] ER follow up from 03/06/18. Patient [...] sent home with prescription for Flexeril and Alexis. Since returning home patient reports continued pain [...] norco without much relief, she finds the Alexis upsets her stomach. Taking Tylenol during work [...] agreeable to treatment plan. Reinier Justice APRN.[place] CNOV Observed: 03/12/2018 Status: COMPLETED Source: [place] 3:20 PM [facility] REPOSITORY Office Visit (INTMWS) PARMINDER JOSEPH ([id number]) 1970 F Date Time Provider Department 03/12/18 3:20 PM REINIER JUSTICE (DISTRICT GAUGER) INTMWS During your visit today, we recorded the following information about you: Temperature Pulse Respiration Blood pressure 97.3 degrees 88/minute 16/minute 144/86 Weight 93.9 kg Reinier Justice APRN.CNP 03/12/2018 4:02 PM Signed CC: Patient presents with: Recheck: ER follow up, back pain HPI Parminder Joseph is a 47 year old female who presents today for [facility] ER follow up from 03/06/18. Patient [...] sent home with prescription for Flexeril and Alexis. Since returning home patient reports continued pain [...] norco without much relief, she finds the Alexis upsets her stomach. Taking Tylenol during work [...] to treatment plan. Reinier Justice APRN.RAM[place] Justice APRN.RAMONA 03/12/2018 3:43 PM Signed Ice to lower [...] take 1 tablet by mouth at bed* KPFQKRGUJE-DUQSTQQFTQBVK-DLBW* Take 1 tablet by mouth every * [...] Letter Text Department of Internal Medicine [address] [address] 03/12/2018 Parminder Joseph CC# [id number] [address] [place] [address] TO WHOM IT MAY CONCERN: This is to certify that Ms. Parminder Joseph has been under my care for injury and was unable to work from 03/12/18 through 03/14/18. May return on 03/15/18 with light duty through 03/18/18. Sincerely yours, Reinier Justice APRN.RAMONA Encounter Status:Closed by REINIER JUSTICE CNP on 03/12/18 DISCHARGE INSTRUCTION Observed: 03/06/2018 Status: F Source: [place] 12:00 PM [facility] Medical Records Department [address] [place] [address] Discharge Instruction 03/06/18 1158 MR#: [id number] Acct: [id number] Name: PARMINDER JOSEPH Rep #: [id number] : 1970 47 From: Dimitry Ritchie DO PCP: Rich Wilson MD Status: PRE ER ED Disposition - Plan for ED Patient: Chief Complaint: Back Instructions: ED Sprain Strain Lumbar, ED Sciatica Prescriptions: Hydrocodone/Acetaminophen [Alexis 5-325 Tablet] 1 - 2 ea PO [...] your Primary Care Provider. Call [facility] ([phone]) or report to the closest Emergency Room. Call 911 if necessary. 03/06/18 1200 <Electronically signed by Dimitry Ritchie DO> Date Dimitry Ritchie DO Cosigner Signature (If Indicated): Date CC: Rich Wilson MD EMERGENCY DEPARTMENT Observed: 03/06/2018 Status: F Source: [place] SUMMARY 11:58 AM [facility] Medical Records Department [address] [address] Emergency Department Summary 03/06/18 1156 MR#: [id number] Acct: [id number] Name: PARMINDER JOSEPH Rep #: [id number] : 1970 47 From: Dimitry Ritchie DO [...] [Patient will be given a prescription for Alexis and Flexeril. Patient to follow-up with corporate care in 3-5 days. Patient given work restrictions.] Disposition: [Discharged home in stable condition]. Patient advised to return if worsening pain, weakness in extremities, change in bowel or bladder function, or condition should worsen anyway. Impression: [Lumbar strain Lumbar radiculopathy] This note was generated with TechLive dictation software. It may contain incorrect words, [...] your Primary Care Provider. Call [facility] ([phone]) or report to the closest Emergency Room. Call 911 if necessary. 03/06/18 1158 <Electronically signed by Dimitry Ritchie DO> Date Dimitry Ritchie DO Cosigner Signature (If Indicated): Date CC: Rich Wilson MD PROGRESS Observed: 01/02/2018 Status: COMPLETED Source: [place] 11:18 AM [facility] [place] REPOSIT[facility] O ID: [id number] Author: Rich Wilson Service: (none) Author Type: Physician Type: Progress Notes Filed: 01/02/2018 11:28 AM Note Text: This note was created using CarRentalsMarketter. Subjective Parminder Joseph is a 47 year [...] ICD9: 307.81, ICD10: G44.209 See above. - ZRAOONQJNB-GNBCKPWNWJDSI-SKDCOTIB 50 MG-325 MG-40 MG TABLET 3. Essential [...] MD CNOV Observed: 01/02/2018 Status: COMPLETED Source: [place] 10:00 AM [facility] REPOSITORY Office Visit (INTMWS) PARMINDER JOSEPH ([id number]) 1970 F Date Time Provider Department 01/02/18 10:00 AM RICH WILSON INTMWS During your visit today, we recorded the following information about you: Temperature Pulse Respiration Blood pressure 97.2 degrees 81/minute 20/minute 128/89 Weight 86.2 kg Rich Wilson MD 01/02/2018 11:28 AM Signed This note was created using [employer]. Subjective Parminder Joseph is a 47 year [...] ICD9: 307.81, ICD10: G44.209 See above. - ARXQPLZEDJ-PHVJKYTTGSFLK-MZIKKBRP 50 MG-325 MG-40 MG TABLET 3. Essential [...] Rich Wilson MD Referring Provider: RICH WILSON [[id number]] Allergies As of Date: 01/02/2018 Noted Allergy [...] by mouth once daily.Disp: 30 tabletRfl: 5 ELIER SCREENING [1540696] Order #: [id number] FUTURE CONSULT TO GENERAL SURGERY [9022] Order #: [id number]: 1 QUEtiapine (SEROQUEL) 50 mg tabletTake 1 tablet by mouth daily at bedtime.Disp: 30 tabletRfl: 2 citalopram (CELEXA) 20 mg tabletTake 1 tablet by mouth once daily.Disp: 30 tabletRfl: 2 Prescriptions as of 01/02/2018 Sig: FEYWOZQPSO-TLSBZIBQEWCCW-PRKE* Take 1 tablet by mouth every * [...] this encounter QUETIAPINE 100 MG TABLET >> Rich Wilson MD 01/02/2018 11:16 AM sedation side effects Problem [...] ordered this encounter Disp Refills Start End AKFKBYQIVX-CTVSCAICDNDJX-HQAUPIKF 50* 20 t* 2 01/02/2018 Route: ORAL [...] once daily. Medications Discontinued During This Encounter Macdlwfdcwqwmmf-Hlnbhlyoj-JH (BROMFE* 120 * 0 11/30/2017 01/02/2018 Sig: [...] DOWNTIME REPORT Observed: 12/26/2017 Status: F Source: [place] 1:22 PM [facility] Medical Records Department [address] [place] [address] Downtime Report MR#: [id number] Acct: [id number] Name: PARMINDER JOSEPH Rep #: [id number] : 1970 47 From: Sebastian Mantilla MD PCP: Rich Wilson MD Status: DEP ER This patient was seen during an EMR downtime December 10, 2017 - December 17, 2017. This patient may have a combination of paper and electronic documentation or all paper documentation. All documentation is viewable within the e-chart portion of [employer] for each patient visit. ABDOMEN/PELVIS WITHOUT Observed: 12/16/2017 Status: F Source: [place] CONT 6:12 AM [facility] Imaging Services [address] [place] [address] Abdomen/Pelvis without Cont MR#: [id number] Acct: [id number] Name: PARMINDER JOSEPH Rep #: [id number] : 1970 F 47 From: Tammy Stout MD PCP: Rich Wilson MD Status: REG ER Study: Abdomen/Pelvis without Cont Date of Exam: 12/14/17 Exam# [id number] Ordering Dr: Juwan Lewis MD STUDY: CT [...] CC: Juwan Lewis MD; Rich Wilson MD Maintenance And Repair Worker: Signed BASIC METABOLIC Collected: 12/14/2017 Status: F Source: [place] PROFILE (BMP) 10:25 PM [facility] Order Comment: ORDERED FROM DT REQ [...] GAP 7 Performed By: #### L500.2500 #### [facility] [address] [place], [address] CBC W/DIFF, AUTOMATED Collected: 12/14/2017 Status: F Source: [place] 12:00 AM [facility] Order Comment: ORDERED FROM DT REQS [...] Lymph 2.46 Performed By: #### L100.0100 #### [facility] [address] [place], [address] GROUP A STREP BY Collected: 11/30/2017 Status: F Source: [place] PCR 5:31 PM [facility] REPOSITORY TYPE CODE TESTS RESULT OUT OF REFERENCE UNITS RANGE LAB GASSRC Throat Swab GAS Specimen Source LAB PCRGAS Negative for Group A Strep Group A PCR Streptococcus by PCR. Result Comment: This test was developed and its performance characteristics determined by [facility]'s [facility] Pathology and Laboratory Medicine [place] ([facility] It has not been cleared or approved by the FDA. -[facility] is regulated under CLIA as qualified to perform high-complexity testing. This test is used for clinical purposes. It should not be regarded as inv estigational or for research. Performed By: #### GASPCR #### [facility] [address] [id number] PROGRESS Observed: 11/30/2017 Status: COMPLETED Source: [place] 5:20 PM [facility] REPOSITORY HNO ID: [id number] Author: Rima Collins Service: (none) Author Type: Nurse Practitioner Type: Progress Notes Filed: 11/30/2017 5:35 PM Note Text: Subjective The history is provided by the patient. No high school foreign language tutor was used. HPI Parminder Joseph is a [...] Comment: Hysterectomy Social History Narrative [place] At risk for homelessness. Children grown. Review [...] ok to take an OTC pain reliever/fever truck guard though such as advil or tylenol as needed. - JJQWXSIFGPRNNQW-ELHLYBSZXNNAPIY-MG 2 MG-30 MG-10 MG/5 ML SYRUP 2. [...] detail warranting prompt ER evaluation. Rima Collins APRN.CNP CNOV Observed: 11/30/2017 Status: COMPLETED Source: [place] 5:15 PM [facility] REPOSITORY Office Visit (WSTR) PARMINDER JOSEPH ([id number]) 1970 F Date Time Provider Department 11/30/17 5:15 PM RIMA COLLINS ([place]) [facility] During your visit today, we recorded the following information about you: Temperature Pulse Respiration Blood pressure 98.8 degrees 101/minute 20/minute 140/88 Weight 87.5 kg Rima Collins APRN.CNP 11/30/2017 5:35 PM Signed Subjective The history is provided by the patient. No high school foreign language tutor was used. RAS Parminder Joseph is a [...] Comment: Hysterectomy Social History Narrative [place] At risk for homelessness. Children grown. Review [...] ok to take an OTC pain reliever/fever truck guard though such as advil or tylenol as needed. - UVGIQTQBCSHHYNV-MLYKXZWZQNLVECS-QG 2 MG-30 MG-10 MG/5 ML SYRUP 2. [...] ok to take an OTC pain reliever/fever truck guard though such as advil or tylenol as needed. - QSODPJPAOLZTEEN-PLCYTHTXGUJRPAQ-YK 2 MG-30 MG-10 MG/5 ML SYRUP 2. [...] thoughts Date Reviewed: 11/30/2017 Reviewed by: R[facility]) Dennis - Fully Assessed Reason for Visit: Sore Throat [200] Primary Visit Diagnosis:URI, acute [J06.9] Other Visit Diagnosis:Sore throat [J02.9] Order(s):RAPID STREP TEST B/O [7164452] Order #: [id number] GROUP A STREPTOCOCCUS BY PCR [SQGASPCR] Order #: [id number] Boacdrgsurvgfrd-Yrpvropvx-RQ (BROMFED DM) 2-30-10 mg/5 mL syrupTake 5-10 ml po q6h prnDisp: 120 mLRfl: 0 Prescriptions as of 11/30/2017 Sig: BROMPHENIRAMINE-PSEUDOEPHEDRI* Take 5-10 ml po q6h prn BWDBVIGAGB-QMTJNGXQTVAHR-BHDP* Take 1 tablet by mouth every * [...] ok to take an OTC pain reliever/fever truck guard though such as advil or tylenol as needed. - GYTWZPBRFEAWUHI-NDUVUWUOYOIEMKZ-ML 2 MG-30 MG-10 MG/5 ML SYRUP 2. [...] ordered this encounter Disp Refills Start End DUKFNINKRWGVGUM-FZQDJSGUDBQQICN-KJ 2* 120 * 0 11/30/2017 Sig: Take 5-10 ml po q6h prn Encounter Status:Closed by RIMA COLLINS CNP on 11/30/17 EMERGENCY DEPARTMENT Observed: 11/16/2017 Status: F Source: [place] SUMMARY 11:50 PM [facility] [place] [facility] Medical Records Department [address] [place] [address] Emergency Department Summary 11/16/17 1518 MR#: [id number] Acct: [id number] Name: PARMINDER JOSEPH Rep #: [id number] : 1970 47 From: Beto Arrington DO [...] unknown etiology This note was generated with Secure Outcomesation software. It may contain incorrect words, spelling, [...] your Primary Care Provider. Call [facility] ([phone]) or report to the closest Emergency Room. Call 911 if necessary. 11/16/17 4810 <Electronically signed by Beto Arrington DO> Date Beto Arrington DO Cosigner Signature (If Indicated): Date CC: Rich Wilson MD DISCHARGE INSTRUCTION Observed: 11/16/2017 Status: F Source: [place] 6:29 PM [facility] [place] [facility] Medical Records Department [address] [place] [address] Discharge Instruction 11/16/17 1829 MR#: [id number] Acct: [id number] Name: PARMINDER JOSEPH Rep #: [id number] : 1970 47 From: Beto Arrington DO [...] your Primary Care Provider. Call [facility] ([phone]) or report to the closest Emergency Room. Call 911 if necessary. 11/16/17 1829 <Electronically signed by Beto Arrington DO> Date Beto Arrington DO Cosigner Signature (If Indicated): Date CC: Rich Wilson MD URINALYSIS, COMPLETE Collected: 11/16/2017 Status: F Source: [place] 5:15 PM [facility] [facility] Order Comment: Order Date: 11/16/17 Has pt arrived? Y How was Urine Obtained? JAVA JSF DEVELOPER TO SPECIFY TYPE CODE TESTS RESULT OUT [...] URINE SEEN Performed By: #### L400.0001 #### [facility] [address] [place], [address] ABDOMEN/PELVIS WITHOUT Observed: 11/16/2017 Status: F Source: [place] CONT 4:37 PM [facility] [place] Imaging Services [address] [place] [address] Abdomen/Pelvis without Cont MR#: [id number] Acct: [id number] Name: PARMINDER JOSEPH Rep #: [id number] : 1970 F 47 From: Tania Tian MD PCP: Rich Wilson MD Status: REG ER Study: Abdomen/Pelvis without Cont Date of Exam: 11/16/17 Exam# [id number] Ordering Dr: Beto Arrington DO STUDY: CT [...] CC: Beto Arrington DO; Rich Wilson MD Maintenance And Repair Worker: Signed CBC W/DIFF, AUTOMATED Collected: 11/16/2017 Status: F Source: [place] 3:35 PM [facility] TYPE CODE TESTS RESULT OUT OF [...] Lymph 1.88 Performed By: #### L100.0100 #### [facility] [address] [place], [place], [address] PROTHROMBIN TIME W/INR Collected: 11/16/2017 Status: F Source: [place] 3:35 PM [facility] [place] TYPE CODE TESTS RESULT OUT OF RANGE REFERENCE UNITS LAB L300.4150 11.7-14.9 SECONDS Normal PROTIME 12.6 LAB L300.4200 Normal INR 0.9 Performed By: #### L300.3900 #### [facility] [address] [place], [place], [address] COMPREHENSIVE METABOLIC Collected: 11/16/2017 Status: F Source: [facility] 3:35 PM [facility] TYPE CODE TESTS RESULT OUT OF [...] 9 Performed By: #### L500.4050, L501.2450 #### [facility] [address] [place], [place], [address] LIPASE Collected: 11/16/2017 Status: F Source: [place] 3:35 PM [facility] [place] TYPE CODE TESTS RESULT OUT OF RANGE REFERENCE UNITS LAB L501.2450 73-393 U/L Normal LIPASE 104 Performed By: #### L500.4050, L501.2450 #### [facility] [address] [place], [address] GALLBLADDER Observed: 11/16/2017 Status: F Source: [place] 3:17 PM [facility] [place] [facility] Imaging Services [address] [address] Gallbladder MR#: [id number] Acct: [id number] Name: PARMINDER JOSEPH Rep #: [id number] : 1970 F 47 From: Tania Tian MD PCP: Rich Wilson MD Status: REG ER Study: Gallbladder Date of Exam: 11/16/17 Exam# [id number] Ordering Dr: Beto Arrington DO STUDY: ABDOMINAL [...] size pancreas. Normal right kidney. Electronically Signed: Tanai Tian MD at 16:27 EDT , Service support , CC: Beto Arrington DO; Rich Wilson MD Maintenance And Repair Worker: Signed PROGRESS Observed: 11/16/2017 Status: COMPLETED Source: [place] 8:58 AM [facility] [place] REPOSITORY HNO ID: [id number] Author: Aspen Arreola (Fiberglass Ski Maker) Service: (none) Author Type: Nurse Practitioner Type: [...] ABDOM HYSTERECTOMY 04/2010 GA AND BSO - [facility] - URETERAL STENT 2008 ALLERGIES Buspar [...] Patient agreeable to treatment plan. Aspen Arreola APRN.DISTRICT GAUGER CNOV Observed: 11/16/2017 Status: COMPLETED Source: [place] 8:45 AM [facility] REPOSITORY Office Visit (WSTR) PARMINDER JOSEPH ([id number]) 1970 F Date Time Provider Department 11/16/17 8:45 AM [facility]IM[facility] During your visit today, we recorded the following information about you: Temperature Pulse Respiration Blood pressure 98.2 degrees 86/minute 22/minute 120/84 Weight 87.1 kg Aspen Arreola (Fiberglass Ski Maker) 11/16/2017 11:00 AM Signed Subjective HPI Patient [...] and validated - 01/15/2013 by Beronica Chauhan DISTRICT GAUGER Multiple providers, multiple pharmacies, noted. - Endometriosis 2009 - Essential hypertension 09/17/2009 - Fracture of humerus, proximal, left, closed 09/04/2011 - Gestational diabetes mellitus - Hyperlipidemia LDL goal < 100 08/23/2010 - Mixed hyperlipidemia 08/23/2010 - Prediabetes 11/23/2009 - Seasonal allergies - Tension headache PAST SURGICAL HISTORY Procedure Laterality Date - APPENDECTOMY 2000 - TOTAL ABDOM HYSTERECTOMY 04/2010 GA AND BSO - [facility] - URETERAL STENT 2008 ALLERGIES Buspar [...] Patient agreeable to treatment plan. Aspen Arreola, MALENA.DISTRICT GAUGER Referring Provider: SELF [200] Allergies As of [...] Date Reviewed: 11/16/2017 Reviewed by: Aspen Arreola (Fiberglass Ski Maker) - Fully Assessed Reason for Visit: Flu Like Symptoms [267] Primary Visit Diagnosis:Acute bronchitis, unspecified organism [J20.9] Order(s):doxycycline monohydrate (MONODOX) 100 mg capsuleTake 1 capsule by mouth twice daily for 10 days.Disp: 20 capsuleRfl: 0 Hsdlejvivcrecvp-Cjgvmdmdd-MQ (BROMFED DM) 2-30-10 mg/5 mL syrupTake 10 [...] Take 2 tablets by mouth once * LGSLGFCRZF-TYVDQHZSGJTYW-ZGIL* Take 1 tablet by mouth every * [...] by mouth twice daily for 10 days. EGCVIHKZDELPFJL-VKHXXKYXDYZICBT-YU 2* 240 * 0 11/16/2017 11/23/2017 Route: [...] Disposition History Recorded Letter Text Aspen Arreola APRN.[facility] [address] [facility] [address] Dept: [phone] 11/16/2017 Parminder Joseph [address] [facility] [address] To Whom it May Concern: This is to certify that Parminder Joseph was seen at our office for medical care. Parminder may return to work on 11/17/2017. If you have any questions please feel free to call. Sincerely: Aspen Arreola APRN.[place] Encounter Status:Closed by ASPEN ARREOLA on 11/16/17 EMERGENCY DEPARTMENT Observed: 11/01/2017 Status: F Source: [place] SUMMARY 8:00 AM [facility] [place] Medical Records Department [address] [place] [address] Emergency Department Summary 10/27/17 0101 MR#: [id number] Acct: [id number] Name: PARMINDER JOSEPH Rep #: [id number] : 1970 47 From: Isaiah Bowie DO [...] flank pain This note was generated with TechLive dictation software. It may contain incorrect words, [...] your Primary Care Provider. Call [facility] ([phone]) or report to the closest Emergency Room. Call 911 if necessary. 11/01/17 0800 <Electronically signed by Isaiah Bowie DO> Date Isaiah Bowie DO Cosigner Signature (If Indicated): Date CC: Rich Wilson MD EMERGENCY DEPARTMENT Observed: 10/27/2017 Status: F Source: [place] SUMMARY 3:32 PM [facility] [place] [facility] Medical Records Department [address] [place] [address] Emergency Department Summary 10/27/17 1520 MR#: [id number] Acct: [id number] Name: PARMINDER JOSEPH Rep #: [id number] : 1970 47 From: Inge Lowe MD [...] vs. colitis This note was generated with Secure Outcomesation software. It may contain incorrect words, spelling, [...] problems, contact your Primary Care Provider. Call [employer] [facility] ([phone]) or report to the closest Emergency Room. Call 911 if necessary. 10/27/17 1532 <Electronically signed by Inge Lowe MD> Date Inge Lowe MD Cosigner Signature (If Indicated): Date CC: Rich Wilson MD DISCHARGE INSTRUCTION Observed: 10/27/2017 Status: F Source: [place] 3:30 PM [facility] [place] [facility] Medical Records Department [address] [place] [address] Discharge Instruction 10/27/17 1526 MR#: [id number] Acct: [id number] Name: PARMINDER JOSEPH Rep #: [id number] : 1970 47 From: Inge Lowe MD [...] problems, contact your Primary Care Provider. Call [employer] [facility] ([phone]) or report to the closest Emergency Room. Call 911 if necessary. 10/27/17 1530 <Electronically signed by Inge Lowe MD> Date Inge Lowe MD Cosigner Signature (If Indicated): Date CC: Rich Wilson MD ABDOMEN/PELVIS WITHOUT Observed: 10/26/2017 Status: F Source: [place] CONT 9:53 PM [facility] [place] [facility] Imaging Services [address] [place] [address] Abdomen/Pelvis without Cont MR#: [id number] Acct: [id number] Name: PARMINDER JOSEPH Rep #: [id number] : 1970 F 47 From: Pamela Haile MD PCP: Rich Wilson MD Status: REG ER Study: Abdomen/Pelvis without Cont Date of Exam: 10/26/17 Exam# [id number] Ordering Dr: Isaiah Bowie DO CT Abdomen [...] CC: Isaiah Bowie DO; Rich Wilson MD Maintenance And Repair Worker: Signed URINALYSIS, COMPLETE Collected: 10/26/2017 Status: F Source: [place] 12:00 AM [facility] Order Comment: RESULT(S) PREVIOUSLY REPORTED ON [...] URINE SEEN Performed By: #### L400.0001 #### [facility] [address] [place], [address] CBC W/DIFF, AUTOMATED Collected: 10/26/2017 Status: F Source: [place] 12:00 AM [facility] Order Comment: RESULT(S) PREVIOUSLY REPORTED ON [...] Lymph 3.05 Performed By: #### L100.0100 #### [facility] [address] [place], [address] BASIC METABOLIC Collected: 10/26/2017 Status: F Source: [place] PROFILE (BMP) 12:00 AM [facility] Order Comment: RESULT(S) PREVIOUSLY REPORTED ON [...] GAP 8 Performed By: #### L500.2500 #### [facility] [address] [place], [address] PROGRESS Observed: 10/25/2017 Status: COMPLETED Source: [place] 11:27 AM [facility] RE[facility] HNO ID: [id number] Author: Rima (Motel Front Desk Clerk) [place] Service: (none) Author Type: Nurse Practitioner Type: Progress Notes Filed: 10/25/2017 11:41 AM Note Text: Subjective Patient is a 47 year old female presenting with flu symptoms. The history is provided by the patient. No high school foreign language tutor was used. Flu Like Symptoms Associated symptoms [...] Comment: Hysterectomy Social History Narrative [place] At risk for homelessness. Children grown. Review [...] detail warranting prompt ER evaluation. Rima Collins APRN.DISTRICT GAUGER CNOV Observed: 10/25/2017 Status: COMPLETED Source: [place] 11:15 AM [facility] RE[facility]IT[facility] Office Visit (WSTR) PARMINDER JOSEPH ([id number]) 1970 F Date Time Provider Department 10/25/17 11:15 AM RIMA COLLINS ([facility]) [facility] During your visit today, we recorded the following information about you: Temperature Pulse Respiration Blood pressure 96.7 degrees 81/minute 24/minute 120/100 Weight 88.5 kg Rima Collins APRN.[place] 10/25/2017 11:41 AM Signed Subjective Patient is a 47 year old female presenting with flu symptoms. The history is provided by the patient. No high school foreign language tutor was used. Flu Like Symptoms Associated symptoms [...] Comment: Hysterectomy Social History Narrative [place] At risk for homelessness. Children grown. Review [...] detail warranting prompt ER evaluation. Rima Collins APRN.[place] Collins APRN.[place] 10/25/2017 11:41 AM Addendum ASSESSMENT/PLAN: 1. URI [...] thoughts Date Reviewed: 10/25/2017 Reviewed by: [facility]) [place] - Fully Assessed Reason for Visit: Flu Like Symptoms [267] Primary Visit Diagnosis:URI with cough and congestion [J06.9] Order(s):benzonatate (TESSALON PERLE) 100 mg capsuleTake 1- 2 capsules tid prnDisp: 30 capsuleRfl: 0 Prescriptions as of 10/25/2017 Sig: HCPTSRJCBY-UQFVJMTZBXCLQ-XKFY* Take 1 tablet by mouth every * [...] Text Rima Collins APRN.CNP Urgent Care [address] [address] Dept: [phone] 10/25/2017 Parminder Joseph [address] [address] To Whom it May Concern: This is to certify that Parminder Joseph was seen at our office for medical care. Parminder may return to work on next scheduled day. If you have any questions please feel free to call. Sincerely: Rima Collins APRN.CNP Encounter Status:Closed by RIMA COLLINS CNP on 10/25/17 PROGRESS Observed: 10/11/2017 Status: COMPLETED Source: [place] 7:47 AM [facility] REPOSITORY O ID: [id number] Author: Rima Arias) [place] Service: (none) Author Type: Nurse Practitioner Type: Progress Notes Filed: 10/11/2017 11:12 AM Note Text: Subjective Patient is a 47 year old female presenting with Eye Problem. The history is provided by the patient. No high school foreign language tutor was used. Eye Problem Pertinent negatives include [...] Comment: Hysterectomy Social History Narrative [place]. At risk for homelessness. Children grown. Review [...] detail warranting prompt ER evaluation. Rima Collins APRN.DISTRICT GAUGER CNOV Observed: 10/11/2017 Status: COMPLETED Source: [place] 7:45 AM [facility] REPOSITORY Office Visit (WSTR) PARMINDER JOSEPH ([id number]) 1970 F Date Time Provider Department 10/11/17 7:45 AM RIMA COLLINS (DISTRICT GAUGER) [facility] During your visit today, we recorded the following information about you: Temperature Pulse Respiration Blood pressure 96.7 degrees 80/minute 24/minute 140/96 Weight 89.8 kg Rima Collins APRN.CNP 10/11/2017 11:12 AM Addendum Subjective Patient is a 47 year old female presenting with Eye Problem. The history is provided by the patient. No high school foreign language tutor was used. Eye Problem Pertinent negatives include [...] Comment: Hysterectomy Social History Narrative [place] At risk for homelessness. Children grown. Review [...] detail warranting prompt ER evaluation. Rima Collins APRN.[place] Collins APRN.[facility] 10/11/2017 7:54 AM Signed ASSESSMENT/PLAN: 1. Hordeolum [...] TubeRfl: 0 Prescriptions as of 10/11/2017 Sig: PPVVHDOIMH-WGKLUSNZNWKOC-ZWPR* Take 1 tablet by mouth every * [...] (0.5 %* Use 1 application in the [facility]* Problem List As Of Date 10/11/2017 Noted [...] 10/11/17 PROGRESS Observed: 09/28/2017 Status: COMPLETED Source: [place] 10:31 PM [facility] REPOSITORY O ID: [id number] Author: Rich Wilson Service: (none) Author Type: Physician Type: Progress Notes Filed: 09/28/2017 11:06 PM Note Text: This note was created using foc.usriter. Subjective Patient presents with: Establish Care Physical HPI: Parminder Joseph is a 46 year old female was here for [facility]. She moved back to this area from [place], and gave us her medication list. She [...] ABDOM HYSTERECTOMY 04/2010 GA AND BSO - [facility] - URETERAL STENT 2008 FAMILY HISTORY Problem Relation Age of Onset [...] Comment: Hysterectomy Social History Narrative Moved from [place]. At risk for homelessness. Children grown. ALLERGIES Allergen Reactions - Buspar [Buspirone H* Other: See Comments palpitations - Ciprofloxacin Rash - Compazine [Prochlor* Mental Status Change - Darvocet A500 [Prop* Itching - Fluoxetine Unknown - Imitrex [Sumatripta* Anaphylaxis Heart racing - Methocarbamol GI Upset - Nsaids (Non-Steroid* Swelling - Zoloft [Sertraline * Mental Status Change Suicidal thoughts Current Outpatient Prescriptions: Bdlqppthyq-Fqecwuaspvvlp-Rect (FIORICET) 50-300-40 mg cap Take 1 tablet [...] - ICD9: 307.81, ICD10: G44.209 Stable. - ALOCWCOGAX-FDGNBWKQOTFFD-DNMPSBIT 50 MG-300 MG-40 MG CAPSULE 8. Visit for screening mammogram - ICD9: V76.12, ICD10: Z12.31 - ELIER SCREENING 9. Gastroesophageal reflux disease, esophagitis presence not specified - ICD9: 530.81, ICD10: K21.9 - OMEPRAZOLE 20 MG CAPSULE,DELAYED RELEASE Rich Wilson MD CBC AND DIFFERENTIAL Collected: 09/28/2017 Status: F Source: [facility] 11:49 AM [facility] REPOSITORY TYPE CODE TESTS [...] k/uL Abs Lymph 1.75 LAB AMONO % [place]% 6.7 LAB AAMONO <0.87 k/uL Abs [place] 0.35 LAB AEOS % Eosin% 5.9 LAB AAEOS <0.46 k/uL Abs Eosin 0.31 LAB ABASO % Baso% 1.9 LAB AABASO <0.11 k/uL Abs Baso 0.10 LAB AUNRBC 0 /100 WBC NRBCs 0.0 LAB ABNRBC <0.01 k/uL Absolute nRBC <0.01 LAB DTYP DTYPE Auto Diff Performed By: #### CBCDIF, CMP, LIPB, TSH, HBA1C #### [facility] [address] [place] [address] COMP METABOLIC PANEL Collected: 09/28/2017 Status: F Source: [place] 11:49 AM [facility] REPOSITORY TYPE CODE TESTS RESULT OUT OF REFERENCE UNITS RANGE LAB TP 6.3-8.0 g/dL Protein, High Total 8.1 LAB ALB 3.9-4.9 g/dL Albumin 4.4 LAB CA 8.5-10.2 mg/dL Calcium, Total 9.2 LAB TBIL 0.2-1.3 mg/dL Bilirubin, Total 0.2 LAB ALKP 32-117 U/L Alkaline Phosphatase 92 LAB AST 13-35 U/L AST 16 LAB GLU 74-99 mg/dL Glucose 83 Result Comment: The [place] Diabetes Association (ADA) provides guidance for cutoff [...] Standards of Medical Care in Diabetes 2016, [place] Diabetes Association. Diabetes Care. 2016.39(Suppl 1). LAB [...] #### CBCDIF, CMP, LIPB, TSH, HBA1C #### [facility] [address] [place], [place] [address] LIPID PANEL, BASIC Collected: 09/28/2017 Status: F Source: [place] 11:49 AM [facility] REPOSITORY TYPE CODE TESTS [...] Desk Reference: National Heart, Lung, and Blood [place]. National Institutes of Health. 2001: NIH Publication No. 01-3305. 2. An International Atherosclerosis Society position paper: global recommendations for the management of dyslipidemia: executive summary, Atherosclerosis. 2014: 232(2):410-413. Performed By: #### CBCDIF, CMP, LIPB, TSH, HBA1C #### [facility] [address] [place] [id number] TSH Collected: 09/28/2017 Status: F Source: [place] 11:49 AM [facility] REPOSITORY TYPE CODE TESTS RESULT OUT [...] Clinical Practice Guideline. J Clin Endocrinol Metab, 2012:97:9702-7578. 2. Sudeep DUMONT. Overview of thyroid disease in . UpToDate. 2016. Accessed on December 24, 2015. Performed By: #### CBCDIF, CMP, LIPB, TSH, HBA1C #### [facility] [address] [id number] HEMOGLOBIN A1C Collected: 09/28/2017 Status: F Source: [place] 11:49 AM [facility] REPOSITORY TYPE CODE TESTS RESULT OUT OF REFERENCE UNITS RANGE LAB HGBA1C 4.3-5.6 % High Hemoglobin A1c 5.7 LAB HBA0 mg/dL Est. 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 Performed By: #### CBCDIF, CMP, LIPB, TSH, HBA1C #### [facility] [address] [address] CNOV Observed: 09/28/2017 Status: COMPLETED Source: [place] 10:20 AM [facility] REPOSITORY Office Visit (INTMWS) PARMINDER JOSEPH ([id number]) 1970 F Date Time Provider Department 09/28/17 10:20 AM RICH WILSON INTJOZEF During your visit today, we recorded the following information about you: Pulse Respiration Blood pressure Weight 72/minute 18/minute 118/96 88.5 kg Height 1.613 m Rich Wilson MD 09/28/2017 11:06 PM Signed This note was created using foc.usriter. Subjective Patient presents with: Establish Care Physical HPI: Parminder Joseph is a 46 year old female was here for above. She moved back to this [place] from [place], and gave us her medication list. She [...] ABDOM HYSTERECTOMY 04/2010 GA ANDamp; BSO - [facility] - URETERAL STENT 2008 FAMILY HISTORY Problem Relation Age of Onset [...] Comment: Hysterectomy Social History Narrative Moved from [place]. At risk for homelessness. Children grown. ALLERGIES Allergen Reactions - Buspar [Buspirone H* Other: See Comments palpitations - Ciprofloxacin Rash - Compazine [Prochlor* Mental Status Change - Darvocet A500 [Prop* Itching - Fluoxetine Unknown - Imitrex [Sumatripta* Anaphylaxis Heart racing - Methocarbamol GI Upset - Nsaids (Non-Steroid* Swelling - Zoloft [Sertraline * Mental Status Change Suicidal thoughts Current Outpatient Prescriptions: Xjyvvhbvtb-Ogeqlzoxztpmu-Dhgo (FIORICET) 50-300-40 mg cap Take 1 tablet [...] - ICD9: 307.81, ICD10: G44.209 Stable. - TNBYCUIAGG-TZUFKHGXWNUKX-TWLWVTAC 50 MG-300 MG-40 MG CAPSULE 8. Visit [...] Suicidal thoughts Date Reviewed: 09/28/2017 Reviewed by: Justina Chatterjee LPN - Fully Assessed Reason for [...] by mouth once daily.Disp: 30 tabletRfl: 2 Vjyyvtccmr-Segkacldtfkwu-Nwak (FIORICET) 50-300-40 mg capTake 1 tablet by mouth every 8 hours as needed (headache).Disp: 20 capsuleRfl: 0 QUEtiapine (SEROQUEL) 50 mg tabletTake 1 tablet by mouth daily at bedtime.Disp: 30 tabletRfl: 2 CBC + DIFF [SQCBCDIF] Order #: [id number] FUTURE COMP METABOLIC PANEL [SQCMP] Order #: [id number] FUTURE LIPID PANEL BASIC [SQLIPB] Order #: [id number] FUTURE HGB A1C [SIRJC9N] Order #: [id number] FUTURE TSH BLD [SQTSH] Order #: [id number] FUTURE ELIER SCREENING [4256312] Order #: [id number] FUTURE omeprazole (PRILOSEC) 20 mg capsuleTake 1 capsule by mouth once daily.Disp: 30 capsuleRfl: 5 Prescriptions as of 09/28/2017 Sig: UUSHVTNORF-JCBZWXWWBGIRQ-IDIP* Take 1 tablet by mouth every * [...] Take 1 tablet by mouth once daily. WBHPBRZGWT-BHGALPATXQITI-LPIAVAWT 50* 20 c* 0 09/28/2017 12/27/2017 Route: [...] Reason for discontinue is not on file. Pefamppwhu-Qermitxbbepax-Bwjb (MICHAEL* 09/28/2017 Class: Historical Med Route: ORAL [...] Encounter Status:Closed by RICH WILSON MD on 09/28/17 PROGRESS Observed: 08/24/2017 Status: COMPLETED Source: [place] 4:39 PM [facility] REPOSITORY HNO ID: [id number] Author: Alejandra Hoskins) Ambika Service: (none) Author [...] ABDOM HYSTERECTOMY 04/17 GA AND BSO - [facility] - URETERAL STENT Family History FAMILY [...] NAME / CODE REACTION SEVERITY SOURCE CODE 07/28/2018 Drug prochlorperazine Other Unknown [place] Allergy/41 edisylate/[id number]( Community 7278471( RXNORM) [facility] CT) Repository 07/28/2018 Drug prochlorperazine Other Unknown [place] Allergy/41 maleate/N793165724(RX Community 5506582( NORM) [facility] OME CT) Repository 07/28/2018 Drug NSAIDS (Non-Steroidal Swelling Unknown [place] Allergy/41 Anti-Inflamma/J515206 Community 0131284( 439(RXNORM) [facility] CT) Repository 07/28/2018 Drug ketorolac/V722830689( Swelling Unknown [place] Allergy/41 RXNORM) Community 0136200([facility] CT) Repository 04/15/2013 DRUG METHOCARBAMOL GI UPSET [place] INGREDI/41 Clinic Main 8598774([facility] OMED CT) Repository 11/15/2012 DRUG BUSPIRONE HCL OTHER: SEE C [place] INGREDI/41 Clinic Main 5497194([facility] OMED CT) Repository 02/14/2012 DRUG CIPROFLOXACIN RASH [place] INGREDI/41 Clinic Main 1229520([facility] OMED CT) Repository 02/22/2011 DRUG SERTRALINE HCL Mental Chg [place] INGREDI/41 Clinic Main 9220170([facility] OMED CT) Repository 12/10/2008 DRUG/37311 PROPOXYPHENE ITCHING [place] 1003(SNOME N-ACETAMINOPHEN Clinic Main D CT) [place] Repository 06/23/2008 DRUG PROCHLORPERAZINE Mental Chg [place] INGREDI/41 EDISYLATE Clinic Main 9991485([facility] OMED CT) Repository 06/10/2008 DRUG FLUOXETINE UNKNOWN [place] INGREDI/41 Clinic Main 0026412( [place] OMED CT) Repository 06/09/2008 DRUG SUMATRIPTAN ANAPHYLAXIS [place] INGREDI/41 Clinic Main 4495043([facility] OMED CT) Repository 06/09/2008 Drug NSAIDS (NON-STEROIDAL SWELLING [place] Class/4195 ANTI-INFLAMMATORY Clinic Main [address](SNOM DRUG) [place] ED CT) Repository ENCOUNTERS ENCOUNTERS ADMIT/DISCHARGE ACCOUNT ADMITTING ENCOUNTER LOCATION SOURCE NUMBER CLASS 07/28/2018/07/28/19 [id number] [facility] ing:ED Repository 07/17/2018 [id number] Ambulatory [facility] Hospital ing:OT Repository 07/10/2018/07/13/19 [id number] Ambulatory [place] [facility] Main [place] Repository 07/05/2018/07/13/19 [id number] Ambulatory [address] Main [place] Repository 06/12/2018/06/13/20 [id number] Ambulatory [place] 18 [facility] [place] Repository 06/07/2018/06/07/20 [id number] Emergency [place] [facility] ing:ED Repository 05/03/2018 [id number] Ambulatory [facility] ing:CT Repository 05/01/2018/05/01/20 [id number] Emergency [place] Hospital ing:ED Repository 04/11/2018/04/15/20 [id number] Ambulatory [address] Repository 04/07/2018/04/07/20 [id number] Emergency [place] Hospital ing:ED Repository 04/05/2018/04/08/20 [id number] Ambulatory [address] [place] Repository 03/12/2018/03/13/20 [id number] Ambulatory [address] [place] Repository 03/06/2018/03/06/20 [id number] Emergency [place] Hospital ing:ED Repository 01/02/2018/01/04/20 [id number] Ambulatory [address] [place] Repository 12/14/2017/12/16/19 [id number] Emergency [place] Hospital ing:ED Repository 11/30/2017/12/05/19 [id number] Ambulatory [address] Repository 11/16/2017/11/17/19 [id number] [place] [facility] Hospital ing:ED Repository 11/16/2017/11/20/19 [id number] Ambulatory [address] [place] Repository 10/27/2017/10/28/19 [id number] [place] [address] [place] [address] ing:ED Repository 10/26/2017/10/27/19 [id number] Emergency [place] [address] [place] [address] ing:ED Repository 10/25/2017/10/27/19 [id number] Ambulatory [address] Repository 10/11/2017/10/13/19 [id number] Ambulatory [address] Repository 09/28/2017/09/29/19 [id number] Ambulatory [address] Repository 09/28/2017/09/29/19 [id number] Ambulatory [address] Repository 08/24/2017 [id number] Ambulatory [facility] Repository PAYERS PAYERS ENCOUNTER GUARANTOR PAYER SUBSCRIBER SOURCE 07/28/2018 PARMINDER S Primary PARMINDER S [place] [id number] [place] Insurance:ANTHEMPolic NIXONDOB: [place], [place] Number: [id number] Hospital 449[address]Auv: 606 [id number] Repository [phone] () Date:1322-13-45QJ [address] [place] [address]KW: 07/28/2018 Secondary NOT GIVENUNK [place] Insurance:SELF PAY [facility] Number: Effective Repository Date:2018-07-28 07/17/2018 PARMINDER S Primary PARMINDER S [place] [id number] [place] Insurance:SELF INS NIXONDOB: [facility] [id number] Hospital 614[address]Amg: (606) Number: Repository [phone] () [id number] Date:5106-74-[facility] [address] [address], [place] [address]UW: 07/17/2018 Secondary PARMINDER S [place] Insurance:ANTHEMPolic NIXONDOB: Community y Number: [id number] Hospital [id number] Repository Date:4580-11-02EK [address] [place] [address] 44431KA: 07/17/2018 Tertiary NOT GIVENUNK [place] Insurance:SELF PAY Community [facility]Policy [facility] Number: Effective Repository Date:2018-06-21 06/07/2018 PARMINDER S Primary PARMINDER S [place] [id number] [place] Insurance:SELF INS NIXONDOB: [facility] [id number] Hospital 17[address]Rby: (606) Number: Repository [phone] () [id number] Date:5820-79-63YZIWRX[facility] [address] [place] [address]AJ: 06/07/2018 Secondary PARMINDER S [place] Insurance:ANTHEMPolic NIXONDOB: Community y Number: [id number] Hospital [id number] Repository Date:4685-78-48IQ [address] [address]BQ: 06/07/2018 Tertiary NOT GIVENUNK [place] Insurance:SELF PAY [facility] Number: Effective Repository Date:2018-06-07 05/03/2018 PARMINDER S Primary PRAMINDER S [place] [id number] [place] Insurance:SELF INS NIXONDOB: [facility] [id number] [id number]: (606) Number: Repository [phone] () [id number] Date:8209-40-61V[facility]AL[facility] [address]PKX[place]W, [place] [address]RO: 05/03/2018 Secondary PARMINDER S [place] Insurance:ANTHEMPolic NIXONDOB: Community y Number: [id number] Hospital [id number] Repository Date:1807-23-10JQ [address] [place] [address] 31160CE: 05/03/2018 Tertiary NOT GIVENUNK [place] Insurance:SELF PAY [facility] Number: Effective Repository Date:2018-05-03 05/01/2018 PARMINDER S Primary PARMINDER S [place] [id number] W[place] Insurance:SELF INS NIXONDOB: [facility] [id number] Hospital 04172Yku: (606) Number: Repository [phone] () [id number] Date:2198-49-85XPCRRE HER [facility] [address] [address], [place] [address]US: 05/01/2018 Secondary PARMINDER S [place] Insurance:ANTHEMPolic NIXONDOB: Community y Number: [id number] Hospital [id number] Repository Date:3248-89-09CD [address] [place] [address] 888[address]IP: 05/01/2018 Tertiary NOT GIVENUNK [place] Insurance:SELF PAY [facility] Number: Effective Repository Date:2018-05-01 04/07/2018 PARMINDER S Primary PARMINDER S [place] [id number] W[place] Insurance:ANTHEMPolic NIXONDOB: [place] Number: [id number] Hospital 922[address]Mii: (606) [id number] Repository [phone] () Date:6561-86-50QY [address] [place] [address]CG: 04/07/2018 Secondary NOT GIVENUNK [place] Insurance:SELF PAY [facility] Number: Effective Repository Date:2018-04-07 03/06/2018 PARMINDER S Primary PARMINDER S [place] [id number] W[place] Insurance:SELF INS NIXONDOB: [facility] [id number] Hospital [address]Hpd: (859) Number: Repository [phone] () [id number] Date:2278-20-55LOWTDV HER [address] [address], [place] [address]OX: 03/06/2018 Secondary PARMINDER S [place] Insurance:ANTHEMPolic NIXONDOB: Community y Number: [id number] Hospital [id number] Repository Date:2684-29-13NR [address] [place] [address] [place] [address]SJ: 03/06/2018 Tertiary NOT GIVENUNK [place] Insurance:SELF PAY [facility] Number: Effective Repository Date:2018-03-06 12/14/2017 PARMINDER S Primary PARMINDER S [place] [id number] [place] Insurance:ANTHEMPolic [place] Number: [id number] Hospital [address]Uqk: (469 [id number] Repository [phone] () Date:7334-04-71EX [address], [place] [address]OF: 12/14/2017 Secondary NOT GIVENUNK [place] Insurance:SELF PAY [facility] Number: Effective Repository Date:2017-12-14 11/16/2017 PARMINDER S Primary PARMINDER S [place] [id number] [place] Insurance:NIXONPolicy NIXONDOB: [facility] Number: [id number] Hospital 56[address]Qhp: 859 [id number] Repository [phone] () Date:3708-24-40BFDSCD [place], [place] [address]JF: . 11/16/2017 Secondary NOT GIVENUNK [place] Insurance:SELF PAY [facility] Number: Effective Repository Date:2017-11-16 10/27/2017 PARMINDER S Primary PARMINDER S [place] [id number] [place] Insurance:NIXONPolicy NIXONDOB: [facility] Number: [id number] Hospital 29[address]Zcn: (829 [id number] Repository [phone] () Date:5018-67-30HNFVJQ [place], [place] [address]TL: . 10/27/2017 Secondary NOT GIVENUNK [place] Insurance:SELF PAY [facility] Number: Effective Repository Date:2017-10-27 10/26/2017 PARMINDER S Primary PARMINDER S [place] [id number] [place] Insurance:ANTHEMPolic NIXONDOB: [facility] [place] Number: [id number] Hospital [address]Ruu: (454) [id number] Repository [phone] () Date:0984-55-58ER [address], [place] [address]RQ: 10/26/2017 Secondary NOT GIVENUNK [place] Insurance:SELF PAY [facility]: Effective Repository Date:2017-10-26
== END 2018-07-28 12:13 | disposition home or self-care (01) ==
PROVIDERS: Emergency Provider Emergency Medicine; Family Provider Internal Medicine; PCP Internal Medicine
DX: S63.502A Unspecified sprain of left wrist, initial encounter (principal); W19.XXXA Unspecified fall, initial encounter; Y93.9 Activity, unspecified; Y92.9 Unspecified place or not applicable; Y99.9 Unspecified external cause status; Z79.899 Other long term (current) drug therapy
CPT/HCPCS: 73110; 99283

== ENCOUNTER 2018-08-21 14:00 | Outpatient (RCR) | payer OTHER, BC, SELFPAY ==
--- NOTE | 2018-07-04 18:07 | HP.OTEVAL ---
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 Date of Evaluation: 07/04/18 Occupational Therapist: Huyen Sierra - Subjective Subjective: Pt seen for initial occupational therapy evaluation for nondisplaced fracture of L radial styloid process after falling outside work May 01. Pt was in long hard cast that was removed Jun 11 and has been wearing wrist splint since. Works at [employer] and on light duty. Right hand dominent. Has to have assist from son's to get hair up in pony tail and assist with BADLs/IADLs. Pt not taking splint off unless she showers, states she has been elevating it at night and using ice. - Pain L wrist/hand 0 Pain Intensity Range: 0, 7 - Objective Objective/Observation: decreased ROM of L wrist/hand, increased edema L wrist, decreased strength and functional use of L hand/wrist. 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 Pt will progress w/ L wrist AROM flexion by 50' to assist w/ BADLs independnently Goal:: Pt will demo no pain greater than 1/10 with movement of L wrist by d/c from OT services Goal:: Pt will be educated on L UE HEP with good understanding and demo 100%x - Rehabilitation General Assessment: Pt demo very limited ROM of L wrist, decrease L hand strength, increased edema L hand/wrist. Pt would benefit from direct occupational therapy services to increase L wrist AROM, L hand weaver hand loom strength, educate on HEP and decrease pain and hypersensitivity of L hand Rehabilitation Potential: Good - Anticipated Interventions Anticipated Interventions: A/AAROM/PROM, Strengthening, Edema Control, Massage, Modalities, Joint Protection/Energy Conservation, ADL Training, Education re Self Massage Techniques, Home Program - Visit Plan Frequency: 2-3x /Week Duration: 4-6 Weeks General Plan: Pt would benefit from direct occupational therapy services to increase L wrist AROM, L hand weaver hand loom strength, educate on HEP and decrease pain and hypersensitivity of L hand TEXT: Thank you for the opportunity to evaluate your patient. For Medicare and Medicare HMO plans, please review the plan of care and approve it. It will need to be FAXED BACK to us at [phone] for Medicare purposes. Please let me know if there are questions or concerns regarding this plan of care. Physician Signature: Date:
--- NOTE | 2018-08-08 16:35 | OTREVAL_ITS ---
Jacinto Aranda, DO, It has been my pleasure to treat PARMINDER SARGENT over the last 3 visits for nondisplaced fracture of L radial styloid process, initial. Please see the progress note below for an update on the occupational therapy plan of care! Subjective: Pt arrived stating she talked with her insurance case manager and they extended her OT services 6 more visits. Pt states she has to wear the wrist brace at all times and can't even lift a cup with her L hand. Pt states she fell on her L wrist in snow again a few weeks ago and went to ED but nothing was broken. Objective/Function: OT Re-Eval this date, pt has made limited progress with OT goals secondary to coming to limited therapy sessions. Pt does demo decreased pain L UE starting at 4/10 and 0/10 by end of OT session. Pt continues to wear L wrist brace all the time. Pt has been educated on L UE HEP with good understanding. Pt has progressed with L wrist AROM to 50/42. Pt demo limited strength L UE. Talked with 's office this date and able to continue with ROM and start strengthening as needed to get L UE moving better. L wrist AROM 50/42. Pt has progressed with AROM L wrist from eval. Educated pt on importance to come to therapy and concerns with pt's limited ROM and strength of L UE. Pt would benefit from more direct occupational therapy services to increase L wrist AROM, L wrist/hand recovery collector strength, decrease pain and continue to educate on appriopite HEP to increase pts quality of life and functional use of L UE. Rec OT 6 more visits. Plan Visits in this POC: 6 visits Plan: cont w/ prior POC Goals - Goals Goal:: Pt will progress w/ L hand recovery collector strength to 50# to assist with completing all grooming tasks independently Goal:: Pt will progress w/ L wrist AROM extension by 40' to assist w/ BADLs independently. Pt will progress w/ L wrist AROM flexion by 50' to assist w/ BADLs independnently Goal:: Pt will demo no pain greater than 1/10 with movement of L wrist by d/c from OT services Goal:: Pt will be educated on L UE HEP with good understanding and demo 100%x Anticipated Interventions Anticipated Interventions: A/AAROM/PROM, Strengthening, Edema Control, Massage, Modalities, Joint Protection/Energy Conservation, ADL Training, Education re Self Massage Techniques, Home Program Please do not hesitate to contact me at [phone] by phone or if you have questions or concerns regarding this new plan of care! Sincerely, Huyen Sierra
--- NOTE | 2018-11-20 08:17 | HP.OT.NRP ---
HP - Discharge Summary - Patient Information PARMINDER SARGENT was seen in my office for initial evaluation on 07/04/18. The following Plan of Care was established for this patient: Initial Frequency: 2-3x /Week Initial Duration: 4-6 Weeks Plan: cont POC - Anticipated Interventions Anticipated Interventions: A/AAROM/PROM, Strengthening, Edema Control, Massage, Modalities, Joint Protection/Energy Conservation, ADL Training, Education re Self Massage Techniques, Home Program This patient was last seen in our office 08/21/18. Pertinent comments regarding their Occupational therapy will appear below: Pt last seen 08/21/18 for OT services. Pt did not meet all goals and stopped coming for OT services secondary to pt stating possibly torn ligaments and returning back to dr. D/C OT services. At this point I will be discontinuing this patient from occupational therapy. I would be happy to see this patient again in the future if found appropriate by the physician. Thank you! Huyen Sierra
== END 2018-08-21 19:00 | disposition home or self-care (01) ==
LOC: OT 14:00
PROVIDERS: Family Provider Internal Medicine; PCP Internal Medicine; Referring Provider Orthopaedic Surgery; Visit Provider Orthopaedic Surgery
DX: S52.515D Nondisplaced fracture of left radial styloid process, subsequent encounter for closed fracture with routine healing (principal)
CPT/HCPCS: 97035; 97110; 97140; 97165; 97166; 97530

== ENCOUNTER 2019-01-26 14:52 | Emergency (ER) | payer BC, SELFPAY ==
[2019-01-26 14:53] VITALS: BP 169/111; PULSE 88; RESP 16; TEMP 36.8; O2SAT 98; BMI 35.8
--- NOTE | 2019-01-26 15:03 | CT_ITS ---
STUDY: CT ABDOMEN AND PELVIS WITHOUT CONTRAST REASON FOR EXAM: Female, 48 years old. Left flank pain RADIATION DOSAGE (If Supplied By Facility): CTDIvol = ( 18.26 ) mGy, DLP = ( 880.34 ) mGycm TECHNIQUE: Transaxial images were obtained from the dome of the diaphragm to the symphysis pubis without oral contrast, and without intravenous contrast. Sagittal and coronal images were reconstructed. Individualized dose optimization techniques were used for this CT. COMPARISON: December 14, 2017 FINDINGS: The visualized lung bases are unremarkable. The visualized portions of the heart are within normal limits. Normal liver. Normal gallbladder and extrahepatic biliary system. Normal spleen. Normal pancreas. Normal bilateral adrenal glands. Normal right kidney. Trace left hydronephrosis. There are punctate calcifications of both kidneys. A 5 mm calculus at the left UVJ seen on image 73. Normal visualized stomach. Normal small intestine. There are multiple colonic diverticula consistent with diverticulosis. Partially calcified nodule anterior to the descending colon is compatible with omental infarction (stable, no clinical significance). There are surgical clips in the region of the appendix consistent with a prior appendectomy. Mild scattered atherosclerosis. Normal inferior vena cava. Normal retroperitoneum. Normal urinary bladder. There is absence of the uterus consistent with a prior hysterectomy. Normal abdominal wall. Normal osseous structures. CT/Abdomen/Pelvis without Cont IMPRESSION: 1. 5 mm left UPJ calculus with trace left hydronephrosis. Electronically Signed: Vahid Reyes MD at 16:22 EDT , Service support ,
--- NOTE | 2019-01-26 15:06 | ED.DCSUM_ITS ---
- ER Visit Summary Date of Service: 01/26/19 Chief Complaint: Left flank pain History of Present Illness: The patient is a 48 F presenting with left flank pain. Patient states this started this morning. She first noticed blood in her urine. She later noticed pain in her left flank which radiates to the left lower quadrant. She has a history of kidney stones but states she has not had one in over a year. She denies fever. Denies dysuria. Denies other complaints. Physical Examination: Vitals are stable. Patient is afebrile. Alert no acute distress. HEENT exam is unremarkable. Neck is supple. Lungs are clear and equal bilaterally. Heart is regular rate and rhythm. Abdomen is soft nontender nondistended. No guarding or rebound Back: Left CVA tenderness Extremities are unremarkable. Skin is warm and dry. No rash Remainder of exam is unremarkable. Emergency Department Course and Treatment: Patient was given morphine, Zofran IV. Urinalysis shows 5-10 white cells, over 100 red blood cells, 0 bacteria. She continues to complain of pain was given Dilaudid IV with improvement. CT flank shows 5 mm left UPJ calculus with trace left hydronephrosis. On reevaluation, patient states her pain is controlled. She would like to go home. She is advised to follow-up with Dr. Guadarrama. She is given prescription for Percocet and Zofran. Advised return to ED for worsening complaints. Disposition: Discharge home Impression: Urolithiasis This note was generated with [employer] dictation software. It may contain incorrect words, spelling, and punctuation that were not noted in review of the chart prior to signing ED Disposition - Plan for ED Patient: Instructions: KIDNEY STONE w/ Colic Prescriptions: Oxycodone HCl/Acetaminophen [Percocet 5/325] 1 tab PO Q6H PRN PRN 3 Days #12 tab PRN Reason: Pain Prescription Printed Ondansetron [Zofran Odt] 4 mg PO Q8H PRN PRN #10 tab PRN Reason: Nausea Prescription Printed Referrals: Juanito Guadarrama MD [STAFF PHYSICIAN] - Rich Ravi MD [Primary Care Provider] -
[2019-01-26] MEDS: Morphine 4 MG/ML Syringe IV (15:24)
[2019-01-26] MEDS: Ondansetron 4 MG/2 ML Vial IV (15:24)
[2019-01-26 15:29] LABS: Bacteria 0 SEEN /hpf (None Seen); Mucous, Urine 0 SEEN /hpf (<or=2+)
[2019-01-26 15:46] LABS: Color, Urine Yellow (Yellow); Glucose, Dipstick Normal (Normal); Ketone-Dipstick Negative (Negative); Leukocyte Esterase-Dipstick 25 /ul (Negative); Nitrite-Dipstick Negative (Negative); Occult Blood-Urine 250 /ul (Negative); Protein-Dipstick 30 mg/dl (Negative); Urine Bilirubin Dipstick Negative (Negative); Urine Clarity Sl. Cloudy (Clear); Urine Urobilinogen Normal (Normal)
[2019-01-26] MEDS: HYDROmorphone 1 MG/ML Syringe IV (15:55)
[2019-01-26 16:10] LABS: Red Blood Cells-Urine > 100 SEEN /hpf (0-5); Squamous Epithelial Cells - UA 0-5 SEEN /hpf (5-10); White Blood Cells 5-10 SEEN /hpf (0-5); Yeast-Urine RARE /hpf (None Seen)
--- NOTE | 2019-01-26 16:48 | ED.DEP ---
ED Disposition - Plan for ED Patient: Instructions: KIDNEY STONE w/ Colic Prescriptions: Oxycodone HCl/Acetaminophen [Percocet 5/325] 1 tablet PO Q6H PRN PRN 3 Days #12 tablet PRN Reason: Pain Ondansetron [Zofran Odt] 4 mg PO Q8H PRN PRN #10 tablet PRN Reason: Nausea Referrals: Rich Ravi MD [Primary Care Provider] - Juanito Guadarrama MD [STAFF PHYSICIAN] -
[2019-01-26 17:02] VITALS: BP 179/112; PULSE 70; RESP 18; O2SAT 98
== END 2019-01-26 17:17 | disposition home or self-care (01) ==
LOC: ED 15:11
PROVIDERS: Emergency Provider Emergency Medicine; Family Provider Internal Medicine; PCP Internal Medicine
DX: N13.2 Hydronephrosis with renal and ureteral calculous obstruction (principal); R31.9 Hematuria, unspecified; I10 Essential (primary) hypertension; Z79.899 Other long term (current) drug therapy; Z72.0 Tobacco use; Z87.442 Personal history of urinary calculi
CPT/HCPCS: 74176; 81001; 96374; 96375; 99283; A4216; J2405

== ENCOUNTER 2019-02-21 15:49 | Emergency (ER) | payer BC, SELFPAY ==
[2019-02-21 15:50] VITALS: BP 170/95; PULSE 77; RESP 18; TEMP 36.8; O2SAT 98; BMI 34.9
--- NOTE | 2019-02-21 16:02 | CT_ITS ---
STUDY: CT ABDOMEN AND PELVIS WITHOUT CONTRAST REASON FOR EXAM: Female, 48 years old. Abdominal pain, ureteral stent placement RADIATION DOSAGE (If Supplied By Facility): CTDIvol = ( 20.51 ) mGy, DLP = ( 999.21 ) mGycm TECHNIQUE: Transaxial images were obtained from the dome of the diaphragm to the symphysis pubis without oral contrast, and without intravenous contrast. Sagittal and coronal images were reconstructed. Individualized dose optimization techniques were used for this CT. COMPARISON: 01/26/2019 FINDINGS: The visualized lung bases are unremarkable. The visualized portions of the heart are within normal limits. Normal liver. Normal gallbladder and extrahepatic biliary system. Normal spleen. Normal pancreas. Normal bilateral adrenal glands. Normal right kidney. Interval placement of left ureteral stent. No ureteral stone. Mild hydronephrosis. Normal visualized stomach. Normal small intestine. There are multiple colonic diverticula consistent with diverticulosis. There are surgical clips in the region of the appendix consistent with a prior appendectomy. Normal abdominal aorta. Normal inferior vena cava. Normal retroperitoneum. Normal urinary bladder. Normal abdominal wall. Normal osseous structures. CT/Abdomen/Pelvis without Cont IMPRESSION: Interval placement of left ureteral stent with no ureteral stone and mild hydronephrosis. Electronically Signed: Marcos Parikh MD at 16:36 EDT Tel , Service support ,
--- NOTE | 2019-02-21 16:02 | ED.DCSUM_ITS ---
History of Present Illness Chief Complaint: Flank Pain Detail of Chief Complaint: Left flank pain Informant: Patient Onset: Today Current Severity: Moderate Maximum Severity: Moderate Narrative: Patient presents with recurrent left flank pain. She was seen here January 26 and found to have a 5 mm left UPJ stone. She states the kidney stone was removed and she had a stent placed on January 29 at [facility], due to local urology not being available. Patient states her pain had been quite manageable until this morning when it worsened. She denies increased blood noted in her urine as well. Patient has an allergy to Toradol and NSAIDs. She took Tylenol around 9 AM this morning. Past Medical History - Allergies and Home Meds Allergies/Adverse Reactions: Allergies ketorolac [From Toradol] Allergy (Verified 02/21/19 15:50) Swelling NSAIDS (Non-Steroidal Anti-Inflamma Allergy (Verified 02/21/19 15:50) Swelling prochlorperazine edisylate [From Compazine] Adverse Reaction (Verified 02/21/19 15:50) Other prochlorperazine maleate [From Compazine] Adverse Reaction (Verified 02/21/19 15:50) Other Primary Care Physician: Rich Ravi MD [Primary Care Provider] - Prior records reviewed: Yes Past Medical History: - - Reviewed Smoking Status: Light Smoker (<10/day) Review of Systems General: Denies: Chills, Fever Eyes: Denies: Visual changes - bilaterally ENT: Denies: Bilateral ear pain Cardiovascular: Denies: Chest pain Respiratory: Denies: Dyspnea Gastrointestinal: Reports: Abdominal pain - Left flank, Nausea, Vomiting Genitourinary: Reports: Hematuria Musculoskeletal: Reports: Back pain - Left flank Skin: Denies: Rash Neurological: Denies: Headache Psych: Denies: Depression Endocrine: Denies: Polyuria Hematologic: Denies: Easy bruising Allergy: Denies: Uticaria Physical Exam Vital Signs/Narrative: Vital Signs Temp Pulse Resp BP Pulse Ox 02/21/19 15:50 98.2 F 77 18 170/95 H 98 Inital Vital Signs reviewed: Yes General: Well nourished, Well developed Head: Normocephalic Eyes: EOMI ENT: Moist mucous membranes Neck: Supple Cardiovascular: Regular rate, Regular rhythm Respiratory: No distress, CTA bilaterally Abdomen: Soft, Nontender Back: CVA tenderness - Left Extremities: Nontender Skin: Normal color, No rash Neurological: Alert, Oriented x3 Psychological: Normal affect Diagnostic/Tx/Re-eval Impressions Abdomen/Pelvis CT 02/21/19 16:02 IMPRESSION: Interval placement of left ureteral stent with no ureteral stone and mild hydronephrosis. Electronically Signed: Marcos Parikh MD at 16:36 EDT Tel , Service support , 02/21/19 16:02 Abdomen/Pelvis without Cont [CT] Stat Laboratory Results 02/21/19 02/21/19 02/21/19 15:58 16:05 16:05 WBC 9.2 RBC 4.26 Hgb 12.1 Hct 37.1 MCV 87.1 MCH 28.4 MCHC 32.6 RDW Std Deviation 44.2 H RDW Coeff of Jennifer 13.9 Plt Count 342 MPV 9.1 Immature Gran % (Auto) 0.500 Neut % (Auto) 63.3 Lymph % (Auto) 27.0 [place] % (Auto) 5.5 Eos % (Auto) 2.8 Baso % (Auto) 0.9 Absolute Neuts (auto) 5.8 Absolute Lymphs (auto) 2.48 Nucleated RBC % 0 Sodium 142 Potassium 3.5 Chloride 110 H Carbon Dioxide 25.0 Anion Gap 7 BUN 14 Creatinine 1.15 H Estim Creat Clear Calc 48.95 Est GFR (MDRD) Af Amer 64 Est GFR (MDRD) Non-Af 53 L BUN/Creatinine Ratio 12.2 Glucose 85 Calcium 8.6 Urine Color Red Urine Clarity Turbid Urine pH 5.0 Ur Specific [place] 1.020 Urine Protein 500 H Urine Glucose (UA) Normal Urine Ketones 5 H Urine Occult Blood 250 H Urine Nitrite Negative Urine Bilirubin Negative Urine Urobilinogen Normal Ur Leukocyte Esterase 500 H Urine RBC > 100 SEEN Urine WBC >100 SEEN Ur Squamous Epith Cells 10-25 SEEN Urine Bacteria 0 SEEN Urine Mucus 0 SEEN - Medical Decision Making Patient pulled I advised her that the CT scan shows the left ureteral stent to be in good position. My suspicion is she is having increased spasm causing her increased pain today. Urine does not show any bacteria will be sent for culture. She is to follow-up in 3 days with her urologist. She will be given a prescription for Percocet and Phenergan to help her through the weekend. ED Disposition - Plan for ED Patient: Disposition: Home or Assisted Living Diagnosis: Left flank pain Instructions: FLANK PAIN, Uncertain Cause Prescriptions: Oxycodone HCl/Acetaminophen [Percocet 5/325] 1 tablet PO Q6H PRN PRN 3 Days #12 tablet PRN Reason: Pain proMETHazine tablet [Phenergan] 25 mg PO Q6H PRN PRN #10 tablet PRN Reason: Nausea Referrals: Rich Ravi MD [Primary Care Provider] - Additional Instructions: Follow-up with your urologist on Sunday as scheduled.
[2019-02-21 16:10] LABS: Absolute Lymphocyte Count 2.48 X10^3/uL (0.83-4.51); Absolute Neutrophil Count 5.8 X10^3/uL (2.0-7.7); Basophil# 0.08 X10^3/uL; Basophil% 0.9 % (0-1); Eosinophil# 0.26 X10^3/uL; Eosinophils% 2.8 % (0-5); Hematocrit 37.1 % (37-47); Hemoglobin 12.1 g/dL (12.0-15.0); Lymphocyte # 2.48 X10^3/ul (4.0); Mean Corp Hgb Conc 32.6 g/dL (32-36); Mean Corpuscular Hgb 28.4 pg (27.0-32.0); Mean Corpuscular Volume 87.1 fL (81-99); Mean Platelet Vol. 9.1 fl (6.2-12.0); Monocyte% 5.5 % (0-10); NRBC Flagged by Analyzer 0 % (0-5); Neutrophil % 63.3 % (47-70); Platelet Count 342 K/mm3 (150-450); RBC Distribution Width CV 13.9 % (11.6-14.6); RBC Distribution Width SD 44.2 fl (35.1-43.9); Red Blood Count 4.26 M/mm3 (4.2-5.4); White Blood Count 9.2 K/mm3 (4.4-11.0)
[2019-02-21] MEDS: HYDROmorphone 0.5 MG/0.5 ML SYRINGE IV ×2 (16:13→16:53)
[2019-02-21] MEDS: 0.9% Normal Saline 1,000 ML 150 ML IV (16:13)
[2019-02-21] MEDS: Ondansetron 4 MG/2 ML Vial IV (16:13)
[2019-02-21 16:22] LABS: Anion Gap 7 (5-15); BUN 14 mg/dL (7-18); BUN/Creat Ratio 12.2 RATIO (10-20); Calcium,Total 8.6 mg/dL (8.5-10.1); Chloride 110 mmol/L (98-107); Creatinine, Serum 1.15 mg/dL (0.55-1.02); EST Glomerular Filtration Rate 53 mL/min (>60); Est Glom Filt Rate - Afr Amer 64 mL/min (>60); Estimated Creatinine Clearance 48.95 ml/min; Glucose 85 mg/dL (74-106); Potassium 3.5 mmol/L (3.5-5.1); Sodium Level 142 mmol/L (136-145)
[2019-02-21 16:24] LABS: Bacteria 0 SEEN /hpf (None Seen); Mucous, Urine 0 SEEN /hpf (<or=2+)
[2019-02-21 16:25] LABS: Color, Urine Red (Yellow); Glucose, Dipstick Normal (Normal); Ketone-Dipstick 5 mg/dl (Negative); Leukocyte Esterase-Dipstick 500 /ul (Negative); Nitrite-Dipstick Negative (Negative); Occult Blood-Urine 250 /ul (Negative); Protein-Dipstick 500 mg/dl (Negative); Urine Bilirubin Dipstick Negative (Negative); Urine Clarity Turbid (Clear); Urine Urobilinogen Normal (Normal)
[2019-02-21 17:10] LABS: White Blood Cells >100 SEEN /hpf (0-5)
[2019-02-21 17:11] LABS: Squamous Epithelial Cells - UA 10-25 SEEN /hpf (5-10)
[2019-02-21 17:12] LABS: Red Blood Cells-Urine > 100 SEEN /hpf (0-5)
[2019-02-21 18:10] VITALS: BP 165/114; PULSE 69; RESP 17; O2SAT 100
--- NOTE | 2019-02-21 18:11 | ED.RN ---
IV DC'ED, CATHETER INTACT, SMALL GAUZE DRESSING PLACED. DISCHARGE INSTRUCTIONS GIVEN TO AND REVIEWED WITH PATIENT, PATIENT DENIES QUESTIONS OR CONCERNS AND VOICES UNDERSTANDING OF DISCHARGE INSTRUCTIONS. PT AMBULATES OUT OF ROOM WITHOUT DIFFICULTY.
== END 2019-02-21 18:11 | disposition home or self-care (01) ==
PROVIDERS: Emergency Provider Emergency Medicine; Family Provider Internal Medicine; PCP Internal Medicine
DX: R10.9 Unspecified abdominal pain (principal); R31.9 Hematuria, unspecified; F17.200 Nicotine dependence, unspecified, uncomplicated; Z79.899 Other long term (current) drug therapy; Z88.6 Allergy status to analgesic agent; Z88.8 Allergy status to other drugs, medicaments and biological substances; Z87.442 Personal history of urinary calculi
CPT/HCPCS: 74176; 80048; 81001; 85025; 87086; 87088; 96361; 96374; 96375; 99283; J7030; A4216; J2405

== ENCOUNTER 2019-03-20 15:01 | Emergency (ER) | payer BC, SELFPAY ==
[2019-03-20 15:02] VITALS: BP 139/90; PULSE 62; RESP 16; TEMP 37.1; O2SAT 100; BMI 34.2
[2019-03-20 15:26] VITALS: BP 130/90; PULSE 62; RESP 16; TEMP 37.1; O2SAT 100
--- NOTE | 2019-03-20 15:32 | ED.VISSUMM ---
- ER Visit Summary Date of Service: 03/20/19 Chief Complaint: Left flank pain History of Present Illness: The patient is a 48 F who presents with left flank pain that began today. Patient describes it as sharp and squeezing. Patient states the pain is localized to left flank. Patient states nothing makes it better or worse. Patient states she had a left ureteral calculus removed in January and had a stent placement at that time. Patient states the stent has been removed. Patient denies any fevers or chills. Patient admits to some nausea and vomiting. Patient denies any chest pain or shortness of breath. Patient denies any dysuria or hematuria Physical Examination: Vital signs are stable. Patient is afebrile. Patient is in no acute distress. Oral mucosa is pink and moist. Neck is supple. Trachea is midline. There is no JVD. Heart was regular rate and rhythm. Lungs are clear and equal bilateral. Abdomen is soft. Bowel sounds are normal. There is some mild left CVA tenderness. There is no rebound or guarding noted. Cranial nerves II through XII are intact. There are no focal motor or sensory deficits noted. Test Results: CBC was normal. Basic metabolic profile showed a potassium of 2.5. Urinalysis shows leukocyte esterase of 25 but there were 25-50 white blood cells with 0-5 white blood cell casts and 50-100 hyaline casts. Urine culture was obtained. Emergency Department Course and Treatment: Patient was given IV fluids, morphine, and Zofran here. She was given a repeat dose of morphine. Patient was given oral and IV potassium here. She did not does not want to wait for the potassium to run in. Patient wants to go home. 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 Patient states she has a urologist in [place]. Patient was instructed to follow-up with her urologist in 2 to 3 days. Patient understood and was agreeable with the plan. All questions were answered. Disposition: Discharge home Impression: Pyelonephritis This note was generated with [employer] dictation software. It may contain incorrect words, spelling, and punctuation that were not noted in review of the chart prior to signing ED Disposition - Plan for ED Patient: Disposition: Home or Assisted Living Diagnosis: Pyelonephritis Instructions: PYELONEPHRITIS, Female (Adult) Prescriptions: Smz/Tmp Ds [Bactrim Ds] 1 tab PO BID #20 tab Prescription Printed Referrals: Rich Ravi MD [Primary Care Provider] - 5-7 Days Additional Instructions: Take antibiotics as prescribed until gone. Follow-up with your urologist in 2 to 3 days.
[2019-03-20] MEDS: Ondansetron 4 MG/2 ML Vial IV (15:37)
[2019-03-20] MEDS: Morphine 4 MG/ML Syringe IV ×2 (15:37→16:37)
[2019-03-20] MEDS: 0.9% Normal Saline 1,000 ML 250 ML IV (15:40)
[2019-03-20 15:41] LABS: Mucous, Urine 0 SEEN /hpf (<or=2+); Red Blood Cells-Urine 0 SEEN /hpf (0-5)
[2019-03-20 15:47] LABS: Absolute Lymphocyte Count 2.03 X10^3/uL (0.83-4.51); Absolute Neutrophil Count 3.4 X10^3/uL (2.0-7.7); Basophil# 0.08 X10^3/uL; Basophil% 1.3 % (0-1); Eosinophil# 0.19 X10^3/uL; Eosinophils% 3.1 % (0-5); Hematocrit 38.4 % (37-47); Hemoglobin 12.8 g/dL (12.0-15.0); Lymphocyte # 2.03 X10^3/ul (4.0); Lymphocyte % 33.6 % (19-41); Mean Corp Hgb Conc 33.3 g/dL (32-36); Mean Corpuscular Hgb 28.8 pg (27.0-32.0); Mean Corpuscular Volume 86.5 fL (81-99); Monocyte# 0.34 X10^3/uL; Monocyte% 5.6 % (0-10); NRBC Flagged by Analyzer 0 % (0-5); Neutrophil # 3.38 X10^3/uL (2.7-7.7); Neutrophil % 55.9 % (47-70); Platelet Count 322 K/mm3 (150-450); RBC Distribution Width CV 13.5 % (11.6-14.6); RBC Distribution Width SD 42.6 fl (35.1-43.9); Red Blood Count 4.44 M/mm3 (4.2-5.4); White Blood Count 6.1 K/mm3 (4.4-11.0)
[2019-03-20 15:48] LABS: Color, Urine Yellow (Yellow); Glucose, Dipstick Normal (Normal); Ketone-Dipstick 5 mg/dl (Negative); Leukocyte Esterase-Dipstick 25 /ul (Negative); Nitrite-Dipstick Negative (Negative); Occult Blood-Urine 10 /ul (Negative); Protein-Dipstick 30 mg/dl (Negative); Urine Clarity Cloudy (Clear); Urine Urobilinogen 1 mg/dl (Normal)
[2019-03-20 15:53] LABS: Urine Bilirubin Dipstick 1 mg/dL (Negative)
[2019-03-20 16:09] LABS: Waxy Cast-Urine 0 SEEN /lpf (None Seen)
[2019-03-20 16:11] LABS: White Blood Cells 25-50 SEEN /hpf (0-5)
[2019-03-20 16:17] LABS: Squamous Epithelial Cells - UA 5-10 SEEN /hpf (5-10)
[2019-03-20 16:19] LABS: Hyaline Cast 50-100 SEEN /lpf (0-5)
[2019-03-20 16:20] LABS: Bacteria RARE /hpf (None Seen)
[2019-03-20 16:21] LABS: White Cell Cast 0-5 SEEN /lpf (None Seen)
[2019-03-20 16:30] LABS: Anion Gap 9 (5-15); BUN 13 mg/dL (7-18); BUN/Creat Ratio 12.3 RATIO (10-20); Calcium,Total 8.9 mg/dL (8.5-10.1); Chloride 108 mmol/L (98-107); Creatinine, Serum 1.06 mg/dL (0.55-1.02); EST Glomerular Filtration Rate 59 mL/min (>60); Est Glom Filt Rate - Afr Amer 71 mL/min (>60); Estimated Creatinine Clearance 53.11 ml/min; Glucose 107 mg/dL (74-106); Potassium 2.5 mmol/L (3.5-5.1); Sodium Level 141 mmol/L (136-145)
[2019-03-20] MEDS: Potassium Chloride 10mEq/100mL 10 MEQ/100 ML IV.SOLN. 100 MEQ IV BOLUS (17:00)
--- NOTE | 2019-03-20 17:04 | ED.RN ---
RN INTO ROOM TO GIVE PT MEDICATION. RN INFORMED PT SHE CAN'T HAVE ANYMORE PAIN MEDICATION D/T 2 DOSES OF MORPHINE AND ALLERGY TO NSAIDS. SHE WAS AGREEABLE. SHE INFORMED RN THAT SHE MUST LEAVE D/T NEEDING TO BE SOMEWHERE. RN EXPLAINED THE IMPORTANCE OF FINISHING THE POTASSIUM. PT STATES SHE UNDERSTANDS BUT STILL WANTS TO LEAVE. DR ESCUDERO INTO ROOM AT THIS TIME TO EXPLAIN THE RISK OF LEAVING AMA. RN TO D/C IV.
== END 2019-03-20 17:23 | disposition home or self-care (01) ==
PROVIDERS: Emergency Provider Emergency Medicine; Family Provider Internal Medicine; PCP Internal Medicine
DX: N12 Tubulo-interstitial nephritis, not specified as acute or chronic (principal); R11.2 Nausea with vomiting, unspecified; I10 Essential (primary) hypertension; Z72.0 Tobacco use; Z87.442 Personal history of urinary calculi
CPT/HCPCS: 80048; 81001; 85025; 96361; 96374; 96375; 96376; 99285; J7030; J2405

== ENCOUNTER 2019-05-02 19:54 | Emergency (ER) | payer BC, SELFPAY ==
[2019-05-02 19:55] VITALS: BP 146/97; PULSE 88; RESP 18; TEMP 36.4; O2SAT 97; BMI 35.3
--- NOTE | 2019-05-02 20:00 | RAD_ITS ---
STUDY: X-RAY - LEFT WRIST REASON FOR EXAM: Female, 48 years old. Fall. TECHNIQUE: 3 view(s) of the wrist were obtained. COMPARISON: July 28, 2018 FINDINGS: There is a bony deformity of the distal radius consistent with a prior fracture. Normal visualized distal ulna. There is degenerative arthrosis of the radiocarpal articulation. Normal distal radioulnar articulation. Normal carpal bones. Normal carpal articulations. Normal carpometacarpal articulation of the thumb. Normal second through fifth carpometacarpal articulations. Normal visualized metacarpal bones. The soft tissue structures are unremarkable. RAD/Wrist min 3 Views IMPRESSION: No acute osseous injury. Distal radial deformity consistent with an old fracture. Electronically Signed: Germaine Mccarthy MD at 20:13 EDT Tel , Service support ,
--- NOTE | 2019-05-02 22:22 | ED.VIS.GEN ---
History of Present Illness Chief Complaint: Upper Extremity Injury Detail of Chief Complaint: Left wrist injury Informant: Patient Onset: Today Current Severity: Moderate Maximum Severity: Moderate Narrative: Patient presents with left wrist injury. She was carrying a close basket down her basement steps when her dog under her feet and she fell down the last few steps. She put her left hand up to catch herself. She is complaining of pain at the left wrist, worse along the ulnar side. She has had a prior left wrist fracture. She denies pain at the elbow or shoulder. She denies any other injury from her fall. Past Medical History - Allergies and Home Meds Allergies/Adverse Reactions: Allergies ketorolac [From Toradol] Allergy (Verified 05/02/19 19:55) Swelling NSAIDS (Non-Steroidal Anti-Inflamma Allergy (Verified 05/02/19 19:55) Swelling prochlorperazine edisylate [From Compazine] Adverse Reaction (Verified 05/02/19 19:55) Other prochlorperazine maleate [From Compazine] Adverse Reaction (Verified 05/02/19 19:55) Other Primary Care Physician: Jacinto Aranda DO [STAFF PHYSICIAN] - 10-14 Days if not better Prior records reviewed: Yes Past Medical History: - - Reviewed Smoking Status: Current every day smoker Review of Systems General: Denies: Chills, Fever Eyes: Denies: Visual changes - bilaterally ENT: Denies: Bilateral ear pain Cardiovascular: Denies: Chest pain Respiratory: Denies: Dyspnea Gastrointestinal: Denies: Abdominal pain Musculoskeletal: Reports: Arthralgias, Extremity Pain. Denies: Neck pain, Back pain Skin: Denies: Rash Neurological: Denies: Headache Hematologic: Denies: Easy bruising Physical Exam Vital Signs/Narrative: Vital Signs Temp Pulse Resp BP Pulse Ox 05/02/19 19:55 97.6 F L 88 18 146/97 H 97 Inital Vital Signs reviewed: Yes General: Well nourished, Well developed Head: Normocephalic ENT: Moist mucous membranes Neck: Supple, Nontender Cardiovascular: Regular rate, Regular rhythm Respiratory: No distress, CTA bilaterally Abdomen: Soft, Nontender Extremities: - - Tenderness palpation on the left wrist, both radial and ulnar sides. No deformity noted. Patient is able to wiggle fingers, has good sensation, normal cap refill. No tenderness noted at the elbow or shoulder. Skin: Normal color Neurological: Alert, Oriented x3 Psychological: Normal affect Diagnostic/Tx/Re-eval Impressions Wrist X-Ray 05/02/19 20:00 IMPRESSION: No acute osseous injury. Distal radial deformity consistent with an old fracture. Electronically Signed: Germaine Mccarthy MD at 20:13 EDT Tel , Service support , 05/02/19 20:00 Xray Wrist [Wrist min 3 Views] [RAD] Stat - Medical Decision Making Patient has an allergy noted to NSAIDs. She is given 1 tab of [place] here but will take only Tylenol at home for pain. She was given a Velcro wrist splint. She will follow-up with Dr. Aranda if not improving as she has seen him in the past. ED Disposition - Plan for ED Patient: Disposition: Home or Assisted Living Diagnosis: Left wrist sprain Instructions: Wrist Sprain Referrals: Jacinto Aranda DO [STAFF PHYSICIAN] - 10-14 Days if not better
[2019-05-02] MEDS: HYDROcodone Bitartrate/Apap 5/325 Tablet PO (22:29)
[2019-05-02 22:30] VITALS: BP 135/87; PULSE 75; RESP 18; O2SAT 97
== END 2019-05-02 22:33 | disposition home or self-care (01) ==
PROVIDERS: Emergency Provider Emergency Medicine; Family Provider Internal Medicine; PCP Internal Medicine
DX: S63.502A Unspecified sprain of left wrist, initial encounter (principal); W10.9XXA Fall (on) (from) unspecified stairs and steps, initial encounter; Y93.9 Activity, unspecified; Y92.008 Other place in unspecified non-institutional (private) residence as the place of occurrence of the external cause; Y99.9 Unspecified external cause status; F17.200 Nicotine dependence, unspecified, uncomplicated; Z79.899 Other long term (current) drug therapy; Z88.8 Allergy status to other drugs, medicaments and biological substances; Z88.6 Allergy status to analgesic agent
CPT/HCPCS: 73110; 99283

== ENCOUNTER 2019-07-18 11:05 | Emergency (ER) | payer SELFPAY ==
[2019-07-18 11:06] VITALS: BP 184/86; PULSE 89; RESP 16; TEMP 36.7; O2SAT 100; BMI 34.9
--- NOTE | 2019-07-18 11:45 | CT_ITS ---
STUDY: CT ABDOMEN AND PELVIS WITHOUT CONTRAST REASON FOR EXAM: Female, 48 years old. LEFT FLANK PAIN. HISTORY OF KIDNEY STONE WITH STENTS. GA/BSO AND APPENDECTOMY RADIATION DOSAGE (If Supplied By Facility): CTDIvol = ( 14.80 ) mGy, DLP = ( 714.94 ) mGycm TECHNIQUE: Transaxial images were obtained from the dome of the diaphragm to the symphysis pubis without oral contrast, and without intravenous contrast. Sagittal and coronal images were reconstructed. Individualized dose optimization techniques were used for this CT. COMPARISON: Comparison is made with prior examination dated February 21, 2019. FINDINGS: The visualized lung bases are unremarkable. The visualized portions of the heart are within normal limits. Normal liver. Normal gallbladder and extrahepatic biliary system. Normal spleen. Normal pancreas. Normal bilateral adrenal glands. Punctate calcification in the lower pole calyx of the right kidney. Punctate calcification in the upper pole calyx of the left kidney. Punctate calcification in the mid posterior portion of the left kidney. Normal visualized stomach. Normal small intestine. There are multiple colonic diverticula consistent with diverticulosis. There are surgical clips in the region of the appendix consistent with a prior appendectomy. Normal abdominal aorta. Normal inferior vena cava. There is borderline retroperitoneal lymphadenopathy with enlarged nodes no greater than 10mm in the short axis diameter. Normal urinary bladder. There is absence of the uterus consistent with a prior hysterectomy. Normal abdominal wall. Normal osseous structures. CT/Abdomen/Pelvis without Cont IMPRESSION: Tiny nonobstructive bilateral intrarenal calculi. Electronically Signed: Lloyd Narvaez, at 12:36 EST , Service support ,
--- NOTE | 2019-07-18 11:48 | ED.DCSUM_ITS ---
- ER Visit Summary Date of Service: 07/18/19 Chief Complaint: Left flank pain with a history of multiple prior kidney stones History of Present Illness: The patient is a 48 F. Prior kidney stones. Prior stent. Also history of hypertension high cholesterol. Prior appendectomy and hysterectomy. Patient states last night around 9 PM getting left flank pain. Worse today. Associated nausea but no vomiting or diarrhea. No dysuria or gross hematuria. Feels like her prior kidney stones. Physical Examination: Vital signs stable afebrile. Patient's back over the bed holding her left flank. Complaining of pain. H EENT exam unremarkable. Neck nontender. Lungs clear to auscultation bilaterally. Heart regular rhythm no murmur. Abdomen soft nontender normal bowel sounds no peritoneal signs. Remedies moves all 4. Neurovascularly intact. Calves are nontender without edema or cords. Back is nontender. No CVA tenderness. Neurologically she is awake and alert no focal motor deficits. Test Results: CT flank study without contrast shows no acute abnormality. There is stones in both kidneys but no acute ureteral stones. No signs of obstruction. Urinalysis shows no acute abnormality. 5-10 epithelial cells 2+ bacteria no blood on the micro. No nitrites. Emergency Department Course and Treatment: Patient treated with IV fluids, IV Zofran and IV Dilaudid. She has a Toradol allergy. Repeat exam patient complained of continued pain so was given a second dose of Dilaudid. However CAT scan and lab did not show any acute kidney stones. On repeat exam at 1507 she is doing well and discharged to home. Treatment Plan: Flank pain uncertain etiology. Treated with Tylenol. Follow-up with her doctor. Disposition: Discharge Impression: Acute left flank pain secondary to uncertain etiology History of kidney stones. This note was generated with [email or web address] dictation software. It may contain incorrect words, spelling, and punctuation that were not noted in review of the chart prior to signing ED Disposition - Plan for ED Patient: Referrals: Rich Ravi MD [Primary Care Provider] -
[2019-07-18 11:51] LABS: Red Blood Cells-Urine 0 SEEN /hpf (0-5)
[2019-07-18] MEDS: 0.9% Normal Saline 1,000 ML 999 ML IV (11:51)
[2019-07-18] MEDS: Ondansetron 4 MG/2 ML Vial IV (11:52)
[2019-07-18] MEDS: HYDROmorphone 1 MG/ML Syringe IV ×2 (11:52→12:34)
[2019-07-18 11:54] LABS: Color, Urine Yellow (Yellow); Glucose, Dipstick Normal (Normal); Ketone-Dipstick Negative (Negative); Leukocyte Esterase-Dipstick Negative /ul (Negative); Nitrite-Dipstick Negative (Negative); Occult Blood-Urine 25 /ul (Negative); Protein-Dipstick 15 mg/dl (Negative); Urine Bilirubin Dipstick Negative (Negative); Urine Clarity Clear (Clear); Urine Urobilinogen Normal (Normal)
[2019-07-18 12:18] LABS: White Blood Cells 0-5 SEEN /hpf (0-5)
[2019-07-18 12:19] LABS: Bacteria 2+ /hpf (None Seen); Mucous, Urine 1+ /hpf (<or=2+); Squamous Epithelial Cells - UA 5-10 SEEN /hpf (5-10)
--- NOTE | 2019-07-18 12:30 | ED.RN ---
PT STATES THAT MEDICATION WAS NOT EFFECTIVE FOR PAIN CONTROL, DR. MCKEON MADE AWARE, ADDITIONAL ORDERS OBTAINED.
--- NOTE | 2019-07-18 14:15 | ED.RN ---
PT COMPLAINS OF CONTINUED PAIN, DR. MCKEON MADE AWARE, NO FURTHER ORDERS OBTAINED.
--- NOTE | 2019-07-18 15:09 | ED.DEP ---
ED Disposition - Plan for ED Patient: Disposition: Home or Assisted Living Instructions: FLANK PAIN, Uncertain Cause Referrals: Rich Ravi MD [Primary Care Provider] - 3-5 Days if not improving Additional Instructions: We do not have a specific cause for your pain. You may have had a stone in the past. There are no acute stones in your ureters causing the pain. There is no signs of a urinary tract infection. Follow-up with your doctor if not improving.
[2019-07-18 15:20] VITALS: BP 146/99; PULSE 74; RESP 16; O2SAT 100
== END 2019-07-18 15:21 | disposition home or self-care (01) ==
PROVIDERS: Emergency Provider Emergency Medicine; Family Provider Internal Medicine; PCP Internal Medicine
DX: R10.9 Unspecified abdominal pain (principal); I10 Essential (primary) hypertension; E78.00 Pure hypercholesterolemia, unspecified; Z87.442 Personal history of urinary calculi; Z72.0 Tobacco use
CPT/HCPCS: 74176; 81001; 96361; 96374; 96375; 96376; 99283; J7030; A4216; J2405

== ENCOUNTER 2019-09-11 21:26 | Emergency (ER) | payer SELFPAY ==
[2019-09-11 21:27] VITALS: BP 165/107; PULSE 91; RESP 16; TEMP 36.2; O2SAT 100; BMI 34.9
--- NOTE | 2019-09-11 21:53 | ED.DCSUM_ITS ---
History of Present Illness Chief Complaint: Flank Pain Informant: Patient - Abdominal Pain/Flank Pain Onset: Today Context: Sudden Onset Timing: Continuous, Waxes and wanes Quality: Aching Location: Left Flank Current Severity: Severe Maximum Severity: Severe Worsened by: Nothing Relieved by: Nothing - Nausea/Vomiting/Emesis GI Symptom: Nausea. Negative for: Vomiting - Diarrhea/Melena/Hematochezia GI Symptom: Negative for: Diarrhea, Melena, Hematochezia Associated Symptoms: Negative for: Dysuria, Frequency, Hematuria, Urgency Narrative: Acute onset of pain earlier today, feels similar to prior kidney stone pain. She has had procedures to remove them in the past. Pain wraps around from her left low back to her left groin/lower quadrant. Prior similar symptoms: Yes - Kidney stones Recent Illness/Hospitalization: No - Past Medical History (1) Kidney stones Status: Chronic Past Medical History - Allergies and Home Meds Allergies/Adverse Reactions: Allergies ketorolac [From Toradol] Allergy (Verified 09/11/19 21:30) Swelling NSAIDS (Non-Steroidal Anti-Inflamma Allergy (Verified 09/11/19 21:30) Swelling prochlorperazine edisylate [From Compazine] Adverse Reaction (Verified 09/11/19 21:30) Other prochlorperazine maleate [From Compazine] Adverse Reaction (Verified 09/11/19 21:30) Other Primary Care Physician: Rich Ravi MD [Primary Care Provider] - Surgical History: appendectomy, hysterectomy Smoking Status: Current every day smoker Review of Systems General: Denies: Chills, Fever, Sweats Eyes: Denies: Visual changes - bilaterally, Diplopia ENT: Denies: Rhinorrhea, Sore throat Cardiovascular: Denies: Chest pain, Palpitations Respiratory: Denies: Dyspnea, Cough, Dyspnea on exertion Gastrointestinal: Reports: Abdominal pain, Nausea. Denies: Vomiting, Diarrhea, Melena, Hematochezia Genitourinary: Denies: Dysuria, Hematuria, Frequency Musculoskeletal: Reports: Back pain. Denies: Extremity Pain Skin: Denies: Rash, Wounds Neurological: Denies: Headache, Weakness, Numbness Physical Exam Vital Signs/Narrative: Vital Signs Temp Pulse Resp BP Pulse Ox 09/11/19 21:27 97.1 F L 91 16 165/107 H 100 Inital Vital Signs reviewed: Yes General: Well nourished, Well developed, Obese, Acute Distress - mild, painful Head: Normocephalic, Atraumatic Eyes: Perr[place], EOMI ENT: Moist mucous membranes, No rhinorrhea Neck: Supple, Nontender Cardiovascular: Regular rate, Regular rhythm, No murmurs Respiratory: No distress, CTA bilaterally, Chest nontender Abdomen: Soft, Nontender, Nondistended, Normal bowel sounds Back: Normal Inspection, CVA tenderness - left only. normal inspection. Extremities: Nontender, No edema Skin: Normal color, No rash, No Trauma Neurological: Alert, Oriented x3, Cranial nerves II-XII grossly intact, Normal Strength, Normal Sensation, Normal Gait Psychological: Normal affect, Normal Mood Diagnostic/Tx/Re-eval Laboratory Tests 09/11/19 Range/Units 22:15 Urine Color Yellow (Yellow) Urine Clarity Clear (Clear) Urine pH 5.0 (5.0 - 8.0) Ur Specific [place] 1.025 (1.002-1.030) Urine Protein 15 H (Negative) mg/dl Urine Glucose (UA) Normal (Normal) mg/dl Urine Ketones Negative (Negative) mg/dl Urine Occult Blood 25 H (Negative) /ul Urine Nitrite Negative (Negative) Urine Bilirubin Negative (Negative) mg/dL Urine Urobilinogen Normal (Normal) mg/dl Ur Leukocyte Esterase Negative (Negative) /ul Urine RBC 0-5 SEEN (0-5) /hpf Urine WBC 0-5 SEEN (0-5) /hpf Ur Squamous Epith Cells 5-10 SEEN (5-10) /hpf Urine Bacteria 1+ (None Seen) /hpf Urine Mucus 2+ (<or=2+) /hpf - Medical Decision Making On reviewing the patient's recent records here, she had a CT scan 1.5 months ago, it showed bilateral tiny nonobstructing nephroliths. She is likely having pain from 1 of those coming down and obstructing, but since they were tiny, there is no need for a repeat scan at this time. Urinalysis is positive for trace blood, negative for infection. Her symptoms are consistent with a kidney stone, and with her CT recently, as above, I do not feel she needs repeat emergent imaging. Her symptoms improved with morphine. She states she has allergic reaction to all NSAIDs including Toradol, because of swelling everywhere which is suspicious for anaphylactoid reaction or anaphylaxis. Symptom control and expectant management is indicated, she was given strainers to use at home. ED Disposition - Plan for ED Patient: Disposition: Home or Assisted Living Diagnosis: Renal colic on left side, Urolithiasis Instructions: KIDNEY STONE w/ Colic Prescriptions: Hydrocodone Bitart/Apap 5-325 [[place] 5MG-325MG] 1 tab PO Q4H PRN PRN 2 Days #10 tab PRN Reason: Pain Prescription Printed Referrals: Mireille De Los Santos MD [STAFF PHYSICIAN] - 1 Week if not improving
[2019-09-11 22:25] LABS: Color, Urine Yellow (Yellow); Glucose, Dipstick Normal (Normal); Ketone-Dipstick Negative (Negative); Leukocyte Esterase-Dipstick Negative /ul (Negative); Nitrite-Dipstick Negative (Negative); Occult Blood-Urine 25 /ul (Negative); Protein-Dipstick 15 mg/dl (Negative); Specific Gravity, Urine 1.025 (1.002-1.030); Urine Bilirubin Dipstick Negative (Negative); Urine Clarity Clear (Clear); Urine Urobilinogen Normal (Normal)
[2019-09-11] MEDS: proMETHazine 25 MG/ML Syringe 12.5 MG IV (22:29)
[2019-09-11] MEDS: Morphine 4 MG/ML Syringe IV ×2 (22:29→23:43)
[2019-09-11 22:35] LABS: Mucous, Urine 2+ /hpf (<or=2+)
[2019-09-11 22:36] LABS: Bacteria 1+ /hpf (None Seen); Squamous Epithelial Cells - UA 5-10 SEEN /hpf (5-10)
[2019-09-11 22:37] LABS: Red Blood Cells-Urine 0-5 SEEN /hpf (0-5); White Blood Cells 0-5 SEEN /hpf (0-5)
[2019-09-11 22:50] VITALS: BP 156/1; PULSE 72; RESP 16; O2SAT 100
[2019-09-12 00:03] VITALS: BP 148/90; PULSE 75; RESP 16; O2SAT 98
--- NOTE | 2019-09-12 00:05 | ED.RN ---
pt stated prior to given her morphine that she had a ride, after two doses of morphine, she said she was walking home.states she can't reach her friend and she lives [place] the [place] from the hospital.
== END 2019-09-12 00:06 | disposition home or self-care (01) ==
PROVIDERS: Emergency Provider Emergency Medicine; PCP Internal Medicine
DX: N20.0 Calculus of kidney (principal); E66.9 Obesity, unspecified; F17.200 Nicotine dependence, unspecified, uncomplicated; Z68.34 Body mass index [BMI] 34.0-34.9, adult; Z87.442 Personal history of urinary calculi
CPT/HCPCS: 81001; 96374; 96375; 96376; 99283; A4216

== ENCOUNTER 2019-11-08 17:34 | Emergency (ER) | payer SELFPAY ==
[2019-11-08 17:36] VITALS: BP 158/93; PULSE 84; RESP 18; TEMP 36.6; O2SAT 100; BMI 33.6
--- NOTE | 2019-11-08 18:15 | ED.VIS.GI ---
History of Present Illness Chief Complaint: Flank Pain Informant: Patient - Abdominal Pain/Flank Pain Onset: Yesterday Context: Sudden Onset Timing: Continuous, Waxes and wanes Quality: Aching Location: Left Flank - w/ radiation into the left groin Current Severity: Moderate Maximum Severity: Severe Worsened by: Nothing Relieved by: Nothing - Nausea/Vomiting/Emesis GI Symptom: Nausea, Vomiting Onset: Today Severity: Mild - Diarrhea/Melena/Hematochezia GI Symptom: Negative for: Diarrhea, Melena, Hematochezia Associated Symptoms: Negative for: Dysuria, Frequency, Hematuria, Urgency Narrative: Your kidney stones, has had to have stents in the past, suspect she may have one. Some mild dysuria. No gross hematuria. No vaginal discharge or bleeding. - Past Medical History (1) Kidney stones Status: Chronic Past Medical History - Allergies and Home Meds Allergies/Adverse Reactions: Allergies ketorolac [From Toradol] Allergy (Verified 11/08/19 17:38) Swelling NSAIDS (Non-Steroidal Anti-Inflamma Allergy (Verified 11/08/19 17:38) Swelling prochlorperazine edisylate [From Compazine] Adverse Reaction (Verified 11/08/19 17:38) Other prochlorperazine maleate [From Compazine] Adverse Reaction (Verified 11/08/19 17:38) Other Primary Care Physician: Rich Ravi MD [Primary Care Provider] - Surgical History: appendectomy, hysterectomy Smoking Status: Current every day smoker Drugs: None Review of Systems General: Denies: Chills, Fever, Sweats Eyes: Denies: Visual changes - bilaterally, Diplopia ENT: Denies: Rhinorrhea, Sore throat Cardiovascular: Denies: Chest pain, Palpitations Respiratory: Denies: Dyspnea, Cough, Dyspnea on exertion Gastrointestinal: Reports: Abdominal pain, Nausea, Vomiting. Denies: Diarrhea, Melena, Hematochezia Genitourinary: Denies: Dysuria, Hematuria, Frequency Musculoskeletal: Reports: Back pain. Denies: Extremity Pain Skin: Denies: Rash, Wounds Neurological: Denies: Headache, Weakness, Numbness Physical Exam Vital Signs/Narrative: Vital Signs Temp Pulse Resp BP Pulse Ox 11/08/19 17:36 98 F 84 18 158/93 H 100 Inital Vital Signs reviewed: Yes General: Well nourished, Well developed, Obese, No Acute Distress Head: Normocephalic, Atraumatic Eyes: Perrl, EOMI ENT: Moist mucous membranes, No rhinorrhea Neck: Supple, Nontender Cardiovascular: Regular rate, Regular rhythm, No murmurs Respiratory: No distress, CTA bilaterally, Chest nontender Abdomen: Soft, Nontender, Nondistended, Normal bowel sounds Back: Nontender, Normal Inspection. Negative for: CVA tenderness Extremities: Nontender, No edema Skin: Normal color, No rash, No Trauma Neurological: Alert, Oriented x3, Cranial nerves II-XII grossly intact, Normal Strength, Normal Sensation, Normal Gait Psychological: Normal affect, Normal Mood Diagnostic/Tx/Re-eval Laboratory Tests 11/08/19 Range/Units 18:50 Urine Color Yellow (Yellow) Urine Clarity Clear (Clear) Urine pH 6.0 (5.0 - 8.0) Ur Specific [place] 1.010 (1.002-1.030) Urine Protein Negative (Negative) mg/dl Urine Glucose (UA) Normal (Normal) mg/dl Urine Ketones Negative (Negative) mg/dl Urine Occult Blood 10 H (Negative) /ul Urine Nitrite Negative (Negative) Urine Bilirubin Negative (Negative) mg/dL Urine Urobilinogen Normal (Normal) mg/dl Ur Leukocyte Esterase Negative (Negative) /ul Urine RBC 0 SEEN (0-5) /hpf Urine WBC 0 SEEN (0-5) /hpf Ur Squamous Epith Cells 0 SEEN (5-10) /hpf Urine Bacteria 0 SEEN (None Seen) /hpf Urine Mucus 0 SEEN (<or=2+) /hpf - Medical Decision Making Patient was given morphine initially, she has reported true allergy/anaphylactic response to all NSAIDs including oral ones. She is also given Zofran. She had no more vomiting, she appeared in no distress, she said her pain was good and then it started coming back. She will be given some oral analgesics prior to discharge, I suspect she does have a distal ureteral stone. I do not think she needs repeat imaging since she had a CT in July that showed bilateral small nephrolithiasis, I do not think she has anything to suggest the need for surgical removal at this time. Given a Rx for a short course of anagesics and reasons to return. ED Disposition - Plan for ED Patient: Disposition: Home or Assisted Living Diagnosis: Ureteral colic Instructions: ED Renal Stone w Colic, ED Strainer Urine Prescriptions: Hydrocodone Bitart/Apap 5-325 [[place] 5MG-325MG] 1 tablet PO Q4H PRN PRN 2 Days #10 tablet PRN Reason: Pain Transmission Status: Received by [facility] [facility] Referrals: Rich Ravi MD [Primary Care Provider] - urologist, your [Other] (1-2 weeks if pain persists)
[2019-11-08] MEDS: Morphine 4 MG/ML Syringe IM (18:45)
[2019-11-08] MEDS: Ondansetron ODT 4 MG Tablet 8 MG PO (18:45)
[2019-11-08 18:52] LABS: Bacteria 0 SEEN /hpf (None Seen); Mucous, Urine 0 SEEN /hpf (<or=2+); Red Blood Cells-Urine 0 SEEN /hpf (0-5); Squamous Epithelial Cells - UA 0 SEEN /hpf (5-10); White Blood Cells 0 SEEN /hpf (0-5)
[2019-11-08 19:07] LABS: Color, Urine Yellow (Yellow); Glucose, Dipstick Normal (Normal); Ketone-Dipstick Negative (Negative); Leukocyte Esterase-Dipstick Negative /ul (Negative); Nitrite-Dipstick Negative (Negative); Occult Blood-Urine 10 /ul (Negative); Protein-Dipstick Negative (Negative); Urine Bilirubin Dipstick Negative (Negative); Urine Clarity Clear (Clear); Urine Urobilinogen Normal (Normal)
[2019-11-08 19:31] VITALS: RESP 18
[2019-11-08] MEDS: oxyCODONE 5 MG Tablet 10 MG PO (20:10)
[2019-11-08 20:14] VITALS: RESP 18; O2SAT 97
== END 2019-11-08 20:15 | disposition home or self-care (01) ==
PROVIDERS: Emergency Provider Emergency Medicine; PCP Internal Medicine
DX: N23 Unspecified renal colic (principal); E66.9 Obesity, unspecified; Z68.33 Body mass index [BMI] 33.0-33.9, adult; F17.200 Nicotine dependence, unspecified, uncomplicated; Z87.442 Personal history of urinary calculi
CPT/HCPCS: 81001; 96374; 99283

== ENCOUNTER 2019-12-10 17:42 | Emergency (ER) | payer SELFPAY ==
[2019-12-10 17:43] VITALS: BP 157/106; PULSE 93; RESP 18; TEMP 36.4; O2SAT 96; BMI 32.0
--- NOTE | 2019-12-10 18:01 | CT_ITS ---
STUDY: CT ABDOMEN AND PELVIS WITHOUT CONTRAST REASON FOR EXAM: Female, 49 years old. LT FLANK PAIN,NAUSEA AND VOMITING X 2 DAYS RADIATION DOSAGE (If Supplied By Facility): CTDIvol = ( 15.77 ) mGy, DLP = ( 791.81 ) mGycm TECHNIQUE: Transaxial images were obtained from the dome of the diaphragm to the symphysis pubis without oral contrast, and without intravenous contrast. Sagittal and coronal images were reconstructed. Individualized dose optimization techniques were used for this CT. COMPARISON: None. FINDINGS: Less than 4 mm left lower lobe pulmonary nodule. The visualized portions of the heart are within normal limits. Normal liver. Normal gallbladder and extrahepatic biliary system. Normal spleen. Normal pancreas. Normal bilateral adrenal glands. Normal right kidney. Normal left kidney. Normal visualized stomach. Normal small intestine. There are multiple colonic diverticula consistent with diverticulosis. There are surgical clips in the region of the appendix consistent with a prior appendectomy. Normal abdominal aorta. Normal inferior vena cava. Normal retroperitoneum. Normal urinary bladder. There is absence of the uterus consistent with a prior hysterectomy. Normal abdominal wall. Normal osseous structures. CT/Abdomen/Pelvis without Cont IMPRESSION: No acute abdominopelvic process is identified. No renal stones or evidence for obstructive uropathy. Status post appendectomy. Less than 4 mm left lower lobe pulmonary nodule. Fleischner Society Recommendations for Follow-up and Management of Nodules Smaller than 8 mm Detected Incidentally at Nonscreening CT. Nodule size < or = 4 mm: Low-Risk Patient - No follow-up needed. High-Risk Patient - Follow-up CT at 12 months; if unchanged, no further follow-up. Nodule size > 4-6 mm: Low-Risk Patient - Follow-up CT at 12 months; if unchanged, no further follow-up. High-Risk Patient - Initial follow-up CT at 6-12 months then at 18-24 months if no change. Nodule size > 6-8 mm: Low-Risk Patient - Initial follow-up CT at 6-12 months then at 18-24 months if no change. High-Risk Patient - Initial follow-up CT at 3-6 months then at 9-12 and 24 months if no change. Nodule size > 8 mm: Low-Risk Patient - Follow-up CT at around 3,9 and 24 months. Dynamic contrast-enhanced CT, PET and/or biopsy. High-Risk Patient - Same as for low-risk patient. Low-Risk = Minimal or absent history of smoking and of other known risk factors. High-Risk = History of smoking or of other known risk factors. Electronically Signed: Thang Jarquin, at 18:59 EDT Tel , Service support ,
[2019-12-10] MEDS: 0.9% Normal Saline 1,000 ML 250 ML IV (18:20)
[2019-12-10 18:21] LABS: Bacteria 0 SEEN /hpf (None Seen); Mucous, Urine 0 SEEN /hpf (<or=2+); Red Blood Cells-Urine 0 SEEN /hpf (0-5); Squamous Epithelial Cells - UA 0 SEEN /hpf (5-10); White Blood Cells 0 SEEN /hpf (0-5)
[2019-12-10] MEDS: Ondansetron 4 MG/2 ML Vial IV (18:21)
[2019-12-10] MEDS: Morphine 4 MG/ML Syringe IV (18:21)
--- NOTE | 2019-12-10 18:22 | ED.DCSUM_ITS ---
- ER Visit Summary Date of Service: 12/10/19 Chief Complaint: Left flank pain History of Present Illness: The patient is a 49 F presenting with left flank pain. She states this started yesterday. States it was gradual in onset. Pain is in her left flank radiates to her left lower quadrant. She has a history of previous kidney stones requiring stenting. She denies hematuria. She denies fever. Denies other complaints. Physical Examination: Vitals are stable. Patient is afebrile. Alert no acute distress. HEENT exam is unremarkable. Neck is supple. Lungs are clear and equal bilaterally. Heart is regular rate and rhythm. Abdomen is soft nontender nondistended. No guarding or rebound Back: Left CVA tenderness Extremities are unremarkable. Skin is warm and dry. Remainder of exam is unremarkable. Emergency Department Course and Treatment: Patient was given morphine, Zofran IV. Urinalysis shows occult blood, 0 white cells, [address] abdomen pelvis shows no acute abdominopelvic process is identified. No renal stones or evidence for obstructive uropathy. Status post appendectomy. Less than 4 mm left lower lobe pulmonary nodule. Patient was advised of these findings. She continues to have left flank pain and was given Valium with some improvement. She is given a short course of [place] for pain for home. She is advised to follow-up with her primary care physician. Advised return to ED for worsening complaints. Disposition: Discharged home Impression: Left flank pain This note was generated with [employer] dictation software. It may contain incorrect words, spelling, and punctuation that were not noted in review of the chart prior to signing ED Disposition - Plan for ED Patient: Referrals: Rich Ravi MD [Primary Care Provider] -
[2019-12-10 18:27] LABS: Color, Urine Yellow (Yellow); Glucose, Dipstick Normal (Normal); Ketone-Dipstick Negative (Negative); Leukocyte Esterase-Dipstick Negative /ul (Negative); Nitrite-Dipstick Negative (Negative); Occult Blood-Urine 10 /ul (Negative); Protein-Dipstick Negative (Negative); Urine Bilirubin Dipstick Negative (Negative); Urine Clarity Clear (Clear); Urine Urobilinogen Normal (Normal)
[2019-12-10] MEDS: diazePAM 5 MG Tablet PO (19:39)
[2019-12-10 19:44] VITALS: BP 142/88; PULSE 88; RESP 16; O2SAT 98
--- NOTE | 2019-12-10 20:17 | ED.DEP ---
ED Disposition - Plan for ED Patient: Instructions: ED Flank Pain Uncertain Cause Prescriptions: Hydrocodone Bitart/Apap 5-325 [[place] 5MG-325MG] 1 tablet PO Q6H PRN PRN 2 Days #6 tablet PRN Reason: Pain Referrals: Rich Ravi MD [Primary Care Provider] -
[2019-12-10 20:27] VITALS: BP 142/88; PULSE 88; RESP 16; O2SAT 98
== END 2019-12-10 20:36 | disposition home or self-care (01) ==
PROVIDERS: Emergency Provider Emergency Medicine; PCP Internal Medicine
DX: R10.9 Unspecified abdominal pain (principal); I10 Essential (primary) hypertension; Z87.442 Personal history of urinary calculi; Z90.49 Acquired absence of other specified parts of digestive tract; Z72.0 Tobacco use
CPT/HCPCS: 74176; 81001; 96361; 96374; 96375; 99283; J2405

== ENCOUNTER 2020-05-12 06:20 | Emergency (ER) | payer SELFPAY ==
[2020-05-12 06:21] VITALS: BP 196/105; PULSE 80; RESP 16; TEMP 36.6; O2SAT 100; BMI 31.5
--- NOTE | 2020-05-12 06:25 | CT_ITS ---
STUDY: CT ABDOMEN AND PELVIS WITHOUT CONTRAST REASON FOR EXAM: Female, 49 years old patient with left-sided flank pain. History of kidney stones. RADIATION DOSAGE (If Supplied By Facility): CTDIvol = ( 13.64 ) mGy, DLP = ( 667.72 ) mGycm TECHNIQUE: Transaxial images were obtained from the dome of the diaphragm to the symphysis pubis without oral contrast, and without intravenous contrast. Sagittal and coronal images were reconstructed. Individualized dose optimization techniques were used for this CT. COMPARISON: CT abdomen and pelvis dated 12/10/2019. FINDINGS: The visualized lung bases are unremarkable. The visualized portions of the heart are within normal limits. Normal liver. Normal gallbladder and extrahepatic biliary system. Normal spleen. Normal pancreas. Normal bilateral adrenal glands. There are bilateral nonobstructing renal calculi measuring about 1 or 2 mm in size. There is no definite hydronephrosis, hydroureter or radiopaque ureteral calculi. Normal visualized stomach. There is no evidence for dilated bowel, ascites or pneumoperitoneum. The small bowel has a grossly normal appearance. There is a thickening of the renae of the transverse colon, splenic flexure the colon as well as the descending colon suggesting sequela of acute infectious or inflammatory colitis. Stool is visible throughout most of the colon with scattered diverticula. There are surgical clips in the region of the appendix consistent with a prior appendectomy. Normal abdominal aorta. There is venous distention of the inferior vena cava (IVC). Normal retroperitoneum. Normal urinary bladder. There is absence of the uterus consistent with a prior hysterectomy. Normal abdominal wall. Normal osseous structures. CT/Abdomen/Pelvis without Cont IMPRESSION: 1. CT findings suggest possible sequela of acute infectious or inflammatory colitis. 2. Bilateral nonobstructing renal calculi. Electronically Signed: Pham Mantilla MD at 7:26 EST , Service support ,
--- NOTE | 2020-05-12 06:26 | ED.VIS.GEN ---
History of Present Illness Informant: Patient Onset: Today Context: Sudden Onset Timing: Continuous Current Severity: Moderate Maximum Severity: Severe Narrative: The patient is a 49-year-old female with history of recurrent kidney stones who is required lithotripsy and stenting in the past presents to the emergency department with sudden onset left flank pain. The patient states her symptoms began about 3 this morning. She does sharp stabbing pain in her left flank. Wax and wane, but is now been constant. It is moved to words her left lower quadrant. She describes nausea but no vomiting. She denies any dysuria or hematuria. She states she is otherwise been in her normal state of health. Prior similar symptoms: Yes Recent Illness/Hospitalization: No <Jacinto Tinajero - Last Filed: 05/12/20 06:40> <James Tom - Last Filed: 05/12/20 07:41> Chief Complaint: Flank Pain Past Medical History Prior records reviewed: Yes Past Medical History: - - Kidney stones Surgical History: appendectomy, hysterectomy Smoking Status: Current every day smoker <Jacinto Tinajero - Last Filed: 05/12/20 06:40> <James Tom - Last Filed: 05/12/20 07:41> - Allergies and Home Meds Allergies/Adverse Reactions: Allergies ketorolac [From Toradol] Allergy (Verified 05/12/20 06:24) Swelling NSAIDS (Non-Steroidal Anti-Inflamma Allergy (Verified 05/12/20 06:24) Swelling prochlorperazine edisylate [From Compazine] Adverse Reaction (Verified 05/12/20 06:24) Other prochlorperazine maleate [From Compazine] Adverse Reaction (Verified 05/12/20 06:24) Other Primary Care Physician: Rich Ravi MD [Primary Care Provider] - Review of Systems General: Denies: Chills, Fever, Sweats Eyes: Denies: Visual changes - bilaterally, Diplopia ENT: Denies: Rhinorrhea, Sore throat Cardiovascular: Denies: Chest pain, Palpitations Respiratory: Denies: Dyspnea, Cough, Dyspnea on exertion Gastrointestinal: Reports: Abdominal pain, Nausea. Denies: Vomiting, Diarrhea, Melena, Hematochezia Genitourinary: Denies: Dysuria, Hematuria, Frequency Musculoskeletal: Denies: Back pain, Extremity Pain Skin: Denies: Rash, Wounds Neurological: Denies: Headache, Weakness, Numbness <TanviJacinto hay - Last Filed: 05/12/20 06:40> Physical Exam Vital Signs/Narrative: Vital Signs Temp Pulse Resp BP Pulse Ox 05/12/20 06:21 97.8 F 80 16 196/105 H 100 Inital Vital Signs reviewed: Yes General: Well nourished, Well developed, No Acute Distress Head: Normocephalic, Atraumatic Eyes: Perrl, EOMI ENT: Moist mucous membranes, No rhinorrhea Neck: Supple, Nontender Cardiovascular: Regular rate, Regular rhythm, No murmurs Respiratory: No distress, CTA bilaterally, Chest nontender Abdomen: Soft, Nontender, Nondistended, Normal bowel sounds Back: Normal Inspection, CVA tenderness Extremities: Nontender, No edema Skin: Normal color, No rash Neurological: Alert, Oriented x3, Cranial nerves II-XII grossly intact, Normal Strength, Normal Sensation Psychological: Normal affect, Normal Mood <TanviJacinto - Last Filed: 05/12/20 06:40> Vital Signs/Narrative: Vital Signs Temp Pulse Resp BP Pulse Ox 05/12/20 06:21 97.8 F 80 16 196/105 H 100 <James Tom - Last Filed: 05/12/20 07:41> Diagnostic/Tx/Re-eval - Medical Decision Making Patient presents with acute left-sided flank pain. She does have history of prior obstructing stone. IV was established. She is treated with analgesics and antiemetics. Screening labs will be obtained. Given her history of obstructing stone requiring surgery, patient will undergo imaging. This will be followed by the oncoming physician. Impression 1. Left flank pain <TanviJacinto - Last Filed: 05/12/20 06:40> Impressions Abdomen/Pelvis CT 05/12/20 06:25 IMPRESSION: 1. CT findings suggest possible sequela of acute infectious or inflammatory colitis. 2. Bilateral nonobstructing renal calculi. Electronically Signed: Pham Mantilla MD at 7:26 EST , Service support , 05/12/20 06:25 Abdomen/Pelvis without Cont [CT] Stat Laboratory Results 05/12/20 05/12/20 05/12/20 06:40 06:40 06:40 WBC 6.9 RBC 4.69 Hgb 13.0 Hct 40.9 MCV 87.2 MCH 27.7 MCHC 31.8 L RDW Std Deviation 41.5 RDW Coeff of Jennifer 13.0 Plt Count 331 MPV 9.5 Immature Gran % (Auto) 0.400 Neut % (Auto) 46.8 L Lymph % (Auto) 42.5 H [place] % (Auto) 6.4 Eos % (Auto) 2.9 Baso % (Auto) 1.0 Absolute Neuts (auto) 3.2 Absolute Lymphs (auto) 2.91 Nucleated RBC % 0 Sodium 138 Potassium 3.0 L Chloride 105 Carbon Dioxide 26.0 Anion Gap 7 BUN 18 Creatinine 1.02 Estim Creat Clear Calc 54.58 Est GFR (MDRD) Af Amer 74 Est GFR (MDRD) Non-Af 61 BUN/Creatinine Ratio 17.6 Glucose 95 Calcium 8.8 Urine Color Yellow Urine Clarity Clear Urine pH 6.0 Ur Specific [place] 1.020 Urine Protein Negative Urine Glucose (UA) Normal Urine Ketones Negative Urine Occult Blood 10 H Urine Nitrite Negative Urine Bilirubin Negative Urine Urobilinogen Normal Ur Leukocyte Esterase Negative Urine RBC 0 SEEN Urine WBC 0-5 SEEN Ur Squamous Epith Cells 0-5 SEEN Urine Bacteria RARE Urine Mucus 0 SEEN - Medical Decision Making Took checkout on this patient and reevaluated her. She is feeling better. Her abdomen is benign. The CT findings show no evidence of ureterolithiasis. She states this left flank pain did come around down toward her groin and felt just like prior kidney stones. Woke her up in the middle of the night. Radiologist states that there is normal appearance of the small bowel, and thickening of the renae of the transverse colon, splenic flexure, and ascending colon without signs of acute inflammation or diverticulitis although there are scattered diverticula. She has had no diarrhea. She has no tenderness. Therefore this is not likely an acute finding related to her symptoms today. I discussed the fact that she has no signs of anything acute, her labs look good showing no signs of any infection, and she is stable for discharge home and she is appreciative of the care. <James Tom - Last Filed: 05/12/20 07:41> ED Disposition <Jacinto Tinajero - Last Filed: 05/12/20 06:40> <James Tom - Last Filed: 05/12/20 07:41> - Plan for ED Patient: Disposition: Home or Assisted Living Diagnosis: Acute left flank pain Instructions: ED Flank Pain Uncertain Cause Referrals: Rich Ravi MD [Primary Care Provider] - 3-5 Days if not improving
[2020-05-12] MEDS: Ondansetron 4 MG/2 ML Vial IV (06:37)
[2020-05-12] MEDS: 0.9% Normal Saline 1,000 ML 250 ML IV (06:38)
[2020-05-12] MEDS: Morphine 4 MG/ML Syringe IV (06:38)
[2020-05-12 06:46] LABS: Mucous, Urine 0 SEEN /hpf (<or=2+); Red Blood Cells-Urine 0 SEEN /hpf (0-5)
[2020-05-12 06:49] LABS: Absolute Lymphocyte Count 2.91 X10^3/uL (0.83-4.51); Absolute Neutrophil Count 3.2 X10^3/uL (2.0-7.7); Basophil# 0.07 X10^3/uL; Eosinophils% 2.9 % (0-5); Hematocrit 40.9 % (37-47); Lymphocyte # 2.91 X10^3/ul (4.0); Lymphocyte % 42.5 % (19-41); Mean Corp Hgb Conc 31.8 g/dL (32-36); Mean Corpuscular Hgb 27.7 pg (27.0-32.0); Mean Corpuscular Volume 87.2 fL (81-99); Mean Platelet Vol. 9.5 fl (6.2-12.0); Monocyte# 0.44 X10^3/uL; Monocyte% 6.4 % (0-10); NRBC Flagged by Analyzer 0 % (0-5); Neutrophil % 46.8 % (47-70); Platelet Count 331 K/mm3 (150-450); RBC Distribution Width SD 41.5 fl (35.1-43.9); Red Blood Count 4.69 M/mm3 (4.2-5.4); White Blood Count 6.9 K/mm3 (4.4-11.0)
[2020-05-12 06:55] LABS: Color, Urine Yellow (Yellow); Glucose, Dipstick Normal (Normal); Ketone-Dipstick Negative (Negative); Leukocyte Esterase-Dipstick Negative /ul (Negative); Nitrite-Dipstick Negative (Negative); Occult Blood-Urine 10 /ul (Negative); Protein-Dipstick Negative (Negative); Urine Bilirubin Dipstick Negative (Negative); Urine Clarity Clear (Clear); Urine Urobilinogen Normal (Normal)
[2020-05-12] MEDS: HYDROmorphone 0.5 MG/0.5 ML SYRINGE IV (06:57)
[2020-05-12 07:01] LABS: Bacteria RARE /hpf (None Seen); Squamous Epithelial Cells - UA 0-5 SEEN /hpf (5-10); White Blood Cells 0-5 SEEN /hpf (0-5)
[2020-05-12 07:03] LABS: Anion Gap 7 (5-15); BUN 18 mg/dL (7-18); BUN/Creat Ratio 17.6 RATIO (10-20); Calcium,Total 8.8 mg/dL (8.5-10.1); Chloride 105 mmol/L (98-107); Creatinine, Serum 1.02 mg/dL (0.55-1.02); EST Glomerular Filtration Rate 61 mL/min (>60); Est Glom Filt Rate - Afr Amer 74 mL/min (>60); Estimated Creatinine Clearance 54.58 ml/min; Glucose 95 mg/dL (74-106); Sodium Level 138 mmol/L (136-145)
[2020-05-12 08:00] VITALS: BP 147/90; PULSE 70; RESP 18; O2SAT 100
== END 2020-05-12 08:16 | disposition home or self-care (01) ==
PROVIDERS: Emergency Provider Emergency Medicine; PCP Internal Medicine
DX: R10.32 Left lower quadrant pain (principal); F17.200 Nicotine dependence, unspecified, uncomplicated; Z87.442 Personal history of urinary calculi; Z90.710 Acquired absence of both cervix and uterus; Z90.49 Acquired absence of other specified parts of digestive tract
CPT/HCPCS: 74176; 80048; 81001; 85025; 96361; 96374; 96375; 99283; J7030; A4216; J2405

== ENCOUNTER 2020-07-08 21:04 | Emergency (ER) | payer SELFPAY ==
[2020-07-08 21:04] VITALS: BP 150/116; PULSE 84; RESP 16; TEMP 36.2; O2SAT 99; BMI 32.5
--- NOTE | 2020-07-08 21:17 | CT_ITS ---
STUDY: CT ABDOMEN AND PELVIS WITHOUT CONTRAST REASON FOR EXAM: Female, 49 years old. RIGHT FLANK PAIN, NAUSEA, VOMITING. H/O KIDNEY STONES. RADIATION DOSAGE (If Supplied By Facility): CTDIvol = ( 14.02 ) mGy, DLP = ( 707.29 ) mGycm TECHNIQUE: Transaxial images were obtained from the dome of the diaphragm to the symphysis pubis without oral contrast, and without intravenous contrast. Sagittal and coronal images were reconstructed. Individualized dose optimization techniques were used for this CT. COMPARISON: 05/12/2020 FINDINGS: The visualized lung bases are unremarkable. The visualized portions of the heart are within normal limits. Normal liver. Normal gallbladder and extrahepatic biliary system. Normal spleen. Normal pancreas. Normal bilateral adrenal glands. Normal right kidney. Normal left kidney. Normal visualized stomach. Normal small intestine. Minor diverticular changes of colon without evidence for acute diverticulitis. Postop change status post appendectomy. Minor atherosclerotic changes of the aorta without evidence for aneurysm. Normal inferior vena cava. Normal retroperitoneum. Incompletely distended thick-walled bladder likely of no significance.. Uterus not visualized consistent with hysterectomy. Normal abdominal wall. Normal osseous structures Previously noted bilateral renal calculi are not visualized and likely has been passed CT/Abdomen/Pelvis without Cont IMPRESSION: No acute abnormalities is visualized. Previously noted renal calculi are not visualized on current study likely having been passed. No evidence for hydronephrosis or ureteral calculus at this time Minor diverticular changes of the colon without evidence for acute epididymitis.. Electronically Signed: Leo Porter MD at 22:00 EST , Service support ,
--- NOTE | 2020-07-08 21:19 | ED.VIS.GEN ---
History of Present Illness Chief Complaint: Flank Pain Informant: Patient Narrative: Patient is a 49-year-old female who presents to the emergency department for right flank pain. This does start to radiate around her abdomen. This started earlier today and has been progressively getting worse. She currently rates the pain as a 10 out of 10. She tried taking Tylenol for this which did not give her any relief. She has been nauseous with it. She does relate this to her history of kidney stones. She states she has had stents placed in her ureters before. She also has a history of hysterectomy. She denies any urinary symptoms. No change in bowel habits. No fevers. No known aggravating or relieving factors. Past Medical History - Allergies and Home Meds Allergies/Adverse Reactions: Allergies ketorolac [From Toradol] Allergy (Verified 07/08/20 21:07) Swelling NSAIDS (Non-Steroidal Anti-Inflamma Allergy (Verified 07/08/20 21:07) Swelling prochlorperazine edisylate [From Compazine] Adverse Reaction (Verified 07/08/20 21:07) Other prochlorperazine maleate [From Compazine] Adverse Reaction (Verified 07/08/20 21:07) Other Primary Care Physician: Rich Ravi MD [Primary Care Provider] - 2 Days Prior records reviewed: Yes Surgical History: appendectomy, hysterectomy Smoking Status: Current every day smoker Review of Systems General: Denies: Chills, Fever, Sweats Eyes: Denies: Visual changes - bilaterally, Diplopia ENT: Denies: Rhinorrhea, Sore throat Cardiovascular: Denies: Chest pain, Palpitations Respiratory: Denies: Dyspnea, Cough, Dyspnea on exertion Gastrointestinal: Reports: Abdominal pain, Nausea. Denies: Melena Genitourinary: Denies: Dysuria, Hematuria, Frequency Musculoskeletal: Reports: Back pain. Denies: Extremity Pain Skin: Denies: Rash, Wounds Neurological: Denies: Headache, Weakness, Numbness Physical Exam Vital Signs/Narrative: Vital Signs Temp Pulse Resp BP Pulse Ox 07/08/20 21:04 97.1 F L 84 16 150/116 H 99 General: Well nourished, Well developed, No Acute Distress, - - Patient does appear uncomfortable. Head: Normocephalic, Atraumatic Eyes: Perrl, EOMI ENT: Moist mucous membranes, No rhinorrhea Neck: Supple, Nontender Cardiovascular: Regular rate, Regular rhythm, No murmurs Respiratory: No distress, CTA bilaterally, Chest nontender Abdomen: Soft, Nontender, Nondistended, Normal bowel sounds Back: Nontender, Normal Inspection Extremities: Nontender, No edema Skin: Normal color, No rash Neurological: Alert, Oriented x3, Cranial nerves II-XII grossly intact, Normal Strength, Normal Sensation Psychological: Normal affect, Normal Mood Diagnostic/Tx/Re-eval - Medical Decision Making Patient presents to the ED for right-sided flank pain. She does have history of kidney stones. She does have a history to anti-inflammatories and Toradol. Will treat symptomatically and obtain CT scan of abdomen/pelvis. Will check basic lab work and urinalysis. Patient's work-up did not reveal a significant acute abnormalities. She does not have an elevated white blood cell count. Kidney function within normal limits. No elevation of her liver enzymes. No evidence of infection on urinalysis. CT scan did not show any obstructing calculi. The previous stones in the kidneys are now gone. The last few visits the patient comes in complaining of this flank pain she does not have any acute pathology on CT to explain her symptoms. She needs to have close follow-up with her PCP. This time she will be discharged home in stable condition. Return precautions were discussed with her including any worsening pain, developing systemic symptoms. She understands and is agreeable this plan. All questions were answered. ED Disposition - Plan for ED Patient: Disposition: Home or Assisted Living Diagnosis: Flank pain Instructions: ED Flank Pain, Uncertain Cause Referrals: Rich Ravi MD [Primary Care Provider] - 2 Days
[2020-07-08] MEDS: Morphine 4 MG/ML Syringe IV (21:23)
[2020-07-08] MEDS: Ondansetron 4 MG/2 ML Vial IV (21:23)
[2020-07-08 21:24] LABS: Absolute Lymphocyte Count 2.68 X10^3/uL (0.83-4.51); Absolute Neutrophil Count 4.9 X10^3/uL (2.0-7.7); Basophil% 1.2 % (0-1); Eosinophils% 2.4 % (0-5); Hematocrit 44.7 % (37-47); Hemoglobin 14.6 g/dL (12.0-15.0); Lymphocyte # 2.68 X10^3/ul (4.0); Mean Corp Hgb Conc 32.7 g/dL (32-36); Mean Corpuscular Hgb 28.3 pg (27.0-32.0); Mean Corpuscular Volume 86.8 fL (81-99); Mean Platelet Vol. 9.3 fl (6.2-12.0); Monocyte# 0.48 X10^3/uL; Monocyte% 5.7 % (0-10); NRBC Flagged by Analyzer 0 % (0-5); Neutrophil # 4.88 X10^3/uL (2.7-7.7); Neutrophil % 58.3 % (47-70); Platelet Count 338 K/mm3 (150-450); RBC Distribution Width CV 13.2 % (11.6-14.6); Red Blood Count 5.15 M/mm3 (4.2-5.4); White Blood Count 8.4 K/mm3 (4.4-11.0)
[2020-07-08 21:29] LABS: Bacteria 0 SEEN /hpf (None Seen); Mucous, Urine 0 SEEN /hpf (<or=2+); White Blood Cells 0 SEEN /hpf (0-5)
[2020-07-08 21:30] LABS: Color, Urine Yellow (Yellow); Glucose, Dipstick Normal (Normal); Ketone-Dipstick Negative (Negative); Leukocyte Esterase-Dipstick Negative /ul (Negative); Nitrite-Dipstick Negative (Negative); Occult Blood-Urine 10 /ul (Negative); Protein-Dipstick Negative (Negative); Specific Gravity, Urine 1.025 (1.002-1.030); Urine Bilirubin Dipstick Negative (Negative); Urine Clarity Sl. Cloudy (Clear); Urine Urobilinogen Normal (Normal)
[2020-07-08 21:36] LABS: Red Blood Cells-Urine 0-5 SEEN /hpf (0-5); Squamous Epithelial Cells - UA 0-5 SEEN /hpf (5-10)
[2020-07-08 21:41] LABS: ALB/GLOB Ratio 0.9 RATIO (0.9-2.4); AST(SGOT) 12 U/L (15-37); Alanine Aminotransfer ALT/SGPT 27 U/L (13-56); Albumin, Serum 4.1 g/dL (3.2-5.0); Alkaline Phosphatase 132 U/L (45-117); Anion Gap 6 (5-15); BUN 17 mg/dL (7-18); BUN/Creat Ratio 16.8 RATIO (10-20); Calcium,Total 9.6 mg/dL (8.5-10.1); Chloride 107 mmol/L (98-107); Creatinine, Serum 1.01 mg/dL (0.55-1.02); EST Glomerular Filtration Rate 62 mL/min (>60); Est Glom Filt Rate - Afr Amer 74 mL/min (>60); Estimated Creatinine Clearance 55.12 ml/min; Globulin 4.6 g/dL (2.2-4.2); Glucose 92 mg/dL (74-106); Potassium 3.5 mmol/L (3.5-5.1); Protein, Total 8.7 g/dL (6.4-8.2); Sodium Level 139 mmol/L (136-145)
== END 2020-07-08 22:50 | disposition home or self-care (01) ==
PROVIDERS: Emergency Provider Emergency Medicine; PCP Internal Medicine
DX: R10.9 Unspecified abdominal pain (principal); F17.200 Nicotine dependence, unspecified, uncomplicated; Z87.442 Personal history of urinary calculi; Z90.710 Acquired absence of both cervix and uterus; Z90.89 Acquired absence of other organs
CPT/HCPCS: 74176; 80053; 81001; 85025; 96374; 96375; 99282; A4216; J2405

== ENCOUNTER 2020-08-07 17:17 | Emergency (ER) | payer SELFPAY ==
[2020-08-07 17:18] VITALS: BP 158/103; PULSE 81; RESP 16; TEMP 36.6; O2SAT 99; BMI 31.8
--- NOTE | 2020-08-07 17:32 | ED.VIS.GEN ---
History of Present Illness Chief Complaint: Dental Informant: Patient Narrative: 49-year-old female with known dental caries presenting for dental pain on the right side of her mouth. She states it started hurting yesterday after she was chewing gummy bears. She states that she has not been able to get her teeth looked at because she lost her insurance. She does was able to get her insurance back to a new job. She is trying to get into [facility] but they are closed today. She called her PCP who referred her to the ER to get checked out. Patient has not had any fever, chills. - Past Medical History (1) Kidney stones Status: Chronic Past Medical History - Allergies and Home Meds Allergies/Adverse Reactions: Allergies ketorolac [From Toradol] Allergy (Verified 07/08/20 21:07) Swelling NSAIDS (Non-Steroidal Anti-Inflamma Allergy (Verified 07/08/20 21:07) Swelling prochlorperazine edisylate [From Compazine] Adverse Reaction (Verified 07/08/20 21:07) Other prochlorperazine maleate [From Compazine] Adverse Reaction (Verified 07/08/20 21:07) Other Primary Care Physician: Rich Ravi MD [Primary Care Provider] - Prior records reviewed: Yes Past Medical History: - - Reviewed in problem list Surgical History: appendectomy, hysterectomy Lives: With Family Smoking Status: Current every day smoker Alcohol: None Drugs: None Review of Systems General: Denies: Chills, Fever, Sweats Eyes: Denies: Visual changes - bilaterally, Diplopia ENT: Reports: - - Right-sided dental pain. Denies: Rhinorrhea, Sore throat Cardiovascular: Denies: Chest pain, Palpitations Respiratory: Denies: Dyspnea, Cough, Dyspnea on exertion Gastrointestinal: Denies: Abdominal pain, Nausea, Vomiting, Diarrhea, Melena, Hematochezia Genitourinary: Denies: Dysuria, Hematuria, Frequency Musculoskeletal: Denies: Back pain, Extremity Pain Skin: Denies: Rash, Abscess Neurological: Denies: Headache, Weakness Psych: Denies: Depression, Anxiety Physical Exam Vital Signs/Narrative: Vital Signs Temp Pulse Resp BP Pulse Ox 08/07/20 17:18 97.8 F 81 16 158/103 H 99 Inital Vital Signs reviewed: Yes General: Well nourished, No Acute Distress Head: Normocephalic, Atraumatic Eyes: Perrl, EOMI ENT: Moist mucous membranes, No rhinorrhea, - - Patient has multiple dental caries and is partially edentulous. There is no tongue swelling. The sublingual mucosa is not swollen. Buccal mucosa is normal. Cardiovascular: Regular rate, Regular rhythm Respiratory: No distress, CTA bilaterally Skin: Normal color, No rash Neurological: Alert, Oriented x3 Psychological: Normal affect, Normal Mood Diagnostic/Tx/Re-eval - Medical Decision Making 49-year-old female presenting with dental pain. It does not appear to be any focal swelling however she does have tenderness in the area of her right posterior teeth which has severe erosion. Patient will be given oxycodone in the ER and will be given a prescription for Augmentin first dose was given in the ED. Patient will follow up with Rad[facility] adorno. She can return precautions. Impression: 1. Dental pain 2. Dental caries ED Disposition - Plan for ED Patient: Disposition: Home or Assisted Living Instructions: ED Dental Cavity Prescriptions: Amox/Clavulanate Tablet [Augmentin Tablet] 875 mg PO Q12H #20 tab Prescription Printed Referrals: Rich Ravi MD [Primary Care Provider] -
[2020-08-07] MEDS: Amox/Clavulanate 875 MG Tablet PO (17:36)
[2020-08-07] MEDS: oxyCODONE 5 MG Tablet PO (17:37)
== END 2020-08-07 18:08 | disposition home or self-care (01) ==
LOC: ED 17:51
PROVIDERS: Emergency Provider Student in an Organized Health Care Education/Training Program; PCP Internal Medicine
DX: K08.89 Other specified disorders of teeth and supporting structures (principal); K02.9 Dental caries, unspecified; F17.200 Nicotine dependence, unspecified, uncomplicated; Z87.442 Personal history of urinary calculi

== ENCOUNTER 2020-10-04 22:18 | Emergency (ER) | payer SELFPAY ==
[2020-10-04 22:19] VITALS: BP 186/103; PULSE 85; RESP 18; TEMP 36.6; O2SAT 100; BMI 33.6
--- NOTE | 2020-10-04 22:30 | CT_ITS ---
STUDY: CT ABDOMEN AND PELVIS WITHOUT CONTRAST REASON FOR EXAM: Female, 49 years old. Left flank pain, hx of stones RADIATION DOSAGE (If Supplied By Facility): CTDIvol = ( 14.05 ) mGy, DLP = ( 702.09 ) mGycm TECHNIQUE: Transaxial images were obtained from the dome of the diaphragm to the symphysis pubis without oral contrast, and without intravenous contrast. Sagittal and coronal images were reconstructed. Individualized dose optimization techniques were used for this CT. COMPARISON: 07/08/2020 FINDINGS: The visualized lung bases are unremarkable. The visualized portions of the heart are within normal limits. Normal liver. Normal gallbladder and extrahepatic biliary system. Normal spleen. Normal pancreas. Normal bilateral adrenal glands. Normal right kidney. Normal left kidney. Normal visualized stomach. Normal small intestine. Normal colon. The appendix is visualized and appears normal. Normal abdominal aorta. Normal inferior vena cava. Normal retroperitoneum. Normal urinary bladder. Status post hysterectomy Normal abdominal wall. Normal osseous structures. CT/Abdomen/Pelvis without Cont IMPRESSION: Normal unenhanced CT of the abdomen and pelvis. Electronically Signed: Andrew Alejandre DO at 23:20 EDT Tel , Service support ,
[2020-10-04] MEDS: Ondansetron ODT 4 MG Tablet PO (22:36)
[2020-10-04] MEDS: Morphine 4 MG/ML Syringe IM (22:36)
[2020-10-04 22:40] LABS: Color, Urine Yellow (Yellow); Glucose, Dipstick Normal (Normal); Ketone-Dipstick Negative (Negative); Leukocyte Esterase-Dipstick Negative /ul (Negative); Mucous, Urine 0 SEEN /hpf (<or=2+); Nitrite-Dipstick Negative (Negative); Occult Blood-Urine 10 /ul (Negative); Protein-Dipstick Negative (Negative); Red Blood Cells-Urine 0 SEEN /hpf (0-5); Specific Gravity, Urine 1.015 (1.002-1.030); Urine Bilirubin Dipstick Negative (Negative); Urine Clarity Clear (Clear); Urine Urobilinogen Normal (Normal)
[2020-10-04 22:47] LABS: Bacteria RARE /hpf (None Seen); Squamous Epithelial Cells - UA 0-5 SEEN /hpf (5-10); White Blood Cells 0-5 SEEN /hpf (0-5)
--- NOTE | 2020-10-04 22:57 | ED.DCSUM_ITS ---
History of Present Illness Chief Complaint: Flank Pain Informant: Patient Narrative: Patient is a 49-year-old female with a past medical history of hypertension, hyperlipidemia and significant kidney stone history. She is coming into the ED for concern for repeat stone. She has had left-sided flank pain since earlier this morning. Over the past hour has been progressively getting worse. She states that she developed nausea and sweating with this. It is similar to her previous symptoms. No abdominal pain. She is having urinary pressure and frequency. She has required ureteral stents and lithotripsy each time she has had a ureteral stone in the past. She denies any fevers or chills. No chest pain or shortness of breath. Known aggravating or relieving factors. She currently rates the pain as severe. Past Medical History - Allergies and Home Meds Allergies/Adverse Reactions: Allergies ketorolac [From Toradol] Allergy (Verified 10/04/20 22:21) Swelling NSAIDS (Non-Steroidal Anti-Inflamma Allergy (Verified 10/04/20 22:21) Swelling prochlorperazine edisylate [From Compazine] Adverse Reaction (Verified 10/04/20 22:21) Other prochlorperazine maleate [From Compazine] Adverse Reaction (Verified 10/04/20 22:21) Other Primary Care Physician: Rich Ravi MD [Primary Care Provider] - Prior records reviewed: Yes Surgical History: appendectomy, hysterectomy Smoking Status: Current every day smoker Review of Systems All systems negative except as indicated General: Reports: Sweats. Denies: Chills, Fever Eyes: Denies: Visual changes - bilaterally, Diplopia ENT: Denies: Rhinorrhea, Sore throat Cardiovascular: Denies: Chest pain, Palpitations Respiratory: Denies: Dyspnea, Cough, Dyspnea on exertion Gastrointestinal: Reports: Nausea. Denies: Abdominal pain, Vomiting, Diarrhea, Melena, Hematochezia Genitourinary: Denies: Dysuria, Hematuria, Frequency Musculoskeletal: Reports: Back pain - Left CVA. Denies: Extremity Pain Skin: Denies: Rash, Wounds Neurological: Denies: Headache, Weakness, Numbness Physical Exam Vital Signs/Narrative: Vital Signs Temp Pulse Resp BP Pulse Ox 10/04/20 22:19 97.9 F 85 18 186/103 H 100 Inital Vital Signs reviewed: Yes General: Well nourished, Well developed, No Acute Distress, - - Patient does not appear uncomfortable clutching the left side of her back. Head: Normocephalic, Atraumatic Eyes: Perrl, EOMI ENT: Moist mucous membranes, No rhinorrhea Neck: Supple, Nontender Cardiovascular: Regular rate, Regular rhythm, No murmurs Respiratory: No distress, CTA bilaterally, Chest nontender Abdomen: Soft, Nontender, Nondistended, Normal bowel sounds Back: Nontender, Normal Inspection. Negative for: CVA tenderness, Spinal tenderness Extremities: Nontender, No edema Skin: Normal color, No rash Neurological: Alert, Cranial nerves II-XII grossly intact, Normal Strength, Normal Sensation Psychological: Normal affect, Normal Mood Diagnostic/Tx/Re-eval - Medical Decision Making Patient presents to the ED for left-sided flank pain with significant kidney stone history. She feels like this is a repeat episode. Upon arrival to the ED she is hypertensive otherwise vital signs are within normal limits. She has an NSAID allergy. She states that she has significant swelling when taking this. She took Tylenol prior to coming in. We will give her an IM dose of morphine and Zofran ODT for symptomatic control. Will obtain CT scan given her surgical history with kidney stones being obstructed. Urinalysis obtained. Patient CT scan did not reveal any acute finding. There is no obstructing stone . No other intra-abdominal process noted. Urine did not show any signs of blood or infection. Patient symptoms could be musculoskeletal related given the normal appearance of the CT scan. Patient still having pain but is manageable. She is still feeling nauseous at this time. We will write a prescription for Zofran as well as a lidocaine patch. She can continue to take Tylenol at home. If pain becomes more severe she develops any systemic symptoms she needs to return to the emergency department for further evaluation. She otherwise is to follow-up with her PCP and 48 hours. She understands and is agreeable this plan. Discharged home in stable condition. All questions answered. ED Disposition - Plan for ED Patient: Disposition: Home or Assisted Living Diagnosis: Flank pain, Nausea Instructions: ED Flank Pain, Uncertain Cause Prescriptions: Lidocaine [Lidoderm Patch] 1 patch TOPICAL DAILY 3 Days #3 patch Transmission Status: Pending to [facility] Ondansetron [Zofran Odt] 4 mg PO Q8H PRN PRN #10 tablet PRN Reason: Nausea Transmission Status: Pending to [facility] Referrals: Rich Ravi MD [Primary Care Provider] - 2 Days
== END 2020-10-05 00:03 | disposition home or self-care (01) ==
PROVIDERS: Emergency Provider Emergency Medicine; PCP Internal Medicine
DX: R10.9 Unspecified abdominal pain (principal); R11.0 Nausea; I10 Essential (primary) hypertension; E78.5 Hyperlipidemia, unspecified; F17.200 Nicotine dependence, unspecified, uncomplicated; Z87.442 Personal history of urinary calculi; Z90.710 Acquired absence of both cervix and uterus; Z90.89 Acquired absence of other organs; Z79.899 Other long term (current) drug therapy
CPT/HCPCS: 74176; 81001; 96374; 99283

== ENCOUNTER 2021-01-01 17:12 | Emergency (ER) | payer SELFPAY ==
[2021-01-01 17:14] VITALS: BP 163/75; PULSE 83; RESP 19; TEMP 36.4; O2SAT 99; BMI 33.2
[2021-01-01 17:16] VITALS: BP 163/75; PULSE 83; RESP 19; TEMP 36.4; O2SAT 99
--- NOTE | 2021-01-01 17:30 | CT_ITS ---
EXAM: CT ABDOMEN AND PELVIS WITHOUT INTRAVENOUS CONTRAST CLINICAL INDICATION: Left flank pain, hx of stones TECHNIQUE: Helically acquired images were obtained of the abdomen and pelvis without intravenous contrast. This CT exam was performed using one or more of the following dose reduction techniques: automated exposure control, adjustment of the mA and/or kV according to patient size, and/or use of iterative reconstruction technique. This report was created using [employer] report generation technology. COMPARISON: 10/04/2020. FINDINGS: LOWER THORAX: Unremarkable. Lung bases are clear. No cardiomegaly. No significant pericardial effusion. ABDOMEN: LIVER: Unremarkable. Homogeneous. GALLBLADDER AND BILE DUCTS: Unremarkable. No calcified gallstones. No gallbladder distention or wall edema. No intra- or extrahepatic biliary ductal dilation. PANCREAS: Unremarkable. No focal cystic mass. SPLEEN: Unremarkable. Normal size without focal cystic or solid mass. ADRENALS: Unremarkable. No nodules. KIDNEYS AND URETERS: Unremarkable. Normal renal size and position. No hydronephrosis. Punctate calculus of the upper left kidney. STOMACH AND BOWEL: Colonic diverticulosis without evidence of colon wall thickening/diverticulitis. No stomach or bowel distention. PELVIS: APPENDIX: Appears to be surgically absent. BLADDER: Unremarkable. REPRODUCTIVE: Hysterectomy. ABDOMEN and PELVIS: INTRAPERITONEAL SPACE: Unremarkable. No ascites or other fluid collection. No free air. BONES/JOINTS: Unremarkable. No suspicious lytic or blastic abnormality. SOFT TISSUES: Unremarkable. No discrete abdominal or pelvic wall hernia. VASCULATURE: Minimal atherosclerosis. Abdominal aorta is non-dilated. LYMPH NODES: Unremarkable. No enlarged lymph nodes. CT/Abdomen/Pelvis without Cont IMPRESSION: No acute findings in the abdomen or pelvis. Punctate left nephrolithiasis, no hydronephrosis. Electronically Signed: Vahid Ryees MD ([place]) at 18:37 EDT , Service support ,
--- NOTE | 2021-01-01 17:32 | EDS_ITS ---
HPI History of Present Illness Chief Complaint: Flank Pain Informant: patient Narrative Narrative: Patient is a 50-year-old female who presents to the emergency department for left-sided flank pain. She does have a history of kidney stones. She states the pain initially started yesterday but has been progressively getting worse. She is also blood in her urine today. She did get nauseous and vomit. She was taking Tylenol but she thinks that she vomited this up. No known aggravating relieving factors otherwise. She has any change in bowel movements. No chest pain or shortness of breath. No fevers or chills. She does have a history of hysterectomy. PFSH PFS Medical History Depression Hyperlipidemia Hypertension Kidney stones Smoker Home Medications atorvastatin 40 mg PO DAILY 05/10/17 [History Last Taken 07/28/18] lisinopril 40 mg PO DAILY 01/26/19 [History Last Taken Unknown] amlodipine 10 mg PO DAILY 08/07/20 [History Last Taken Unknown] ondansetron 4 mg PO Q8H PRN PRN #10 tablet 10/04/20 [Rx Last Taken Unknown] Allergy/AdvReac Type Severity Reaction Status Date / Time ketorolac [From Toradol] Allergy Swelling Verified 01/01/21 17:17 NSAIDS (Non-Steroidal Allergy Swelling Verified 01/01/21 17:17 Anti-Inflamma prochlorperazine edisylate AdvReac Other Verified 01/01/21 17:17 [From Compazine] prochlorperazine maleate AdvReac Other Verified 01/01/21 17:17 [From Compazine] Surgical History (Updated 01/01/21 @ 17:26 by Sebastian rCuz) History of appendectomy History of hysterectomy Social History Smoking Status: Current every day smoker tobacco type: cigarettes ROS ROS ED Constitutional Constitutional ED: Denies chills or fever(s) Eyes Eyes: Denies change in vision ENT ENT ED: Denies epistaxis or rhinorrhea Cardiovascular Cardiovascular: Denies chest pain or palpitations Respiratory/Chest Respiratory/Chest: Denies cough, dyspnea or dyspnea on exertion Gastrointestinal Gastrointestinal: Reports abdominal pain, nausea and vomiting; Denies diarrhea Genitourinary Genitourinary ED: Reports hematuria; Denies dysuria or urinary frequency Musculoskeletal Musculoskeletal: Reports back pain; Denies neck pain Integumentary Denies rash Neurologic Neurologic: Denies dizziness, headache(s) or weakness EXAM Physical Exam Const Vital Signs: 01/01/21 17:14 01/01/21 17:16 01/01/21 19:16 Temperature 97.6 F L 97.6 F L Temperature Source Temporal Temporal Pulse Rate 83 83 71 Respiratory Rate 19 H 19 H 15 Blood Pressure 163/75 H 163/75 H 138/94 H Blood Pressure Mean 104 104 Pulse Ox 99 99 99 Oxygen Delivery Method Room Air Room Air Positive well nourished and well developed General Appearance ED: well developed and NAD HEENT Reports normocephalic, head/scalp atraumatic and moist mucous membranes Eyes PERRL and EOMs intact bilaterally Neck supple Resp normal respiratory effort and clear to auscultation bilaterally Auscultation: Negative for rales, rhonchi or wheezes Cardio regular rate, regular rhythm and no murmurs GI normal to inspection, nondistended, normoactive bowel sounds and non-tender Palpation: soft; Negative for guarding or rebound tenderness present Back/Spine no CVA tenderness Extremity normal to inspection General Extremety ED: Negative for edema or tenderness General Extremity: Negative for edema Neuro CN's II-XII intact bilaterally and no sensory deficits noted Sensorium / Orientation: alert Motor Exam: strength 5/5 throughout Psych mental status grossly normal Skin no rashes or lesions noted MDM MDM MDM Narrative Medical decision making narrative: Patient presents to the emergency department for left-sided flank pain rating around to her abdomen. This is not reproducible on physical exam. She is mildly hypertensive but otherwise normal vital signs. Will check basic lab work along with CT scan of the abdomen/pelvis. Patient does have allergies to NSAIDs and Toradol so we will give a dose of morphine. Patient's lab work did not show a high white blood cell count. Her creatinine is within normal limits. Liver enzymes are not elevated. Urine did show 1+ calcium oxalate crystals but no other significant acute abnormality. No red blood cells seen. No evidence of infection. CT scan was performed which did not show any obstructing stone. There were renal stones. All these findings were discussed with her. Recommend symptomatic treatment. Did offer to write a prescription for Lidoderm patches which she states she already has these at home. She is to follow-up with her urologist. Return precautions are reviewed with her. She understands and is agreeable this plan. Discharged home in stable condition. All questions are answered. Lab Data Labs: Laboratory Results - last 24 hr 01/01/21 01/01/21 01/01/21 18:09 18:09 18:09 WBC 6.3 RBC 4.63 Hgb 13.6 Hct 40.9 MCV 88.3 MCH 29.4 MCHC 33.3 RDW Std Deviation 42.3 RDW Coeff of Jennifer 13.2 Plt Count 288 MPV 9.9 Immature Gran % (Auto) 0.600 Neut % (Auto) 58.1 Lymph % (Auto) 29.4 [place] % (Auto) 7.0 Eos % (Auto) 3.3 Baso % (Auto) 1.6 H Absolute Neuts (auto) 3.7 Absolute Lymphs (auto) 1.85 Nucleated RBC % 0 Sodium 138 Potassium 3.6 Chloride 108 H Carbon Dioxide 24.0 Anion Gap 6 BUN 13 Creatinine 0.88 Estim Creat Clear Calc 62.56 Est GFR (MDRD) Af Amer 87 Est GFR (MDRD) Non-Af 72 BUN/Creatinine Ratio 14.7 Glucose 89 Calcium 8.7 Total Bilirubin 0.20 AST 19 ALT 24 Alkaline Phosphatase 115 Total Protein 7.7 Albumin 3.8 Globulin 3.9 Albumin/Globulin Ratio 1.0 Urine Color Yellow Urine Clarity Clear Urine pH 5.0 Ur Specific [place] 1.025 Urine Protein Negative Urine Glucose (UA) Normal Urine Ketones 5 H Urine Occult Blood 10 H Urine Nitrite Negative Urine Bilirubin Negative Urine Urobilinogen Normal Ur Leukocyte Esterase Negative Urine RBC 0 SEEN Urine WBC 0-5 SEEN Ur Squamous Epith Cells 0-5 SEEN Calcium Oxalate Crystal 1+ Urine Bacteria 0 SEEN Urine Mucus 3+ Radiography Diagnostic Testing: Radiology Impression Abdomen/Pelvis CT 01/01/21 17:30 IMPRESSION: No acute findings in the abdomen or pelvis. Punctate left nephrolithiasis, no hydronephrosis. Electronically Signed: Vahid Reyes MD ([place]) at 18:37 EDT , Service support , Discharge Plan Triage Chief Complaint: Flank Pain ED Provider: Dennis Buck Dx/Rx/DC Orders Clinical Impression: Acute flank pain Instructions: ED Flank Pain, Uncertain Cause Prescriptions: No Action atorvastatin 20 MG tablet 40 mg PO DAILY RF: 0 lisinopril 20 MG tablet 40 mg PO DAILY RF: 0 amlodipine 10 MG tablet 10 mg PO DAILY RF: 0 ondansetron 4 MG tablet 4 mg PO Q8H PRN PRN (Reason: Nausea) Qty: 10 RF: 0 Primary Care Provider: Rich Ravi Referrals: Rich Ravi MD [Primary Care Provider] - Activity Restrictions/Additional Instructions: Please follow-up with urologist Sunday. Disposition Disposition: Home, Self Care Discharge Date/Time: 01/01/21 19:17
[2021-01-01] MEDS: Morphine 4 MG/ML Syringe IV (18:05)
[2021-01-01 18:13] LABS: Bacteria 0 SEEN /hpf (None Seen); Red Blood Cells-Urine 0 SEEN /hpf (0-5)
[2021-01-01 18:21] LABS: Color, Urine Yellow (Yellow); Glucose, Dipstick Normal (Normal); Ketone-Dipstick 5 mg/dl (Negative); Leukocyte Esterase-Dipstick Negative /ul (Negative); Nitrite-Dipstick Negative (Negative); Occult Blood-Urine 10 /ul (Negative); Protein-Dipstick Negative (Negative); Specific Gravity, Urine 1.025 (1.002-1.030); Urine Bilirubin Dipstick Negative (Negative); Urine Clarity Clear (Clear); Urine Urobilinogen Normal (Normal)
[2021-01-01 18:27] LABS: Mucous, Urine 3+ /hpf (<or=2+); Squamous Epithelial Cells - UA 0-5 SEEN /hpf (5-10)
[2021-01-01 18:30] LABS: Absolute Lymphocyte Count 1.85 X10^3/uL (0.83-4.51); Absolute Neutrophil Count 3.7 X10^3/uL (2.0-7.7); Basophil% 1.6 % (0-1); Eosinophil# 0.21 X10^3/uL; Eosinophils% 3.3 % (0-5); Hematocrit 40.9 % (37-47); Hemoglobin 13.6 g/dL (12.0-15.0); Lymphocyte # 1.85 X10^3/ul (0.83-4.51); Lymphocyte % 29.4 % (19-41); Mean Corp Hgb Conc 33.3 g/dL (32-36); Mean Corpuscular Hgb 29.4 pg (27.0-32.0); Mean Corpuscular Volume 88.3 fL (81-99); Mean Platelet Vol. 9.9 fl (6.2-12.0); Monocyte# 0.44 X10^3/uL; NRBC Flagged by Analyzer 0 % (0-5); Neutrophil # 3.65 X10^3/uL (2.7-7.7); Neutrophil % 58.1 % (47-70); Platelet Count 288 K/mm3 (150-450); RBC Distribution Width CV 13.2 % (11.6-14.6); RBC Distribution Width SD 42.3 fl (35.1-43.9); Red Blood Count 4.63 M/mm3 (4.2-5.4); White Blood Count 6.3 K/mm3 (4.4-11.0)
[2021-01-01 18:31] LABS: Calcium Oxalate Crystals Ur 1+ /hpf (<or=2+); White Blood Cells 0-5 SEEN /hpf (0-5)
[2021-01-01 18:32] LABS: AST(SGOT) 19 U/L (15-37); Alanine Aminotransfer ALT/SGPT 24 U/L (13-56); Albumin, Serum 3.8 g/dL (3.2-5.0); Alkaline Phosphatase 115 U/L (45-117); Anion Gap 6 (5-15); BUN 13 mg/dL (7-18); BUN/Creat Ratio 14.7 RATIO (10-20); Calcium,Total 8.7 mg/dL (8.5-10.1); Chloride 108 mmol/L (98-107); Creatinine, Serum 0.88 mg/dL (0.55-1.02); EST Glomerular Filtration Rate 72 mL/min (>60); Est Glom Filt Rate - Afr Amer 87 mL/min (>60); Estimated Creatinine Clearance 62.56 ml/min; Globulin 3.9 g/dL (2.2-4.2); Glucose 89 mg/dL (74-106); Potassium 3.6 mmol/L (3.5-5.1); Protein, Total 7.7 g/dL (6.4-8.2); Sodium Level 138 mmol/L (136-145)
[2021-01-01] MEDS: Acetaminophen 325 MG Tablet 650 MG PO (18:34)
[2021-01-01 19:16] VITALS: BP 138/94; PULSE 71; RESP 15; O2SAT 99
== END 2021-01-01 19:17 | disposition home or self-care (01) ==
PROVIDERS: Emergency Provider Emergency Medicine; PCP Internal Medicine
DX: R10.9 Unspecified abdominal pain (principal); F17.210 Nicotine dependence, cigarettes, uncomplicated; E78.5 Hyperlipidemia, unspecified; I10 Essential (primary) hypertension; Z87.442 Personal history of urinary calculi; Z79.899 Other long term (current) drug therapy
CPT/HCPCS: 74176; 80053; 81001; 85025; 96374; 99285; A4216

== ENCOUNTER 2021-05-19 13:23 | Emergency (ER) | payer SELFPAY ==
[2021-05-19 13:23] VITALS: BP 164/94; PULSE 83; RESP 16; TEMP 36.4; O2SAT 100; BMI 34.3
--- NOTE | 2021-05-19 15:09 | EDS_ITS ---
HPI History of Present Illness Chief Complaint: Dental Detail of Chief Complaint: Right lower jaw dental pain. Informant: patient Onset/Context/Timing Onset: Days Context: Gradual Onset Timing: Continuous Current Severity: Mild Maximum Severity: Mild Associated Symptoms Assocated Symptom - Dental: jaw swelling and cold sensitivity; Negative for fever, face swelling, hot sensitivity or other Narrative Narrative: 50-year-old female past medical history of hypertension. Complaining of right lower jaw dental pain. Denies fever or chills. No other complaints. Prior similar symptoms: Yes Recent Illness/Hospitalization: No PFSH PFSH Medical History Depression Hyperlipidemia Hypertension Kidney stones Smoker Home Medications atorvastatin 40 mg PO DAILY 05/10/17 [History Last Taken 07/28/18] lisinopril 40 mg PO DAILY 01/26/19 [History Last Taken Unknown] amlodipine 10 mg PO DAILY 08/07/20 [History Last Taken Unknown] penicillin V potassium 500 mg PO 4X/DAY #40 tab 05/19/21 [Rx Last Taken Unknown] Allergy/AdvReac Type Severity Reaction Status Date / Time ketorolac [From Toradol] Allergy Swelling Verified 05/19/21 13:25 NSAIDS (Non-Steroidal Allergy Swelling Verified 05/19/21 13:25 Anti-Inflamma prochlorperazine edisylate AdvReac Other Verified 05/19/21 13:25 [From Compazine] prochlorperazine maleate AdvReac Other Verified 05/19/21 13:25 [From Compazine] Surgical History History of appendectomy History of hysterectomy Social History Smoking Status: Current every day smoker tobacco type: cigarettes ROS ROS ED ROS Narrative Denies recent illness. Review of Systems ROS Unobtainable: Denies due to encephalopathy Constitutional Constitutional ED: Denies fever(s) Eyes Eyes: Denies change in vision ENT ENT ED: Denies ear pain Cardiovascular Cardiovascular: Denies chest pain Respiratory/Chest Respiratory/Chest: Denies dyspnea Gastrointestinal Gastrointestinal: Denies abdominal pain Genitourinary Genitourinary ED: Denies dysuria Musculoskeletal Musculoskeletal: Denies myalgias Integumentary Denies rash Neurologic Neurologic: Denies headache(s) Psychiatric Psychiatric: Denies depression Endocrine Endocrinology: Denies polyuria Hematologic/Lymphatic Hematologic/Lymphatic: Denies easy bruising Allergic/Immunologic Allergic/Immunologic ED: Denies urticaria EXAM Physical Exam Narrative Exam Narrative: Treatment no acute distress vital signs stable afebrile. HEENT exam multiple missing teeth. Decaying teeth right lower jaw x2 with large cavities with mild swelling and tenderness. No drainable or palpable abscess. Posterior pharynx unremarkable. No trouble breathing or swallowing. Heart lung abdominal exams otherwise unremarkable. No significant facial swelling. Const Vital Signs: 05/19/21 13:23 Temperature 97.6 F L Temperature Source Temporal Pulse Rate 83 Respiratory Rate 16 Blood Pressure 164/94 H Blood Pressure Mean 117 Pulse Ox 100 Oxygen Delivery Method Room Air Positive well nourished, well developed and obese; Negative for cachectic or contractures General Appearance ED: well developed and NAD; Negative for cachectic or contractures Nutritional Appearance: obese; Negative for cachectic HEENT HEENT Narrative: Mild right jaw swelling and right lower lateral tooth tenderness with decay. Eyes PERRL and EOMs intact bilaterally Neck supple and no JVD General: normal visual inspection; Negative for tenderness Lymph Lymphatic: no lymphadenopathy noted; Negative for lymphadenopathy Chest Wall inspection of chest normal and palpation of chest normal Resp normal respiratory effort, no retractions and clear to auscultation bilaterally Cardio regular rate, regular rhythm, S1 normal heart sound, S2 normal heart sound and no murmurs GI normal to inspection, nondistended, normoactive bowel sounds, non-tender, non- distended and no masses Palpation: soft Back/Spine no CVA tenderness Thoracic Spine / Upper Back: Negative for thoracic spinal tenderness or paraspinal muscle tenderness Extremity normal to inspection and no joint enlargement General Extremety ED: Negative for edema General Extremity: Negative for edema Neuro oriented x3, CN's II-XII intact bilaterally, moves all extremities and no focal motor deficits Sensorium / Orientation: alert, oriented to person, oriented to place and oriented to time Psych mental status grossly normal Attitude: No agitated Mood & Affect: Negative for depressed or tearful Skin no rashes or lesions noted and no wounds MDM MDM MDM Narrative Medical decision making narrative: Patient with abdominal pain infection. Patient be started on Pen-Vee K 4 times a day for 10 days. She is already working on getting into see a dentist. Discharge Plan Triage Chief Complaint: Dental ED Provider: Sebastian Walters Dx/Rx/DC Orders Clinical Impression: Pain due to dental caries, Dental infection Instructions: Dental Abscess, ED Dental Pain Prescriptions: New penicillin V potassium 500 mg tablet 500 mg PO 4X/DAY Qty: 40 RF: 0 No Action atorvastatin 20 MG tablet 40 mg PO DAILY RF: 0 lisinopril 20 MG tablet 40 mg PO DAILY RF: 0 amlodipine 10 MG tablet 10 mg PO DAILY RF: 0 Primary Care Provider: Rich Ravi Referrals: Rich Ravi MD [Primary Care Provider] - Activity Restrictions/Additional Instructions: Motrin and Tylenol for pain. Warm salt water gargling. Follow-up with a dentist as soon as possible. Return if swelling gets to be a lot worse. Disposition Disposition: Home, Self Care
== END 2021-05-19 15:23 | disposition home or self-care (01) ==
PROVIDERS: Emergency Provider Emergency Medicine; PCP Internal Medicine
DX: K02.9 Dental caries, unspecified (principal); K04.7 Periapical abscess without sinus; I10 Essential (primary) hypertension; E78.5 Hyperlipidemia, unspecified; E66.9 Obesity, unspecified; Z68.34 Body mass index [BMI] 34.0-34.9, adult; F17.210 Nicotine dependence, cigarettes, uncomplicated; Z79.899 Other long term (current) drug therapy
CPT/HCPCS: 99282

== ENCOUNTER 2021-07-29 14:53 | Emergency (ER) | payer SELFPAY ==
[2021-07-29 14:53] VITALS: BP 149/94; BP 163/104; TEMP 36.7; BMI 34.7
[2021-07-29 15:07] VITALS: PULSE 88; RESP 16; O2SAT 100
--- NOTE | 2021-07-29 15:24 | CT_ITS ---
STUDY: CT ABDOMEN AND PELVIS WITHOUT CONTRAST REASON FOR EXAM: Female, 50 years old. Left flank pain RADIATION DOSAGE (If Supplied By Facility): CTDIvol = ( 15.71 ) mGy, DLP = ( 769.34 ) mGycm TECHNIQUE: Transaxial images were obtained from the dome of the diaphragm to the symphysis pubis without oral contrast, and without intravenous contrast. Sagittal and coronal images were reconstructed. Individualized dose optimization techniques were used for this CT. COMPARISON: 01/01/2021 FINDINGS: The visualized lung bases are unremarkable. The visualized portions of the heart are within normal limits. Normal liver. Normal gallbladder and extrahepatic biliary system. Normal spleen. Normal pancreas. Normal bilateral adrenal glands. Multiple nonobstructing right renal stones. No hydronephrosis, ureteral stone, ureteral dilatation. Normal left kidney. Normal visualized stomach. Normal small intestine. Normal colon. There are surgical clips in the region of the appendix consistent with a prior appendectomy. Normal abdominal aorta. Normal inferior vena cava. Normal retroperitoneum. Normal urinary bladder. Normal abdominal wall. Normal osseous structures. CT/Abdomen/Pelvis without Cont IMPRESSION: 2 nonobstructing right renal stones. Electronically Signed: Marcos Parikh MD at 17:02 EST Tel , Service support ,
[2021-07-29] MEDS: 0.9% Normal Saline 1,000 ML 1000 ML IV (15:30)
[2021-07-29] MEDS: Morphine 4 MG/ML Syringe IV ×2 (15:31→17:45)
[2021-07-29] MEDS: Ondansetron 4 MG/2 ML Vial IV (15:31)
[2021-07-29 15:38] LABS: Bacteria 0 SEEN /hpf (None Seen); Mucous, Urine 0 SEEN /hpf (<or=2+); Squamous Epithelial Cells - UA 0 SEEN /hpf (5-10); White Blood Cells 0 SEEN /hpf (0-5)
[2021-07-29 16:02] LABS: Color, Urine Yellow (Yellow); Glucose, Dipstick Normal (Normal); Ketone-Dipstick Negative (Negative); Leukocyte Esterase-Dipstick Negative /ul (Negative); Nitrite-Dipstick Negative (Negative); Occult Blood-Urine 25 /ul (Negative); Protein-Dipstick Negative (Negative); Urine Bilirubin Dipstick Negative (Negative); Urine Clarity Clear (Clear); Urine Urobilinogen Normal (Normal)
[2021-07-29 16:06] VITALS: BP 142/86
[2021-07-29 16:12] LABS: Anion Gap 6 (5-15); BUN 18 mg/dL (7-18); BUN/Creat Ratio 21.6 RATIO (10-20); Calcium,Total 8.7 mg/dL (8.5-10.1); Chloride 107 mmol/L (98-107); Creatinine, Serum 0.83 mg/dL (0.55-1.02); EST Glomerular Filtration Rate 76 mL/min (>60); Est Glom Filt Rate - Afr Amer 92 mL/min (>60); Estimated Creatinine Clearance 66.33 ml/min; Glucose 110 mg/dL (74-106); Potassium 3.6 mmol/L (3.5-5.1); Sodium Level 138 mmol/L (136-145)
[2021-07-29 16:22] LABS: Absolute Lymphocyte Count 1.98 X10^3/uL (0.83-4.51); Absolute Neutrophil Count 3.7 X10^3/uL (2.0-7.7); Basophil% 1.6 % (0-1); Eosinophil# 0.19 X10^3/uL; Hematocrit 43.9 % (37-47); Hemoglobin 14.3 g/dL (12.0-15.0); Lymphocyte # 1.98 X10^3/ul (0.83-4.51); Mean Corp Hgb Conc 32.6 g/dL (32-36); Mean Corpuscular Hgb 28.5 pg (27.0-32.0); Mean Corpuscular Volume 87.5 fL (81-99); Mean Platelet Vol. 10.5 fl (6.2-12.0); Monocyte# 0.37 X10^3/uL; Monocyte% 5.8 % (0-10); NRBC Flagged by Analyzer 0 % (0-5); Neutrophil # 3.72 X10^3/uL (2.7-7.7); Neutrophil % 58.1 % (47-70); Platelet Count 317 K/mm3 (150-450); RBC Distribution Width SD 41.4 fl (35.1-43.9); Red Blood Count 5.02 M/mm3 (4.2-5.4); White Blood Count 6.4 K/mm3 (4.4-11.0)
[2021-07-29 16:24] LABS: Red Blood Cells-Urine 0-5 SEEN /hpf (0-5)
[2021-07-29 16:39] LABS: Internal QC Validated? YES +Cl - CLEAR BKGD; Pregnancy, Serum, hCG Quali. NEGATIVE Negative
--- NOTE | 2021-07-29 16:43 | EDS_ITS ---
HPI History of Present Illness Chief Complaint: Flank Pain Informant: patient Onset/Context/Timing Onset: Today Context: Sudden Onset Timing: Continuous Quality: Squeezing, stabbing Location: Left flank Worsened by: Nothing Relieved by: Nothing Narrative Narrative: Patient presents with left flank pain that began today. Patient states it woke her up this morning. Patient describes her pain as squeezing and stabbing. Patient states nothing makes it better and nothing makes it worse. Patient states she has a history of kidney stones and this pain feels similar to that. Patient admits to some nausea and vomiting. Patient denies any dysuria or hematuria. Patient admits to some urinary frequency. Patient admits to some pain in her back. PFSH PFSH Medical History Depression Hyperlipidemia Hypertension Kidney stones Smoker Home Medications atorvastatin 40 mg PO DAILY 05/10/17 [History Last Taken 07/28/18] lisinopril 40 mg PO DAILY 01/26/19 [History Last Taken Unknown] amlodipine 10 mg PO DAILY 08/07/20 [History Last Taken Unknown] penicillin V potassium 500 mg PO 4X/DAY #40 tab 05/19/21 [Rx Last Taken Unknown] hydrocodone-acetaminophen 1 tab PO Q6H PRN PRN 3 Days #10 tablet 07/29/21 [Rx Last Taken Unknown] Allergy/AdvReac Type Severity Reaction Status Date / Time ketorolac [From Toradol] Allergy Swelling Verified 07/29/21 15:01 NSAIDS (Non-Steroidal Allergy Swelling Verified 07/29/21 15:01 Anti-Inflamma prochlorperazine edisylate AdvReac Other Verified 07/29/21 15:01 [From Compazine] prochlorperazine maleate AdvReac Other Verified 07/29/21 15:01 [From Compazine] Surgical History History of appendectomy History of hysterectomy Social History Smoking Status: Current every day smoker tobacco type: cigarettes ROS ROS ED Constitutional Constitutional ED: Denies chills or fever(s) Eyes Eyes: Denies blurry vision or change in vision ENT ENT ED: Denies rhinorrhea or sore throat Cardiovascular Cardiovascular: Denies chest pain or palpitations Respiratory/Chest Respiratory/Chest: Denies cough or dyspnea Gastrointestinal Gastrointestinal: Reports nausea and vomiting Genitourinary Genitourinary ED: Reports urinary frequency; Denies dysuria or hematuria Musculoskeletal Musculoskeletal: Reports back pain; Denies neck pain Integumentary Denies abscess or rash Neurologic Neurologic: Denies headache(s) or weakness Allergic/Immunologic Allergic/Immunologic ED: Denies mouth swelling or urticaria EXAM Physical Exam Const Vital Signs: 07/29/21 14:53 07/29/21 15:07 07/29/21 16:06 Temperature 98.0 F Temperature Source Oral Pulse Rate 88 Respiratory Rate 16 Blood Pressure 149/94 H 142/86 H Blood Pressure Mean 112 104 Pulse Ox 100 Oxygen Delivery Method Room Air Room Air Room Air Positive well nourished, well developed and obese General Appearance ED: well developed Nutritional Appearance: obese HEENT Reports moist mucous membranes Neck supple and no JVD Resp normal respiratory effort and clear to auscultation bilaterally Cardio regular rate and regular rhythm GI normal to inspection, nondistended, normoactive bowel sounds Palpation: soft and tender LLQ and LUQ; Negative for guarding or rebound tenderness present Back/Spine General Back: CVA tenderness left Extremity normal to inspection Neuro oriented x3, CN's II-XII intact bilaterally and no sensory deficits noted Sensorium / Orientation: alert Motor Exam: strength 5/5 throughout Psych mental status grossly normal MDM MDM MDM Narrative Medical decision making narrative: Patient was given IV fluids, morphine, and Zofran. CBC and basic metabolic profile were obtained and were within normal limits. Serum hCG was negative. Urinalysis does not show any evidence of urinary tract infection or hematuria. CT scan of the abdomen pelvis was obtained. There are 2 right renal nonobstructing calculi. There is no acute process noted. This was interpreted by the radiologist and reviewed by myself. Patient was given a repeat dose of morphine here. Patient was given a prescription for a short course of [place]. Patient was instructed to follow-up with her primary care physician in 3 to 5 days for further evaluation. Patient understood and was agreeable with the plan. All questions were answered. Lab Data Attestation: I reviewed the patient's lab results. Labs: Laboratory Results - last 24 hr 07/29/21 07/29/21 07/29/21 15:03 15:03 15:03 WBC 6.4 RBC 5.02 Hgb 14.3 Hct 43.9 MCV 87.5 MCH 28.5 MCHC 32.6 RDW Std Deviation 41.4 RDW Coeff of Jennifer 13.0 Plt Count 317 MPV 10.5 Immature Gran % (Auto) 0.500 Neut % (Auto) 58.1 Lymph % (Auto) 31.0 [place] % (Auto) 5.8 Eos % (Auto) 3.0 Baso % (Auto) 1.6 H Absolute Neuts (auto) 3.7 Absolute Lymphs (auto) 1.98 Nucleated RBC % 0 Sodium 138 Potassium 3.6 Chloride 107 Carbon Dioxide 25.0 Anion Gap 6 BUN 18 Creatinine 0.83 Estim Creat Clear Calc 66.33 Est GFR (MDRD) Af Amer 92 Est GFR (MDRD) Non-Af 76 BUN/Creatinine Ratio 21.6 H Glucose 110 H Calcium 8.7 Serum , Qual NEGATIVE Urine Color Urine Clarity Urine pH Ur Specific [place] Urine Protein Urine Glucose (UA) Urine Ketones Urine Occult Blood Urine Nitrite Urine Bilirubin Urine Urobilinogen Ur Leukocyte Esterase Urine RBC Urine WBC Ur Squamous Epith Cells Urine Bacteria Urine Mucus 07/29/21 15:30 WBC RBC Hgb Hct MCV MCH MCHC RDW Std Deviation RDW Coeff of Jennifer Plt Count MPV Immature Gran % (Auto) Neut % (Auto) Lymph % (Auto) [place] % (Auto) Eos % (Auto) Baso % (Auto) Absolute Neuts (auto) Absolute Lymphs (auto) Nucleated RBC % Sodium Potassium Chloride Carbon Dioxide Anion Gap BUN Creatinine Estim Creat Clear Calc Est GFR (MDRD) Af Amer Est GFR (MDRD) Non-Af BUN/Creatinine Ratio Glucose Calcium Serum , Qual Urine Color Yellow Urine Clarity Clear Urine pH 6.0 Ur Specific [place] 1.020 Urine Protein Negative Urine Glucose (UA) Normal Urine Ketones Negative Urine Occult Blood 25 H Urine Nitrite Negative Urine Bilirubin Negative Urine Urobilinogen Normal Ur Leukocyte Esterase Negative Urine RBC 0-5 SEEN Urine WBC 0 SEEN Ur Squamous Epith Cells 0 SEEN Urine Bacteria 0 SEEN Urine Mucus 0 SEEN Radiography Diagnostic Testing: Clinical Impression(s) from Imaging Studies Abdomen/Pelvis CT 07/29/21 15:24 IMPRESSION: 2 nonobstructing right renal stones. Electronically Signed: Marcos Parikh MD at 17:02 EST Tel , Service support , Discharge Plan Triage Chief Complaint: Flank Pain ED Provider: Morteza Garcia Dx/Rx/DC Orders Clinical Impression: Acute flank pain Instructions: ED Flank Pain, Uncertain Cause Prescriptions: New hydrocodone-acetaminophen [hydrocodone-acetaminophen] 1 TABLET tablet 1 tab PO Q6H PRN PRN (Reason: Pain) 3 Days Qty: 10 RF: 0 No Action atorvastatin 20 MG tablet 40 mg PO DAILY RF: 0 lisinopril 20 MG tablet 40 mg PO DAILY RF: 0 amlodipine 10 MG tablet 10 mg PO DAILY RF: 0 penicillin V potassium 500 mg tablet 500 mg PO 4X/DAY Qty: 40 RF: 0 Primary Care Provider: Rich Ravi Referrals: Rich Ravi MD [Primary Care Provider] - 3-5 Days Disposition Disposition: Home, Self Care
[2021-07-29 17:46] VITALS: PULSE 80; O2SAT 97
== END 2021-07-29 18:01 | disposition home or self-care (01) ==
PROVIDERS: Emergency Provider Emergency Medicine; PCP Internal Medicine; Visit Provider Emergency Medicine
DX: N20.0 Calculus of kidney (principal); R10.9 Unspecified abdominal pain; F17.210 Nicotine dependence, cigarettes, uncomplicated; E66.9 Obesity, unspecified
CPT/HCPCS: 74176; 80048; 81001; 84703; 85025; 96361; 96374; 96375; 96376; 99285; J7030; J2405

== ENCOUNTER 2022-03-24 19:28 | Emergency (ER) | payer SELFPAY ==
[2022-03-24 19:30] VITALS: BP 166/98; PULSE 95; RESP 17; TEMP 36.9; O2SAT 97; BMI 32.5
--- NOTE | 2022-03-24 19:51 | CT_ITS ---
STUDY: CT ABDOMEN AND PELVIS WITHOUT CONTRAST REASON FOR EXAM: Female, 51 years old. Kidney Stone RADIATION DOSAGE (If Supplied By Facility): CTDIvol = ( 14.39 ) mGy, DLP = ( 675.84 ) mGycm TECHNIQUE: Transaxial images were obtained from the dome of the diaphragm to the symphysis pubis without oral contrast, and without intravenous contrast. Sagittal and coronal images were reconstructed. Individualized dose optimization techniques were used for this CT. COMPARISON: CT abdomen and pelvis July 29 2021 FINDINGS: The visualized lung bases are unremarkable. The visualized portions of the heart are within normal limits. Normal liver. Normal gallbladder and extrahepatic biliary system. Normal spleen. Normal pancreas. Normal bilateral adrenal glands. Punctate nonobstructing nephroliths bilaterally. Normal visualized stomach. Normal small intestine. Increased stool throughout the colon. Colonic diverticulosis. Appendix appears surgically absent. Normal abdominal aorta. Normal inferior vena cava. Normal retroperitoneum. Bladder is decompressed. There is a punctate 1 to 2 mm ureterolith near the ureterovesicular junction in the bladder. Normal abdominal wall. Normal osseous structures. CT/Abdomen/Pelvis without Cont IMPRESSION: 2 mm a punctate ureterolith at the ureterovesicular junction in the bladder. Bilateral punctate nonobstructing nephroliths. Electronically Signed: Lalo Torres MD at 20:46 EDT ,
--- NOTE | 2022-03-24 19:52 | ED.VIS.GI ---
HPI HPI - GI History of Present Illness Chief Complaint: Flank Pain Narrative Narrative: 51-year-old female past medical history of hypertension presents with left flank pain that began 4 to 5 hours ago. She was at work and states she started having crampy pain in her left flank. She noticed a few specks of blood in her urine and is now having hematuria. She had pain similar to this a few years ago when she had a kidney stone/ureteral stone and this felt the same. However, she states that she had to be transferred to [facility] to see a urologist because a stent needed to be placed. She denies any exacerbating or alleviating factors. She is nauseated and she vomited twice today. No exacerbating or alleviating factors to her pain. She is unable to take NSAIDs so she took Tylenol without relief of her symptoms. PFSH PFSH Medical History Depression Hyperlipidemia Hypertension Kidney stones Smoker Home Medications atorvastatin 20 mg tablet 40 mg PO DAILY 05/10/17 [History Last Taken 07/28/18] lisinopril 20 mg tablet 40 mg PO DAILY 01/26/19 [History Last Taken Unknown] amlodipine 10 mg tablet 10 mg PO DAILY 08/07/20 [History Last Taken Unknown] cephalexin 500 mg capsule 500 mg PO BID #14 caps 03/24/22 [Rx Last Taken Unknown] oxycodone-acetaminophen 5 mg-325 mg tablet (Percocet) 1 tab PO Q6H PRN pain 3 days #12 tabs 03/24/22 [Rx Last Taken Unknown] tamsulosin 0.4 mg capsule (Flomax) 0.4 mg PO QHS #10 caps 03/24/22 [Rx Last Taken Unknown] Allergy/AdvReac Type Severity Reaction Status Date / Time ketorolac [From Toradol] Allergy Swelling Verified 03/24/22 19:29 NSAIDS (Non-Steroidal Allergy Swelling Verified 03/24/22 19:29 Anti-Inflamma prochlorperazine edisylate AdvReac Other Verified 03/24/22 19:29 [From Compazine] prochlorperazine maleate AdvReac Other Verified 03/24/22 19:29 [From Compazine] Surgical History History of appendectomy History of hysterectomy Social History Smoking Status: Current every day smoker tobacco type: cigarettes ROS ROS ED ROS Narrative Constitutional: No fever, no chills. HEENT: No sore throat. No neck pain. No loss of vision. No rhinorrhea. Cardiovascular: No chest pain. No palpitations. No pedal edema. Respiratory: No cough, no shortness of breath. Abdominal: No abdominal pain. Positive nausea. 2 episodes of nonbloody vomiting. Genitourinary: No dysuria. Positive hematuria. Left flank pain radiating to front. Musculoskeletal: No myalgias. No arthralgias. Neurologic: No headaches. No dizziness. No lightheadedness. Skin: No rash. No change in color. Psychiatric: No depression. No anxiety. EXAM Physical Exam Narrative Exam Narrative: Afebrile. Vital signs noted. HEENT: Normocephalic. Atraumatic. PERRL, EOMI. Neck soft and supple. No point tenderness or step off. Cardiovascular: Regular rate and rhythm. No murmurs, rubs, or gallops appreciated. Respiratory: No tachypnea. Lungs clear to auscultation bilaterally. Gastrointestinal: Abdomen soft, nontender, with normoactive bowel sounds. No rebound or guarding. No CVA tenderness to percussion on the left. Neurological: Awake. Alert. Nonfocal, nonlateralizing. Skin: No rash. Normal color. No pallor. Musculoskeletal: No pedal edema. Full range of motion extremities. Const Vital Signs: 03/24/22 19:30 Temperature 98.4 F Temperature Source Temporal Pulse Rate 95 Respiratory Rate 17 Blood Pressure 166/98 H Blood Pressure Mean 120 Pulse Ox 97 Oxygen Delivery Method Room Air MDM MDM MDM Narrative Medical decision making narrative: Kidney stone work-up was pursued. As she is allergic to Toradol and NSAIDs she was administered morphine for analgesia and she will be administered ondansetron as she has allergies to Compazine. CT imaging will be obtained along with urinalysis, CBC, and BMP. CBC shows normal white count of 7.4, hemoglobin normal at 14.3 with hematocrit 44.0. Normal platelet count. Potassium slightly low at 3.2 which was replaced orally with 40 mill equivalents. BUN 14 with a creatinine of 1.07. Glucose appropriately elevated at 124 with a normal anion gap of 9. Her urinalysis is positive for nitrites and 25 leukocyte esterase but there are only 5-10 WBCs seen. There is rare bacteria. Given that her CT of the abdomen and pelvis without contrast does show a 2 mm UVJ stone, I feel that she can be discharged safely home with follow-up. She did require dose of Dilaudid. Once again she cannot take NSAIDs. She was given prescriptions for Keflex, Flomax, and for 3 days worth of Percocet. She states she will follow-up with her [facility] urologist or at least primarily her primary care physician for referral. She was also given the number to Dr. De Los Santos. I feel she be discharged safely home with follow-up and return instructions were reviewed. Disposition is discharged home in stable condition. Lab Data Attestation: I reviewed the patient's lab results. Labs: Laboratory Results - last 24 hr 03/24/22 03/24/22 03/24/22 19:40 19:46 19:46 WBC 7.4 RBC 5.00 Hgb 14.3 Hct 44.0 MCV 88.0 MCH 28.6 MCHC 32.5 RDW Std Deviation 43.6 RDW Coeff of Jennifer 13.5 Plt Count 317 MPV 9.5 Immature Gran % (Auto) 0.300 Neut % (Auto) 54.8 Lymph % (Auto) 34.8 [place] % (Auto) 6.5 Eos % (Auto) 2.7 Baso % (Auto) 0.9 Absolute Neuts (auto) 4.1 Absolute Lymphs (auto) 2.57 Nucleated RBC % 0 Sodium 142 Potassium 3.2 L Chloride 105 Carbon Dioxide 28.0 Anion Gap 9 BUN 14 Creatinine 1.07 H Estim Creat Clear Calc 50.88 Est GFR (MDRD) Af Amer 69 Est GFR (MDRD) Non-Af 57 L BUN/Creatinine Ratio 13.1 Glucose 124 H Calcium 9.6 Urine Color Brown Urine Clarity Cloudy Urine pH 5.0 Ur Specific [place] 1.025 Urine Protein 100 H Urine Glucose (UA) Normal Urine Ketones 5 H Urine Occult Blood 250 H Urine Nitrite Positive H Urine Bilirubin Negative Urine Urobilinogen 1 H Ur Leukocyte Esterase 25 H Urine RBC > 100 SEEN Urine WBC 5-10 SEEN Ur Squamous Epith Cells 0-5 SEEN Urine Bacteria RARE Urine Mucus 0 SEEN Radiography Diagnostic Testing: Clinical Impression(s) from Imaging Studies Abdomen/Pelvis CT 03/24/22 19:51 IMPRESSION: 2 mm a punctate ureterolith at the ureterovesicular junction in the bladder. Bilateral punctate nonobstructing nephroliths. Electronically Signed: Lalo Torres MD at 20:46 EDT , Discharge Plan Triage Chief Complaint: Flank Pain ED Provider: Harsha Fowler Dx/Rx/DC Orders Clinical Impression: Ureteral calculus, left, Hypokalemia, UTI (urinary tract infection) Instructions: ED Hypokalemia, ED Cystitis Female Adult, ED Kidney Stone w/ Colic Prescriptions: New oxycodone-acetaminophen [Percocet] 5-325 mg tablet 1 tab PO Q6H PRN (Reason: pain) 3 Days Qty: 12 0RF cephalexin 500 mg capsule 500 mg PO BID Qty: 14 0RF tamsulosin [Flomax] 0.4 mg capsule 0.4 mg PO QHS Qty: 10 0RF No Action atorvastatin 20 MG tablet 40 mg PO DAILY lisinopril 20 MG tablet 40 mg PO DAILY amlodipine 10 MG tablet 10 mg PO DAILY Primary Care Provider: Rich Ravi Referrals: Mireille De Los Santos MD [Med Staff - Active Staff] - As Needed Rich Ravi MD [Primary Care Provider] - Disposition Disposition: Home, Self Care
[2022-03-24 19:59] LABS: Absolute Lymphocyte Count 2.57 X10^3/uL (0.83-4.51); Absolute Neutrophil Count 4.1 X10^3/uL (2.0-7.7); Basophil# 0.07 X10^3/uL; Basophil% 0.9 % (0-1); Eosinophils% 2.7 % (0-5); Hemoglobin 14.3 g/dL (12.0-15.0); Lymphocyte # 2.57 X10^3/ul (0.83-4.51); Lymphocyte % 34.8 % (19-41); Mean Corp Hgb Conc 32.5 g/dL (32-36); Mean Corpuscular Hgb 28.6 pg (27.0-32.0); Mean Platelet Vol. 9.5 fl (6.2-12.0); Monocyte# 0.48 X10^3/uL; Monocyte% 6.5 % (0-10); NRBC Flagged by Analyzer 0 % (0-5); Neutrophil # 4.05 X10^3/uL (2.7-7.7); Neutrophil % 54.8 % (47-70); Platelet Count 317 K/mm3 (150-450); RBC Distribution Width CV 13.5 % (11.6-14.6); RBC Distribution Width SD 43.6 fl (35.1-43.9); White Blood Count 7.4 K/mm3 (4.4-11.0)
[2022-03-24 20:01] LABS: Mucous, Urine 0 SEEN /hpf (<or=2+)
[2022-03-24] MEDS: Morphine 4 MG/ML Syringe IV (20:01)
[2022-03-24] MEDS: Ondansetron 4 MG/2 ML Vial IV (20:01)
[2022-03-24 20:02] LABS: Color, Urine Brown (Yellow); Glucose, Dipstick Normal (Normal); Ketone-Dipstick 5 mg/dl (Negative); Leukocyte Esterase-Dipstick 25 /ul (Negative); Nitrite-Dipstick Positive (Negative); Occult Blood-Urine 250 /ul (Negative); Protein-Dipstick 100 mg/dl (Negative); Specific Gravity, Urine 1.025 (1.002-1.030); Urine Bilirubin Dipstick Negative (Negative); Urine Clarity Cloudy (Clear); Urine Urobilinogen 1 mg/dl (Normal)
[2022-03-24 20:13] LABS: Anion Gap 9 (5-15); BUN 14 mg/dL (7-18); BUN/Creat Ratio 13.1 RATIO (10-20); Calcium,Total 9.6 mg/dL (8.5-10.1); Chloride 105 mmol/L (98-107); Creatinine, Serum 1.07 mg/dL (0.55-1.02); EST Glomerular Filtration Rate 57 mL/min (>60); Est Glom Filt Rate - Afr Amer 69 mL/min (>60); Estimated Creatinine Clearance 50.88 ml/min; Glucose 124 mg/dL (74-106); Potassium 3.2 mmol/L (3.5-5.1); Sodium Level 142 mmol/L (136-145)
[2022-03-24] MEDS: 0.9% Normal Saline 1,000 ML 250 ML IV (20:16)
[2022-03-24 20:37] LABS: Bacteria RARE /hpf (None Seen); Red Blood Cells-Urine > 100 SEEN /hpf (0-5); Squamous Epithelial Cells - UA 0-5 SEEN /hpf (5-10); White Blood Cells 5-10 SEEN /hpf (0-5)
[2022-03-24] MEDS: HYDROmorphone 1 MG/ML Syringe IV (20:38)
[2022-03-24] MEDS: Cephalexin 250 MG Capsule 500 MG PO (20:53)
[2022-03-24] MEDS: Potassium Chloride Oral Tablet 20 MEQ 40 MEQ PO (20:55)
[2022-03-24 21:09] VITALS: BP 123/74; PULSE 84; RESP 17; O2SAT 98
== END 2022-03-24 21:09 | disposition home or self-care (01) ==
PROVIDERS: Emergency Provider Emergency Medicine; PCP Internal Medicine; Visit Provider Emergency Medicine
DX: N20.1 Calculus of ureter (principal); N39.0 Urinary tract infection, site not specified; E87.6 Hypokalemia; I10 Essential (primary) hypertension; E78.5 Hyperlipidemia, unspecified; F17.210 Nicotine dependence, cigarettes, uncomplicated; Z90.49 Acquired absence of other specified parts of digestive tract; Z90.710 Acquired absence of both cervix and uterus; Z79.899 Other long term (current) drug therapy; Z87.442 Personal history of urinary calculi
CPT/HCPCS: 74176; 80048; 81001; 85025; 87086; 87088; 96361; 96374; 96375; 99284; J7030; A4216; J2405

== ENCOUNTER 2022-12-24 18:02 | Emergency (ER) | payer SELFPAY ==
[2022-12-24 18:03] VITALS: BP 196/115; PULSE 85; RESP 18; TEMP 36.8; O2SAT 100; BMI 31.3
[2022-12-24 19:08] LABS: Absolute Lymphocyte Count 2.34 X10^3/uL (0.83-4.51); Absolute Neutrophil Count 3.4 X10^3/uL (2.0-7.7); Basophil# 0.09 X10^3/uL; Basophil% 1.4 % (0-1); Eosinophil# 0.21 X10^3/uL; Eosinophils% 3.2 % (0-5); Hematocrit 44.6 % (37-47); Hemoglobin 14.7 g/dL (12.0-15.0); Lymphocyte # 2.34 X10^3/ul (0.83-4.51); Lymphocyte % 35.9 % (19-41); Mean Corpuscular Hgb 29.6 pg (27.0-32.0); Mean Corpuscular Volume 89.9 fL (81-99); Mean Platelet Vol. 9.9 fl (6.2-12.0); Monocyte# 0.46 X10^3/uL; Monocyte% 7.1 % (0-10); NRBC Flagged by Analyzer 0 % (0-5); Neutrophil # 3.38 X10^3/uL (2.7-7.7); Neutrophil % 51.9 % (47-70); Platelet Count 291 K/mm3 (150-450); RBC Distribution Width CV 13.2 % (11.6-14.6); RBC Distribution Width SD 43.6 fl (35.1-43.9); Red Blood Count 4.96 M/mm3 (4.2-5.4); White Blood Count 6.5 K/mm3 (4.4-11.0)
[2022-12-24 19:17] LABS: Bacteria 0 SEEN /hpf (None Seen); Mucous, Urine 0 SEEN /hpf (<or=2+); Red Blood Cells-Urine 0 SEEN /hpf (0-5); Squamous Epithelial Cells - UA 0 SEEN /hpf (5-10); White Blood Cells 0 SEEN /hpf (0-5)
[2022-12-24 19:18] LABS: Color, Urine Yellow (Yellow); Glucose, Dipstick Normal (Normal); Ketone-Dipstick Negative (Negative); Leukocyte Esterase-Dipstick Negative /ul (Negative); Nitrite-Dipstick Negative (Negative); Occult Blood-Urine 10 /ul (Negative); Protein-Dipstick Negative (Negative); Specific Gravity, Urine 1.025 (1.002-1.030); Urine Bilirubin Dipstick Negative (Negative); Urine Clarity Clear (Clear); Urine Urobilinogen Normal (Normal)
[2022-12-24 19:20] LABS: Anion Gap 6 (5-15); BUN 16 mg/dL (7-18); BUN/Creat Ratio 14.5 RATIO (10-20); Calcium,Total 9.5 mg/dL (8.5-10.1); Chloride 108 mmol/L (98-107); EST Glomerular Filtration Rate 55 mL/min (>60); Est Glom Filt Rate - Afr Amer 67 mL/min (>60); Estimated Creatinine Clearance 48.93 ml/min; Glucose 103 mg/dL (74-106); Potassium 3.5 mmol/L (3.5-5.1); Sodium Level 140 mmol/L (136-145)
--- NOTE | 2022-12-24 19:43 | EDS_ITS ---
HPI HPI - Female History of Present Illness Chief Complaint: Flank Pain Narrative Narrative: 52-year-old female presenting with left flank pain. She states she had this for a few hours. She states he has history of kidney stones in the past and it feels like them. He describes the pain as sharp and rating to the inguinal region. No fevers or chills but she does have nausea and vomiting. No dysuria or hematuria. No fevers or chills. Patient states that every time she had a kidney stone she had to go to the OR to have them removed. Patient states she used to see a urologist but now she has no health insurance. She states that she has to go to a [facility] because she does not have insurance and they will usually take care of her. PFSH PFSH Medical History Depression Hyperlipidemia Hypertension Kidney stones Smoker Home Medications atorvastatin 20 mg tablet 60 mg PO DAILY 05/10/17 [History Last Taken 07/28/18] lisinopril 20 mg tablet 40 mg PO DAILY 01/26/19 [History Last Taken Unknown] amlodipine 10 mg tablet 10 mg PO DAILY 08/07/20 [History Last Taken Unknown] ondansetron 4 mg disintegrating tablet 4 mg PO Q8H PRN PRN Nausea #14 tabs 12/24/22 [Rx Last Taken Unknown] Allergy/AdvReac Type Severity Reaction Status Date / Time ketorolac [From Toradol] Allergy Swelling Verified 12/24/22 18:03 NSAIDS (Non-Steroidal Allergy Swelling Verified 12/24/22 18:03 Anti-Inflamma prochlorperazine edisylate AdvReac Other Verified 12/24/22 18:03 [From Compazine] prochlorperazine maleate AdvReac Other Verified 12/24/22 18:03 [From Compazine] Surgical History History of appendectomy History of hysterectomy Social History Smoking Status: Current every day smoker tobacco type: cigarettes ROS ROS ED Constitutional Constitutional ED: Denies chills, fever(s) or sweats Eyes Eyes: Denies blurry vision or change in vision ENT ENT ED: Denies ear pain or sore throat Cardiovascular Cardiovascular: Denies chest pain, palpitations or racing heartbeat Respiratory/Chest Respiratory/Chest: Denies cough, dyspnea or sputum Gastrointestinal Gastrointestinal: Reports nausea; Denies abdominal pain, constipation, diarrhea or vomiting Genitourinary Genitourinary ED: Denies dysuria, hematuria or urinary frequency Musculoskeletal Musculoskeletal: Reports other Details: Left flank pain ; Denies arthralgias, myalgias or neck pain Integumentary Denies abscess, Abrasions or rash Neurologic Neurologic: Denies headache(s), paresthesias or weakness Psychiatric Psychiatric: Denies anxiety, depression, suicidal ideation or suicidal thoughts Endocrine Endocrinology: Denies polydipsia or polyuria EXAM Physical Exam Const Vital Signs: 12/24/22 18:03 12/24/22 19:56 12/24/22 21:00 Temperature 98.2 F Temperature Source Temporal Pulse Rate 85 75 73 Respiratory Rate 18 16 16 Blood Pressure 196/115 H 181/112 H 156/95 H Blood Pressure Mean 142 135 115 Pulse Ox 100 98 99 Oxygen Delivery Method Room Air Room Air Room Air 12/24/22 21:41 Temperature Temperature Source Pulse Rate 74 Respiratory Rate 16 Blood Pressure 189/106 H Blood Pressure Mean 133 Pulse Ox 100 Oxygen Delivery Method Room Air Positive well nourished General Appearance ED: NAD; Negative for pallor HEENT Reports moist mucous membranes Eyes PERRL and EOMs intact bilaterally Cardio regular rate and regular rhythm GI normal to inspection, nondistended, normoactive bowel sounds Back/Spine General Back: CVA tenderness left Neuro oriented x3 Sensorium / Orientation: alert Psych mental status grossly normal Skin no rashes or lesions noted and no wounds General Skin Exam: Negative for jaundice or pallor MDM MDM MDM Narrative Medical decision making narrative: Patient presented with left leg pain. Differential includes UTI, pyelonephritis, diverticulitis, constipation, colitis. Urinalysis to assess for UTI and hematuria. BMP and CBC to assess for renal function, electrolytes, hemoglobin, white blood cell count. CT of the abdomen pelvis without contrast to assess for kidney stone. She is medicated with morphine and Zofran. BC and BMP are unremarkable with exception of a creatinine that is elevated at 1.10. CBC unremarkable. BMP shows a creatinine 1.10. Patient was given IV fluids, morphine, Zofran. Electrolytes normal. Urinalysis negative for infection. There is 10 occult blood. She has concern for kidney stone so I did report a CT of the abdomen pelvis without contrast today and there is no evidence of kidney stone or other acute pathology. Patient requested a second dose of morphine which was given but at this point I counseled her that we do not have any findings on her work-up and she will need to follow-up with her primary care and urologist. She is amenable to this. Discharged stable condition. Impression: 1. Left flank pain 2. Nausea Lab Data Attestation: I reviewed the patient's lab results. Labs: Laboratory Results - last 24 hr 12/24/22 12/24/22 12/24/22 18:51 18:51 19:11 WBC 6.5 RBC 4.96 Hgb 14.7 Hct 44.6 MCV 89.9 MCH 29.6 MCHC 33.0 RDW Std Deviation 43.6 RDW Coeff of Jennifer 13.2 Plt Count 291 MPV 9.9 Immature Gran % (Auto) 0.500 Neut % (Auto) 51.9 Lymph % (Auto) 35.9 [place] % (Auto) 7.1 Eos % (Auto) 3.2 Baso % (Auto) 1.4 H Absolute Neuts (auto) 3.4 Absolute Lymphs (auto) 2.34 Nucleated RBC % 0 Sodium 140 Potassium 3.5 Chloride 108 H Carbon Dioxide 26.0 Anion Gap 6 BUN 16 Creatinine 1.10 H Estim Creat Clear Calc 48.93 Est GFR (MDRD) Af Amer 67 Est GFR (MDRD) Non-Af 55 L BUN/Creatinine Ratio 14.5 Glucose 103 Calcium 9.5 Urine Color Yellow Urine Clarity Clear Urine pH 6.0 Ur Specific [place] 1.025 Urine Protein Negative Urine Glucose (UA) Normal Urine Ketones Negative Urine Occult Blood 10 H Urine Nitrite Negative Urine Bilirubin Negative Urine Urobilinogen Normal Ur Leukocyte Esterase Negative Urine RBC 0 SEEN Urine WBC 0 SEEN Ur Squamous Epith Cells 0 SEEN Urine Bacteria 0 SEEN Urine Mucus 0 SEEN Radiography Diagnostic Testing: Clinical Impression(s) from Imaging Studies Abdomen/Pelvis CT 12/24/22 19:43 IMPRESSION: Bilateral nephrolithiasis. No hydronephrosis. Electronically Signed: Keila Galicia MD at 21:32 EDT Reading Location ID and State: Pending sale to [facility] / [place] Tel , Service support , Discharge Plan Triage Chief Complaint: Flank Pain ED Provider: Audie Talbert Dx/Rx/DC Orders Instructions: ED Flank Pain, Uncertain Cause Prescriptions: New ondansetron 4 mg tablet,disintegrating 4 mg PO Q8H PRN PRN (Reason: Nausea) Qty: 14 0RF No Action atorvastatin 20 MG tablet 60 mg PO DAILY lisinopril 20 MG tablet 40 mg PO DAILY amlodipine 10 MG tablet 10 mg PO DAILY Primary Care Provider: Rich Ravi Referrals: Rich Ravi MD [Primary Care Provider] - Disposition Disposition: Home, Self Care Discharge Date/Time: 12/24/22 22:07
--- NOTE | 2022-12-24 19:43 | CT_ITS ---
EXAM: CT Abdomen And Pelvis W/O Contrast Injection HISTORY: left flank pain TECHNIQUE: Routine protocol CT abdomen and pelvis. IV Contrast: None.. Oral contrast: None. RADIATION DOSAGE (If Supplied By Facility): CTDIvol = ( 12.87 ) mGy, DLP = ( 630.23 ) mGycm Individualized dose optimization techniques were used for this CT. COMPARISON: CT abdomen and pelvis 03/24/2022. LIMITATIONS: None. FINDINGS: LOWER CHEST: Included lung bases are clear. LIVER: Grossly unremarkable. GALLBLADDER AND BILIARY TREE: Grossly unremarkable. PANCREAS: Grossly unremarkable. SPLEEN: Grossly unremarkable. Small adjacent nodule likely a splenule. ADRENAL GLANDS: Grossly unremarkable. KIDNEYS AND URETERS: Several small calculi in both kidneys. No hydronephrosis. PERITONEUM: No free air. No free fluid. BOWEL: No bowel obstruction. APPENDIX: Not identified likely surgically absent. VESSELS: Abdominal aorta is normal caliber. REPRODUCTIVE ORGANS: Uterus not identified. URINARY BLADDER: Minimally distended. ABDOMINAL WALL: Unremarkable. BONES: No acute abnormalities. CT/Abdomen/Pelvis without Cont IMPRESSION: Bilateral nephrolithiasis. No hydronephrosis. Electronically Signed: Keila Galicia MD at 21:32 EDT ,
[2022-12-24] MEDS: Morphine 4 MG/ML Syringe IV ×2 (19:49→20:31)
[2022-12-24] MEDS: Ondansetron 4 MG/2 ML Vial IV (19:49)
[2022-12-24] MEDS: 0.9% Normal Saline 1,000 ML 999 ML IV (19:53)
[2022-12-24 19:56] VITALS: BP 181/112; PULSE 75; RESP 16; O2SAT 98
[2022-12-24 21:00] VITALS: BP 156/95; PULSE 73; RESP 16; O2SAT 99
[2022-12-24 21:41] VITALS: BP 189/106; PULSE 74; RESP 16; O2SAT 100
== END 2022-12-24 22:07 | disposition home or self-care (01) ==
PROVIDERS: Emergency Provider Student in an Organized Health Care Education/Training Program; PCP Internal Medicine; Visit Provider Student in an Organized Health Care Education/Training Program
DX: R10.9 Unspecified abdominal pain (principal); R11.2 Nausea with vomiting, unspecified; I10 Essential (primary) hypertension; E78.5 Hyperlipidemia, unspecified; F17.210 Nicotine dependence, cigarettes, uncomplicated; Z90.49 Acquired absence of other specified parts of digestive tract; Z79.899 Other long term (current) drug therapy; Z87.442 Personal history of urinary calculi
CPT/HCPCS: 74176; 80048; 81001; 85025; 96361; 96374; 96375; 96376; 99283; J7030; A4216; J2405

== ENCOUNTER 2023-06-14 16:04 | Emergency (ER) | payer SELFPAY ==
[2023-06-14 16:06] VITALS: BP 182/118; PULSE 81; RESP 16; TEMP 36.2; O2SAT 98; BMI 32.5
[2023-06-14 16:46] LABS: Absolute Lymphocyte Count 2.39 X10^3/uL (0.83-4.51); Absolute Neutrophil Count 3.4 X10^3/uL (2.0-7.7); Basophil% 1.5 % (0-1); Eosinophil# 0.17 X10^3/uL; Eosinophils% 2.6 % (0-5); Hematocrit 44.5 % (37-47); Hemoglobin 14.6 g/dL (12.0-15.0); Lymphocyte # 2.39 X10^3/ul (0.83-4.51); Lymphocyte % 36.5 % (19-41); Mean Corp Hgb Conc 32.8 g/dL (32-36); Mean Corpuscular Hgb 28.8 pg (27.0-32.0); Mean Corpuscular Volume 87.8 fL (81-99); Mean Platelet Vol. 9.6 fl (6.2-12.0); Monocyte# 0.42 X10^3/uL; Monocyte% 6.4 % (0-10); NRBC Flagged by Analyzer 0 % (0-5); Neutrophil # 3.44 X10^3/uL (2.7-7.7); Neutrophil % 52.7 % (47-70); Platelet Count 290 K/mm3 (150-450); RBC Distribution Width CV 13.2 % (11.6-14.6); RBC Distribution Width SD 42.3 fl (35.1-43.9); Red Blood Count 5.07 M/mm3 (4.2-5.4); White Blood Count 6.5 K/mm3 (4.4-11.0)
[2023-06-14 16:55] LABS: Mucous, Urine 0 SEEN /hpf (<or=2+)
[2023-06-14 17:01] LABS: Color, Urine Yellow (Yellow); Glucose, Dipstick Normal (Normal); Ketone-Dipstick Negative (Negative); Leukocyte Esterase-Dipstick 25 /ul (Negative); Nitrite-Dipstick Negative (Negative); Occult Blood-Urine 50 /ul (Negative); Protein-Dipstick Negative (Negative); Specific Gravity, Urine 1.025 (1.002-1.030); Urine Bilirubin Dipstick Negative (Negative); Urine Clarity Clear (Clear); Urine Urobilinogen Normal (Normal)
[2023-06-14 17:02] LABS: ALB/GLOB Ratio 0.9 RATIO (0.9-2.4); AST(SGOT) 16 U/L (15-37); Alanine Aminotransfer ALT/SGPT 20 U/L (13-56); Alkaline Phosphatase 116 U/L (45-117); Anion Gap 4 (5-15); BUN 14 mg/dL (7-18); BUN/Creat Ratio 17.9 RATIO (10-20); Calcium,Total 8.8 mg/dL (8.5-10.1); Chloride 107 mmol/L (98-107); Creatinine, Serum 0.78 mg/dL (0.55-1.02); EST Glomerular Filtration Rate 82 mL/min (>60); Est Glom Filt Rate - Afr Amer 99 mL/min (>60); Globulin 4.3 g/dL (2.2-4.2); Glucose 89 mg/dL (74-106); Potassium 3.5 mmol/L (3.5-5.1); Protein, Total 8.3 g/dL (6.4-8.2); Sodium Level 138 mmol/L (136-145)
[2023-06-14 17:12] LABS: Bacteria RARE /hpf (None Seen); Red Blood Cells-Urine 0-5 SEEN /hpf (0-5); Squamous Epithelial Cells - UA 0-5 SEEN /hpf (5-10); White Blood Cells 0-5 SEEN /hpf (0-5)
[2023-06-14 17:18] LABS: Internal QC Validated? YES +Cl - CLEAR BKGD; Pregnancy, Serum, hCG Quali. NEGATIVE Negative
--- NOTE | 2023-06-14 19:04 | CT_ITS ---
INDICATION: left flank pain EXAMINATION: CT ABDOMEN AND PELVIS WITHOUT CONTRAST - CT Abdomen And Pelvis W/O Contrast Injection TECHNIQUE: Helically acquired images were obtained of the abdomen and pelvis without oral or IV contrast. A radiation dose optimization technique was used for this scan. IV Contrast dosage and agent: None. Oral contrast: None. RADIATION DOSAGE (If Supplied By Facility): CTDIvol = ( 11.90 ) mGy, DLP = ( 556.09 ) mGycm COMPARISON: 12/24/2022 FINDINGS: LOWER CHEST: Lung bases are clear. No cardiomegaly or pericardial effusion. LIVER: The liver is normal in size, shape, and attenuation. No focal mass. GALLBLADDER AND BILIARY TREE: The gallbladder is normally distended. No gallstones. No gallbladder wall thickening or edema. No intra- or extrahepatic biliary ductal dilation. PANCREAS: No focal cystic or solid mass. SPLEEN: Normal size without focal cystic or solid mass. ADRENAL GLANDS: No nodules. KIDNEYS AND URETERS: Normal renal size and position. There is a 3 mm calculus at the left ureterovesical junction (UVJ) along the bladder luminal aspect. There is minimal prominence of the distal left ureter, however no hydroureter proximally, or hydronephrosis. Bilateral nonobstructive intrarenal calculi number least 2 in each kidney ranging in size from punctate to 2 mm. PERITONEUM: No ascites or free air. No other fluid collection. BOWEL: The stomach is unremarkable. Normal caliber small bowel. No obstruction. No colonic wall thickening or inflammatory changes. Previous appendectomy. LYMPH NODES: No enlarged mesenteric or retroperitoneal lymph nodes. VESSELS: Aorta is non-dilated. URINARY BLADDER: Unremarkable. REPRODUCTIVE ORGANS: Hysterectomy. No adnexal abnormalities. ABDOMINAL WALL: No discrete abdominal or pelvic wall hernia. BONES: No acute or suspicious osseous abnormality. CT/Abdomen/Pelvis without Cont IMPRESSION: * There is a 3 mm stone at the left UVJ which may reside within the UVJ, or represent a recently passed stone adjacent to the UVJ. This is associated minimal distal left hydroureter, however no upstream hydroureter or hydronephrosis. Correlate with patient''s symptomatology. * Bilateral nonobstructive intrarenal calculi as described. Electronically Signed: Jerad Lewis MD at 19:32 EST ,
[2023-06-14] MEDS: Ondansetron 4 MG/2 ML Vial IV (19:11)
[2023-06-14] MEDS: Morphine 4 MG/ML Syringe IV (19:11)
--- NOTE | 2023-06-14 19:18 | ED.VIS.GI ---
HPI HPI - GI History of Present Illness Chief Complaint: Abd Pain Narrative Narrative: 52-year-old female with history of kidney stones presenting with left flank pain and nausea. Patient states started earlier this morning. Patient states has been progressive throughout the day. She has a history of kidney stones but states this does not feel quite the same. It is more of an aching. She does have urinary symptoms. No fevers or chills. She does admit that she is nauseous but has not vomited. Patient states that she has had history of renal stents bilaterally. Her urologist is [facility]. PFSH PFSH Medical History Depression Hyperlipidemia Hypertension Kidney stones Smoker Home Medications atorvastatin 20 mg tablet 60 mg PO DAILY 05/10/17 [History Last Taken 07/28/18] lisinopril 20 mg tablet 40 mg PO DAILY 01/26/19 [History Last Taken Unknown] amlodipine 10 mg tablet 10 mg PO DAILY 08/07/20 [History Last Taken Unknown] ondansetron 4 mg disintegrating tablet 4 mg PO Q8H PRN PRN Nausea #14 tabs 12/24/22 [Rx Last Taken Unknown] hydrocodone-acetaminophen 5-325mg 5mg-325mg 1 tab PO Q6H PRN PRN Pain 3 days #12 TABLETS 06/14/23 [Rx Last Taken Unknown] ondansetron 4 mg disintegrating tablet 4 mg PO Q8H PRN PRN Nausea #14 tabs 06/14/23 [Rx Last Taken Unknown] Allergy/AdvReac Type Severity Reaction Status Date / Time ketorolac [From Toradol] Allergy Swelling Verified 06/14/23 16:05 NSAIDS (Non-Steroidal Allergy Swelling Verified 06/14/23 16:05 Anti-Inflamma prochlorperazine edisylate AdvReac Other Verified 06/14/23 16:05 [From Compazine] prochlorperazine maleate AdvReac Other Verified 06/14/23 16:05 [From Compazine] Surgical History History of appendectomy History of hysterectomy Social History Smoking Status: Current every day smoker tobacco type: cigarettes ROS ROS ED Constitutional Constitutional ED: Denies chills, fever(s) or sweats Eyes Eyes: Denies blurry vision or change in vision ENT ENT ED: Denies ear pain or sore throat Cardiovascular Cardiovascular: Denies chest pain, palpitations or racing heartbeat Respiratory/Chest Respiratory/Chest: Denies cough, dyspnea or sputum Gastrointestinal Gastrointestinal: Reports abdominal pain and nausea; Denies constipation, diarrhea or vomiting Genitourinary Genitourinary ED: Reports dysuria and urinary frequency; Denies hematuria Musculoskeletal Musculoskeletal: Denies arthralgias, myalgias or neck pain Integumentary Denies abscess, Abrasions or rash Neurologic Neurologic: Denies headache(s), paresthesias or weakness Psychiatric Psychiatric: Denies anxiety, depression, suicidal ideation or suicidal thoughts Endocrine Endocrinology: Denies polydipsia or polyuria EXAM Physical Exam Const Vital Signs: 06/14/23 16:06 06/14/23 21:34 Temperature 97.1 F L Temperature Source Temporal Pulse Rate 81 79 Respiratory Rate 16 16 Blood Pressure 182/118 H 158/80 H Blood Pressure Mean 139 106 Pulse Ox 98 98 Oxygen Delivery Method Room Air Positive well nourished General Appearance ED: NAD; Negative for pallor HEENT Reports moist mucous membranes normocephalic and atraumatic Eyes PERRL and EOMs intact bilaterally Resp normal respiratory effort Cardio regular rate and regular rhythm GI Palpation: tender LUQ Back/Spine General Back: CVA tenderness left Neuro CN's II-XII intact bilaterally Sensorium / Orientation: alert Psych mental status grossly normal and thought process normal Skin General Skin Exam: Negative for jaundice or pallor MDM MDM MDM Narrative Medical decision making narrative: Presenting with left flank pain. Patient presenting with right flank pain. Differential includes colitis, diverticulitis, constipation, UTI, pyelonephritis, renal calculi, ureteral calculi, bowel obstruction, malignancy, dehydration, electrolyte abnormalities, , ectopic , ovarian cyst, ovarian torsion. CBC obtained to assess white blood cell count, hemoglobin, platelets. CMP to assess liver function, renal function electrolytes, glucose. Analysis to assess for UTI and occult blood. Patient medicated morphine, Zofran. Will obtain CT and pelvis without contrast to assess for kidney stone is most likely in differential. hCG negative. CBC and CMP unremarkable. Urinalysis negative for infection which was occult blood. CT of the abdomen pelvis shows a 3 mm UVJ stone. Patient counseled of findings. Patient was given a dose of oxycodone here. She is given a prescription for [place] and Zofran for home. I recommend she follow-up with urology. Return precautions were discussed. Impression: 1. Left UVJ stone 3 mm stone 2. Hematuria Lab Data Attestation: I reviewed the patient's lab results. Labs: Laboratory Results - last 24 hr 06/14/23 06/14/23 16:20 16:45 WBC 6.5 RBC 5.07 Hgb 14.6 Hct 44.5 MCV 87.8 MCH 28.8 MCHC 32.8 RDW Std Deviation 42.3 RDW Coeff of Jennifer 13.2 Plt Count 290 MPV 9.6 Immature Gran % (Auto) 0.300 Neut % (Auto) 52.7 Lymph % (Auto) 36.5 [place] % (Auto) 6.4 Eos % (Auto) 2.6 Baso % (Auto) 1.5 H Absolute Neuts (auto) 3.4 Absolute Lymphs (auto) 2.39 Nucleated RBC % 0 Sodium 138 Potassium 3.5 Chloride 107 Carbon Dioxide 27.0 Anion Gap 4 L BUN 14 Creatinine 0.78 Estim Creat Clear Calc 69.00 Est GFR (MDRD) Af Amer 99 Est GFR (MDRD) Non-Af 82 BUN/Creatinine Ratio 17.9 Glucose 89 Calcium 8.8 Total Bilirubin 0.30 AST 16 ALT 20 Alkaline Phosphatase 116 Total Protein 8.3 H Albumin 4.0 Globulin 4.3 H Albumin/Globulin Ratio 0.9 Serum , Qual NEGATIVE Urine Color Yellow Urine Clarity Clear Urine pH 5.0 Ur Specific [place] 1.025 Urine Protein Negative Urine Glucose (UA) Normal Urine Ketones Negative Urine Occult Blood 50 H Urine Nitrite Negative Urine Bilirubin Negative Urine Urobilinogen Normal Ur Leukocyte Esterase 25 H Urine RBC 0-5 SEEN Urine WBC 0-5 SEEN Ur Squamous Epith Cells 0-5 SEEN Urine Bacteria RARE Urine Mucus 0 SEEN Radiography Diagnostic Testing: Clinical Impression(s) from Imaging Studies Abdomen/Pelvis CT 06/14/23 19:04 IMPRESSION: * There is a 3 mm stone at the left UVJ which may reside within the UVJ, or represent a recently passed stone adjacent to the UVJ. This is associated minimal distal left hydroureter, however no upstream hydroureter or hydronephrosis. Correlate with patient''s symptomatology. * Bilateral nonobstructive intrarenal calculi as described. Electronically Signed: Jerad Lewis MD at 19:32 EST , Discharge Plan Triage Chief Complaint: Abd Pain ED Provider: Audie Talbert Dx/Rx/DC Orders Instructions: ED Kidney Stone with Pain Prescriptions: New hydrocodone-acetaminophen 5-325 mg tablet 1 tab PO Q6H PRN PRN (Reason: Pain) 3 Days Qty: 12 0RF ondansetron 4 mg tablet,disintegrating 4 mg PO Q8H PRN PRN (Reason: Nausea) Qty: 14 0RF No Action atorvastatin 20 MG tablet 60 mg PO DAILY lisinopril 20 MG tablet 40 mg PO DAILY amlodipine 10 MG tablet 10 mg PO DAILY ondansetron 4 mg tablet,disintegrating 4 mg PO Q8H PRN PRN (Reason: Nausea) Qty: 14 0RF Primary Care Provider: Rich Ravi Referrals: Rich Ravi MD [Primary Care Provider] - Disposition Disposition: Home, Self Care Discharge Date/Time: 06/14/23 21:36
[2023-06-14] MEDS: oxyCODONE 5 MG Tablet PO (21:31)
[2023-06-14 21:34] VITALS: BP 158/80; PULSE 79; RESP 16; O2SAT 98
== END 2023-06-14 21:36 | disposition home or self-care (01) ==
PROVIDERS: Emergency Provider Student in an Organized Health Care Education/Training Program; PCP Internal Medicine; Visit Provider Student in an Organized Health Care Education/Training Program
DX: N20.1 Calculus of ureter (principal); F17.210 Nicotine dependence, cigarettes, uncomplicated; R31.9 Hematuria, unspecified
CPT/HCPCS: 74176; 80053; 81001; 84703; 85025; 96374; 96375; 99283; J7030; A4216; J2405

== ENCOUNTER 2024-01-25 17:57 | Emergency (ER) | payer SELFPAY ==
[2024-01-25 17:59] VITALS: BP 176/95; PULSE 90; RESP 19; TEMP 36.6; O2SAT 99; BMI 32.4
--- NOTE | 2024-01-25 18:20 | CT_ITS ---
EXAM: CT ABDOMEN AND PELVIS WITHOUT INTRAVENOUS CONTRAST CLINICAL INDICATION: left flank pain TECHNIQUE: Helically acquired images were obtained of the abdomen and pelvis without intravenous contrast. This CT exam was performed using one or more of the following dose reduction techniques: automated exposure control, adjustment of the mA and/or kV according to patient size, and/or use of iterative reconstruction technique. COMPARISON: 07/18/2019 FINDINGS: LOWER THORAX: Unremarkable. Lung bases are clear. No cardiomegaly. No significant pericardial effusion. ABDOMEN: LIVER: Unremarkable. Homogeneous. GALLBLADDER AND BILE DUCTS: Unremarkable. No calcified gallstones. No gallbladder distention or wall edema. No intra- or extrahepatic biliary ductal dilation. PANCREAS: Unremarkable. No focal cystic mass. SPLEEN: Unremarkable. Normal size without focal cystic or solid mass. ADRENALS: Unremarkable. No nodules. KIDNEYS AND URETERS: There are not obstructing calyceal stones in both kidneys. Normal renal size and position. STOMACH AND BOWEL: Unremarkable. No stomach or bowel distention. No focal inflammatory change. PELVIS: APPENDIX: No evidence of acute appendicitis. BLADDER: Unremarkable. REPRODUCTIVE: Patient is status post hysterectomy. ABDOMEN and PELVIS: INTRAPERITONEAL SPACE: Unremarkable. No ascites or other fluid collection. No free air. BONES/JOINTS: Unremarkable. No suspicious lytic or blastic abnormality. SOFT TISSUES: Unremarkable. No discrete abdominal or pelvic wall hernia. VASCULATURE: Unremarkable. Abdominal aorta is non-dilated. LYMPH NODES: Unremarkable. No enlarged lymph nodes. CT/Abdomen/Pelvis without Cont IMPRESSION: Nonobstructive calyceal stones in both kidneys. There is no ureteral obstruction. There are no acute abnormalities. Electronically Signed: Jason Espitia MD at 19:47 EDT ,
--- NOTE | 2024-01-25 18:28 | EDS_ITS ---
HPI <ONEL Davila - Last Filed: 01/25/24 20:54> History of Present Illness Chief Complaint: Flank Pain Narrative Narrative: 53-year-old female with past medical history of kidney stones developed acute onset left flank pain radiating to the left lower abdomen around noon which gradually intensified and she developed nausea and vomiting. She has been urinating frequently with small amounts throughout the day. No burning or hematuria. No fever or chills. She was given Zofran by EMS. She states this feels like prior kidney stones which she has had multiple times. She has required stents in the past but sometimes they pass on her own. She has had them less frequently since switching to a low calcium diet. PFSH <ONEL Davila - Last Filed: 01/25/24 20:54> [facility] Medical History Depression Hyperlipidemia Hypertension Kidney stones Smoker Home Medications ?Medication ?Instructions ?Recorded ?Last Taken ?Type atorvastatin 20 mg tablet 60 mg PO DAILY 05/10/17 07/28/18 History lisinopril 20 mg tablet 40 mg PO DAILY 01/26/19 Unknown History amlodipine 10 mg tablet 10 mg PO DAILY 08/07/20 Unknown History ondansetron 4 mg disintegrating 4 mg PO Q8H PRN PRN Nausea #14 tabs 12/24/22 Unknown Rx tablet hydrocodone-acetaminophen 5-325mg 1 tab PO Q6H PRN PRN Pain 3 days 06/14/23 Unknown Rx 5mg-325mg #12 TABLETS ondansetron 4 mg disintegrating 4 mg PO Q8H PRN PRN Nausea #14 tabs 06/14/23 Unknown Rx tablet [id number] 1 tab PO Q8H PRN PRN headache 01/25/24 Unknown History 50 mg-325 mg-40 mg tablet carvedilol 12.5 mg tablet 12.5 mg PO BID 01/25/24 Unknown History hydrocodone-acetaminophen 5-325mg 1 tab PO Q8H PRN pain 2 days #6 01/25/24 Unknown Rx 5mg-325mg tabs lisinopril 40 mg tablet 40 mg PO DAILY 01/25/24 Unknown History Allergy/AdvReac Type Severity Reaction Status Date / Time ketorolac (From Toradol) Allergy Swelling Verified 06/14/23 16:05 NSAIDS (Non-Steroidal Allergy Swelling Verified 06/14/23 16:05 Anti-Inflamma prochlorperazine edisylate AdvReac Other Verified 06/14/23 16:05 (From Compazine) prochlorperazine maleate AdvReac Other Verified 06/14/23 16:05 (From Compazine) Surgical History History of appendectomy History of hysterectomy Social History Smoking Status: Current every day smoker tobacco type: cigarettes ROS <ONEL Davila - Last Filed: 01/25/24 20:54> ROS ED ROS Narrative Constitutional: Negative for fever, chills, malaise. CVS: Negative for chest pain. Respiratory: Negative for shortness of breath. GI: Positive for abdominal pain, nausea, vomiting. Negative for diarrhea, constipation, melena, hematochezia. : Negative for dysuria, hematuria. EXAM <ONEL Davila - Last Filed: 01/25/24 20:54> Physical Exam Narrative Exam Narrative: CONST: Patient lying in bed appears uncomfortable. EYES: Normal inspection. NECK: Normal inspection. RESP: No respiratory distress, CTAB. CVS: Regular rate and rhythm, no murmur, no gallop. ABD: Soft with LLQ tenderness, no guarding or rebound, nondistended, no hepatosplenomegaly. Back: Normal inspection, left CVA tenderness. SKIN: Color normal, no rash, warm, dry, intact. EXTREMITIES: Normal appearance, no pedal edema. NEURO: Alert and answering questions appropriately. PSYCH: Normal affect. Const Vital Signs: 01/25/24 17:59 01/25/24 19:45 01/25/24 20:00 Temperature 98 F Temperature Source Temporal Pulse Rate 90 72 79 Respiratory Rate 19 H 16 Blood Pressure 176/95 H 168/100 H 168/100 H Blood Pressure Mean 122 122 122 Pulse Ox 99 98 Oxygen Delivery Method Room Air <Dr. Ines Wei DO - Last Filed: 01/27/24 07:44> Physical Exam Const Vital Signs: 01/25/24 17:59 01/25/24 19:45 01/25/24 20:00 Temperature 98 F Temperature Source Temporal Pulse Rate 90 72 79 Respiratory Rate 19 H 16 Blood Pressure 176/95 H 168/100 H 168/100 H Blood Pressure Mean 122 122 122 Pulse Ox 99 98 Oxygen Delivery Method Room Air [facility] <ONEL Davila - Last Filed: 01/25/24 20:54> [facility] Narrative Medical decision making narrative: Patient presents with acute left flank pain. She appears uncomfortable but nontoxic. She is hypertensive with otherwise stable vital signs. She has tenderness in left lower abdominal quadrant and left flank. CBC and BMP overall unremarkable. Urinalysis is negative for infection. CT of the abdomen/pelvis shows no acute findings to explain her symptoms. Patient still in some pain after IV morphine and Zofran and was ordered Percocet and a Lidoderm patch. She has an NSAID allergy and I prescribed a few [place] for home for breakthrough pain. I am not sure what is causing her symptoms. It is possible she is passed a small kidney stone or has musculoskeletal pain but I also told her to monitor for signs of zoster. Return if symptoms worsen. She was discharged in stable condition. Lab Data Attestation: I reviewed the patient's lab results. Labs: Laboratory Results - last 24 hr 01/25/24 18:25 WBC 8.0 RBC 4.93 Hgb 14.2 Hct 42.9 MCV 87.0 MCH 28.8 MCHC 33.1 RDW Std Deviation 40.9 RDW Coeff of Jennifer 12.9 Plt Count 288 MPV 9.6 Immature Gran % (Auto) 0.400 Neut % (Auto) 54.8 Lymph % (Auto) 32.4 [place] % (Auto) 7.4 Eos % (Auto) 3.4 Baso % (Auto) 1.6 H Absolute Neuts (auto) 4.4 Absolute Lymphs (auto) 2.59 Nucleated RBC % 0 Sodium 139 Potassium 3.4 L Chloride 105 Carbon Dioxide 26.0 Anion Gap 8 BUN 12 Creatinine 0.85 Estim Creat Clear Calc 77.26 Est GFR (MDRD) Af Amer 90 Est GFR (MDRD) Non-Af 74 BUN/Creatinine Ratio 14.1 Glucose 102 Calcium 9.0 Urine Color Straw Urine Clarity Clear Urine pH 6.5 Ur Specific [place] 1.015 Urine Protein Negative Urine Glucose (UA) Normal Urine Ketones Negative Urine Occult Blood 10 H Urine Nitrite Negative Urine Bilirubin Negative Urine Urobilinogen Normal Ur Leukocyte Esterase 25 H Urine RBC 0-5 SEEN Urine WBC 0-5 SEEN Ur Squamous Epith Cells 0-5 SEEN Urine Bacteria 1+ Urine Mucus 0 SEEN Radiography Diagnostic Testing: Clinical Impression(s) from Imaging Studies Abdomen/Pelvis CT 01/25/24 18:20 IMPRESSION: Nonobstructive calyceal stones in both kidneys. There is no ureteral obstruction. There are no acute abnormalities. Electronically Signed: Jason Espitia MD at 19:47 EDT , <Dr. Ines Wei, DO - Last Filed: 01/27/24 07:44> [facility] Narrative Medical decision making narrative: Patient presents with acute left flank pain. She appears uncomfortable but nontoxic. She is hypertensive with otherwise stable vital signs. She has tenderness in left lower abdominal quadrant and left flank. CBC and BMP overall unremarkable. Urinalysis is negative for infection. CT of the abdomen/pelvis shows no acute findings to explain her symptoms. Patient still in some pain after IV morphine and Zofran and was ordered Percocet and a Lidoderm patch. She has an NSAID allergy and I prescribed a few [place] for home for breakthrough pain. I am not sure what is causing her symptoms. It is possible she is passed a small kidney stone or has musculoskeletal pain but I also told her to monitor for signs of zoster. Return if symptoms worsen. She was discharged in stable condition. I have personally performed a face to face assessment of the patient and have reviewed the ODALIS Note. I performed a substantive portion of the visit including all aspects of the following. My nunez findings include: History is Patient is a 53-year-old female presenting with acute onset of left flank pain. Has extensive history of kidney stones. Pain started suddenly at work earlier today. Patient has a significant reaction to NSAIDs so was given IV morphine for pain control as well as Zofran. Kidney stone workup is obtained including CT of the flank, urinalysis and BMP. Repeat evaluation she still has pain however it is improved and tolerable. Lab work largely unremarkable with normal kidney function, no signs of significant hematuria or UTI. Will send urine off for culture out of abundance of caution she does have 1+ bacteria but it appears more contaminated. CT does not show any acute process explain symptoms. Discussed that she may be passed a kidney stone of this we muscle skeletal pain. Abdominal exam quite benign. No overlying rash. No significant reproducible tenderness. Abdomen is soft, nontender and nonperitoneal. Is given a Lidoderm patch and given a short course of Percocet for pain control. Patient given return precautions. She was discharged home in stable condition. Other additions or changes: [None] Lab Data Labs: Laboratory Results - last 24 hr 01/25/24 18:25 WBC 8.0 RBC 4.93 Hgb 14.2 Hct 42.9 MCV 87.0 MCH 28.8 MCHC 33.1 RDW Std Deviation 40.9 RDW Coeff of Jennifer 12.9 Plt Count 288 MPV 9.6 Immature Gran % (Auto) 0.400 Neut % (Auto) 54.8 Lymph % (Auto) 32.4 [place] % (Auto) 7.4 Eos % (Auto) 3.4 Baso % (Auto) 1.6 H Absolute Neuts (auto) 4.4 Absolute Lymphs (auto) 2.59 Nucleated RBC % 0 Sodium 139 Potassium 3.4 L Chloride 105 Carbon Dioxide 26.0 Anion Gap 8 BUN 12 Creatinine 0.85 Estim Creat Clear Calc 77.26 Est GFR (MDRD) Af Amer 90 Est GFR (MDRD) Non-Af 74 BUN/Creatinine Ratio 14.1 Glucose 102 Calcium 9.0 Urine Color Straw Urine Clarity Clear Urine pH 6.5 Ur Specific [place] 1.015 Urine Protein Negative Urine Glucose (UA) Normal Urine Ketones Negative Urine Occult Blood 10 H Urine Nitrite Negative Urine Bilirubin Negative Urine Urobilinogen Normal Ur Leukocyte Esterase 25 H Urine RBC 0-5 SEEN Urine WBC 0-5 SEEN Ur Squamous Epith Cells 0-5 SEEN Urine Bacteria 1+ Urine Mucus 0 SEEN Radiography Diagnostic Testing: Clinical Impression(s) from Imaging Studies Abdomen/Pelvis CT 01/25/24 18:20 IMPRESSION: Nonobstructive calyceal stones in both kidneys. There is no ureteral obstruction. There are no acute abnormalities. Electronically Signed: Jasno Espitia MD at 19:47 EDT , Discharge Plan Triage Chief Complaint: Flank Pain ED Midlevel Provider: Inge Lee ED Provider: Ines Wei Dx/Rx/DC Orders Clinical Impression: Acute left flank pain Instructions: ED Flank Pain, Uncertain Cause Prescriptions: New hydrocodone-acetaminophen 5-325 mg tablet 1 tab PO Q8H PRN (Reason: pain) 2 Days Qty: 6 0RF No Action atorvastatin 20 MG tablet 60 mg PO DAILY lisinopril 20 MG tablet 40 mg PO DAILY amlodipine 10 MG tablet 10 mg PO DAILY ondansetron 4 mg tablet,disintegrating 4 mg PO Q8H PRN PRN (Reason: Nausea) Qty: 14 0RF hydrocodone-acetaminophen 5-325 mg tablet 1 tab PO Q6H PRN PRN (Reason: Pain) 3 Days Qty: 12 0RF ondansetron 4 mg tablet,disintegrating 4 mg PO Q8H PRN PRN (Reason: Nausea) Qty: 14 0RF carvedilol 12.5 mg tablet 12.5 mg PO BID [id number]-siewmpxbcqlpk-bjqw 50-325-40 mg tablet 1 tab PO Q8H PRN PRN (Reason: headache) lisinopril 40 mg tablet 40 mg PO DAILY Primary Care Provider: Rich Ravi Referrals: Rich Ravi MD [Primary Care Provider] - Activity Restrictions/Additional Instructions: I am not sure of the cause of your symptoms. I recommend Tylenol, ice, [id number] lidocaine patches as needed. Check your skin to make sure you do not develop a shingles rash as sometimes you can have the pain before the rash. If symptoms worsen be reevaluated. Print Language: Japanese Disposition Disposition: Home, Self Care Discharge Date/Time: 01/25/24 21:11
[2024-01-25] MEDS: 0.9% Normal Saline (1000mL) 1,000 ML 999 ML IV (18:29)
[2024-01-25] MEDS: Ondansetron 4 MG/2 ML Vial IV (18:29)
[2024-01-25] MEDS: Morphine 4 MG/ML Syringe IV (18:29)
[2024-01-25 18:32] LABS: Mucous, Urine 0 SEEN /hpf (<or=2+)
[2024-01-25 18:36] LABS: Absolute Lymphocyte Count 2.59 X10^3/uL (0.83-4.51); Absolute Neutrophil Count 4.4 X10^3/uL (2.0-7.7); Basophil# 0.13 X10^3/uL; Basophil% 1.6 % (0-1); Eosinophil# 0.27 X10^3/uL; Eosinophils% 3.4 % (0-5); Hematocrit 42.9 % (37-47); Hemoglobin 14.2 g/dL (12.0-15.0); Lymphocyte # 2.59 X10^3/ul (0.83-4.51); Lymphocyte % 32.4 % (19-41); Mean Corp Hgb Conc 33.1 g/dL (32-36); Mean Corpuscular Hgb 28.8 pg (27.0-32.0); Mean Platelet Vol. 9.6 fl (6.2-12.0); Monocyte# 0.59 X10^3/uL; Monocyte% 7.4 % (0-10); NRBC Flagged by Analyzer 0 % (0-5); Neutrophil # 4.39 X10^3/uL (2.7-7.7); Neutrophil % 54.8 % (47-70); Platelet Count 288 K/mm3 (150-450); RBC Distribution Width CV 12.9 % (11.6-14.6); RBC Distribution Width SD 40.9 fl (35.1-43.9); Red Blood Count 4.93 M/mm3 (4.2-5.4)
[2024-01-25 18:47] LABS: Color, Urine Straw (Yellow); Glucose, Dipstick Normal (Normal); Ketone-Dipstick Negative (Negative); Leukocyte Esterase-Dipstick 25 /ul (Negative); Nitrite-Dipstick Negative (Negative); Occult Blood-Urine 10 /ul (Negative); Protein-Dipstick Negative (Negative); Specific Gravity, Urine 1.015 (1.002-1.030); Urine Bilirubin Dipstick Negative (Negative); Urine Clarity Clear (Clear); Urine Urobilinogen Normal (Normal); Urine pH 6.5 (5.0 - 8.0)
[2024-01-25 19:00] LABS: Anion Gap 8 (5-15); BUN 12 mg/dL (7-18); BUN/Creat Ratio 14.1 RATIO (10-20); Chloride 105 mmol/L (98-107); Creatinine, Serum 0.85 mg/dL (0.55-1.02); EST Glomerular Filtration Rate 74 mL/min (>60); Est Glom Filt Rate - Afr Amer 90 mL/min (>60); Estimated Creatinine Clearance 77.26 ml/min; Glucose 102 mg/dL (74-106); Potassium 3.4 mmol/L (3.5-5.1); Sodium Level 139 mmol/L (136-145)
[2024-01-25 19:04] LABS: Bacteria 1+ /hpf (None Seen); Red Blood Cells-Urine 0-5 SEEN /hpf (0-5); Squamous Epithelial Cells - UA 0-5 SEEN /hpf (5-10); White Blood Cells 0-5 SEEN /hpf (0-5)
[2024-01-25 19:45] VITALS: BP 168/100; PULSE 72
[2024-01-25 20:00] VITALS: BP 168/100; PULSE 79; RESP 16; O2SAT 98
[2024-01-25] MEDS: HYDROcodone Bitartrate/Apap 5/325 Tablet PO (20:43)
[2024-01-25] MEDS: Lidocaine 5% Patch 1 PATCH TOPICAL (20:43)
[2024-01-25 21:00] VITALS: PULSE 77
[2024-01-25 21:09] VITALS: BP 177/109; PULSE 80; RESP 18; TEMP 36.7; O2SAT 98
== END 2024-01-25 21:11 | disposition home or self-care (01) ==
PROVIDERS: Physician Assistant; Emergency Provider Emergency Medicine; PCP Internal Medicine; Visit Provider Emergency Medicine
DX: R10.32 Left lower quadrant pain (principal); E78.5 Hyperlipidemia, unspecified; I10 Essential (primary) hypertension; F17.210 Nicotine dependence, cigarettes, uncomplicated; Z79.899 Other long term (current) drug therapy; Z87.442 Personal history of urinary calculi
CPT/HCPCS: 74176; 80048; 81001; 85025; 96361; 96374; 96375; 99283; J7030; A4216; J2405

== ENCOUNTER 2024-02-10 10:10 | Emergency (ER) | payer SELFPAY ==
[2024-02-10 10:11] VITALS: BP 170/96; PULSE 76; RESP 16; TEMP 36.3; O2SAT 95; BMI 32.5
--- NOTE | 2024-02-10 10:37 | EDS_ITS ---
HPI History of Present Illness Chief Complaint: Dental Narrative Narrative: 53-year-old female past medical history of poor dentition and numerous dental caries, previous problems with her teeth, presents with pain in her right lower jaw that began over the last day or 2. She is a smoker. She denies any fevers or chills, no nausea or vomiting. She tried to use a salt water rinse, which made her pain worse. She states she saw her primary care provider regarding tooth pain previously and was put on amoxicillin and a few Tylenol No. 3 which helped her. She recently got dental insurance, so she wants to see a dentist to get her teeth pulled. [facility] Medical History Depression Smoker Hyperlipidemia Hypertension Kidney stones Home Medications ?Medication ?Instructions ?Recorded ?Last Taken ?Type atorvastatin 20 mg tablet 60 mg PO DAILY 05/10/17 07/28/18 History lisinopril 20 mg tablet 40 mg PO DAILY 01/26/19 Unknown History amlodipine 10 mg tablet 10 mg PO DAILY 08/07/20 Unknown History ondansetron 4 mg disintegrating 4 mg PO Q8H PRN PRN Nausea #14 tabs 12/24/22 Unknown Rx tablet hydrocodone-acetaminophen 5-325mg 1 tab PO Q6H PRN PRN Pain 3 days 06/14/23 Unknown Rx 5mg-325mg #12 TABLETS ondansetron 4 mg disintegrating 4 mg PO Q8H PRN PRN Nausea #14 tabs 06/14/23 Un known Rx tablet rkvrcteytl-iznzcyghebsnv-ssywvkfv 1 tab PO Q8H PRN PRN headache 01/25/24 Unknown History 50 mg-325 mg-40 mg tablet carvedilol 12.5 mg tablet 12.5 mg PO BID 01/25/24 Unknown History hydrocodone-acetaminophen 5-325mg 1 tab PO Q8H PRN pain 2 days #6 01/25/24 Unknown Rx 5mg-325mg tabs lisinopril 40 mg tablet 40 mg PO DAILY 01/25/24 Unknown History acetaminophen 300 mg-codeine 30 mg 1 tab PO Q6H PRN pain 3 days #8 02/10/24 Unknown Rx tablet tabs amoxicillin 500 mg capsule 500 mg PO TID #30 caps 02/10/24 Unknown Rx Allergy/AdvReac Type Severity Reaction Status Date / Time ketorolac (From Toradol) Allergy Swelling Verified 02/10/24 10:13 NSAIDS (Non-Steroidal Allergy Swelling Verified 02/10/24 10:13 Anti-Inflamma prochlorperazine edisylate AdvReac Other Verified 02/10/24 10:13 (From Compazine) prochlorperazine maleate AdvReac Other Verified 02/10/24 10:13 (From Compazine) Surgical History History of hysterectomy History of appendectomy Social History Smoking Status: Current every day smoker tobacco type: cigarettes ROS ROS ED ROS Narrative Focused review of systems positive for right lower jaw pain and tooth pain. No fevers or chills, no nausea or vomiting. Mild swelling of right lower jaw, no erythema. EXAM Physical Exam Narrative Exam Narrative: Afebrile. Vital signs noted. Nontoxic-appearing. Regular rate and rhythm. Lungs clear to auscultation bilaterally. Abdomen soft nontender with normoactive bowel sounds, neurological examination nonfocal and nonlateralizing. Inspection of the mouth does reveal poor dentition diffusely in the lower jaw. No drooling or trismus. Airway patent. No Lele angina. She does have areas where she is adentulous. There is a large dental carry with only a small portion remaining of the tooth above the gumline in the area of tooth 29. Const Vital Signs: 02/10/24 10:11 Temperature 97.4 F L Temperature Source Temporal Pulse Rate 76 Respiratory Rate 16 Blood Pressure 170/96 H Blood Pressure Mean 120 Pulse Ox 95 Oxygen Delivery Method Room Air MDM MDM MDM Narrative Medical decision making narrative: Concern would be for periapical abscess. There is no gingival abscess which requires incision and drainage. Smoking cessation was discussed. She was given her first dose of amoxicillin 500 mg here in the emergency department and prescription written to take 3 times daily for the next 10 days. For analgesia as she has allergy to multiple NSAIDs, I will write her prescription for 8 tablets of Tylenol 3. She was told that further narcotics should come from her primary care provider. I feel she be discharged to follow-up with her dentist. Return instructions to the emergency department were reviewed. Disposition is discharged home in stable condition. History & Record Review Discussion w/independent historian: Patient Discharge Plan Triage Chief Complaint: Dental ED Provider: Harsha Fowler Dx/Rx/DC Orders Clinical Impression: Pain due to dental caries, Dental abscess Instructions: ED Dental Pain, ED Dental Cavity, ED Dental Abscess Prescriptions: New amoxicillin 500 mg capsule 500 mg PO TID Qty: 30 0RF acetaminophen-codeine 300-30 mg tablet 1 tab PO Q6H PRN (Reason: pain) 3 Days Qty: 8 0RF No Action atorvastatin 20 MG tablet 60 mg PO DAILY lisinopril 20 MG tablet 40 mg PO DAILY amlodipine 10 MG tablet 10 mg PO DAILY ondansetron 4 mg tablet,disintegrating 4 mg PO Q8H PRN PRN (Reason: Nausea) Qty: 14 0RF hydrocodone-acetaminophen 5-325 mg tablet 1 tab PO Q6H PRN PRN (Reason: Pain) 3 Days Qty: 12 0RF ondansetron 4 mg tablet,disintegrating 4 mg PO Q8H PRN PRN (Reason: Nausea) Qty: 14 0RF carvedilol 12.5 mg tablet 12.5 mg PO BID zpdcaoihno-tquzmdeymalvt-ptpt 50-325-40 mg tablet 1 tab PO Q8H PRN PRN (Reason: headache) lisinopril 40 mg tablet 40 mg PO DAILY hydrocodone-acetaminophen 5-325 mg tablet 1 tab PO Q8H PRN (Reason: pain) 2 Days Qty: 6 0RF Primary Care Provider: Rich Ravi Referrals: Rich Ravi MD [Primary Care Provider] - Dentist,Your [STAFF PHYSICIAN] - As soon as possible Activity Restrictions/Additional Instructions: Stop smoking. Follow-up with a dentist as soon as possible. Print Language: Sri Lankan Disposition Disposition: Home, Self Care
[2024-02-10] MEDS: AMOXICILLIN 500 MG CAPSULE PO (10:54)
== END 2024-02-10 10:57 | disposition home or self-care (01) ==
LOC: ED 10:42
PROVIDERS: Emergency Provider Emergency Medicine; PCP Internal Medicine; Visit Provider Emergency Medicine
DX: K04.7 Periapical abscess without sinus (principal); K02.9 Dental caries, unspecified; I10 Essential (primary) hypertension; E78.5 Hyperlipidemia, unspecified; F17.210 Nicotine dependence, cigarettes, uncomplicated; Z79.899 Other long term (current) drug therapy
CPT/HCPCS: 99282

== ENCOUNTER 2024-08-08 13:35 | Emergency (ER) | payer SELFPAY ==
[2024-08-08 13:40] VITALS: BP 145/119; PULSE 89; RESP 16; TEMP 36.4; O2SAT 100
[2024-08-08] MEDS: Ondansetron 4 MG/2 ML Vial IV (13:52)
[2024-08-08 14:10] LABS: Absolute Lymphocyte Count 2.35 X10^3/uL (0.83-4.51); Absolute Neutrophil Count 3.2 X10^3/uL (2.0-7.7); Basophil# 0.11 X10^3/uL; Basophil% 1.7 % (0-1); Eosinophil# 0.24 X10^3/uL; Eosinophils% 3.7 % (0-5); Hematocrit 43.3 % (37-47); Hemoglobin 14.6 g/dL (12.0-15.0); Lymphocyte # 2.35 X10^3/ul (0.83-4.51); Lymphocyte % 36.6 % (19-41); Mean Corp Hgb Conc 33.7 g/dL (32-36); Mean Corpuscular Volume 86.1 fL (81-99); Mean Platelet Vol. 9.8 fl (6.2-12.0); Monocyte# 0.52 X10^3/uL; Monocyte% 8.1 % (0-10); NRBC Flagged by Analyzer 0 % (0-5); Neutrophil # 3.17 X10^3/uL (2.7-7.7); Neutrophil % 49.4 % (47-70); Platelet Count 264 K/mm3 (150-450); RBC Distribution Width CV 13.2 % (11.6-14.6); RBC Distribution Width SD 41.1 fl (35.1-43.9); Red Blood Count 5.03 M/mm3 (4.2-5.4); White Blood Count 6.4 K/mm3 (4.4-11.0)
[2024-08-08 14:32] VITALS: BMI 31.3
[2024-08-08 14:32] LABS: Bacteria 0 SEEN /hpf (None Seen); Mucous, Urine 0 SEEN /hpf (<or=2+); Red Blood Cells-Urine 0 SEEN /hpf (0-5)
[2024-08-08 14:44] LABS: Color, Urine Yellow (Yellow); Glucose, Dipstick Normal (Normal); Ketone-Dipstick Negative (Negative); Leukocyte Esterase-Dipstick 25 /ul (Negative); Nitrite-Dipstick Negative (Negative); Occult Blood-Urine 10 /ul (Negative); Protein-Dipstick Negative (Negative); Urine Bilirubin Dipstick Negative (Negative); Urine Clarity Clear (Clear); Urine Urobilinogen Normal (Normal)
[2024-08-08 14:56] LABS: AST(SGOT) 14 U/L (15-37); Alanine Aminotransfer ALT/SGPT 27 U/L (13-56); Alkaline Phosphatase 114 U/L (45-117); Anion Gap 7 (5-15); BUN 16 mg/dL (7-18); BUN/Creat Ratio 17.9 RATIO (10-20); Calcium,Total 9.5 mg/dL (8.5-10.1); Chloride 103 mmol/L (98-107); Creatinine, Serum 0.89 mg/dL (0.55-1.02); EST Glomerular Filtration Rate 70 mL/min (>60); Est Glom Filt Rate - Afr Amer 84 mL/min (>60); Globulin 4.2 g/dL (2.2-4.2); Glucose 91 mg/dL (74-106); Potassium 3.9 mmol/L (3.5-5.1); Protein, Total 8.2 g/dL (6.4-8.2); Sodium Level 135 mmol/L (136-145)
[2024-08-08 14:57] LABS: Squamous Epithelial Cells - UA 0-5 SEEN /hpf (5-10); White Blood Cells 0-5 SEEN /hpf (0-5)
--- NOTE | 2024-08-08 14:58 | CT_ITS ---
PROCEDURE: ABDOMEN/PELVIS WITHOUT CONT REASON FOR EXAM: Left flank pain. Nausea. History of kidney stones. TECHNIQUE: Abdomen and pelvis CT without intravenous contrast; renal stone protocol. COMPARISON: CT examination of 01/25/2024. FINDINGS: Lung bases: Clear Liver: Unremarkable. Gallbladder: Unremarkable. Spleen: Unremarkable. Pancreas: Unremarkable. Adrenals: Unremarkable. Kidneys: A few bilateral tiny nonobstructive renal calculi are noted, only slightly changed from the prior comparison study of 01/25/2024. No evidence of hydronephrosis or hydroureter. No calculus is seen at either ureter or ureteral vesicular junction. No renal mass is seen on this noncontrasted examination. Bladder: The urinary bladder is mostly empty, without apparent abnormality. No calculus is identified.. Bowel: Mild sigmoid diverticulosis.. Lymph nodes: No suspicious lymph node enlargement. Vasculature: Major vascular structures are unremarkable. Peritoneum / Retroperitoneum: No ascites. No free air. Bones: No acute process is seen large chronic appearing Schmorl's node at the superior T10 vertebral body.. CT/Abdomen/Pelvis without Cont IMPRESSION: 1. Bilateral nephrolithiasis. No hydronephrosis or hydroureter is seen. 2. Mild sigmoid diverticulosis. One or more dose reduction techniques were used (e.g., Automated exposure contr ol, adjustment of the mA and/or kV according to patient size, use of iterative reconstruction technique). Reading Location: [address]
[2024-08-08] MEDS: morphine 8 MG/ML Syringe 6 MG IV (15:13)
[2024-08-08] MEDS: 0.9% Normal Saline (1000mL) 1,000 ML 999 ML IV (15:18)
[2024-08-08 15:36] VITALS: BP 143/87; PULSE 90; RESP 18; O2SAT 99
[2024-08-08] MEDS: Lidocaine 5% Patch 1 PATCH TOPICAL (16:33)
[2024-08-08] MEDS: HYDROcodone Bitartrate/Apap 5/325 Tablet PO (16:33)
--- NOTE | 2024-08-08 16:35 | EDS_ITS ---
HPI History of Present Illness Chief Complaint: Flank Pain Informant: patient Narrative Narrative: Patient is a 53-year-old female with history of prior kidney stones requiring intervention in the past, hypertension, prior appendectomy and hysterectomy presenting with sudden onset of left back pain that radiates to her left groin. States it feels like her prior kidney stones. She is the pain is more severe than they have been recent in the past. She was she woke up with some more cramping milder pain in her back became particularly severe between 930 and 10 AM. 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 Does have associated nausea and vomited 5 times. Did receive Zofran in triage. Denies any urinary symptoms such as dysuria or hematuria. States her stents were done at [facility]. No fevers or chills reported. No other abdominal pain. No other complaints or concerns reported this time. Does have a history of anaphylactic allergic reaction to Toradol. [facility] Medical History Depression Smoker Hyperlipidemia Hypertension Kidney stones Home Medications ?Medication ?Instructions ?Recorded ?Last Taken ?Type atorvastatin 20 mg tablet 60 mg PO DAILY 05/10/1707/10 History lisinopril 20 mg tablet 40 mg PO DAILY 01/26/19 Unkn own History amlodipine 10 mg tablet 10 mg PO DAILY 08/07/20 Unkn own History ougzzanddl-yabkylwcqmhrv-sofgroly 1 tab PO Q8H PRN PRN headache 01/25/24 Unknown History 50 mg-325 mg-40 mg tablet carvedilol 12.5 mg tablet 12.5 mg PO BID 01/25/24 Unkn own History lisinopril 40 mg tablet 40 mg PO DAILY 01/25/24 Unkn own History acetaminophen 300 mg-codeine 30 mg 1 tab PO Q6H PRN pa in 3 days #8 02/10/24 Unknown Rx tablet tabs carvedilol 25 mg tablet 25 mg PO BID 08/08/24 Unknow n History Allergy/AdvReac Type Severity Reaction Status Date / Time ketorolac (From Toradol) Allergy Swelling Verified 02/10/24 10:13 NSAIDS (Non-Steroidal Allergy Swelling Verified 02/10/24 10:13 Anti-Inflamma prochlorperazine edisylate AdvReac Other Verified 02/10/24 10:13 (From Compazine) prochlorperazine maleate AdvReac Other Verified 02/10/24 10:13 (From Compazine) Surgical History History of hysterectomy History of appendectomy Social History Smoking Status: Current every day smoker tobacco type: cigarettes ROS ROS ED Constitutional Constitutional ED: Denies chills or fever(s) Respiratory/Chest Respiratory/Chest: Denies cough Gastrointestinal Gastrointestinal: Reports abdominal pain, nausea and vomiting; Denies constipation or diarrhea Genitourinary Genitourinary ED: Denies dysuria, hematuria or urinary frequency Musculoskeletal Musculoskeletal: Reports back pain Neurologic Neurologic: Denies paresthesias or weakness EXAM Physical Exam Const Vital Signs: 08/08/24 13:40 Temperature 97.5 F L Temperature Source Temporal Pulse Rate 89 Respiratory Rate 16 Blood Pressure 145/119 H Blood Pressure Mean 127 Pulse Ox 100 Oxygen Delivery Method Room Air Positive well nourished and well developed General Appearance ED: well developed and NAD HEENT Reports moist mucous membranes Neck supple Chest Wall inspection of chest normal and palpation of chest normal Resp normal respiratory effort and clear to auscultation bilaterally Cardio regular rate and regular rhythm GI normal to inspection, nondistended, normoactive bowel sounds and non-tender Auscultation: normoactive bowel sounds Palpation: soft; Negative for tender or guarding Back/Spine no CVA tenderness Thoracic Spine / Upper Back: Negative for thoracic spinal tenderness Lumbar Spine / Lower Back: Negative for lumbar spinal tenderness Extremity normal to inspection General Extremety ED: Negative for edema General Extremity: Negative for edema Neuro oriented x3 Sensorium / Orientation: alert Psych Mood & Affect: anxious Skin no rashes or lesions noted and no wounds MDM MDM MDM Narrative Medical decision making narrative: Patient valuated for 1 day of left-sided flank pain. It radiates into her groin. Patient appears in mild distress upon arrival secondary to her pain. She had protocol labs including CBC, BMP and urinalysis obtained. CT flank study is ordered in addition patient is given 6 mg IV morphine. She is given IV fluids. Is not given NSAIDs because of her history of allergy. Differential includes renal colic, pyelonephritis, musculoskeletal pain (lower suspicion given that does not change with movement), volvulus or intra-abdominal surgical process (lower suspicion she does not have any change in bowel movements reported and abdominal exam is soft/benign). Repeat evaluation patient does have some improvement of pain but it is still there. CT flank does not show any acute hydroureter or actively passing kidney stones. She has mild sigmoid diverticulosis but no signs of diverticulitis. This is possible patient had a kidney stone but already passed it. Is informed of these findings. Is given a dose of [place]. Anticipate that she did pass a kidney stone the pain should start to improve. Encouraged follow-up with her primary care doctor. Given return precautions. Discharged home in improved and stable condition. Lab Data Labs: Laboratory Results - last 24 hr 08/08/24 08/08/24 13:46 14:30 WBC 6.4 RBC 5.03 Hgb 14.6 Hct 43.3 MCV 86.1 MCH 29.0 MCHC 33.7 RDW Std Deviation 41.1 RDW Coeff of Jennifer 13.2 Plt Count 264 MPV 9.8 Immature Gran % (Auto) 0.500 Neut % (Auto) 49.4 Lymph % (Auto) 36.6 [place] % (Auto) 8.1 Eos % (Auto) 3.7 Baso % (Auto) 1.7 H Absolute Neuts (auto) 3.2 Absolute Lymphs (auto) 2.35 Nucleated RBC % 0 Sodium 135 L Potassium 3.9 Chloride 103 Carbon Dioxide 25.0 Anion Gap 7 BUN 16 Creatinine 0.89 Estim Creat Clear Calc 72.50 Est GFR (MDRD) Af Amer 84 Est GFR (MDRD) Non-Af 70 BUN/Creatinine Ratio 17.9 Glucose 91 Calcium 9.5 Total Bilirubin 0.20 AST 14 L ALT 27 Alkaline Phosphatase 114 Total Protein 8.2 Albumin 4.0 Globulin 4.2 Albumin/Globulin Ratio 1.0 Urine Color Yellow Urine Clarity Clear Urine pH 6.0 Ur Specific [place] 1.020 Urine Protein Negative Urine Glucose (UA) Normal Urine Ketones Negative Urine Occult Blood 10 H Urine Nitrite Negative Urine Bilirubin Negative Urine Urobilinogen Normal Ur Leukocyte Esterase 25 H Urine RBC 0 SEEN Urine WBC 0-5 SEEN Ur Squamous Epith Cells 0-5 SEEN Urine Bacteria 0 SEEN Urine Mucus 0 SEEN Radiography Diagnostic Testing: Clinical Impression(s) from Imaging Studies Abdomen/Pelvis CT 08/08/24 14:58 IMPRESSION: 1. Bilateral nephrolithiasis. No hydronephrosis or hydroureter is seen. 2. Mild sigmoid diverticulosis. One or more dose reduction techniques were used (e.g., Automated exposure control, adjustment of the mA and/or kV according to patient size, use of iterative reconstruction technique). Reading Location: [address] Discharge Plan Triage Chief Complaint: Flank Pain ED Provider: Ines Wei Dx/Rx/DC Orders Clinical Impression: Acute flank pain Instructions: ED Flank Pain, Uncertain Cause Prescriptions: No Action atorvastatin 20 MG tablet 60 mg PO DAILY lisinopril 20 MG tablet 40 mg PO DAILY amlodipine 10 MG tablet 10 mg PO DAILY carvedilol 25 mg tablet 25 mg PO BID carvedilol 12.5 mg tablet 12.5 mg PO BID uyrtzbhvid-qviyiybpobrpj-vxyj 50-325-40 mg tablet 1 tab PO Q8H PRN PRN (Reason: headache) lisinopril 40 mg tablet 40 mg PO DAILY acetaminophen-codeine 300-30 mg tablet 1 tab PO Q6H PRN (Reason: pain) 3 Days Qty: 8 0RF Primary Care Provider: Rich Ravi Referrals: Rich aRvi MD [Primary Care Provider] - Activity Restrictions/Additional Instructions: The cause of your pain is not clear at this time however there is not appear to be an acute kidney stone. Your lab work appears to be normal at baseline. There is no signs of a kidney or urinary infection. Take Tylenol and use Lidoderm patch as needed for pain. Print Language: Frisian Disposition Disposition: Home, Self Care
[2024-08-08 16:37] VITALS: BP 159/94; PULSE 66; RESP 16; TEMP 36.7; O2SAT 98
== END 2024-08-08 16:38 | disposition home or self-care (01) ==
PROVIDERS: Emergency Provider Emergency Medicine; PCP Internal Medicine; Visit Provider Emergency Medicine
DX: R10.9 Unspecified abdominal pain (principal); I10 Essential (primary) hypertension; E78.5 Hyperlipidemia, unspecified; F17.210 Nicotine dependence, cigarettes, uncomplicated; Z79.899 Other long term (current) drug therapy
CPT/HCPCS: 74176; 80053; 81001; 85025; 96361; 96374; 96375; 99285; A4216; J2405

== ENCOUNTER 2024-11-09 17:28 | Emergency (ER) | payer SELFPAY ==
[2024-11-09 17:29] VITALS: BP 191/109; PULSE 86; RESP 18; TEMP 36.8; O2SAT 99; BMI 34.3
--- NOTE | 2024-11-09 17:47 | ED.VIS.GI ---
HPI HPI - GI History of Present Illness Chief Complaint: Flank Pain Informant: patient Abdominal Pain/Flank Pain Onset: Today and Hours Context: Gradual Onset Timing: Continuous Quality: Sharp Location: Left Flank Current Severity: Moderate Maximum Severity: Moderate Worsened by: Nothing Relieved by: Nothing Nausea/Vomiting/Emesis GI Symptom: Positive for Nausea and Vomiting Onset: Today Severity: Mild Diarrhea/Melena/Hematochezia GI Symptom: Negative for Diarrhea, Melena or Hematochezia Associated Symptoms Associated Symptoms: Negative for Dysuria, Frequency, Hematuria or Urgency Narrative Narrative: 54-year-old female history of kidney stones, hypertension prior appendectomy and cholecystectomy. Seffinger and left flank pain. Described as sharp and crampy in nature. Associated nausea vomiting. No dysuria. No fever. No gross hematuria. States it feels like one of her prior kidney stones. Prior similar symptoms: Yes Recent Illness/Hospitalization: No [facility] Medical History Depression Smoker Hyperlipidemia Hypertension Kidney stones Home Medications ?Medication ?Instructions ?Recorded ?Last Taken ?Type atorvastatin 20 mg tablet 60 mg PO DAILY 05/10/17 07/28/18 History lisinopril 20 mg tablet 40 mg PO DAILY 01/26/19 Unknown History amlodipine 10 mg tablet 10 mg PO DAILY 08/07/20 Unknown History ddltsvnulz-wsqdggsdbgltj-yyereiag 1 tab PO Q8H PRN PRN headache 01/25/24 Unknown History 50 mg-325 mg-40 mg tablet carvedilol 12.5 mg tablet 12.5 mg PO BID 01/25/24 Unknown History lisinopril 40 mg tablet 40 mg PO DAILY 01/25/24 Unknown History acetaminophen 300 mg-codeine 30 mg 1 tab PO Q6H PRN pain 3 days #8 02/10/24 Unknown Rx tablet tabs carvedilol 25 mg tablet 25 mg PO BID 08/08/24 Unknown History Allergy/AdvReac Type Severity Reaction Status Date / Time ketorolac (From Toradol) Allergy Swelling Verified 11/09/24 17:29 NSAIDS (Non-Steroidal Allergy Swelling Verified 11/09/24 17:29 Anti-Inflamma prochlorperazine edisylate AdvReac Other Verified 11/09/24 17:29 (From Compazine) prochlorperazine maleate AdvReac Other Verified 11/09/24 17:29 (From Compazine) Surgical History History of hysterectomy History of appendectomy Social History Smoking Status: Current every day smoker tobacco type: cigarettes ROS ROS ED ROS Narrative Left flank pain. Nausea vomiting. Constitutional Constitutional ED: Denies chills or fever(s) ENT ENT ED: Denies ear pain Cardiovascular Cardiovascular: Denies chest pain Respiratory/Chest Respiratory/Chest: Denies cough or dyspnea Gastrointestinal Gastrointestinal: Reports nausea and vomiting; Denies diarrhea Genitourinary Genitourinary ED: Denies dysuria or hematuria Musculoskeletal Musculoskeletal: Reports back pain and other Details: Left flank pain. ; Denies arthralgias Integumentary Denies abscess or Abrasions Neurologic Neurologic: Denies headache(s) Psychiatric Psychiatric: Denies anxiety Endocrine Endocrinology: Denies polydipsia Hematologic/Lymphatic Hematologic/Lymphatic: Denies easy bleeding Allergic/Immunologic Allergic/Immunologic ED: Denies mouth swelling, tongue swelling or urticaria EXAM Physical Exam Narrative Exam Narrative: 54-year-old female vital signs are stable afebrile initial pressure 191/109 suspect secondary to pain. H EENT exam is round react light. Mytrex members. Lungs clear to auscultation bilaterally. Heart regular rhythm rate about 85 no murmur. Chest wall ribs nontender. Abdomen soft, nontender, nondistended normal bowel sounds peritoneal signs. Back no reproducible pain. No rashes. No signs of trauma. Moving all 4 extremities. Nontender no edema. Normal strength. Normal range of motion. She is awake and alert. Const Vital Signs: 11/09/24 17:29 11/09/24 18:42 Temperature 98.3 F Temperature Source Oral Pulse Rate 86 75 Respiratory Rate 18 15 Blood Pressure 191/109 H 182/90 H Blood Pressure Mean 136 120 Pulse Ox 99 98 Oxygen Delivery Method Room Air Room Air Positive well nourished and well developed; Negative for cachectic, contractures or unkempt General Appearance ED: well developed and NAD; Negative for unkempt, cachectic, contractures or pallor Nutritional Appearance: Negative for cachectic HEENT Reports moist mucous membranes normocephalic and atraumatic; Negative for trauma or tenderness Eyes PERRL and EOMs intact bilaterally Neck no lymphadenopathy, supple and no JVD Resp normal respiratory effort and clear to auscultation bilaterally Cardio regular rate, regular rhythm, S1 normal heart sound, S2 normal heart sound and no murmurs GI non-tender, non-distended and no masses Inspection: Negative for abdominal distention Auscultation: normoactive bowel sounds Palpation: soft; Negative for tender, guarding or rebound tenderness present Back/Spine no CVA tenderness General Back: Negative for CVA tenderness Cervical Spine: Negative for cervical spine tenderness Thoracic Spine / Upper Back: Negative for thoracic spinal tenderness Lumbar Spine / Lower Back: Negative for lumbar spinal tenderness Coccyx: Negative for other Extremity full ROM General Extremety ED: Negative for edema or tenderness General Extremity: Negative for edema Neuro CN's II-XII intact bilaterally, moves all extremities and no sensory deficits noted Sensorium / Orientation: alert, oriented to person, oriented to place and oriented to time; Negative for orientation impaired, confused, lethargic or stuporous Motor Exam: strength 5/5 throughout Psych mental status grossly normal and thought process normal Appearance: Negative for unkempt Attitude: No agitated Mood & Affect: Negative for depressed, anxious or tearful Skin no wounds General Skin Exam: Negative for jaundice or pallor Lesions: no lesions Rashes: no rashes Trauma: Negative for abrasion Nails: Negative for discolored MDM MDM MDM Narrative Medical decision making narrative: 54-year-old female left flank pain history of multiple prior kidney stones. CAT scan and labs being obtained. Reportedly has a Toradol allergy. Will be given Dilaudid IV 1 mg and Zofran for nausea. Screening labs and UA. Repeat exam patient is doing well at 8 PM. She will be discharged home. Patient be discharged home. Motrin Tylenol for pain. History & Record Review Discussion w/independent historian: Patient Additional record(s) reviewed:: Prior inpatient record, Prior outpatient record, Prior ED visit and Prior labs Lab Data Attestation: I reviewed the patient's lab results. Lab results narrative: Chemistry is unremarkable gap 13. BUN/creatinine is 17 and 1. Glucose 65. UA shows no red or white cells. 1+ bacteria. No nitrates. CT of the abdomen showed no acute kidney stones. Multiple renal stones. Labs: Laboratory Results - last 24 hr 11/09/24 17:41 Sodium 142 Potassium 3.9 Chloride 106 Carbon Dioxide 22.9 Anion Gap 13 BUN 17 Creatinine 1.07 Estim Creat Clear Calc 62.50 Est GFR (MDRD) Non-Af 61 BUN/Creatinine Ratio 15.8 Glucose 65 L Calcium 9.2 Urine Color Straw Urine Clarity Clear Urine pH 7.0 Ur Specific [place] 1.010 Urine Protein Negative Urine Glucose (UA) Normal Urine Ketones Negative Urine Occult Blood Negative Urine Nitrite Negative Urine Bilirubin Negative Urine Urobilinogen Normal Ur Leukocyte Esterase 25 H Urine RBC 0 SEEN Urine WBC 0-5 SEEN Ur Squamous Epith Cells 0-5 SEEN Urine Bacteria 1+ Urine Mucus 0 SEEN Radiography Diagnostic Testing: Clinical Impression(s) from Imaging Studies Abdomen/Pelvis CT 11/09/24 18:00 IMPRESSION: 1. No acute findings in the abdomen and pelvis. 2. Multiple nonobstructing bilateral renal calculi, without hydronephrosis. 3. Colonic diverticulosis without diverticulitis. 4. Hepatomegaly without focal lesion. [facility] Plan Triage Chief Complaint: Flank Pain ED Provider: Sebastian Walters Dx/Rx/DC Orders Clinical Impression: Acute flank pain, Hx of renal calculi Instructions: ED Flank Pain, Uncertain Cause Prescriptions: No Action atorvastatin 20 MG tablet 60 mg PO DAILY lisinopril 20 MG tablet 40 mg PO DAILY amlodipine 10 MG tablet 10 mg PO DAILY carvedilol 25 mg tablet 25 mg PO BID carvedilol 12.5 mg tablet 12.5 mg PO BID nfqkvvjeyo-ppxshpwuhtkeb-cwni 50-325-40 mg tablet 1 tab PO Q8H PRN PRN (Reason: headache) lisinopril 40 mg tablet 40 mg PO DAILY acetaminophen-codeine 300-30 mg tablet 1 tab PO Q6H PRN (Reason: pain) 3 Days Qty: 8 0RF Primary Care Provider: Rich Ravi Referrals: Rich Ravi MD [Primary Care Provider] - 3-5 Days if not improving Activity Restrictions/Additional Instructions: No acute kidney stone. Motrin and Tylenol for pain. Your labs and urine look good. No infection. Follow-up with your doctor as needed. Print Language: Belarusian Disposition Disposition: Home, Self Care
[2024-11-09] MEDS: Ondansetron 4 MG/2 ML Vial IV (17:55)
[2024-11-09] MEDS: HYDROmorphone 1 MG/ML Syringe IV (17:56)
[2024-11-09 17:59] LABS: Mucous, Urine 0 SEEN /hpf (<or=2+); Red Blood Cells-Urine 0 SEEN /hpf (0-5)
--- NOTE | 2024-11-09 18:00 | CT_ITS ---
PROCEDURE: ABDOMEN/PELVIS WITHOUT CONT 11/09/2024 REASON FOR EXAM: PAIN TECHNIQUE: Abdomen and pelvis CT without intravenous contrast. Noncontrast technique limits evaluation of the abdominal and pelvic viscera. Coronal and Sagittal reconstruction series were provided. One or more dose reduction techniques were used (e.g., Automated exposure control, adjustment of the mA and/or kV according to patient size, use of iterative reconstruction technique). PATIENT PREPARATION: Per protocol ORAL CONTRAST TYPE: None. AMOUNT: mL COMPARISON: CT abdomen and pelvis 08/08/2024 FINDINGS: Lung bases: 4 mm right lower lobe nodule (series 2, image 21). Liver: Hepatomegaly, craniocaudal length 20 cm. No focal lesion. Gallbladder: No ductal dilation. Gallbladder is unremarkable. Spleen: Normal size. Pancreas: Normal size. No surrounding inflammation. Adrenals: Unremarkable Kidneys: Several bilateral nonobstructing calculi, measuring up to 4 mm. No hydronephrosis. No suspicious mass. Bladder: Unremarkable. Reproductive Organs: No pelvic mass. Bowel: Stomach is mildly distended. No bowel dilation or wall thickening. Colonic diverticulosis without diverticulitis. Moderate colonic stool. Appendix: Appendectomy. Lymph nodes: No suspicious lymph node enlargement. Vasculature: The abdominal aorta and IVC contours are normal. Noncontrast technique limits evaluation. Mild atherosclerotic calcification. Peritoneum / Retroperitoneum: No ascites. No pneumoperitoneum. Bones: Degenerative changes of the spine. Soft tissue: Unremarkable. CT/Abdomen/Pelvis without Cont IMPRESSION: 1. No acute findings in the abdomen and pelvis. 2. Multiple nonobstructing bilateral renal calculi, without hydronephrosis. 3. Colonic diverticulosis without diverticulitis. 4. Hepatomegaly without focal lesion. [facility]
[2024-11-09 18:05] LABS: Color, Urine Straw (Yellow); Glucose, Dipstick Normal (Normal); Ketone-Dipstick Negative (Negative); Leukocyte Esterase-Dipstick 25 /ul (Negative); Nitrite-Dipstick Negative (Negative); Occult Blood-Urine Negative /ul (Negative); Protein-Dipstick Negative (Negative); Urine Bilirubin Dipstick Negative (Negative); Urine Clarity Clear (Clear); Urine Urobilinogen Normal (Normal)
[2024-11-09 18:13] LABS: Bacteria 1+ /hpf (None Seen); Squamous Epithelial Cells - UA 0-5 SEEN /hpf (5-10); White Blood Cells 0-5 SEEN /hpf (0-5)
[2024-11-09 18:19] LABS: Anion Gap 13 (5-15); BUN 17 mg/dL (4-19); BUN/Creat Ratio 15.8 RATIO (10-20); Calcium,Total 9.2 mg/dL (7.6-11.0); Carbon Dioxide 22.9 mmol/L (21.0-32.0); Chloride 106 mmol/L (98-108); Creatinine, Serum 1.07 mg/dL (0.70-1.20); EST Glomerular Filtration Rate 61 (>60); Glucose 65 mg/dL (70-99); Potassium 3.9 mmol/L (3.3-5.1); Sodium Level 142 mmol/L (133-145)
[2024-11-09 18:42] VITALS: BP 182/90; PULSE 75; RESP 15; O2SAT 98
[2024-11-09 20:07] VITALS: BP 150/100; PULSE 75; RESP 14; TEMP 37.1; O2SAT 97
== END 2024-11-09 20:08 | disposition home or self-care (01) ==
PROVIDERS: Emergency Provider Emergency Medicine; PCP Internal Medicine; Visit Provider Emergency Medicine
DX: R10.9 Unspecified abdominal pain (principal); I10 Essential (primary) hypertension; E78.5 Hyperlipidemia, unspecified; F17.210 Nicotine dependence, cigarettes, uncomplicated; Z79.899 Other long term (current) drug therapy; Z87.442 Personal history of urinary calculi
CPT/HCPCS: 74176; 80048; 81001; 96374; 96375; 99283; A4216; J2405

== ENCOUNTER 2025-05-09 15:37 | Emergency (ER) | payer SELFPAY ==
[2025-05-09 15:38] VITALS: BP 196/102; PULSE 89; RESP 20; TEMP 36.3; O2SAT 98; BMI 35.2
--- NOTE | 2025-05-09 15:50 | EX.ED.DYSGE1 ---
HPI History of Present Illness Chief Complaint: Flank Pain Detail of Chief Complaint: Acute right flank pain Informant: patient Onset/Context/Timing Onset: Today (Became constant and severe several hours prior to presentation.) and Yesterday (Initial episode was yesterday. Was mild. It was waxing and waning.) Context: Sudden Onset Timing: Continuous and Waxes and wanes Quality: Colicky Location: Right flank radiating anteriorly Current Severity: Severe Maximum Severity: Severe Worsened by: Nothing Relieved by: Nothing Associated Symptoms Associated Symptoms: nausea and vomiting x 1 prior to arrival Narrative Narrative: Patient is a 54-year-old woman. She has history of hypertension. She also has history of elevated cholesterol based on medication. She has no known history of cardiac disease. Patient states she has had prior kidney stones. Has not had 1 in some time. She has not seen a urologist recently. She states she is not sure if this is a kidney stone or infection. She denied fever, chills night sweats. She does endorse frequency, urgency and denies dysuria or hematuria. Patient denies cardiac or respiratory symptoms. There is no history of direct or indirect trauma. Patient is not noted a rash. Prior similar symptoms: Yes Recent Illness/Hospitalization: No PFSH PFS Medical History Depression Smoker Hyperlipidemia Hypertension Kidney stones Home Medications ?Medication ?Instructions ?Recorded ?Last Taken ?Type atorvastatin 20 mg tablet 60 mg PO DAILY 05/10/17 07/28/18 History lisinopril 20 mg tablet 40 mg PO DAILY 01/26/19 Unknown History amlodipine 10 mg tablet 10 mg PO DAILY 08/07/20 Unknown History dykbonsung-ugqjmhyqmvztl-kqgeucok 1 tab PO Q8H PRN PRN headache 01/25/24 Unknown History 50 mg-325 mg-40 mg tablet carvedilol 12.5 mg tablet 12.5 mg PO BID 01/25/24 Unknown History lisinopril 40 mg tablet 40 mg PO DAILY 01/25/24 Unknown History acetaminophen 300 mg-codeine 30 mg 1 tab PO Q6H PRN pain 3 days #8 02/10/24 Unknown Rx tablet tabs carvedilol 25 mg tablet 25 mg PO BID 08/08/24 Unknown History Allergy/AdvReac Type Severity Reaction Status Date / Time ketorolac (From Toradol) Allergy Swelling Verified 05/09/25 15:38 NSAIDS (Non-Steroidal Allergy Swelling Verified 05/09/25 15:38 Anti-Inflamma prochlorperazine edisylate AdvReac Other Verified 05/09/25 15:38 (From Compazine) prochlorperazine maleate AdvReac Other Verified 05/09/25 15:38 (From Compazine) Surgical History History of hysterectomy History of appendectomy Social History Smoking Status: Current every day smoker tobacco type: cigarettes ROS ROS ED Constitutional Constitutional ED: Denies chills, fever(s), subjective or sweats Eyes Eyes: Denies change in vision ENT ENT ED: Denies rhinorrhea or sore throat Cardiovascular Cardiovascular: Denies chest pain or palpitations Respiratory/Chest Respiratory/Chest: Denies cough, dyspnea or dyspnea on exertion Gastrointestinal Gastrointestinal: Reports abdominal pain, nausea, vomiting and other Details: Denies hematemesis or coffee-ground emesis. ; Denies constipation, diarrhea or melena Genitourinary Genitourinary ED: Reports LMP (females 10-50) Details: Comment: (Postmenopausal.) and urinary frequency; Denies dysuria or hematuria Musculoskeletal Musculoskeletal: Denies arthralgias, back pain, myalgias or neck pain Integumentary Denies abscess, Abrasions or rash Neurologic Neurologic: Denies headache(s) or paresthesias Hematologic/Lymphatic Hematologic/Lymphatic: Reports systems reviewed and no addt'l complaints, except as documented EXAM Physical Exam Const Vital Signs: 05/09/25 15:38 Temperature 97.4 F L Temperature Source Temporal Pulse Rate 89 Respiratory Rate 20 H Blood Pressure 196/102 H Blood Pressure Mean 133 Pulse Ox 98 Oxygen Delivery Method Room Air Positive well nourished and well developed Constitutional Narrative: Patient is in obvious discomfort. She is rocking on the bed. BMI is 35.2. Blood pressure is elevated most likely due to pain. General Appearance ED: well developed; Negative for pallor HEENT Reports moist mucous membranes HEENT Narrative: Head is atraumatic normocephalic. Ears normal. Nares patent Eyes PERRL and EOMs intact bilaterally General Eye ED: Negative for pale conjunctiva or scleral icterus Neck no lymphadenopathy, supple and no JVD Resp normal respiratory effort and clear to auscultation bilaterally Cardio regular rate, regular rhythm, S1 normal heart sound, S2 normal heart sound and no murmurs GI normal to inspection, nondistended, normoactive bowel sounds, non-tender, non-distended and no masses; Negative for hepatosplenomegaly Back/Spine no CVA tenderness Extremity normal to inspection General Extremety ED: Negative for tenderness Neuro oriented x3 and CN's II-XII intact bilaterally Sensorium / Orientation: alert Psych mental status grossly normal Skin no rashes or lesions noted, no wounds and skin turgor normal General Skin Exam: elasticity normal; Negative for jaundice or pallor MDM MDM MDM Narrative Medical decision making narrative: Differential diagnosis would include obstructing ureteral stone, obstructing large renal stone, pyelonephritis is unlikely. This may represent herpes varicella-zoster without rash since this just started. Will obtain appropriate blood work which includes a BMP to assess renal function, CBC to assess white count differential and UA to rule out infection. CT of the abdomen pelvis with out IV contrast was ordered. Because of patient's allergies to NSAIDs and Toradol with this being a significant IgE-mediated response we will treat her pain with IV morphine and Zofran for her nausea and vomiting. History & Record Review Additional record(s) reviewed:: Prior ED visit (ER visit in November 2024 for acute flank pain. She had at that time nonobstructing bilateral renal calculi without hydro. There is also evidence of diverticulosis. She also was seen February 05, 2025 for flank pain. At that time her diagnosis flank pain of unknown etiology. She at that time was noted t) and Prior labs Lab Data Attestation: I reviewed the patient's lab results. Lab results narrative: CBC is unremarkable/normal. UA is unremarkable. Labs: Laboratory Results - last 24 hr 05/09/25 15:55 WBC 6.9 RBC 5.05 Hgb 14.5 Hct 43.4 MCV 85.9 MCH 28.7 MCHC 33.4 RDW Std Deviation 42.0 RDW Coeff of Jennifer 13.4 Plt Count 317 MPV 9.4 Immature Gran % (Auto) 0.600 Neut % (Auto) 58.9 Lymph % (Auto) 27.9 [place] % (Auto) 7.4 Eos % (Auto) 3.3 Baso % (Auto) 1.9 H Absolute Neuts (auto) 4.1 Absolute Lymphs (auto) 1.93 Nucleated RBC % 0 Sodium 136 Potassium 3.8 Chloride 103 Carbon Dioxide 20.8 L Anion Gap 12 BUN 19 Creatinine 0.84 Estim Creat Clear Calc 80.65 Est GFR (MDRD) Non-Af 82 BUN/Creatinine Ratio 22.5 H Glucose 92 Calcium 9.7 Urine Color Yellow Urine Clarity Clear Urine pH 5.0 Ur Specific [place] 1.025 Urine Protein 30 H Urine Glucose (UA) Normal Urine Ketones Negative Urine Occult Blood 25 H Urine Nitrite Negative Urine Bilirubin Negative Urine Urobilinogen Normal Ur Leukocyte Esterase Negative Urine RBC 0-5 SEEN Urine WBC 0-5 SEEN Ur Squamous Epith Cells 0-5 SEEN Ur Transition Epith Cell 0-5 SEEN Urine Bacteria RARE Hyaline Casts 0-5 SEEN Urine Mucus RARE Radiography Diagnostic Testing: Clinical Impression(s) from Imaging Studies Abdomen/Pelvis CT 05/09/25 16:12 IMPRESSION: Nonobstructing small renal calculi. Relatively similar appearance on the prior study. Reading Location: [facility] CT of the abdomen pelvis without contrast reveals multiple renal stones the right. There is 1 possibly 2 renal stones on the left. There is no evidence of hydroureter or hydronephrosis. Awaiting formal read by radiologist. Since I do not appreciate any ureteral stone or hydronephrosis will not honor patient's request for more pain medicine. Of note her last several ER visits patient was found to have renal stones without evidence of hydroureter or hydronephrosis. The radiology report was read at 1753. Agree with the read. Treatment and Re-Evaluation :: Patient was informed of the CAT scan results, laboratory studies and that her blood pressure is elevated. She reports she is compliant with her medication. She is not on any diet restrictions. Recommended no salt and follow-up with Dr. Ravi her PCP this coming week. Discharge Plan Triage Chief Complaint: Flank Pain ED Provider: Bulmaro Douglas Dx/Rx/DC Orders Clinical Impression: Acute right flank pain, Bilateral kidney stones, Nausea & vomiting, Hypertension Instructions: ED Flank Pain with Uncertain Cause Prescriptions: No Action atorvastatin 20 MG tablet 60 mg PO DAILY lisinopril 20 MG tablet 40 mg PO DAILY amlodipine 10 MG tablet 10 mg PO DAILY carvedilol 25 mg tablet 25 mg PO BID carvedilol 12.5 mg tablet 12.5 mg PO BID pmvobbugii-jinlnuyeesfqp-gljr 50-325-40 mg tablet 1 tab PO Q8H PRN PRN (Reason: headache) lisinopril 40 mg tablet 40 mg PO DAILY acetaminophen-codeine 300-30 mg tablet 1 tab PO Q6H PRN (Reason: pain) 3 Days Qty: 8 0RF Primary Care Provider: Rich Ravi Referrals: Rich Ravi MD [Primary Care Provider, Internal Medicine] - 5-7 Days Activity Restrictions/Additional Instructions: You need to call your doctors office, Dr. Rich Ravi, to have your blood pressure rechecked in 5 to 7 days. Recommend no salt diet Print Language: Chinese Disposition Disposition: Home, Self Care
[2025-05-09] MEDS: 0.9% Normal Saline (1000mL) 1,000 ML 250 ML IV (16:00)
[2025-05-09 16:07] LABS: Color, Urine Yellow (Yellow); Glucose, Dipstick Normal (Normal); Hematocrit 43.4 % (37-47); Hemoglobin 14.5 g/dL (12.0-15.0); Immature Granulocytes Count 0.040 X10^3/uL (0.0-0.0); Ketone-Dipstick Negative (Negative); Leukocyte Esterase-Dipstick Negative /ul (Negative); Mean Corp Hgb Conc 33.4 g/dL (32-36); Mean Corpuscular Volume 85.9 fL (81-99); Mean Platelet Vol. 9.4 fl (6.2-12.0); NRBC Flagged by Analyzer 0 % (0-5); Nitrite-Dipstick Negative (Negative); Occult Blood-Urine 25 /ul (Negative); Platelet Count 317 K/mm3 (150-450); Protein-Dipstick 30 mg/dl (Negative); RBC Distribution Width CV 13.4 % (11.6-14.6); RBC Distribution Width SD 42.0 fl (35.1-43.9); Red Blood Count 5.05 M/mm3 (4.2-5.4); Specific Gravity, Urine 1.025 (1.002-1.030); Urine Bilirubin Dipstick Negative (Negative); White Blood Count 6.9 K/mm3 (4.4-11.0)
--- NOTE | 2025-05-09 16:12 | CT_ITS ---
PROCEDURE: CT/Abdomen/Pelvis without Cont
[2025-05-09 16:18] LABS: Mucous, Urine RARE /hpf (<or=2+); Red Blood Cells-Urine 0-5 SEEN /hpf (0-5); Squamous Epithelial Cells - UA 0-5 SEEN /hpf (5-10); Transitional Epithelial - Ur 0-5 SEEN /hpf (0-5)
[2025-05-09 16:38] LABS: Anion Gap 12 (5-15); BUN 19 mg/dL (4-19); BUN/Creat Ratio 22.5 RATIO (10-20); Calcium,Total 9.7 mg/dL (7.6-11.0); Carbon Dioxide 20.8 mmol/L (21.0-32.0); Chloride 103 mmol/L (98-108); Estimated Creatinine Clearance 80.65 ml/min (50-250); Glucose 92 mg/dL (70-99); Potassium 3.8 mmol/L (3.3-5.1)
[2025-05-09 18:23] VITALS: BP 188/96; PULSE 88; RESP 18; TEMP 36.6; O2SAT 98
== END 2025-05-09 18:26 | disposition home or self-care (01) ==
PROVIDERS: Emergency Provider Emergency Medicine; PCP Internal Medicine; Visit Provider Emergency Medicine
DX: R10.A3 Flank pain, bilateral (principal); R11.2 Nausea with vomiting, unspecified; I10 Essential (primary) hypertension; N20.0 Calculus of kidney; Z79.899 Other long term (current) drug therapy; E78.5 Hyperlipidemia, unspecified; F17.210 Nicotine dependence, cigarettes, uncomplicated; Z90.710 Acquired absence of both cervix and uterus; Z90.49 Acquired absence of other specified parts of digestive tract
CPT/HCPCS: 74176; 80048; 81001; 85025; 96361; 96374; 96375; 99283; A4216; J2405